=== PATIENT | male | born 1970 | race Caucasian/White ===

== ENCOUNTER 2019-02-13 08:28 | Outpatient (RCR) | payer MEDICARE, SELFPAY ==
[2019-02-13 09:12] LABS: INR 1.6; Prothrombin Time 16.5 Seconds (9.64-11.0)
== END 2019-05-14 23:59 | disposition home or self-care (01) ==
LOC: CHSLAB 08:28
PROVIDERS: PCP Family Medicine; Visit Provider Family Medicine
DX: I38 Endocarditis, valve unspecified (principal)
CPT/HCPCS: 36415; 85610

== ENCOUNTER 2019-06-17 10:17 | Outpatient (CLI) | payer BC, MEDICARE, SELFPAY ==
[2019-06-17 10:56] LABS: INR 3.9; Prothrombin Time 38.6 Seconds (9.64-11.0)
== END 2019-06-17 10:18 | disposition home or self-care (01) ==
LOC: CHSLAB 10:20
PROVIDERS: PCP Family Medicine
DX: Z79.01 Long term (current) use of anticoagulants (principal)
CPT/HCPCS: 36415; 85610

== ENCOUNTER 2019-08-31 08:52 | Outpatient (RCR) | payer BC, MEDICARE, SELFPAY ==
[2019-06-15 12:26] LABS: INR 3.7; Prothrombin Time 36.5 Seconds (9.64-11.0)
[2019-06-16 11:44] LABS: INR 4.6; Prothrombin Time 44.7 Seconds (9.64-11.0)
[2019-06-19 09:44] LABS: INR 1.9; Prothrombin Time 19.4 Seconds (9.64-11.0)
[2019-06-22 10:36] LABS: Prothrombin Time 39.1 Seconds (9.64-11.0)
[2019-06-23 08:38] LABS: INR 3.8; Prothrombin Time 37.7 Seconds (9.64-11.0)
[2019-07-03 08:23] LABS: Prothrombin Time 82.6 Seconds (9.64-11.0)
[2019-07-03 08:38] LABS: INR 8.6
[2019-07-05 09:57] LABS: INR 3.8; Prothrombin Time 37.1 Seconds (9.64-11.0)
[2019-07-06 09:02] LABS: INR 2.5; Prothrombin Time 24.9 Seconds (9.64-11.0)
[2019-07-13 09:43] LABS: INR 2.5; Prothrombin Time 24.7 Seconds (9.64-11.0)
[2019-07-20 09:21] LABS: INR 2.6; Prothrombin Time 25.7 Seconds (9.64-11.0)
[2019-07-27 10:50] LABS: INR 2.1; Prothrombin Time 21.5 Seconds (9.64-11.0)
[2019-08-17 16:31] LABS: INR 1.7; Prothrombin Time 17.5 Seconds (9.64-11.0)
[2019-08-24 09:40] LABS: INR 1.8; Prothrombin Time 18.3 Seconds (9.64-11.0)
[2019-08-31 09:10] LABS: Prothrombin Time 20.4 Seconds (9.64-11.0)
== END 2019-09-13 23:59 | disposition home or self-care (01) ==
LOC: CHSLAB 08:52
PROVIDERS: PCP Family Medicine
DX: Z79.01 Long term (current) use of anticoagulants (principal); I38 Endocarditis, valve unspecified
CPT/HCPCS: 36415; 85610

== ENCOUNTER 2019-12-04 08:48 | Outpatient (RCR) | payer BC, MEDICARE, SELFPAY ==
[2019-09-14 13:21] LABS: INR 2.5; Prothrombin Time 24.9 Seconds (9.64-11.0)
[2019-10-06 07:47] LABS: INR 3.7; Prothrombin Time 36.4 Seconds (9.64-11.0)
[2019-10-10 08:20] LABS: INR 3.3; Prothrombin Time 32.5 Seconds (9.64-11.0)
[2019-10-19 07:54] LABS: INR 3.1; Prothrombin Time 30.9 Seconds (9.64-11.0)
[2019-10-26 10:37] LABS: Prothrombin Time 30.1 Seconds (9.64-11.0)
[2019-11-09 08:18] LABS: INR 2.2; Prothrombin Time 22.6 Seconds (9.64-11.0)
[2019-11-13 08:23] LABS: INR 2.8; Prothrombin Time 27.7 Seconds (9.64-11.0)
[2019-11-27 08:20] LABS: INR 2.4; Prothrombin Time 24.2 Seconds (9.64-11.0)
[2019-12-04 09:22] LABS: INR 2.2; Prothrombin Time 21.8 Seconds (9.64-11.0)
== END 2019-12-13 23:59 | disposition home or self-care (01) ==
LOC: CHSLAB 08:48
PROVIDERS: PCP Family Medicine
DX: Z79.01 Long term (current) use of anticoagulants (principal); I38 Endocarditis, valve unspecified
CPT/HCPCS: 36415; 85610

== ENCOUNTER 2020-03-12 08:22 | Outpatient (RCR) | payer BC, MEDICARE, SELFPAY ==
[2019-12-19 08:03] LABS: INR 2.3; Prothrombin Time 23.1 Seconds (9.64-11.0)
[2019-12-26 08:11] LABS: INR 2.8; Prothrombin Time 28.3 Seconds (9.64-11.0)
[2020-01-09 08:01] LABS: INR 3.4; Prothrombin Time 33.5 Seconds (9.64-11.0)
[2020-02-05 10:29] LABS: INR 1.8; Prothrombin Time 18.3 Seconds (9.64-11.0)
[2020-02-12 11:31] LABS: INR 1.3; Prothrombin Time 13.2 Seconds (9.64-11.0)
[2020-02-19 11:10] LABS: INR 1.5; Prothrombin Time 15.6 Seconds (9.64-11.0)
[2020-02-26 13:41] LABS: INR 1.6; Prothrombin Time 16.3 Seconds (9.64-11.0)
[2020-03-12 08:47] LABS: Prothrombin Time 30.8 Seconds (9.50-12.10)
== END 2020-03-18 23:59 | disposition home or self-care (01) ==
LOC: CHSLAB 08:22
PROVIDERS: PCP Family Medicine; Visit Provider Family Medicine
DX: Z79.01 Long term (current) use of anticoagulants (principal)
CPT/HCPCS: 36415; 85610

== ENCOUNTER 2020-06-11 10:31 | Outpatient (RCR) | payer BC, MEDICARE, SELFPAY ==
[2020-03-25 09:25] LABS: INR 3.3; Prothrombin Time 34.5 Seconds (9.50-12.10)
[2020-04-09 11:54] LABS: INR 2.8; Prothrombin Time 28.8 Seconds (9.50-12.10)
[2020-05-06 10:01] LABS: INR 2.2
[2020-05-14 13:47] LABS: INR 2.5; Prothrombin Time 25.6 Seconds (9.50-12.10)
[2020-05-29 10:25] LABS: INR 2.4; Prothrombin Time 24.7 Seconds (9.50-12.10)
[2020-06-04 08:04] LABS: INR 2.4; Prothrombin Time 24.6 Seconds (9.50-12.10)
[2020-06-11 10:58] LABS: Prothrombin Time 30.6 Seconds (9.50-12.10)
== END 2020-06-23 23:59 | disposition home or self-care (01) ==
LOC: CHSLAB 10:31
PROVIDERS: PCP Family Medicine; Visit Provider Family Medicine
DX: Z79.01 Long term (current) use of anticoagulants (principal)
CPT/HCPCS: 36415; 85610

== ENCOUNTER 2020-10-01 15:45 | Outpatient (RCR) | payer BC, MEDICARE, SELFPAY ==
[2020-07-22 12:18] LABS: INR 2.7; Prothrombin Time 27.3 Seconds (9.50-12.10)
[2020-08-22 07:52] LABS: INR 2.6; Prothrombin Time 26.8 Seconds (9.50-12.10)
[2020-09-23 09:32] LABS: INR 3.6; Prothrombin Time 36.2 Seconds (9.50-12.10)
[2020-10-01 16:08] LABS: INR 2.6; Prothrombin Time 26.3 Seconds (9.50-12.10)
== END 2020-10-20 23:59 | disposition home or self-care (01) ==
LOC: CHSLAB 15:45
PROVIDERS: PCP Family Medicine; Visit Provider Family Medicine
DX: Z79.01 Long term (current) use of anticoagulants (principal); I38 Endocarditis, valve unspecified; Z95.2 Presence of prosthetic heart valve
CPT/HCPCS: 36415; 85610

== ENCOUNTER 2021-01-27 09:52 | Outpatient (RCR) | payer BC, OTHER, MEDICARE, SELFPAY ==
[2020-11-13 09:44] LABS: INR 2.7; Prothrombin Time 27.4 Seconds (9.50-12.10)
[2020-12-17 11:10] LABS: INR 4.1; Prothrombin Time 40.8 Seconds (9.50-12.10)
[2020-12-19 10:09] LABS: INR 1.8; Prothrombin Time 18.2 Seconds (9.50-12.10)
[2020-12-26 13:50] LABS: INR 3.9; Prothrombin Time 38.7 Seconds (9.50-12.10)
[2021-01-07 11:24] LABS: INR 3.8; Prothrombin Time 38.2 Seconds (9.50-12.10)
[2021-01-08 09:54] LABS: INR 2.9; Prothrombin Time 29.8 Seconds (9.50-12.10)
[2021-01-20 08:51] LABS: INR 2.3; Prothrombin Time 23.7 Seconds (9.50-12.10)
[2021-01-27 10:25] LABS: INR 2.9; Prothrombin Time 29.8 Seconds (9.50-12.10)
== END 2021-02-11 23:59 | disposition home or self-care (01) ==
LOC: CHSLAB 09:52
PROVIDERS: PCP Family Medicine; Visit Provider Family Medicine
DX: Z79.01 Long term (current) use of anticoagulants (principal); I38 Endocarditis, valve unspecified; Z95.2 Presence of prosthetic heart valve
CPT/HCPCS: 36415; 85610

== ENCOUNTER 2021-06-04 11:17 | Outpatient (RCR) | payer MEDICARE, SELFPAY ==
[2021-03-10 08:54] LABS: INR 2.5; Prothrombin Time 25.5 Seconds (9.50-12.10)
[2021-03-17 09:17] LABS: INR 3.5; Prothrombin Time 35.7 Seconds (9.50-12.10)
[2021-03-25 09:19] LABS: INR 3.2; Prothrombin Time 31.9 Seconds (9.50-12.10)
[2021-04-01 09:56] LABS: INR 3.3; Prothrombin Time 33.2 Seconds (9.50-12.10)
[2021-04-08 10:06] LABS: INR 3.4; Prothrombin Time 33.8 Seconds (9.50-12.10)
[2021-04-15 12:37] LABS: Prothrombin Time 40.1 Seconds (9.50-12.10)
[2021-04-16 12:36] LABS: INR 2.2; Prothrombin Time 23.1 Seconds (9.50-12.10)
[2021-04-29 10:59] LABS: INR 4.8; Prothrombin Time 47.8 Seconds (9.50-12.10)
[2021-04-30 13:40] LABS: INR 2.9; Prothrombin Time 29.8 Seconds (9.50-12.10)
[2021-05-13 09:47] LABS: INR 3.1; Prothrombin Time 31.3 Seconds (9.50-12.10)
[2021-05-27 09:50] LABS: INR 2.1; Prothrombin Time 21.5 Seconds (9.50-12.10)
[2021-06-04 11:55] LABS: INR 2.7; Prothrombin Time 27.1 Seconds (9.50-12.10)
== END 2021-06-08 23:59 | disposition home or self-care (01) ==
LOC: CHSLAB 11:17
PROVIDERS: PCP Family Medicine; Visit Provider Family Medicine
DX: Z79.01 Long term (current) use of anticoagulants (principal); I38 Endocarditis, valve unspecified; Z95.2 Presence of prosthetic heart valve
CPT/HCPCS: 36415; 85610

== ENCOUNTER 2021-09-22 11:23 | Outpatient (RCR) | payer MEDICARE, SELFPAY ==
[2021-07-02 09:27] LABS: INR 3.4; Prothrombin Time 34.2 Seconds (9.50-12.10)
[2021-07-15 10:11] LABS: INR 2.9; Prothrombin Time 29.8 Seconds (9.50-12.10)
[2021-08-12 10:52] LABS: INR 4.7; Prothrombin Time 46.9 Seconds (9.50-12.10)
[2021-08-13 10:00] LABS: INR 2.6; Prothrombin Time 26.9 Seconds (9.50-12.10)
[2021-08-21 11:46] LABS: INR 2.9; Prothrombin Time 29.4 Seconds (9.50-12.10)
[2021-09-22 11:47] LABS: INR 2.3; Prothrombin Time 23.3 Seconds (9.50-12.10)
== END 2021-09-30 23:59 | disposition home or self-care (01) ==
LOC: CHSLAB 11:23
PROVIDERS: PCP Family Medicine
DX: Z79.01 Long term (current) use of anticoagulants (principal); I38 Endocarditis, valve unspecified; Z95.2 Presence of prosthetic heart valve
CPT/HCPCS: 36415; 85610

== ENCOUNTER 2021-12-01 11:23 | Outpatient (RCR) | payer MEDICARE, SELFPAY ==
[2021-10-01 13:04] LABS: INR 2.5; Prothrombin Time 25.3 Seconds (9.50-12.10)
[2021-11-04 11:18] LABS: INR 1.9; Prothrombin Time 19.7 Seconds (9.50-12.10)
[2021-11-11 13:37] LABS: INR 2.7; Prothrombin Time 27.2 Seconds (9.50-12.10)
[2021-12-01 11:54] LABS: INR 3.2; Prothrombin Time 32.2 Seconds (9.50-12.10)
== END 2021-12-30 23:59 | disposition home or self-care (01) ==
LOC: CHSLAB 11:23
PROVIDERS: PCP Family Medicine
DX: Z79.01 Long term (current) use of anticoagulants (principal)
CPT/HCPCS: 36415; 85610

== ENCOUNTER 2022-03-25 13:21 | Outpatient (RCR) | payer MEDICARE, SELFPAY ==
[2022-01-06 09:55] LABS: INR 3.5; Prothrombin Time 34.5 Seconds (9.50-12.10)
[2022-03-16 10:22] LABS: INR 4.2; Prothrombin Time 41.4 Seconds (9.50-12.10)
[2022-03-17 10:54] LABS: INR 3.3; Prothrombin Time 32.5 Seconds (9.50-12.10)
[2022-03-25 13:48] LABS: INR 3.1; Prothrombin Time 31.4 Seconds (9.50-12.10)
== END 2022-04-06 23:59 | disposition home or self-care (01) ==
LOC: CHSLAB 13:21
PROVIDERS: PCP Family Medicine
DX: Z51.81 Encounter for therapeutic drug level monitoring (principal); Z95.2 Presence of prosthetic heart valve; Z79.01 Long term (current) use of anticoagulants
CPT/HCPCS: 36415; 85610

== ENCOUNTER 2022-04-29 11:34 | Outpatient (RCR) | payer MEDICARE, SELFPAY ==
[2022-04-13 09:15] LABS: INR 2.8; Prothrombin Time 28.7 Seconds (9.50-12.10)
[2022-04-29 12:13] LABS: INR 2.3; Prothrombin Time 23.1 Seconds (9.50-12.10)
== END 2022-07-12 23:59 | disposition home or self-care (01) ==
LOC: CHSLAB 11:34
PROVIDERS: PCP Family Medicine
DX: Z51.81 Encounter for therapeutic drug level monitoring (principal); Z95.2 Presence of prosthetic heart valve; Z79.01 Long term (current) use of anticoagulants
CPT/HCPCS: 36415; 85610

== ENCOUNTER 2022-10-02 12:40 | Outpatient (RCR) | payer MEDICARE, SELFPAY ==
[2022-07-13 09:20] LABS: INR 3.2; Prothrombin Time 31.8 Seconds (9.50-12.10)
[2022-08-27 08:38] LABS: INR 2.4; Prothrombin Time 24.9 Seconds (9.50-12.10)
[2022-09-30 15:37] LABS: Prothrombin Time 54.3 Seconds (9.50-12.10)
[2022-09-30 15:42] LABS: INR 5.6
[2022-10-02 13:04] LABS: Prothrombin Time 30.8 Seconds (9.50-12.10)
== END 2022-10-11 23:59 | disposition home or self-care (01) ==
LOC: CHSLAB 12:40
PROVIDERS: PCP Family Medicine; Visit Provider Family Medicine
DX: Z51.81 Encounter for therapeutic drug level monitoring (principal); Z95.2 Presence of prosthetic heart valve; Z79.01 Long term (current) use of anticoagulants
CPT/HCPCS: 36415; 85610

== ENCOUNTER 2023-01-18 10:39 | Outpatient (RCR) | payer MEDICARE, SELFPAY ==
[2022-10-27 14:45] LABS: INR 2.1; Prothrombin Time 21.5 Seconds (9.50-12.10)
[2022-11-03 15:18] LABS: INR 2.3; Prothrombin Time 23.6 Seconds (9.50-12.10)
[2022-11-30 08:57] LABS: INR 3.5; Prothrombin Time 35.5 Seconds (9.50-12.10)
[2022-12-15 12:51] LABS: INR 2.5; Prothrombin Time 25.6 Seconds (9.50-12.10)
[2023-01-18 11:00] LABS: INR 2.6; Prothrombin Time 26.6 Seconds (9.50-12.10)
== END 2023-01-25 23:59 | disposition home or self-care (01) ==
LOC: CHSLAB 10:39
PROVIDERS: PCP Family Medicine; Visit Provider Family Medicine
DX: Z51.81 Encounter for therapeutic drug level monitoring (principal); Z95.2 Presence of prosthetic heart valve; Z79.01 Long term (current) use of anticoagulants
CPT/HCPCS: 36415; 85610

== ENCOUNTER 2023-07-26 10:00 | Outpatient (RCR) | payer MEDICARE, SELFPAY ==
[2023-04-27 10:45] LABS: Prothrombin Time 21.3 Seconds (9.50-12.10)
[2023-05-06 13:48] LABS: INR 2.2; Prothrombin Time 22.9 Seconds (9.50-12.10)
[2023-05-13 11:02] LABS: Prothrombin Time 30.4 Seconds (9.50-12.10)
[2023-05-31 14:21] LABS: INR 2.7; Prothrombin Time 27.9 Seconds (9.50-12.10)
[2023-07-06 12:21] LABS: INR 3.9; Prothrombin Time 39.2 Seconds (9.50-12.1)
[2023-07-20 11:14] LABS: INR 1.5; Prothrombin Time 16.3 Seconds (9.50-12.1)
[2023-07-22 12:52] LABS: INR 2.4; Prothrombin Time 24.3 Seconds (9.50-12.1)
[2023-07-23 11:34] LABS: INR 3.1; Prothrombin Time 30.9 Seconds (9.50-12.1)
[2023-07-26 11:00] LABS: INR 2.3; Prothrombin Time 23.4 Seconds (9.50-12.1)
== END 2023-07-26 23:59 | disposition home or self-care (01) ==
LOC: CHSLAB 10:00
PROVIDERS: PCP Family Medicine; Visit Provider Family Medicine
DX: Z51.81 Encounter for therapeutic drug level monitoring (principal); Z95.2 Presence of prosthetic heart valve; Z79.01 Long term (current) use of anticoagulants
CPT/HCPCS: 36415; 85610

== ENCOUNTER 2023-08-03 09:29 | Outpatient (CLI) | payer MEDICARE, SELFPAY ==
[2023-08-03 10:20] LABS: INR 2.1; Prothrombin Time 21.7 Seconds (9.50-12.1)
[2023-08-03 10:27] LABS: Basophils Absolute Auto 0.05 K/mm3 (0.00-0.10); Basophils Percent Auto 0.8 % (0.0-1.0); Eosinophils Percent Auto 3.1 % (1.0-6.0); Hematocrit 32.1 % (40.0-54.0); Immature Granulocyte Absolute 0.03 K/mm3 (0.00-0.00); Immature Granulocyte Percent A 0.5 % (0.0-0.0); Immature Platelet Fraction Pct 2.3 % (1.0-7.0); Lymphocytes Absolute Auto 1.41 K/mm3 (1.10-4.50); Lymphocytes Percent Auto 21.8 % (18.0-42.0); Mean Corpuscular Hemoglobin 19.1 pg (27.0-31.0); Monocytes Absolute Auto 0.48 K/mm3 (0.10-0.90); Monocytes Percent Auto 7.4 % (2.0-11.0); Neutrophils Percent Auto 66.4 % (50.0-70.0); Platelet Count Result 332 K/mm3 (150-420); Red Blood Count 4.72 M/mm3 (4.70-6.10); Red Cell Distribution Width 30.1 % (11.6-14.4); White Blood Count 6.5 K/mm3 (4.8-10.8)
[2023-08-03 11:09] LABS: Iron 29 ug/dL (65-175)
[2023-08-03 11:50] LABS: Percent Iron Saturation 6 % (12-57)
== END 2023-08-03 09:30 | disposition home or self-care (01) ==
LOC: CHSLAB 09:31
PROVIDERS: PCP Family Medicine; Visit Provider Family Medicine
DX: Z79.01 Long term (current) use of anticoagulants (principal); Z95.2 Presence of prosthetic heart valve
CPT/HCPCS: 36415; 83540; 83550; 85025; 85055; 85610

== ENCOUNTER 2023-08-27 12:21 | Outpatient (CLI) | payer MEDICARE, SELFPAY ==
[2023-08-27 12:38] LABS: Basophils Absolute Auto 0.04 K/mm3 (0.00-0.10); Basophils Percent Auto 0.5 % (0.0-1.0); Eosinophils Absolute Auto 0.24 K/mm3 (0.02-0.50); Hematocrit 29.9 % (40.0-54.0); Hemoglobin 8.5 g/dL (14.0-18.0); Immature Granulocyte Absolute 0.04 K/mm3 (0.00-0.00); Immature Granulocyte Percent A 0.5 % (0.0-0.0); Immature Platelet Fraction Pct 3.9 % (1.0-7.0); Lymphocytes Absolute Auto 1.26 K/mm3 (1.10-4.50); Lymphocytes Percent Auto 15.9 % (18.0-42.0); Mean Corpuscular HGB Conc 28.4 g/dL (32-36); Mean Corpuscular Hemoglobin 18.4 pg (27.0-31.0); Mean Corpuscular Volume 64.9 fL (78.0-102.0); Monocytes Absolute Auto 0.65 K/mm3 (0.10-0.90); Monocytes Percent Auto 8.2 % (2.0-11.0); Neutrophils Absolute Auto 5.67 K/mm3 (1.70-7.20); Neutrophils Percent Auto 71.9 % (50.0-70.0); Nucleated Red Blood Cells Absolute Auto 0.04 K/mm3 (0.00-0.00); Nucleated Red Blood Cells Perc 0.5 % (0-0.0); Platelet Count Result 231 K/mm3 (150-420); Red Blood Count 4.61 M/mm3 (4.70-6.10); Red Cell Distribution Width 26.7 % (11.6-14.4); White Blood Count 7.9 K/mm3 (4.8-10.8)
[2023-08-27 12:49] LABS: INR 1.6; Prothrombin Time 17.2 Seconds (9.50-12.1)
[2023-08-27 13:03] LABS: Alanine Aminotransferase 118 U/L (16-63); Albumin Level 3.4 g/dL (3.4-5.0); Alkaline Phosphatase 121 U/L (46-116); Anion Gap 13 mmol/L (4-12); Aspartate Amino Transferase 73 U/L (15-37); Bilirubin,Total 1.3 mg/dL (0.00-1.00); Blood Urea Nitrogen 10 mg/dL (7-18); Carbon Dioxide 26 mmol/L (21-32); Chloride 100 mmol/L (98-108); Estimated Glomerular Filt Rate > 60; Glucose 169 mg/dL (70-99); Osmolality Calculated 291 mOsm/kg (285-295); Potassium 3.5 mmol/L (3.5-5.1); Sodium 139 mmol/L (136-145); Total Protein 6.6 g/dL (6.4-8.2)
[2023-08-27 13:46] LABS: Calcium 5.5 mg/dL (8.5-10.1)
== END 2023-08-27 12:22 | disposition home or self-care (01) ==
PROVIDERS: PCP Family Medicine; Visit Provider Family Medicine
DX: E83.51 Hypocalcemia (principal); E87.6 Hypokalemia; Z79.01 Long term (current) use of anticoagulants
CPT/HCPCS: 36415; 80053; 85025; 85055; 85610

== ENCOUNTER 2023-08-27 13:26 | Emergency (ER) | payer MEDICARE, SELFPAY ==
[2023-08-27] VITALS (41 sets, daily range): BP systolic 94–140; BP diastolic 61–106; PULSE 72–117; RESP 16–31; TEMP 35.9; O2SAT 97–100
--- NOTE | 2023-08-27 13:43 | ED.GENADULT ---
HPI - General Adult General Chief complaint: Recheck/Abnormal Lab/Rx Stated complaint: abnormal lab Time Seen by Provider: 08/27/23 13:42 Source: patient Mode of arrival: ambulatory Limitations: no limitations History of Present Illness HPI narrative: 53-year-old male, ex-smoker with a history of COPD, CAD status post CABG in 2019 hypertension, dyslipidemia, Atrial fibrillation on Coumadin, had cardiac catheterization last week. The patient did not have any stent placements. He developed -- numbness and tingling of his entire body which is worse in his toes and fingertips. The patient went to [facility] in [place] very was noted to have low calcium and potassium. He received IV calcium and potassium and was discharged home. The patient continued to have ongoing symptoms for which he had blood work done today. His primary care physician had blood work which revealed a low calcium of 5.97. Onset (ago): day(s) Related Data Home Medications Medication Instructions Recorded Confirmed atorvastatin 80 mg tablet 80 mg PO DAILY 08/27/23 08/27/23 ferrous sulfate 325 mg (65 mg 1 mg PO DAILY 08/27/23 08/27/23 iron) tablet furosemide 40 mg tablet 40 mg PO DAILY 08/27/23 08/27/23 metoprolol succinate 25 mg 25 mg PO DAILY 08/27/23 08/27/23 tablet,extended release 24 hr omeprazole 40 mg capsule,delayed 40 mg PO DAILY 08/27/23 08/27/23 release potassium chloride 20 mEq 20 meq PO DAILY 08/27/23 08/27/23 tablet,extended release(part/cryst) (Klor-Con M) spironolactone 25 mg tablet 12.5 mg PO DAILY 08/27/23 08/27/23 warfarin 5 mg tablet 5 mg PO DAILY 08/27/23 08/27/23 Allergies Allergy/AdvReac Type Severity Reaction Status Date / Time No Known Allergies Allergy Unverified 08/27/23 13:32 Review of Systems Review of Systems: All systems reviewed & are unremarkable except as noted in HPI and below Constitutional: Constitutional: Reports as per HPI and Reports no additional constitutional complaints Eyes: Eyes: Reports as per HPI and Reports no additional eye complaints ENT: Reports system reviewed and no additional complaints, except as documented and Reports as per HPI Cardiovascular: Cardiovascular: Reports as per HPI and Reports no additional cardiovascular complaints Respiratory: Respiratory: Reports as per HPI and Reports no additional respiratory complaints Gastrointestinal: Gastrointestinal: Reports as per HPI and Reports no additional gastrointestinal complaints Genitourinary: Genitourinary: Reports no additional male genitourinary complaints and Reports as per HPI Musculoskeletal: Musculoskeletal: Reports no additional musculoskeletal complaints and Reports as per HPI Integumentary/Breasts: Skin/Breast: Reports system reviewed and no additional complaints, except as docu and Reports as per HPI Neurologic: Reports system reviewed and no additional complaints, except as documented and Reports as per HPI Psychiatric: Psychiatric: Reports no additional psychiatric complaints and Reports as per HPI Endocrine: Endocrine: Reports no additional endocrine complaints and Reports as per HPI Hematologic/Lymphatic: Hematologic/Lymphatic: Reports no additional hematologic/lymphatic complaints and Reports as per HPI Allergic/Immunologic: Allergic/Immunologic: Reports no additional allergic/immunologic complaints and Reports as per HPI [facility] Past Medical History Medical History Atrial fibrillation Coronary artery disease Surgical History Surgical History Hx of CABG Family History Family History Mother Family history of liver disease Father Family history of Alzheimer's disease Other Diabetes mellitus Social History Social History Social History: ex-smoker Smok
[2023-08-27 14:36] LABS: Anion Gap 15 mmol/L (4-12); Blood Urea Nitrogen 12 mg/dL (7-18); Carbon Dioxide 23 mmol/L (21-32); Chloride 101 mmol/L (98-108); Estimated CRCL calculation 87 ml/min; Estimated Glomerular Filt Rate > 60; Glucose 191 mg/dL (70-99); Osmolality Calculated 292 mOsm/kg (285-295); Sodium 139 mmol/L (136-145)
--- NOTE | 2023-08-27 14:36 | PC.NURSE ---
Lab reports critical calcium of 5.7 and magnesium 0.4, erp notified.
[2023-08-27 14:37] LABS: Calcium 5.7 mg/dL (8.5-10.1)
[2023-08-27 14:38] LABS: Magnesium 0.4 mg/dL (1.8-2.4)
--- NOTE | 2023-08-27 14:45 | PC.NURSE ---
Per ERP, start Potassium infusion after Magnesium is finished.
[2023-08-27] MEDS: SPIRONOLACTONE 25 MG TABLET PO (14:52)
[2023-08-27] MEDS: MAGNESIUM SULF 4 GM/WATER100ML 4 GM/100 ML BAG IVPB ×2 (14:53→21:35)
[2023-08-27 15:01] LABS: Thyroid Stimulating Hormone Reflex 4.25 u/IU/mL (0.36-3.74)
[2023-08-27 15:02] LABS: Free T4 Free Thyroxine Reflex 1.02 ng/dL (0.76-1.46)
[2023-08-27] MEDS: POTASSIUM CHLORIDE 20 MEQ ER TABLET 40 MEQ PO (17:13)
--- NOTE | 2023-08-27 17:15 | PC.NURSE ---
Per ERP initiate 2nd IV site, and start IV potassium at this time.
[2023-08-27] MEDS: KCL 20 MEQ/SW 100 ML 100 ML 50 MEQ IVPB ×2 (17:16→22:41)
[2023-08-27] MEDS: SODIUM CHLORIDE 0.9% IV 500 ML 999 ML IV CONT ×2 (17:17→22:43)
[2023-08-27] MEDS: CALCIUM GLUC 2,000 MG/NS 100ML 2,000 MG/100 ML BAG 100 MG IVPB ×2 (19:08→21:38)
--- NOTE | 2023-08-27 19:15 | PC.NURSE ---
Report received, pt resting and has calcium running per order. Pt ate dinner. He reports having tingling and numbness again today and he called his Dr office to have labs done and his Ca levels were very critical low so he was sent back to ER today. He states he was just in [facility] 2 days ago for saame sxs and had low Ca levels. He also was given IV K and Ca when at [facility] and then sent home. He reports starting in w/ same sxs today.
[2023-08-27 21:02] LABS: Anion Gap 13 mmol/L (4-12); Blood Urea Nitrogen 11 mg/dL (7-18); Calcium 6.2 mg/dL (8.5-10.1); Carbon Dioxide 25 mmol/L (21-32); Chloride 101 mmol/L (98-108); Estimated CRCL calculation 89 ml/min; Estimated Glomerular Filt Rate > 60; Glucose 125 mg/dL (70-99); Magnesium 1.5 mg/dL (1.8-2.4); Osmolality Calculated 288 mOsm/kg (285-295); Potassium 3.5 mmol/L (3.5-5.1); Sodium 139 mmol/L (136-145)
--- NOTE | 2023-08-27 21:30 | PC.NURSE ---
Pt labs back and ERP in to discuss POC c pt and his . Explained in detail need to stay for correction of lab values. Pt resting, watching TV, up using urinal at bedside per self. VSS, continuing to monitor. POC to initiate more IV Calcium and Magnesium discussed. Pt aware of POC. No needs voiced at this time, call chong at side.
[2023-08-28] VITALS (8 sets, daily range): BP systolic 104–126; BP diastolic 63–76; PULSE 65–78; RESP 18–20; TEMP 36.6; O2SAT 97–98
--- NOTE | 2023-08-28 00:10 | PC.NURSE ---
Explained reason for wait times on labs due to chemistry machine down in lab. POC for redraw of labs p all IV meds completed. Pt resting c at bedside, continuing to monitor. VSS, monitor shows NSR. Pt aware of POC.
[2023-08-28] MEDS: CALCIUM GLUC 2,000 MG/NS 100ML 2,000 MG/100 ML BAG 100 MG IVPB (00:24)
--- NOTE | 2023-08-28 02:50 | PC.NURSE ---
Pt resting comfortably, voices no c/o. POC again discussed c pt to have labs redrawn at 0500 this morning and to await results. Will continue to monitor until labs redone this am. TV on, VSS. Call chong at pt side.
--- NOTE | 2023-08-28 03:53 | PC.NURSE ---
Pt sleeping, no distress noted, continuing to monitor.
--- NOTE | 2023-08-28 06:13 | PC.NURSE ---
Pt resting, awaiting lab test results. No c/o, call chong at pt side.
[2023-08-28 06:46] LABS: Anion Gap 7 mmol/L (4-12); Blood Urea Nitrogen 9 mg/dL (9-20); Calcium 6.8 mg/dL (8.4-10.2); Carbon Dioxide 20 mmol/L (22-30); Chloride 107 mmol/L (98-107); Estimated CRCL calculation 139 ml/min; Estimated Glomerular Filt Rate > 60; Glucose 141 mg/dL (65-110); Magnesium 2.2 mg/dL (1.6-2.3); Osmolality Calculated 278 mOsm/kg (285-295); Potassium 4.2 mmol/L (3.4-5.0); Sodium 134 mmol/L (137-145)
[2023-08-28] MEDS: calcitrioL 0.25 MCG CAPSULE PO (07:01)
[2023-08-28 16:38] LABS: Parathyroid Intact 26 pg/mL (16-77)
[2023-08-30 10:12] LABS: Ionized Calcium 3.2 mg/dL (4.7-5.5)
[2023-08-30 11:57] LABS: Vitamin D 25 Hydroxy 38 ng/mL (30-100)
== END 2023-08-28 07:19 | disposition home or self-care (01) ==
PROVIDERS: Emergency Provider Internal Medicine Critical Care Medicine; PCP Family Medicine
DX: D50.9 Iron deficiency anemia, unspecified (principal); E87.8 Other disorders of electrolyte and fluid balance, not elsewhere classified; R74.01 Elevation of levels of liver transaminase levels; E83.51 Hypocalcemia; E87.6 Hypokalemia; I25.10 Atherosclerotic heart disease of native coronary artery without angina pectoris; J44.9 Chronic obstructive pulmonary disease, unspecified; I10 Essential (primary) hypertension; E78.5 Hyperlipidemia, unspecified; I48.91 Unspecified atrial fibrillation; Z95.1 Presence of aortocoronary bypass graft; Z79.01 Long term (current) use of anticoagulants
CPT/HCPCS: 36415; 80048; 82306; 82330; 83735; 83970; 84439; 84443; 96365; 96366; 96367; 96368; 99284; A9270; J0613; J3475; J3480; J7040

== ENCOUNTER 2023-09-10 12:08 | Outpatient (CLI) | payer MEDICARE, SELFPAY ==
[2023-09-10 13:24] LABS: Alanine Aminotransferase 26 U/L (16-63); Alkaline Phosphatase 133 U/L (46-116); Anion Gap 9 mmol/L (4-12); Aspartate Amino Transferase 23 U/L (15-37); Bilirubin,Total 1.2 mg/dL (0.00-1.00); Blood Urea Nitrogen 14 mg/dL (7-18); Calcium 7.7 mg/dL (8.5-10.1); Carbon Dioxide 26 mmol/L (21-32); Chloride 99 mmol/L (98-108); Estimated Glomerular Filt Rate > 60; Glucose 108 mg/dL (70-99); Osmolality Calculated 279 mOsm/kg (285-295); Phosphorus 3.4 mg/dL (2.6-4.7); Sodium 134 mmol/L (136-145)
[2023-09-10 14:44] LABS: Magnesium 0.8 mg/dL (1.8-2.4)
== END 2023-09-10 12:09 | disposition home or self-care (01) ==
LOC: CHSLAB 12:10
PROVIDERS: PCP Family Medicine; Visit Provider Family Medicine
DX: E83.51 Hypocalcemia (principal)
CPT/HCPCS: 36415; 80053; 83735; 84100

== ENCOUNTER 2023-09-15 16:31 | Outpatient (CLI) | payer MEDICARE, SELFPAY ==
[2023-09-15 17:02] LABS: Alanine Aminotransferase 19 U/L (16-63); Albumin Level 3.8 g/dL (3.4-5.0); Alkaline Phosphatase 126 U/L (46-116); Anion Gap 13 mmol/L (4-12); Aspartate Amino Transferase 21 U/L (15-37); Bilirubin,Total 0.9 mg/dL (0.00-1.00); Blood Urea Nitrogen 17 mg/dL (7-18); Calcium 7.1 mg/dL (8.5-10.1); Carbon Dioxide 24 mmol/L (21-32); Chloride 101 mmol/L (98-108); Estimated Glomerular Filt Rate > 60; Glucose 174 mg/dL (70-99); Osmolality Calculated 291 mOsm/kg (285-295); Potassium 3.6 mmol/L (3.5-5.1); Sodium 138 mmol/L (136-145); Total Protein 7.1 g/dL (6.4-8.2)
[2023-09-15 17:03] LABS: INR 2.6; Prothrombin Time 26.8 Seconds (9.50-12.1)
[2023-09-15 17:04] LABS: Magnesium 0.8 mg/dL (1.8-2.4)
[2023-09-16 15:01] LABS: Phosphorus 2.6 mg/dL (2.6-4.7)
== END 2023-09-15 16:32 | disposition home or self-care (01) ==
LOC: CHSLAB 16:33
PROVIDERS: PCP Family Medicine; Visit Provider Family Medicine
DX: E83.51 Hypocalcemia (principal); E83.42 Hypomagnesemia; Z79.01 Long term (current) use of anticoagulants
CPT/HCPCS: 36415; 80053; 83735; 84100; 85610

== ENCOUNTER 2023-09-17 10:46 | Outpatient (CLI) | payer MEDICARE, SELFPAY ==
[2023-09-17 11:14] LABS: Magnesium 0.9 mg/dL (1.8-2.4)
== END 2023-09-17 10:47 | disposition home or self-care (01) ==
LOC: CHSLAB 10:48
PROVIDERS: PCP Family Medicine; Visit Provider Family Medicine
DX: E83.42 Hypomagnesemia (principal)
CPT/HCPCS: 36415; 83735

== ENCOUNTER 2023-09-20 13:36 | Outpatient (CLI) | payer MEDICARE, SELFPAY ==
[2023-09-20 14:17] LABS: Anion Gap 8 mmol/L (4-12); Blood Urea Nitrogen 20 mg/dL (7-18); Calcium 8.8 mg/dL (8.5-10.1); Carbon Dioxide 29 mmol/L (21-32); Chloride 100 mmol/L (98-108); Estimated Glomerular Filt Rate > 60; Glucose 98 mg/dL (70-99); Magnesium 1.5 mg/dL (1.8-2.4); Osmolality Calculated 286 mOsm/kg (285-295); Phosphorus 2.7 mg/dL (2.6-4.7); Potassium 4.7 mmol/L (3.5-5.1); Sodium 137 mmol/L (136-145)
== END 2023-09-20 13:37 | disposition home or self-care (01) ==
LOC: CHSLAB 13:39
PROVIDERS: PCP Family Medicine; Visit Provider Family Medicine
DX: E83.42 Hypomagnesemia (principal)
CPT/HCPCS: 36415; 80048; 80053; 83735; 84100

== ENCOUNTER 2023-09-27 12:04 | Outpatient (CLI) | payer MEDICARE, SELFPAY ==
[2023-09-27 12:34] LABS: INR 2.3; Prothrombin Time 23.5 Seconds (9.50-12.1)
[2023-09-27 12:57] LABS: Anion Gap 8 mmol/L (4-12); Blood Urea Nitrogen 18 mg/dL (7-18); Calcium 8.4 mg/dL (8.5-10.1); Carbon Dioxide 27 mmol/L (21-32); Chloride 100 mmol/L (98-108); Estimated Glomerular Filt Rate > 60; Glucose 249 mg/dL (70-99); Magnesium 1.4 mg/dL (1.8-2.4); Osmolality Calculated 289 mOsm/kg (285-295); Potassium 4.5 mmol/L (3.5-5.1); Sodium 135 mmol/L (136-145)
== END 2023-09-27 12:05 | disposition home or self-care (01) ==
PROVIDERS: PCP Family Medicine; Visit Provider Family Medicine
DX: Z79.01 Long term (current) use of anticoagulants (principal); E83.42 Hypomagnesemia
CPT/HCPCS: 36415; 80048; 83735; 85610

== ENCOUNTER 2023-10-04 08:32 | Outpatient (CLI) | payer MEDICARE, SELFPAY ==
[2023-10-04 09:04] LABS: Anion Gap 10 mmol/L (4-12); Blood Urea Nitrogen 18 mg/dL (7-18); Calcium 9.4 mg/dL (8.5-10.1); Carbon Dioxide 27 mmol/L (21-32); Chloride 98 mmol/L (98-108); Estimated Glomerular Filt Rate > 60; Glucose 161 mg/dL (70-99); Magnesium 1.8 mg/dL (1.8-2.4); Osmolality Calculated 284 mOsm/kg (285-295); Potassium 4.6 mmol/L (3.5-5.1); Sodium 135 mmol/L (136-145)
[2023-10-04 09:07] LABS: INR 2.3; Prothrombin Time 23.4 Seconds (9.50-12.1)
== END 2023-10-04 08:33 | disposition home or self-care (01) ==
LOC: CHSLAB 08:34
PROVIDERS: PCP Family Medicine; Visit Provider Family Medicine
DX: Z79.01 Long term (current) use of anticoagulants (principal); E83.42 Hypomagnesemia
CPT/HCPCS: 36415; 80048; 83735; 85610

== ENCOUNTER 2023-10-27 11:17 | Outpatient (RCR) | payer MEDICARE, SELFPAY ==
[2023-08-10 10:21] LABS: INR 2.3
[2023-08-16 15:11] LABS: INR 3.6
[2023-08-30 13:41] LABS: INR 2.1; Prothrombin Time 21.6 Seconds (9.50-12.1)
[2023-09-02 11:06] LABS: INR 2.9; Prothrombin Time 29.3 Seconds (9.50-12.1)
[2023-09-09 12:20] LABS: INR 2.4; Prothrombin Time 24.5 Seconds (9.50-12.1)
[2023-10-11 12:41] LABS: INR 2.8; Prothrombin Time 28.5 Seconds (9.50-12.1)
[2023-10-18 10:49] LABS: INR 2.8; Prothrombin Time 28.2 Seconds (9.50-12.1)
[2023-10-27 11:48] LABS: INR 3.4; Prothrombin Time 34.5 Seconds (9.50-12.1)
== END 2023-11-08 23:59 | disposition home or self-care (01) ==
LOC: CHSLAB 11:17
PROVIDERS: PCP Family Medicine; Visit Provider Family Medicine
DX: Z51.81 Encounter for therapeutic drug level monitoring (principal); Z95.2 Presence of prosthetic heart valve; Z79.01 Long term (current) use of anticoagulants
CPT/HCPCS: 36415; 85610

== ENCOUNTER 2023-11-22 11:41 | Outpatient (CLI) | payer MEDICARE, SELFPAY ==
[2023-11-22 12:24] LABS: INR 3.1; Prothrombin Time 31.4 Seconds (9.50-12.1)
[2023-11-22 12:49] LABS: Anion Gap 9 mmol/L (4-12); Blood Urea Nitrogen 19 mg/dL (7-18); Calcium 8.9 mg/dL (8.5-10.1); Carbon Dioxide 29 mmol/L (21-32); Chloride 98 mmol/L (98-108); Estimated Glomerular Filt Rate > 60; Glucose 201 mg/dL (70-99); Magnesium 1.6 mg/dL (1.8-2.4); Osmolality Calculated 290 mOsm/kg (285-295); Potassium 4.4 mmol/L (3.5-5.1); Sodium 136 mmol/L (136-145)
== END 2023-11-22 11:42 | disposition home or self-care (01) ==
LOC: CHSLAB 11:47
PROVIDERS: PCP Family Medicine; Visit Provider Family Medicine
DX: E83.42 Hypomagnesemia (principal); Z79.01 Long term (current) use of anticoagulants; E87.6 Hypokalemia
CPT/HCPCS: 36415; 80048; 83735; 85610

== ENCOUNTER 2023-12-14 12:35 | Outpatient (CLI) | payer MEDICARE, SELFPAY ==
[2023-12-14 13:04] LABS: INR 2.9; Prothrombin Time 29.8 Seconds (9.50-12.1)
[2023-12-14 13:20] LABS: Magnesium 1.8 mg/dL (1.8-2.4)
== END 2023-12-14 12:36 | disposition home or self-care (01) ==
PROVIDERS: PCP Family Medicine; Visit Provider Family Medicine
DX: E83.42 Hypomagnesemia (principal); Z79.01 Long term (current) use of anticoagulants
CPT/HCPCS: 36415; 83735; 85610

== ENCOUNTER 2024-01-24 09:03 | Outpatient (CLI) | payer MEDICARE, SELFPAY ==
[2024-01-24 09:48] LABS: INR 2.3; Prothrombin Time 23.7 Seconds (9.50-12.1)
[2024-01-24 10:04] LABS: Magnesium 2.2 mg/dL (1.8-2.4)
== END 2024-01-24 09:04 | disposition home or self-care (01) ==
LOC: CHSLAB 09:04
PROVIDERS: PCP Family Medicine; Visit Provider Family Medicine
DX: Z79.01 Long term (current) use of anticoagulants (principal); E83.42 Hypomagnesemia
CPT/HCPCS: 36415; 83735; 85610

== ENCOUNTER 2024-06-20 08:39 | Outpatient (CLI) | payer MEDICARE, SELFPAY ==
--- OUTSIDE RECORDS SUMMARY | 2024-06-20 09:02 | XMS_ITS | Encounter Summary ---
Author Organization [facility] Address [address] [place] [address] Care Team Providers Care High Pressure Firer Name Role Phone Randolph Moore MD Primary Care Provider [phone] Roberta Nicole MD Unavailable Encounter Details Date Type Department Care Team (Late st Contact Info) Description 08/24/2023 Prep for Procedure [facility] [address] [place] [address] José Antonio Hermosillo MD [address] [place] [id number] Social History Tobacco Use Types Packs/Day Years Used Date Smoking Tobacco: Former Cigarettes Q uit: 05/22/2006 Smokeless Tobacco: Never Alcohol Use Standard Drinks/Week Comments Not Currently 0 (1 standard drink = 0.6 oz pur e alcohol) [address] [facility] [employer] Answer Date Recorded In the past 12 months has [facility] [employer], gas, oil, or water [employer] threatened to shut off services in your home? No 07/17/2023 Humiliation, Afraid, Rape, and Kick questionnair e Answer Date Recorded Within the last year, have y ou been afraid of your partner or ex-partner? No 07/17/2023 Within the last year, have y ou been humiliated or emotionally abused in other ways by your partner or ex-partner? No Within the last year, have y ou been kicked, hit, slapped, or otherwise physically hurt by your partner or ex-partner? No 07/17/2023 Within the last year, have y ou been raped or forced to have any kind of sexual activity by your partner or ex-partner? No 07/17/2023 Overall Financial Resource Strain (CARDIA) Answe r Date Recorded How hard is it for you to pa y for the very basics like food, housing, medical care, and heating? Not very hard 07/17/2023 Hunger Vital Sign Answer Date Recorded Within the past 12 months, y ou worried that your food would run out before you got the money to buy more. Never true 07/17/19 24 Within the past 12 months, t he food you bought just didn't last and you didn't have money to get more. Never true 07/17/2023 PRAPARE - Transportation Answer Date Re corded In the past 12 months, has l ack of transportation kept you from medical appointments or from getting medications? No 09/2023 In the past 12 months, has l ack of transportation kept you from meetings, work, or from getting things needed for daily living? No 07/17/2023 Housing Stability Vital Sign Answer Max e Recorded In the last 12 months, was t here a time when you were not able to pay the mortgage or rent on time? No 07/17/2023 In the last 12 months, how many places have you lived? 1 07/17/2023 In the last 12 months, was t here a time when you did not have a steady place to sleep or slept in a alf (including now)? 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 Answer Date of Assessment Author Status No 07/17/2023 4:27 AM Milly Borjas RN Active * Do you have serious difficulty walking or climbing stairs? Answer Date of Assessment Author Status No 07/17/2023 4:27 AM CDT Milly Joy RN Active * Do you have difficulty dressing or bathing? Answer Date of Assessment Author Status No 07/17/2023 4:27 AM CDT Milly Joy RN Active * Because of a physical, mental, or emotional condition, do you have difficulty doing errands alone such as visiting a doctor's office or shopping? Answer Date of Assessment Author Status No 07/17/2023 4:27 AM SANDRAT Milly Joy RN Active documented as of this encounter Mental Status * Because of a physical, mental, or emotional condition, do you have serious difficulty concentrating, remembering, or making decisions? Answer Entry Date Author Status No 07/17/2023 4:27 AM Milly Borjas RN Active documented in this encounter Plan of Treatment Upcoming Encounters Date Type Department Care Team (Late st Contact Info) Description 09/01/2024 12:30 PM CDT Appointment [facility] [address] Roberta Nicole MD [address] [place] [phone] 09/22/2024 11:00 AM CDT Office Visit [facility] [place] [phone] Roberta Nicole MD [address] [place] [id number] 03/26/2025 1:30 PM WAREHOUSE STOCK [employer] [place] [place] [address] Roberta Nicole MD [address] [place] [phone] 04/02/2025 9:00 AM WAREHOUSE STOCK CLERK Office Visit [facility] [place] [phone] Roberta Nicole MD [address] [place] [phone] documented as of this encounter Visit Diagnoses Not on filedocumented in this encounter Care Teams High Pressure Firer Relationship Specialty Start Date End Date Randolph Moore MD [address] [facility] [place] [id number] PCP - General FAMILY PRACTICE 11/07/18 Roberta Nicole MD [address] [place] [address] Consulting Physician CARDIOVASCULAR DISEASE 07/15/23 documented as of this encounter
--- OUTSIDE RECORDS SUMMARY | 2024-06-20 09:02 | XMS_ITS | Referral Summary ---
Author Organization [facility] [place] [address] [facility] [address] Address [address] [place] [address] Care Team Providers Care Supervisor Denture Department Name Role Phone Randolph Moore MD Primary Care Provider [phone] Chris Akins MD PhD Unavailable [phone] Bandar Harkins MD, Barrett Moser Unavailable [phone] Allergies No known active allergies Medications tiotropium (SPIRIVA WITH HANDIHALER) 18 mcg per inhalation capsule inhale 1 capsule by inhalation route every day 0 0 05/24/19 16 Active omeprazole (PriLOSEC) 20 mg capsule take 1 capsule by oral route 2 times every day before a meal 0 0 05/24/19 16 Active albuterol HFA (PROVENTIL HFA,VENTOLIN HFA,PROAIR HFA) 90 mcg/actuation inhalerIndications: Chronic Obstructive Pulmonary Disease Inhale 2 puffs every 6 (six) hours as needed for wheezing 1 Inhaler 02/25/20 19 Active ferrous gluconate (ferrous gluconate) 324 mg (37.5 mg of elemental iron) tablet Active furosemide (LASIX) 40 mg tablet Take 1 tablet (40 mg total) by mouth daily for 7 days 7 tablet 06/13/19 20 Active atorvastatin (LIPITOR) 80 mg tablet Take 1 tablet (80 mg total) by mouth daily 30 tablet 06/14/19 20 Active warfarin (COUMADIN) 2 mg tabletIndications:M echanical Valve Thromboembolism Prophylaxis Take 3.5 tablets (7 mg total) by mouth daily And per Dr. Moore's instructions 105 tablet 06/13/19 20 Active acetaminophen 500 mg capsule Take 2 capsules (1,000 mg total) by mouth every 6 (six) hours as needed for pain 30 tablet 06/13/19 20 Active aspirin 81 mg chewable tablet Take 1 tablet (81 mg total) by mouth daily 30 tablet 06/14/19 20 Active linaGLIPtin (TRADJENTA) 5 mg tabletIndications:t ype 2 diabetes mellitus Take 1 tablet (5 mg total) by mouth daily 30 tablet 06/14/19 20 Active metoprolol XL (TOPROL-XL) 25 mg 24 hr tablet Take 0.5 tablets (12.5 mg total) by mouth daily with dinner Hold for HR < 60 15 tablet 06/13/19 20 Active polyethylene glycol (MIRALAX) 17 gram packetIndications:c onstipation Take 1 packet (17 g total) by mouth daily as needed for constipation 30 packet 06/13/19 20 Active spironolactone (ALDACTONE) 25 mg tablet Take 0.5 tablets (12.5 mg total) by mouth daily 15 tablet 06/14/19 20 Active insulin glargine (Lantus Solostar U-100 Insulin) 100 unit/mL (3 mL) insulin pen Inject 18 Units under the skin nightly 5 pen 06/13/19 Active pen needle, diabetic (Pen Needle) 32 gauge x /32 needle Use as directed once a day. 100 each 06/13/19 20 Active dextrose (dextrose) 1 gram tablet,chewable Take 1 tablet by mouth every 6 (six) hours as needed (glucose < 70) 30 tablet 06/13/19 20 Active Active Problems Problem Noted Date Diagnosed Date Hyponatremia 06/12/2019 Assessment & Plan (06/12/2019 1:10 PM PAINT SPRAYING MACHINE OPERATOR HELPER): Ongoing since 06/05 Daily Labs throughout- Last night = 131 (previously was = 130) Continues on free water fluid restriction. High risk medication use 06/08/2019 Assessment & Plan (06/12/2019 1:00 PM PAINT SPRAYING MACHINE OPERATOR HELPER): Ongoing coumadin with heparin drip for RENE mitral valve & a-fib Goal INR approx. 3 Last night= coumadin 8 mg Ongoing daily INRs, while inpatient Assessment & Plan (06/10/2019 2:09 PM PAINT SPRAYING MACHINE OPERATOR HELPER): Intense insulin regimen in the setting of variable oral intake, MARIA DEL ROSARIO and insulin naivete places patient at increased risk of hypoglycemia/hyperglycemia which may have serious metabolic, CV and neuro consequences. We will continue to intensely monitor blood glucose and titrate insulin as needed to optimize glycemic control to avoid hypoglycemic/hyperglycemic events. Assessment & Plan (06/08/2019 1:08 PM PAINT SPRAYING MACHINE OPERATOR HELPER): Intense insulin regimen in the setting of variable oral intake, MARIA DEL ROSARIO and insulin naivete places patient at increased risk of hypoglycemia/hyperglycemia which may have serious metabolic, CV and neuro consequences. We will continue to intensely monitor blood glucose and titrate insulin as needed to optimize glycemic control to avoid hypoglycemic/hyperglycemic events. H/O tricuspid valve repair 06/07/2019 Assessment & Plan (06/12/2019 1:01 PM PAINT SPRAYING MACHINE OPERATOR HELPER): Post-op from [place] MVR with tricuspid valve repair on 05/31/2019 See Mitral valve replacement problem, above Assessment & Plan (06/07/2019 10:01 AM PAINT SPRAYING MACHINE OPERATOR HELPER): Post-op from [place] [facility] with tricuspid valve repair on 05/31/2019 See Mitral valve replacement problem, above DM (diabetes mellitus), type 2 06/06/2019 Assessment & Plan (06/12/2019 12:56 PM PAINT SPRAYING MACHINE OPERATOR HELPER): Continue SSI, Lantus Endocrine consult with core maker & nursing educator following Blood sugars well controlled on current regimen (121-197 over past 24 hrs) A1c 9.6 on admission Will need to check blood sugars at least TID upon discharge Potential discharge on gliptins at discharge. . Assessment & Plan (06/13/2019 5:16 PM PAINT SPRAYING MACHINE OPERATOR HELPER): 49 y.o. male with type 2 diabetes mellitus (2-3 years), no insulin use (previously on Metformin monotherapy), poorly-controlled (Hgb A1c 9.6%), complicated by hypertension, hyperlipidemia, COPD, atrial fibrillation, mitral valve stenosis status-post valvuloplasty (2005), status-post mitral valve repair (2006, mechanical valve), and secondary mitral valve repair complicated by atrial fibrillation with RVR, cardiogenic shock, shock liver and MARIA DEL ROSARIO this admission. HgbA1C = 9.6% this admission. Over the previous 24 hours, blood glucose in good margin of safety with range of 103-177 mg/dl with 21 units TDD insulin coverage. Target inpatient blood glucose is 100-180 mg/dl. Fasting blood glucose this morning was 95 mg/dl. Pre-lunch blood glucose 120 mg/dl. Glycemia tightly controlled this morning; as linagliptin will be started today, we recommend decreasing the basal insulin dose and continuing the current correction scale insulin doses. We will continue to intensely monitor blood glucose and titrate insulin as needed to optimize glycemic control to avoid hypoglycemic/hyperglycemic events. Recommendations: 1) Decrease Lantus from 20 units to 18 units qHS + low-dose SSI while inpatient 2) QID fingersticks 3) Start linagliptin 5 mg PO every day Discharge Planning Anticipate discharge on basal Lantus 18 units qHS + linagliptin 5 mg PO every day, no mealtime or SSI Diabetes education (CDE) referral needed prior to discharge - completed 06/08/2019 Needs instruction for BG monitoring, basal insulin injections, diabetic diet Needs glucometer and testing supplies - QID finger sticks at home Patient will require outpatient Endocrinology follow-up upon discharge for further monitoring and management (he plans to follow up with PCP, Blue Moore MD in [place], [place]) Instructed Mr. Griffin to bring glucometer to follow up visit for PCP to review glycemia and adjust diabetes regimen as needed; verbalized understanding. Recommendations for diabetes management were discussed with the primary team. For questions regarding this patient today, please call Radha Jade NP at [phone]. If after hours, please contact the Diabetes Fellow at [phone]. Assessment & Plan (06/10/2019 2:09 PM PAINT SPRAYING MACHINE OPERATOR HELPER): Continue SSI, Lantus Endocrine consult with core maker & nursing educator Last 24 hrs glucose = 135-191 A1c 9.6 on admission Will need to check blood sugars at least TID upon disharge Acute pain 05/31/2019 Assessment & Plan (06/12/2019 12:58 PM PAINT SPRAYING MACHINE OPERATOR HELPER): PRN tylenol, at present Ongoing stool softeners for anesthesia side effects Increasing activity as tolerated. Assessment & Plan (06/07/2019 10:02 AM PAINT SPRAYING MACHINE OPERATOR HELPER): PRN tylenol, at present Ongoing stool softeners for anesthesia side effects Increasing activity, as tolerated. Assessment & Plan (06/05/2019 10:14 AM PAINT SPRAYING MACHINE OPERATOR HELPER): Denies pain at this time -PRN tylenol -avoiding narcotics with ileus Assessment & Plan (06/04/2019 5:41 PM PAINT SPRAYING MACHINE OPERATOR HELPER): Denies pain at this time -PRN tylenol -avoiding narcotics with constipation Assessment & Plan (06/03/2019 4:10 PM PAINT SPRAYING MACHINE OPERATOR HELPER): Denies pain at this time -PRN tylenol -consider low dose oxy if needed as delirium is improving Assessment & Plan (06/02/2019 1:05 PM PAINT SPRAYING MACHINE OPERATOR HELPER): 2/2 cardiac surgery via median sternotomy. - Limit narcotics with delirium - Scheduled APAP - PRN oxycodone for breakthrough pain Assessment & Plan (06/01/2019 12:44 PM PAINT SPRAYING MACHINE OPERATOR HELPER): 2/2 cardiac surgery via median sternotomy. Currently sedated w/ propofol. - Fentanyl IV PRN prior to extubation - Plan to start scheduled Tylenol and PRN Oxy/Dilaudid once extubated Assessment & Plan (05/31/2019 4:51 PM PAINT SPRAYING MACHINE OPERATOR HELPER): 2/2 cardiac surgery via median sternotomy. Currently sedated w/ - Fentanyl IV PRN prior to extubation - Plan to start scheduled Tylenol and PRN Oxy/Dilaudid once extubated - Ensure pain control is adequate to facilitate participation in care and deep breathing Acute blood loss anemia 05/31/2019 Assessment & Plan (06/12/2019 1:01 PM PAINT SPRAYING MACHINE OPERATOR HELPER): Expected postop due to ABLA Daily CBC, while inpatient Receiving MVI with iron Drifted slightly, from yesterday Assessment & Plan (06/07/2019 10:08 AM PAINT SPRAYING MACHINE OPERATOR HELPER): Expected postop due to ABLA Daily CBC, while inpatient Added MVI with iron Assessment & Plan (06/05/2019 10:18 AM PAINT SPRAYING MACHINE OPERATOR HELPER): Hgb stable at 8.0 (8.1). No active signs of bleeding. Hemodynamically stable off vasopressors and tolerating epi wean - No current indication for transfusion, consider if patient becomes hemodynamically unstable with increased pressor requirements or Hgb < 8 and symptomatic - CBC daily - continue heparin gtt - repeat cbc now and coags Assessment & Plan (06/02/2019 1:07 PM PAINT SPRAYING MACHINE OPERATOR HELPER): Expected following cardiac surgery. Hgb 8.8. Hemodynamically stable off vasopressors. - No current indication for transfusion, consider if patient becomes hemodynamically unstable with increased pressor requirements or Hgb < 8 and symptomatic - CBC daily Assessment & Plan (06/01/2019 12:44 PM PAINT SPRAYING MACHINE OPERATOR HELPER): Expected following cardiac surgery. Hgb stable. Hemodynamically stable off vasopressors. - No current indication for transfusion, consider if patient becomes hemodynamically unstable with increased pressor requirements or Hgb < 8 and symptomatic - CBC daily Assessment & Plan (05/31/2019 8:06 PM PAINT SPRAYING MACHINE OPERATOR HELPER): Baseline hemoglobin 11.1 upon admission. Intra-op course notable for coagulopathy. INR elevated pre-operatively d/t coumadin (last dose Wednesday) and liver dysfunction. Intra-op received 2 platelets, 3 PRBC, 8 FFP, 20 cryo, and 28 DDAVP. Chest tubes w/moderate sanguinous drainage upon arrival to [facility]. - CBC - No acute indication for transfusion - Notify CTS if chest tube output > 150 ml/hr x 2 hours and coagulopathies corrected Additional Care: Hemoglobin stable. Chest tubes w/minimal output. Weaning down on pressors. 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, mod to severe TR - Plan for MV replacement 05/[address] surgery Assessment & Plan (06/12/2019 12:52 PM PAINT SPRAYING MACHINE OPERATOR HELPER): Post-op from [place] [facility] with tricuspid valve repair on 05/31/2019 Continue post op care (telemetry, VS, I &O, medication & weights) Ongoing heparin drip until INR closer to 3 Continue Coumadin, INR 1.6 last night Plan to give Coumadin 8 mg tonight Receiving PT and aggressive pulmonary toilet New onset DM (see diabetes problem) PT/OT Discharge planning Assessment & Plan (06/08/2019 1:09 PM PAINT SPRAYING MACHINE OPERATOR HELPER): Good glycemic control required to promote healing Assessment & Plan (06/10/2019 2:11 PM PAINT SPRAYING MACHINE OPERATOR HELPER): Post-op from [place] [facility] with tricuspid valve repair on 05/31/2019 Continue post op care (telemetry, VS, I &O, medication & weights) Ongoing heparin drip until INR 2.5 Continue Coumadin, INR 1.4 Plan to give Coumadin 5mg tonight Receiving PT and aggressive pulmonary toilet New onset DM (see diabetes problem) PT/OT Discharge planning Assessment & Plan (06/05/2019 10:10 AM PAINT SPRAYING MACHINE OPERATOR HELPER): S/P Mechanical MVR. Post-op care to include: - Continue heparin infusion per nomogram for mechanical valve & fib -no couadin with EPW present - ASA daily - increase statin to 80mg daily - Colace, senna, miralax for bowel regimen, lactulose - PPI daily (home med) - SCD's for DVT ppx - PT/OT eval and treat Assessment & Plan (06/04/2019 5:33 PM PAINT SPRAYING MACHINE OPERATOR HELPER): S/P Mechanical MVR. Post-op care to include: - Continue heparin infusion per nomogram for mechanical valve -no couadin with EPW present - ASA daily - resume statin (shock liver improving) - Colace, senna, miralax for bowel regimen - PPI daily (home med) - SCD's for DVT ppx - PT/OT eval and treat Assessment & Plan (06/03/2019 4:36 PM PAINT SPRAYING MACHINE OPERATOR HELPER): S/P Mechanical MVR. Post-op care to include: - Continue heparin infusion per nomogram for mechanical valve -no couadin with EPW present - ASA daily - resume statin (shock liver improving) - Colace, senna, miralax for bowel regimen - PPI daily (home med) - SCD's for DVT ppx - PT/OT eval and treat Assessment & Plan (06/02/2019 1:08 PM PAINT SPRAYING MACHINE OPERATOR HELPER): S/P Mechanical MVR. Post-op care to include: - Continue heparin infusion per nomogram for mechanical valve - F/U with CTS re timing for starting coumadin - ASA daily - Holding statin with shock liver - Colace, senna, miralax for bowel regimen - PPI daily (home med) - SCD's for DVT ppx - PT/OT eval and treat Assessment & Plan (06/01/2019 12:54 PM PAINT SPRAYING MACHINE OPERATOR HELPER): S/P Mechanical MVR. Post-op care to include: - Start heparin infusion per nomogram for mechanical valve - ASA daily - Holding statin with shock liver - Colace, senna, miralax for bowel regimen - PPI daily (home med) - SCD's for DVT ppx - Periop Vanc and Ancef x 24 hours - PT/OT eval and treat Assessment & Plan (05/31/2019 5:34 PM PAINT SPRAYING MACHINE OPERATOR HELPER): Mitral Valve Stenosis s/p balloon valvuloplasty (Dr. Lawler) and Mechanical MVR (Dr. Portillo) in 2005. Presented w/MV thrombosis and severe MR. Now, s/p MVR and TV repair on 05/[address] Portillo via Redo-Sternotomy. Standards of care to include: - ASA daily (Holding ASA POD 0 d/t coagulopathy, per CTS Fellow) - Statin POD 1 - Colace, senna, miralax for bowel regimen - H2 ed while intubated - SCD's for DVT ppx; Plan to start SQH for additional ppx on POD 1 - Periop Vanc and Ancef x 24 hours - PT/OT eval and treat for rehabilitation MARIA DEL ROSARIO (acute kidney injury) 05/30/2019 Overview (05/31/2019): -b/l Cr 0.6 -on PO lasix 40mg at home -admission at OSH Cr 1.0 -> 2.0-->1.6 on arrival here Assessment & Plan (06/12/2019 1:00 PM PAINT SPRAYING MACHINE OPERATOR HELPER): Current creatinine = 1.22 Admission creatinine = 1.9 Daily BMPs with I &Os while inpatient Ongoing daily weights Almost 4.5 kg below pre-op (admission) weight Changed to daily lasix, 40 mg oral today Assessment & Plan (06/13/2019 5:13 PM PAINT SPRAYING MACHINE OPERATOR HELPER): CrCl: 89.5 ml/min, serum Cr 1.04 stable Chronic kidney disease (CKD) and acute kidney injury (MARIA DEL ROSARIO) are independent risk factors for hypoglycemia, and augments the risk of low blood glucose in patients with diabetes Assessment & Plan (06/10/2019 2:08 PM PAINT SPRAYING MACHINE OPERATOR HELPER): Current creatinine = 1.13 Admission creatinine = 1.9 Daily BMPs with I &Os while inpatient Ongoing daily weights Continue Lasix 40 mg IV BID and spironolactone 12.5mg daily Assessment & Plan (06/05/2019 10:12 AM PAINT SPRAYING MACHINE OPERATOR HELPER): Creat continues to down trending. - lasix 40mg PO BID with 20meq KCl -FBG negative 1L - restart home aldactone and 1/2 dose 12.5mg daily Assessment & Plan (06/04/2019 5:39 PM PAINT SPRAYING MACHINE OPERATOR HELPER): Creat down trending. -d/c sheridan -decrease lasix 40mg PO BID with 20meq KCl -FBG negative 1L Assessment & Plan (06/03/2019 4:32 PM PAINT SPRAYING MACHINE OPERATOR HELPER): Received an additional 80mg lasix overnight to promote diuresis. FB even. -lasix 80mg IV BID with 20meq KCl -FBG even to negative 500 -maintain sheridan to accurately monitor I&O Assessment & Plan (06/02/2019 1:04 PM PAINT SPRAYING MACHINE OPERATOR HELPER): Baseline Creatinine around 0.6. MARIA DEL ROSARIO upon admission likely 2/2 cardiogenic shock. Now down trending post-op. Responding to lasix. - Lasix 60 IV x2 - Metolazone 10 BID - FBG -1 to 2L - Renally dose medications as appropriate - Avoid nephrotoxins Assessment & Plan (06/02/2019 5:36 AM PAINT SPRAYING MACHINE OPERATOR HELPER): Baseline Creatinine around 0.6. MARIA DEL ROSARIO upon admission likely 2/2 cardiogenic shock. Now down trending post-op. Responding to lasix. - diuresis for FBG -1 to 2L - Renally dose medications as appropriate - Avoid nephrotoxins Assessment & Plan (06/01/2019 12:46 PM PAINT SPRAYING MACHINE OPERATOR HELPER): Baseline Creatinine around 0.6. MARIA DEL ROSARIO upon admission likely 2/2 cardiogenic shock. Current Cr 1.99. Good urine output, FB +1.2L over the last 24 hours. - Lasix 40 x1 - FBG -1 to 2L - BMP at 1400 - Renally dose all medications - Avoid nephrotoxins Assessment & Plan (06/01/2019 5:22 AM PAINT SPRAYING MACHINE OPERATOR HELPER): Baseline Creatinine around 0.6. MARIA DEL ROSARIO upon admission likely 2/2 cardiogenic shock. Current Cr 1.96. Will likely improve with time. Good urine output. - Renally dose all medications - avoid nephrotoxins - f/u am bmp Assessment & Plan (05/31/2019 8:09 PM PAINT SPRAYING MACHINE OPERATOR HELPER): Baseline Creatinine around 0.6. Mild MARIA DEL ROSARIO upon admission likely 2/2 cardiogenic shock and diuresis. - Strict I and O - Renally dose all medications - Maintain adequate renal perfusion pressure - f/u BMP in AM Hepatopathy 02/22/2019 Assessment & Plan (05/30/2019 2:40 AM PAINT SPRAYING MACHINE OPERATOR HELPER): -RUQ US 02/2019 showed coarse echotexture of the liver may be related to cirrhosis, fatty infiltration of the liver, or combination thereof; patient denied ETOH or drug abuse at this time -daily LFTs while diurising -likely needs repeat RUQ US or more advanced imaging if Cr allows -pt also with prior reported family hx of early onset COPD (in himself) and early onset liver and lung disease in Mom who was diagnosed with alpha-1 antitrypin; can consider checking levels Assessment & Plan (02/24/2019 3:24 PM PAINT SPRAYING MACHINE OPERATOR HELPER): -RUQ US to evaluate for cirrhosis showed Coarse echotexture of the liver may be related to cirrhosis, fatty infiltration of the liver, or combination thereof. Pt denies any history of ETOH use or abuse. He does have a history of early onset COPD and a family history of liver disease. - he does have evidence of severe TR on DESI which is likely contributing. - Pt refuses further eval at this time. - Starting Lasix. Will need close outpt follow up. Assessment & Plan (02/23/2019 4:55 PM PAINT SPRAYING MACHINE OPERATOR HELPER): Patient with newly diagnosed liver disease with ascites. Ultrasound with increased echotexture concerning for cirrhosis - unlikely to be congestive hepatopathy given no evidence of poor RV function - consider GI consult given possible need for surgery Assessment & Plan (02/23/2019 1:01 PM PAINT SPRAYING MACHINE OPERATOR HELPER): -RUQ US to evaluate for cirrhosis Assessment & Plan (02/22/2019 9:13 PM PAINT SPRAYING MACHINE OPERATOR HELPER): - Complicated by ascites, elevated LFTs and coagulopathy - S/p outpatient LVP x1 - Chest imaging with ascites, abdominal distention on exam - No concern for acute decompensation liver failure - Outpatient liver follow up A-fib 02/22/2019 Overview (06/03/2019): Afib on home dilt. Assessment & Plan (06/12/2019 1:00 PM PAINT SPRAYING MACHINE OPERATOR HELPER): Chronic afib, rate controlled Ongoing metoprolol & amiodarone Continue coumadin tonight. Heparin drip pending therapeutic INR Assessment & Plan (06/10/2019 2:07 PM PAINT SPRAYING MACHINE OPERATOR HELPER): Chronic afib, rate controlled Has had intermittent pause continue - telemetry review no alarms overnight Ongoing metoprolol & amiodarone continue coumadin tonight. Heparin drip pending therapeutic INR Assessment & Plan (06/05/2019 10:09 AM PAINT SPRAYING MACHINE OPERATOR HELPER): Aflutter rate controlled 70-90 on amiodarone PO TID. Epi and milrinone off this morning - if hemodynamically stable this evening, start metoprolol 6.25mg bid with hold parameters - ensure Mg > 2 and K > 4 - FBG negative 1L with lasix - heparin gtt for systemic anticoagulation - if unstable: DCCV -cap wires (no coumadin until EPW removed) Assessment & Plan (06/04/2019 6:54 PM PAINT SPRAYING MACHINE OPERATOR HELPER): Aflutter rate controlled 70-80 on amiodarone PO TID - ensure Mg > 2 and K > 4 - FBG negative 1L - heparin gtt for systemic anticoagulation - if unstable: DCCV -cap wires (no coumadin until EPW removed) Assessment & Plan (06/03/2019 4:21 PM PAINT SPRAYING MACHINE OPERATOR HELPER): Aflutter rate controlled on amio gtt at 0.5mg/min -transition amio to 400 TID PO -ensure Mg > 2 and K > 4 -FBG even to negative 500 with scheduled BID lasix -heparin gtt for systemic anticoagulation -if unstable: DCCV Assessment & Plan (06/02/2019 1:06 PM PAINT SPRAYING MACHINE OPERATOR HELPER): History of afib; on home dilt. Now in a flutter with rate in the 60s. - VVI b/u - Decrease amio infusion to 0.5mg/min - Continue heparin infusion Assessment & Plan (06/02/2019 6:37 AM PAINT SPRAYING MACHINE OPERATOR HELPER): History of afib; on home dilt. Afib with rates to 120's. Treated with amio bolus x 2 followed by gtt. Now rate controlled < 100. - continue amio gtt at 1 mg/min; if HR remains < 100, decrease to 0.5 - Anticoagulation with heparin infusion Assessment & Plan (06/01/2019 12:49 PM PAINT SPRAYING MACHINE OPERATOR HELPER): Intermittent A fib underlying pacer. - Amio bolus x1 now - Amio infusion @ 1mg/min - Anticoagulation with heparin infusion Assessment & Plan (05/31/2019 7:44 AM PAINT SPRAYING MACHINE OPERATOR HELPER): -hx of Afib, on Dilt CD 240mg at home -holding Dilt in the setting of potential CHF exacerbation -will bolus with Amiodarone as patient likely is not tolerating tachycardia i/s/o mitral stenosis, now on amio gtt -ct hep gtt -holding home warfarin Assessment & Plan (02/24/2019 3:25 PM PAINT SPRAYING MACHINE OPERATOR HELPER): -Patient reports history of occasionally irregular heart rhythm but never told he had atrial fibrillation -current rate control increased dose of diltiazem. Will change to long-acting diltiazem 240 mg daily -cont warfarin (goal INR 2.5-3.5 given mechanical mitral valve) Assessment & Plan (02/23/2019 4:59 PM PAINT SPRAYING MACHINE OPERATOR HELPER): Patient with a fib. Per patient on diltiazem at home for irregular heart rate but never been told he has afib. 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 HELPER): - History of palpitations but now found to be in AF with well controlled rate - Continue home diltiazem for rate control and warfarin for AC - Repeat TTE to assess LV function Syncope 02/22/2019 Assessment & Plan (02/24/2019 3:26 PM PAINT SPRAYING MACHINE OPERATOR HELPER): - In setting of coughing fit followed by feeling of warmth, lightheadedness and no post ictal state - Serum electrolytes wnl, CT PE protocol negative for PE - Findings consistent with vasovagal syncope but could also be related to afib with RVR and valvular issues Assessment & Plan (02/23/2019 5:02 PM PAINT SPRAYING MACHINE OPERATOR HELPER): Likely related to cough, kelly. Given COPD which increases risk of cough syncope. Less likely to be related to arrhythmia, but would recommend continuing telemetry monitoring Assessment & Plan (02/23/2019 12:56 PM PAINT SPRAYING MACHINE OPERATOR HELPER): - In setting of coughing fit followed by feeling of warmth, lightheadedness and no post ictal state - Serum electrolytes wnl, CT PE protocol negative for PE - Findings consistent with vasovagal syncope but could also be related to afib with RVR - Monitor on tele, repeat TTE Assessment & Plan (02/22/2019 9:21 PM PAINT SPRAYING MACHINE OPERATOR HELPER): - In setting of coughing fit followed by feeling of warmth, lightheadedness and no post ictal state - Serum electrolytes wnl, CT PE protocol negative for PE - Findings consistent with vasovagal syncope but cant rule out arrhythmia given AF or mechanical cardiac given history of mitral valve stenosis requiring repair - Monitor on tele, repeat TTE Transaminitis 02/22/2019 Assessment & Plan (02/22/2019 9:45 PM PAINT SPRAYING MACHINE OPERATOR HELPER): - AST 175. ALT 239, [id number] Tbili 3.3 and Dbili 1.3 - Secondary to BECK - Will continue to monitor Ascites 02/22/2019 Overview (02/22/2019): - Secondary BECK s/p LVP x1 - Chest imaging and physical exam with ascites - No abdominal pain or findings concerning for SBP - Outpatient LVP and hepatology follow up Assessment & Plan (02/24/2019 3:31 PM PAINT SPRAYING MACHINE OPERATOR HELPER): -Patient reports this is new since November of this year -likely both liver and cardiac issues contributing. Assessment & Plan (02/23/2019 12:59 PM PAINT SPRAYING MACHINE OPERATOR HELPER): -Patient reports this is new since November of this year -Unclear to what degree this is due to liver or heart -Carries diagnosis of BECK - RUQ US to evaluate for cirrhosis -Discuss with cardiology given concern for elevated mitral valve gradient on echo Ankle pain 05/24/2015 Overview (07/16/2016): Ankle pain Palpitations 08/25/2010 Overview (07/22/2017): Description: Palpitations Current smoker 07/17/2010 COPD (chronic obstructive pulmonary disease) Overview (07/22/2017): Description: Chronic Obstructive Pulmonary Disease Assessment & Plan (05/30/2019 2:41 AM PAINT SPRAYING MACHINE OPERATOR HELPER): -patient is on albuterol and Spiriva at home -albuterol PRN -pulmonary function tests which showed an FEV1 that was 49% of predicted on 04/18/2019 Assessment & Plan (02/23/2019 1:01 PM PAINT SPRAYING MACHINE OPERATOR HELPER): -cont home inhalers, prn albuterol Assessment & Plan (02/22/2019 9:06 PM PAINT SPRAYING MACHINE OPERATOR HELPER): - No concern for an acute exacerbation - On Breo Ellipta at Home, non formulary - Start Albuterol prn, spiriva and advair Resolved Problems Problem Noted Date Diagnosed Date Resolved Date Leukocytosis 06/08/2019 06/12/2019 Assessment & Plan (06/11/2019 1:22 PM PAINT SPRAYING MACHINE OPERATOR HELPER): Remains afebrile WBC trending down Will continue to monitor Assessment & Plan (06/10/2019 2:10 PM PAINT SPRAYING MACHINE OPERATOR HELPER): WBC 13 from 14.2 from 13.4 No fevers Incisions clean and dry CL out Encouraged to ambulate and perform IS No overt signs of infection UA 06/08 negative CXR 06/08 showed + atelectasis and small right pleural effusion Thrombocytopenia 06/05/2019 06/12/2019 Assessment & Plan (06/11/2019 1:22 PM PAINT SPRAYING MACHINE OPERATOR HELPER): Plt WNL Assessment & Plan (06/10/2019 2:11 PM PAINT SPRAYING MACHINE OPERATOR HELPER): Platelets 89 from 92K - stable Wires out 06/07 Remains on heparin gtt for mechanical valve prophylactis Continue Coumadin Assessment & Plan (06/05/2019 10:19 AM PAINT SPRAYING MACHINE OPERATOR HELPER): PLT down to 66 (90s) this morning, no active signs of bleeding. On 05/29 PLT 120s, so chronic thrombocytopenia at baseline. Patient tolerating heparin gtt without signs or symptoms of bleeding. Patient had been therapeutic on heparin infusion yesterday with PTT in the 40s this morning and Plt count down to 66 from 90s, concern for lab error - repeat cbc and coags now, if remains stable increase heparin gtt - continue heparin gtt - continue asa 81mg daily Ileus 06/03/2019 06/07/2019 Assessment & Plan (06/05/2019 10:17 AM PAINT SPRAYING MACHINE OPERATOR HELPER): Small bowel movement this morning. Abdomen distended, taught, BS hypoactive. Denies nausea at this time. Increased flatus this morning. Given cottonseed enema and started on lactulose yesterday. KUB showed: dilated colon with largest part measuring ~9.5cm. -suppository BID - mag citrate now - repeat KUB today, if large gastric bubble place NGT for decompression - repeat cotton seed enema today - lactulose Q6hr until stool - OOB/ambulate Assessment & Plan (06/04/2019 5:51 PM PAINT SPRAYING MACHINE OPERATOR HELPER): No BM X8d. Abdomen distended, taught, BS hypoactive. Denies nausea. KUB: dilated ascending and transverse colon measuring 9.5cm. PO bowel regimen increased yesterday and suppository with minimal response. -suppository BID -cotton seed enema -lactulose Q6hr until stool -OOB/ambulate Assessment & Plan (06/03/2019 4:34 PM PAINT SPRAYING MACHINE OPERATOR HELPER): No BM X7d. Abdomen distended, taught, BS hypoactive. Denies nausea. -increase docusate to 200 BID -increase miralax to BID -add suppository -consider lactulose if no BM by this evening -OOB/ambulate Delirium 06/02/2019 06/07/2019 Assessment & Plan (06/05/2019 10:15 AM PAINT SPRAYING MACHINE OPERATOR HELPER): Resolved. CAM negative. Received seroquel 25mg at bedtime last night. - discontinue seroquel -OOB to chair -ambulate -lights off 21:00-06:00 - prn ramelteon at bedtime for sleep Assessment & Plan (06/04/2019 5:45 PM PAINT SPRAYING MACHINE OPERATOR HELPER): CAM negative this AM. Slept with seroquel last night continue seroquel -OOB to chair -ambulate -lights off 21:00-06:00 Assessment & Plan (06/03/2019 4:24 PM PAINT SPRAYING MACHINE OPERATOR HELPER): CAM negative this AM. Did not sleep at all last night -25mg seroquel QHS to promote sleep -OOB to chair -ambulate -lights off 21:00-06:00 Assessment & Plan (06/02/2019 1:02 PM PAINT SPRAYING MACHINE OPERATOR HELPER): CAM positive after extubation last night. Sedated with precedex infusion overnight for sleep. This AM, more alert and appropriate. - DC precedex - Frequent reorientation - Lights on during the day - Encourage mobility- OOBTC - Sleep hygiene Assessment & Plan (06/02/2019 5:52 AM PAINT SPRAYING MACHINE OPERATOR HELPER): CAM positive after extubation. Unable to sleep tonight and very restless. -start low dose precedex -maintain mittens in place -delirium precautions: lights on during day, off at night, OOBTC during day, encourage family interaction during day -if does not improve will need SBFT placement Hyperglycemia 06/01/2019 06/06/2019 Assessment & Plan (06/05/2019 10:14 AM PAINT SPRAYING MACHINE OPERATOR HELPER): Well controlled on current NPH/SSI regimen. BGL ranging between 70-150 in the past 24 hours. HgA1C 9.6 on admission with no home antihyperglycemics. - carb controlled diet - NPH BID (09: 00 /17:00) for basal + HDSSI Assessment & Plan (06/04/2019 5:44 PM PAINT SPRAYING MACHINE OPERATOR HELPER): HgA1C 9.6 on admission with no home antihyperglycemics. Transitioned from insulin gtt to HDSSI yesterday and remains hyperglycemic. Contributing factors: epi gtt. Decreased appetite 2/2 constipation - carb controlled diet -add NPH BID (09: 00 /17:00) for basal + HDSSI Assessment & Plan (06/03/2019 4:26 PM PAINT SPRAYING MACHINE OPERATOR HELPER): HgA1C 9.6 on admission with no home antihyperglycemics. Currently on insulin gtt -ADAT to carb controlled diet -transition insulin gtt to HDSSI Assessment & Plan (06/02/2019 1:07 PM PAINT SPRAYING MACHINE OPERATOR HELPER): History of DM-II but no home meds. Likely related to stress response. Remains on insulin infusion. - Continue insulin gtt per icu protocol - ADAT Assessment & Plan (06/02/2019 5:34 AM PAINT SPRAYING MACHINE OPERATOR HELPER): History of DM-II but no home meds. Likely related to stress response. Remains on insulin infusion - Continue insulin gtt per icu protocol Assessment & Plan (06/01/2019 12:49 PM PAINT SPRAYING MACHINE OPERATOR HELPER): History of DM-II but no home meds. Likely related to stress response. Remains on insulin infusion - Continue insulin gtt per icu protocol Assessment & Plan (06/01/2019 5:31 AM PAINT SPRAYING MACHINE OPERATOR HELPER): History of DM-II but no home meds. Arrived on insulin gtt 6 units/hr. Likely related to stress response. -continue insulin gtt per icu protocol Shock liver 06/01/2019 06/07/2019 Assessment & Plan (06/04/2019 5:26 PM PAINT SPRAYING MACHINE OPERATOR HELPER): Continues to improve to near normal. Statin resumed yesterday - CMP/coags daily with AM labs for 1 more days Assessment & Plan (06/03/2019 10:34 AM PAINT SPRAYING MACHINE OPERATOR HELPER): Improving. -resume home statin today - CMP/coags daily with AM labs for 2 more days Assessment & Plan (06/02/2019 1:07 PM PAINT SPRAYING MACHINE OPERATOR HELPER): Improving. 2/2 severe RV dysfunction pre-op. Both T bili and AST/ALT down trending. - CMP/coags daily with AM labs - Avoid hepatotoxic agents Assessment & Plan (06/02/2019 5:34 AM PAINT SPRAYING MACHINE OPERATOR HELPER): 2/2 severe RV dysfunction pre-op. Both T bili and AST/ALT down trending. Will likely continue to improve with time - CMP/coags daily with AM labs - Avoid hepatotoxic agents Assessment & Plan (06/01/2019 12:50 PM PAINT SPRAYING MACHINE OPERATOR HELPER): 2/2 severe RV dysfunction pre-op. T bili rising, AST/ALT down trending. INR 1.8 without anticoagulation. - CMP/coags daily with AM labs - Avoid hepatotoxic agents Acute respiratory insufficiency 05/31/2019 06/07/2019 Assessment & Plan (06/06/2019 11:56 AM PAINT SPRAYING MACHINE OPERATOR HELPER): Diuresis as tolerated, aggressive pulmonary toilet Assessment & Plan (06/05/2019 10:13 AM PAINT SPRAYING MACHINE OPERATOR HELPER): COPD. Currently on NC for SpO2 > 92% suspect ileus and abdominal distention decreasing diaphragmatic movement -ellipta (home med equivalent) -wean SpO2 for SpO2 > 92% -OOB to chair/ambulate -FBG negative 1L with BID scheduled diuresis Assessment & Plan (06/04/2019 5:40 PM PAINT SPRAYING MACHINE OPERATOR HELPER): COPD. Currently on NC for SpO2 > 92% -ellipta (home med equivalent) -wean SpO2 for SpO2 > 92% -OOB to chair/ambulate -FBG negative 1L with BID scheduled diuresis Assessment & Plan (06/03/2019 4:23 PM PAINT SPRAYING MACHINE OPERATOR HELPER): COPD. CXR essentially clear. Currently on NC for SpO2 > 92% -ellipta (home med equivalent) -wean SpO2 for SpO2 > 92% -OOB to chair/ambulate -FBG even to negative 500 with BID scheduled diuresis Assessment & Plan (06/02/2019 1:06 PM PAINT SPRAYING MACHINE OPERATOR HELPER): Extubated to NC last night. Remains on 4L NC this AM. - Pulmonary hygiene with IS, acapella, and C&DB - PT/OOBTC/AMB - Wean supplemental O2 for SpO2 > 92% - FBG -1 to 2L with lasix and metolazone Assessment & Plan (06/01/2019 12:45 PM PAINT SPRAYING MACHINE OPERATOR HELPER): Post procedural short-term ventilator support with anticipated extubation. Currently sedated w/propofol on full mechanical ventilation. Velitri weaned off overnight. - Transition from propofol to precedex - PSV trial with goal extubation Assessment & Plan (06/01/2019 5:27 AM PAINT SPRAYING MACHINE OPERATOR HELPER): Post procedural short-term ventilator support with anticipated extubation. Currently sedated w/propofol on full mechanical ventilation. Inhaled Veletri at 4 ml/hr for severe pulmonary HTN. - veletri wean as described in CG shock - wean O2 to 40% and repeat abg - Plan to PSV tomorrow if able to wean veletri off 2200: ABG with mild alkalosis. Decrease RR from 24 to 18. 0130: Repeat ABG 7.46, 38, 152. Decrease RR to 14. 0530: Repeat ABG 7.44/42/128. Assessment & Plan (05/31/2019 5:37 PM PAINT SPRAYING MACHINE OPERATOR HELPER): Post procedural short-term ventilator support with anticipated extubation. Currently sedated w/propofol on full mechanical ventilation. Inhaled Veletri at 4 ml/hr for severe pulmonary HTN. - Keep iVeletri at 4 ml/hr overnight; likely wean early AM - ABG, CXR - Plan to PSV tomorrow after iVeletri weaned off Cardiogenic shock 05/30/2019 06/07/2019 Overview (06/03/2019): 05/31: severe MR and severe RV dysfunction. Post-CPB DESI (On Epi @ 0.1) w/normal LV function, and moderate to severely decreased RV dysfunction. Assessment & Plan (06/05/2019 10:11 AM PAINT SPRAYING MACHINE OPERATOR HELPER): Improving. FB negative -800mL with lasix yesterday. Rate controlled aflutter 70s. Epi off this morning at 0600 -keep milrinone 0.1mcg/kg/min - continue scheduled lasix 40mg BID with K supplementation - start aldactone 12.5mg daily (home medication) - discontinue milrinone - FBG -1L with lasix - start metop tonight if hemodynamically stable for rate control - treat Aflutter as outlined Assessment & Plan (06/04/2019 5:37 PM PAINT SPRAYING MACHINE OPERATOR HELPER): Improving. FB negative 1800 with 80 lasix BID. Rate controlled aflutter 70s -keep milrinone 0.1mcg/kg/min -increase epi wean by 0.01mcg/kg/min Q6hr for SBP > 100 -change lasix to 40mg PO BID with K supplementation -treat Aflutter as outlined Assessment & Plan (06/03/2019 4:14 PM PAINT SPRAYING MACHINE OPERATOR HELPER): No epi wean overnight 2/2 ScVO2 < 60. FB even with additional diuresis. Rate controlled aflutter 70s -keep milrinone 0.1mcg/kg/min -epi wean by 0.01mcg/kg/min Q8hr for ScVO2> 60 -lasix 80mg BID with 20meq KCl -treat Aflutter as outlined Assessment & Plan (06/02/2019 1:05 PM PAINT SPRAYING MACHINE OPERATOR HELPER): Cardiogenic shock 2/2 severe MR and severe RV dysfunction. Post-CPB DESI (On Epi @ 0.1) w/normal LV function, and moderate to severely decreased RV dysfunction. Remains on Epi 0.08 and Milrinone 0.1. Weaned off vasopressors overnight. - Continue milrinone 0.1 - Continue epi wean 0.01 @12h for ScVO2 >65 - DC swan/cordis - MAP >70 for RV - FBG -1 to 2L Assessment & Plan (06/02/2019 5:46 AM PAINT SPRAYING MACHINE OPERATOR HELPER): Cardiogenic shock 2/2 severe MR and severe RV dysfunction. Post-CPB DESI (On Epi @ 0.1) w/normal LV function, and moderate to severely decreased RV dysfunction, trace TR, no PVL, MV gradient 4 mm Hg. Arrived post-op on epi 0.1. Q12 wean initiated yesterday. Milrinone decreased from 0.2 to 0.1. - continue milrinone 0.1 - continue epi wean 0.01 @12h for CI >2.2 - MAP >70 for RV - Continue AAI pacing 84 (decreased from 100 today 2/2 hypertension) - FBG -1 to 2L with lasix 0230: FB -250 with down trending urine output. Additional 40 mg lasix ivp now. Assessment & Plan (06/01/2019 12:48 PM PAINT SPRAYING MACHINE OPERATOR HELPER): Cardiogenic shock 2/2 severe MR and severe RV dysfunction. Remains on Epi at 0.1. Post-CPB DESI (On Epi @ 0.1) w/normal LV function, and moderate to severely decreased RV dysfunction, trace TR, no PVL, MV gradient 4 mm Hg. PA pressures ~ 1/2 systemic off velitri, CI ~ 3. - Start milrinone 0.2 - Wean Epi 0.01 @12h for CI >2.2 - MAP >70 for RV - Continue AAI pacing @ 100 - FBG -1 to 2L with lasix Assessment & Plan (06/01/2019 5:45 AM PAINT SPRAYING MACHINE OPERATOR HELPER): Cardiogenic shock 2/2 Severe MR and severe RV dysfunction and now 2\2 Cardiac Surgery; s/p AVR and Redo MVR on CPB. Arrived to CTICU hemodynamically supported on Epi at 0.1, NE at 0.04, and Vaso at 0.04. Post-CPB DESI (On Epi @ 0.1) w/normal LV function, and moderate to severely decreased RV dysfunction, trace TR, no PVL, MV gradient 4 mm Hg. PA pressures ~ 1/2 systolic on veletri 4 ml/hr. Initial lactate elevated at 6. Excellent urine output. CI ~ 3. - repeat lactate - Keep Epi at 0.1 - Wean NE, then Vaso for MAP >70 (RV dysfunction). - Keep SBP < 140 mm Hg to reduce bleeding risk - decrease veletri to 2 ml/hr at 0400; if no hemodynamic changes, will d/c 2200: Lactate remains elevated at 6.2. Continues to have excellent urine output. Extremities warm and CI remains ~ 3. Will likely improve with time. Will add on LFT's. 0130: Repeat lactate now 3.5. Continues with good urine output. LFT's elevated but improving compared to prior. Likely shock liver related to RV dysfunction and will continue to improve with time. 0545: Tolerating veletri down to 2 ml/hr without hemodynamic changes. Will d/c veletri. Assessment & Plan (05/31/2019 5:43 PM PAINT SPRAYING MACHINE OPERATOR HELPER): Cardiogenic shock 2/2 Severe MR and severe RV dysfunction and now 2\2 Cardiac Surgery; s/p AVR and Redo MVR on CPB. Arrived to CTICU hemodynamically supported on Epi at 0.1, NE at 0.04, and Vaso at 0.04. PA pressures approximately 1/3 to 1/2 systemic. Post-CPB DESI (On Epi @ 0.1) w/normal LV function, and moderate to severely decreased RV dysfunction, trace TR, no PVL, MV gradient 4 mm Hg. - ABG, Sv02, lactate - Keep Epi at 0.1, no wean tonight - Wean NE and Vaso for MAP >70 (RV dysfunction). - Keep SBP < 140 mm Hg to reduce bleeding risk Mitral valve disorder 03/06/20192019 Nonrheumatic mitral valve stenosis 02/22/2019 06/07/2019 Assessment & Plan (02/24/2019 3:21 PM PAINT SPRAYING MACHINE OPERATOR HELPER): -s/p mechanical MVR in 2006 -echo yesterday showed elevated valve gradient although patient was in afib with tachycardia - Cardiology consulted, recommended DESI today to further evaluate. DESI showed severe perivalvular leak and they recommended CT surgery eval. Patient refusing to stay at this time. He understands the risks of leaving but says he would prefer to follow up as outpt with Dr. Portillo. - He will return if he develops more symptoms. - Discussed with cardiology Assessment & Plan (02/24/2019 3:08 PM PAINT SPRAYING MACHINE OPERATOR HELPER): Patient with mitral valve stenosis s/p surgical MVR with mechanical valve in 2006. He was doing well until after his cholecystectomy in November when he started noticing dry cough, fatigue, FUCHS, lower extremity edema and abdominal distention. He also reports being off anticoagulation for a time around his LVP - TTE showed increased MV gradient of 10 (in the setting of mild tachycardia) - DESI today showed severe perivalvular leak - Continue anticoagulation - Please obtain images from echo at [facility] in December - if clotted can consider lysis vs surgical - patient reports he would like to go home today after echo and return for any procedures, will discuss further - per discussion with patient, we highly recommend that patient stay for surgical valve replacement this admission, however, he prefers to go home and call his surgeon, Dr. Ma, for outpatient following. Discussed with patient that this is AGAINST our advice, he reports understanding Assessment & Plan (02/23/2019 12:57 PM PAINT SPRAYING MACHINE OPERATOR HELPER): -s/p mechanical MVR in 2006 -echo today shows elevated valve gradient although patient was in afib with tachycardia so unclear how accurate this is -will discuss with cardiology Assessment & Plan (02/22/2019 9:14 PM PAINT SPRAYING MACHINE OPERATOR HELPER): - S/p bioprosthetic mitral valve replacement - Repeat TTE given elevated proBNP Immunizations Immunization Administration Dates Next Due Influenza, Trivalent, Preser vative Free, Intramuscular 12/29/2010,01/14/2009,01/31/2008 Social History Tobacco Use Types Packs/Day Years Used Date Smoking Tobacco: Former Smokeless Tobacco: Never Alcohol Use Standard Drinks/Week Comments Not Currently 0 (1 standard drink = 0.6 oz pur e alcohol) Sex and Gender Information Value Date Recorded Sex Assigned at Not on file Legal Sex Male 5:34 AM PAINT SPRAYING MACHINE OPERATOR HELPER Gender Identity Not on file Sexual Orientation Not on file Last Filed Vital Signs Vital Sign Reading Time Taken Comments Blood Pressure 141/76 08/15/2019 10:48 AM CDT Pulse 69 08/15/2019 10:48 AM CDT Temperature 37 C (98.6 F) 08/15/2019 10:48 AM CDT Respiratory Rate 18 06/13/2019 8:34 AM PAINT SPRAYING MACHINE OPERATOR HELPER Oxygen Saturation 98% 08/15/2019 10:48 AM CDT Inhaled Oxygen Concentration - - Weight 90.7 kg (200 lb) 08/15/2019 10:48 AM CDT Height 180.3 cm (5' 11 ) 08/15/2019 10:48 AM CDT Body Mass Index 27.89 08/15/2019 10:48 AM CDT Plan of Treatment Not on file Medical Devices Implanted Type Area Firer Automatic Stoker Device Identifier Shelf Expiration Date Model / Serial / Lot [employer] [id number] [place] r[employer] Physio 28mm Tricuspid Ring Annuloplasty Heart - [id number] - [id number] Implanted:Qty: 1 on 05/31/2019 by Barrett Portillo Jr., MD at [facility] Other - see comments N/A: Heart [employer] [id number] 12/29/2020 [id number] / [id number] / Description:Tricuspid Annulo plasty Ring On-X Intrnl [facility]-25-33 25-33mm 17.4mm Mechanical Conform-X Sewing Ring Means Valve - [id number] - [id number] Implanted:Qty: 1 on 05/31/2019 by Barrett Portillo Jr., MD at [facility] Prosthetic Valve N/A: Heart On-X Intrnl [id number] 04/27/2025 [facility] -33 / [id number] / Insurance [employer] MEDICARE [facility] MEDICARE [facility] Advance Directives For more information, please contact: [phone] Documents on File Type Date Recorded 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 Use antibiotics, IV Fluids, and medical treatment unless specifically selected below: No intubation * Full Code Date Activated Date Inactivated Comments 05/30/2019 2:13 AM 05/30/2019 3:52 AM * Full Code Date Activated Date Inactivated Comments 02/22/2019 8:30 PM 02/24/2019 9:46 PM Care Teams Supervisor Denture Department Relationship Specialty Start Date End Date Randolph Moore MD [address] [place] [address] PCP - General 06/24/15 Chris Akins MD PhD [address] [place] [address] Referring Physician Cardiology 03/16/19 Barrett Portillo Jr., MD [address] [place] [address] Surgeon Cardiothoracic Surgery 06/13/19
--- OUTSIDE RECORDS SUMMARY | 2024-06-20 09:02 | XMS_ITS | Clinical Summary ---
Author Organization [facility] [place] [address] [facility] [address] Address [address] [place] [address] Care Team Providers Care Manager Printing Name Role Phone Randolph Moore MD Primary Care Provider [phone] Chris Akins MD PhD Unavailable [phone] Bandar Harikns MD, Barrett Moser Unavailable [phone] Allergies No known active allergies Medications tiotropium [...] 06/12/2019 Assessment & Plan (06/12/2019 1:10 PM LEATHER GOODS ASSEMBLER): Ongoing since 06/05 Daily Labs throughout- Last night = 131 (previously was = 130) Continues on free water fluid restriction. High risk medication use 06/08/2019 Assessment & Plan (06/12/2019 1:00 PM LE[employer]ER [employer] ASSEMBLER): Ongoing coumadin with heparin drip for RENE mitral valve & a-fib Goal INR approx. 3 Last night= coumadin 8 mg Ongoing daily INRs, while inpatient Assessment & Plan (06/10/2019 2:09 PM LEATHER [employer] ASSEMBLER): Intense insulin regimen in the setting of variable oral intake, MARIA DEL ROSARIO and insulin naivete places patient at increased risk of hypoglycemia/hyperglycemia which may have serious metabolic, CV and neuro consequences. We will continue to intensely monitor blood glucose and titrate insulin as needed to optimize glycemic control to avoid hypoglycemic/hyperglycemic events. Assessment & Plan (06/08/2019 1:08 PM LEATHER [employer] ASSEMBLER): Intense insulin regimen in the setting of [...] 06/07/2019 Assessment & Plan (06/12/2019 1:01 PM LE[employer]ER [employer] ASSEMBLER): Post-op from [facility] with tricuspid valve repair on 05/31/2019 See Mitral valve replacement problem, above Assessment & Plan (06/07/2019 10:01 AM [employer]ER [employer] ASSEMBLER): Post-op from [facility] with tricuspid valve repair on 05/31/2019 See Mitral valve replacement problem, above DM (diabetes mellitus), type 2 06/06/2019 Assessment & Plan (06/12/2019 12:56 PM LE[employer]ER [employer] ASSEMBLER): Continue SSI, Lantus Endocrine consult with folder machine adjuster & perinatal educator following Blood sugars well controlled on current regimen (121-197 over past 24 hrs) A1c 9.6 on admission Will need to check blood sugars at least TID upon discharge Potential discharge on gliptins at discharge. . Assessment & Plan (06/13/2019 5:16 PM LEATHER GOODS ASSEMBLER): 49 y.o. male with type 2 diabetes [...] up with PCP, Blue Moore MD in [place], [place]) Instructed Mr. Griffin to bring glucometer to follow up visit for PCP to review glycemia and adjust diabetes regimen as needed; verbalized understanding. Recommendations for diabetes management were discussed with the primary team. For questions regarding this patient today, please call Radha Jade NP at [phone]. If after hours, please contact the Diabetes Fellow at [phone]. Assessment & Plan (06/10/2019 2:09 PM LEATHER [employer] ASSEMBLER): Continue SSI, Lantus Endocrine consult with folder machine adjuster & perinatal educator Last 24 hrs glucose = 135-191 A1c 9.6 on admission Will need to check blood sugars at least TID upon disharge Acute pain 05/31/2019 Assessment & Plan (06/12/2019 12:58 PM LEATHER [employer] ASSEMBLER): PRN tylenol, at present Ongoing stool softeners for anesthesia side effects Increasing activity as tolerated. Assessment & Plan (06/07/2019 10:02 AM LEATHER [employer] ASSEMBLER): PRN tylenol, at present Ongoing stool softeners for anesthesia side effects Increasing activity, as tolerated. Assessment & Plan (06/05/2019 10:14 AM LEATHER GOODS ASSEMBLER): Denies pain at this time -PRN tylenol -avoiding narcotics with ileus Assessment & Plan (06/04/2019 5:41 PM LEATHER GOODS ASSEMBLER): Denies pain at this time -PRN tylenol -avoiding narcotics with constipation Assessment & Plan (06/03/2019 4:10 PM LEATHER [employer] ASSEMBLER): Denies pain at this time -PRN tylenol -consider low dose oxy if needed as delirium is improving Assessment & Plan (06/02/2019 1:05 PM LEATHER [employer] ASSEMBLER): 2/2 cardiac surgery via median sternotomy. - Limit narcotics with delirium - Scheduled APAP - PRN oxycodone for breakthrough pain Assessment & Plan (06/01/2019 12:44 PM LEATHER GOODS ASSEMBLER): 2/2 cardiac surgery via median sternotomy. Currently sedated w/ propofol. - Fentanyl IV PRN prior to extubation - Plan to start scheduled Tylenol and PRN Oxy/Dilaudid once extubated Assessment & Plan (05/31/2019 4:51 PM LEATHER [employer] ASSEMBLER): 2/2 cardiac surgery via median sternotomy. Currently sedated w/ - Fentanyl IV PRN prior to extubation - Plan to start scheduled Tylenol and PRN Oxy/Dilaudid once extubated - Ensure pain control is adequate to facilitate participation in care and deep breathing Acute blood loss anemia 05/31/2019 Assessment & Plan (06/12/2019 1:01 PM LE[employer]ER [employer] ASSEMBLER): Expected postop due to ABLA Daily CBC, while inpatient Receiving MVI with iron Drifted slightly, from yesterday Assessment & Plan (06/07/2019 10:08 AM LE[employer]ER [employer] ASSEMBLER): Expected postop due to ABLA Daily CBC, while inpatient Added MVI with iron Assessment & Plan (06/05/2019 10:18 AM LEATHER [employer] ASSEMBLER): Hgb stable at 8.0 (8.1). No active signs of bleeding. Hemodynamically stable off vasopressors and tolerating epi wean - No current indication for transfusion, consider if patient becomes hemodynamically unstable with increased pressor requirements or Hgb < 8 and symptomatic - CBC daily - continue heparin gtt - repeat cbc now and coags Assessment & Plan (06/02/2019 1:07 PM LEATHER [employer] ASSEMBLER): Expected following cardiac surgery. Hgb 8.8. Hemodynamically stable off vasopressors. - No current indication for transfusion, consider if patient becomes hemodynamically unstable with increased pressor requirements or Hgb < 8 and symptomatic - CBC daily Assessment & Plan (06/01/2019 12:44 PM LEATHER [employer] ASSEMBLER): Expected following cardiac surgery. Hgb stable. Hemodynamically stable off vasopressors. - No current indication for transfusion, consider if patient becomes hemodynamically unstable with increased pressor requirements or Hgb < 8 and symptomatic - CBC daily Assessment & Plan (05/31/2019 8:06 PM LEATHER [employer] ASSEMBLER): Baseline hemoglobin 11.1 upon admission. Intra-op course [...] surgery Assessment & Plan (06/12/2019 12:52 PM LEATHER [employer] ASSEMBLER): Post-op from [facility] with tricuspid valve repair on 05/31/2019 Continue post op care (telemetry, VS, I &O, medication & weights) Ongoing heparin drip until INR closer to 3 Continue Coumadin, INR 1.6 last night Plan to give Coumadin 8 mg tonight Receiving PT and aggressive pulmonary toilet New onset DM (see diabetes problem) PT/OT Discharge planning Assessment & Plan (06/08/2019 1:09 PM LEATHER [employer] ASSEMBLER): Good glycemic control required to promote healing Assessment & Plan (06/10/2019 2:11 PM LEATHER [employer] ASSEMBLER): Post-op from [facility] with tricuspid valve repair on 05/31/2019 Continue post op care (telemetry, VS, I &O, medication & weights) Ongoing heparin drip until INR 2.5 Continue Coumadin, INR 1.4 Plan to give Coumadin 5mg tonight Receiving PT and aggressive pulmonary toilet New onset DM (see diabetes problem) PT/OT Discharge planning Assessment & Plan (06/05/2019 10:10 AM LEATHER [employer] ASSEMBLER): S/P [facility] M[facility]. Post-op care to include: - Continue heparin infusion per nomogram for mechanical valve & fib -no couadin with EPW present - ASA daily - increase statin to 80mg daily - Colace, senna, miralax for bowel regimen, lactulose - PPI daily (home med) - SCD's for DVT ppx - PT/OT eval and treat Assessment & Plan (06/04/2019 5:33 PM LEATHER [employer] ASSEMBLER): S/P Mechanical MVR. Post-op care to include: - Continue heparin infusion per nomogram for mechanical valve -no couadin with EPW present - ASA daily - resume statin (shock liver improving) - Colace, senna, miralax for bowel regimen - PPI daily (home med) - SCD's for DVT ppx - PT/OT eval and treat Assessment & Plan (06/03/2019 4:36 PM LEATHER [employer] ASSEMBLER): S/P Mechanical MVR. Post-op care to include: - Continue heparin infusion per nomogram for mechanical valve -no couadin with EPW present - ASA daily - resume statin (shock liver improving) - Colace, senna, miralax for bowel regimen - PPI daily (home med) - SCD's for DVT ppx - PT/OT eval and treat Assessment & Plan (06/02/2019 1:08 PM LEATHER [employer] ASSEMBLER): S/P Mechanical [facility]. Post-op care to include: - Continue heparin infusion per nomogram for mechanical valve - F/U with CTS re timing for starting coumadin - ASA daily - Holding statin with shock liver - Colace, senna, miralax for bowel regimen - PPI daily (home med) - SCD's for DVT ppx - PT/OT eval and treat Assessment & Plan (06/01/2019 12:54 PM LEATHER [employer] ASSEMBLER): S/P Mechanical [facility]VR. Post-op care to include: - Start heparin infusion per nomogram for mechanical valve - ASA daily - Holding statin with shock liver - Colace, senna, miralax for bowel regimen - PPI daily (home med) - SCD's for DVT ppx - Periop Vanc and Ancef x 24 hours - PT/OT eval and treat Assessment & Plan (05/31/2019 5:34 PM LEATHER GOODS ASSEMBLER): Mitral Valve Stenosis s/p balloon valvuloplasty (Dr. [...] here Assessment & Plan (06/12/2019 1:00 PM LEATHER [employer] ASSEMBLER): Current creatinine = 1.22 Admission creatinine = 1.9 Daily BMPs with I &Os while inpatient Ongoing daily weights Almost 4.5 kg below pre-op (admission) weight Changed to daily lasix, 40 mg oral today Assessment & Plan (06/13/2019 5:13 PM LEATHER [employer] ASSEMBLER): CrCl: 89.5 ml/min, serum Cr 1.04 stable Chronic kidney disease (CKD) and acute kidney injury (MARIA DEL ROSARIO) are independent risk factors for hypoglycemia, and augments the risk of low blood glucose in patients with diabetes Assessment & Plan (06/10/2019 2:08 PM LEATHER [employer] ASSEMBLER): Current creatinine = 1.13 Admission creatinine = 1.9 Daily BMPs with I &Os while inpatient Ongoing daily weights Continue Lasix 40 mg IV BID and spironolactone 12.5mg daily Assessment & Plan (06/05/2019 10:12 AM LEATHER [employer] ASSEMBLER): Creat continues to down trending. - lasix 40mg PO BID with 20meq KCl -FBG negative 1L - restart home aldactone and 1/2 dose 12.5mg daily Assessment & Plan (06/04/2019 5:39 PM LEATHER GOODS ASSEMBLER): Creat down trending. -d/c sheridan -decrease lasix 40mg PO BID with 20meq KCl -FBG negative 1L Assessment & Plan (06/03/2019 4:32 PM LEATHER [employer] ASSEMBLER): Received an additional 80mg lasix overnight to promote diuresis. FB even. -lasix 80mg IV BID with 20meq KCl -FBG even to negative 500 -maintain sheridan to accurately monitor I&O Assessment & Plan (06/02/2019 1:04 PM LEATHER [employer] ASSEMBLER): Baseline Creatinine around 0.6. MARIA DEL ROSARIO upon admission likely 2/2 cardiogenic shock. Now down trending post-op. Responding to lasix. - Lasix 60 IV x2 - Metolazone 10 BID - FBG -1 to 2L - Renally dose medications as appropriate - Avoid nephrotoxins Assessment & Plan (06/02/2019 5:36 AM LEATHER [employer] ASSEMBLER): Baseline Creatinine around 0.6. MARIA DEL ROSARIO upon admission likely 2/2 cardiogenic shock. Now down trending post-op. Responding to lasix. - diuresis for FBG -1 to 2L - Renally dose medications as appropriate - Avoid nephrotoxins Assessment & Plan (06/01/2019 12:46 PM LEATHER GOODS ASSEMBLER): Baseline Creatinine around 0.6. MARIA DEL ROSARIO upon admission likely 2/2 cardiogenic shock. Current Cr 1.99. Good urine output, FB +1.2L over the last 24 hours. - Lasix 40 x1 - FBG -1 to 2L - BMP at 1400 - Renally dose all medications - Avoid nephrotoxins Assessment & Plan (06/01/2019 5:22 AM LEATHER GOODS ASSEMBLER): Baseline Creatinine around 0.6. MARIA DEL ROSARIO upon admission likely 2/2 cardiogenic shock. Current Cr 1.96. Will likely improve with time. Good urine output. - Renally dose all medications - avoid nephrotoxins - f/u am bmp Assessment & Plan (05/31/2019 8:09 PM LEATHER [employer] ASSEMBLER): Baseline Creatinine around 0.6. Mild MARIA DEL ROSARIO upon admission likely 2/2 cardiogenic shock and diuresis. - Strict I and O - Renally dose all medications - Maintain adequate renal perfusion pressure - f/u BMP in AM Hepatopathy 02/22/2019 Assessment & Plan (05/30/2019 2:40 AM LEATHER [employer] ASSEMBLER): -RUQ US 02/2019 showed coarse echotexture of [...] levels Assessment & Plan (02/24/2019 3:24 PM LEATHER [employer] ASSEMBLER): -RUQ US to evaluate for cirrhosis showed [...] up. Assessment & Plan (02/23/2019 4:55 PM LEATHER [employer] ASSEMBLER): Patient with newly diagnosed liver disease with ascites. Ultrasound with increased echotexture concerning for cirrhosis - unlikely to be congestive hepatopathy given no evidence of poor RV function - consider GI consult given possible need for surgery Assessment & Plan (02/23/2019 1:01 PM LE[employer]ER [employer] ASSEMBLER): -RUQ US to evaluate for cirrhosis Assessment & Plan (02/22/2019 9:13 PM LEATHER [employer] ASSEMBLER): - Complicated by ascites, elevated LFTs and coagulopathy - S/p outpatient LVP x1 - Chest imaging with ascites, abdominal distention on exam - No concern for acute decompensation liver failure - Outpatient liver follow up A-fib 02/22/2019 Overview (06/03/2019): Afib on home dilt. Assessment & Plan (06/12/2019 1:00 PM LE[employer]ER [employer] ASSEMBLER): Chronic afib, rate controlled Ongoing metoprolol & amiodarone Continue coumadin tonight. Heparin drip pending therapeutic INR Assessment & Plan (06/10/2019 2:07 PM LE[employer]ER [employer] ASSEMBLER): Chronic afib, rate controlled Has had intermittent pause continue - telemetry review no alarms overnight Ongoing metoprolol & amiodarone continue coumadin tonight. Heparin drip pending therapeutic INR Assessment & Plan (06/05/2019 10:09 AM LE[employer]ER [employer] ASSEMBLER): Aflutter rate controlled 70-90 on amiodarone PO [...] removed) Assessment & Plan (06/04/2019 6:54 PM LEATHER [employer] ASSEMBLER): Aflutter rate controlled 70-80 on amiodarone PO TID - ensure Mg > 2 and K > 4 - FBG negative 1L - heparin gtt for systemic anticoagulation - if unstable: DCCV -cap wires (no coumadin until EPW removed) Assessment & Plan (06/03/2019 4:21 PM LEATHER [employer] ASSEMBLER): Aflutter rate controlled on amio gtt at 0.5mg/min -transition amio to 400 TID PO -ensure Mg > 2 and K > 4 -FBG even to negative 500 with scheduled BID lasix -heparin gtt for systemic anticoagulation -if unstable: DCCV Assessment & Plan (06/02/2019 1:06 PM LEATHER [employer] ASSEMBLER): History of afib; on home dilt. Now in a flutter with rate in the 60s. - VVI b/u - Decrease amio infusion to 0.5mg/min - Continue heparin infusion Assessment & Plan (06/02/2019 6:37 AM LEATHER [employer] ASSEMBLER): History of afib; on home dilt. Afib with rates to 120's. Treated with amio bolus x 2 followed by gtt. Now rate controlled < 100. - continue amio gtt at 1 mg/min; if HR remains < 100, decrease to 0.5 - Anticoagulation with heparin infusion Assessment & Plan (06/01/2019 12:49 PM LEATHER GOODS ASSEMBLER): Intermittent A fib underlying pacer. - Amio bolus x1 now - Amio infusion @ 1mg/min - Anticoagulation with heparin infusion Assessment & Plan (05/31/2019 7:44 AM LEATHER [employer] ASSEMBLER): -hx of Afib, on Dilt CD 240mg at home -holding Dilt in the setting of potential CHF exacerbation -will bolus with Amiodarone as patient likely is not tolerating tachycardia i/s/o mitral stenosis, now on amio gtt -ct hep gtt -holding home warfarin Assessment & Plan (02/24/2019 3:25 PM LEATHER [employer] ASSEMBLER): -Patient reports history of occasionally irregular heart rhythm but never told he had atrial fibrillation -current rate control increased dose of diltiazem. Will change to long-acting diltiazem 240 mg daily -cont warfarin (goal INR 2.5-3.5 given mechanical mitral valve) Assessment & Plan (02/23/2019 4:59 PM LEATHER [employer] ASSEMBLER): Patient with a fib. Per patient on diltiazem at home for irregular heart rate but never been told he has afib. No afib seen in our system previously - will look for LA appendage clot on echo - continue AC and rate control for now Assessment & Plan (02/23/2019 1:00 PM LEATHER [employer] ASSEMBLER): -Patient reports history of occasionally irregular heart rhythm but never told he had atrial fibrillation -currently on his home dose of dilt, but intermittent RVR up to 140s -plan to titrate up dilt for improved rate control -cont warfarin (goal INR 2.5-3.5 given mechanical mitral valve) Assessment & Plan (02/22/2019 9:16 PM LEATHER [employer] ASSEMBLER): - History of palpitations but now found to be in AF with well controlled rate - Continue home diltiazem for rate control and warfarin for AC - Repeat TTE to assess LV function Syncope 02/22/2019 Assessment & Plan (02/24/2019 3:26 PM LEATHER [employer] ASSEMBLER): - In setting of coughing fit followed by feeling of warmth, lightheadedness and no post ictal state - Serum electrolytes wnl, CT PE protocol negative for PE - Findings consistent with vasovagal syncope but could also be related to afib with RVR and valvular issues Assessment & Plan (02/23/2019 5:02 PM LEATHER [employer] ASSEMBLER): Likely related to cough, kelly. Given COPD which increases risk of cough syncope. Less likely to be related to arrhythmia, but would recommend continuing telemetry monitoring Assessment & Plan (02/23/2019 12:56 PM LEATHER [employer] ASSEMBLER): - In setting of coughing fit followed by feeling of warmth, lightheadedness and no post ictal state - Serum electrolytes wnl, CT PE protocol negative for PE - Findings consistent with vasovagal syncope but could also be related to afib with RVR - Monitor on tele, repeat TTE Assessment & Plan (02/22/2019 9:21 PM LEATHER [employer] ASSEMBLER): - In setting of coughing fit followed [...] 02/22/2019 Assessment & Plan (02/22/2019 9:45 PM LEATHER [employer] ASSEMBLER): - AST 175. ALT 239, [id number] Tbili 3.3 and Dbili 1.3 - Secondary to BECK - Will continue to monitor Ascites 02/22/2019 Overview (02/22/2019): - Secondary BECK s/p LVP x1 - Chest imaging and physical exam with ascites - No abdominal pain or findings concerning for SBP - Outpatient LVP and hepatology follow up Assessment & Plan (02/24/2019 3:31 PM LEATHER [employer] ASSEMBLER): -Patient reports this is new since November of this year -likely both liver and cardiac issues contributing. Assessment & Plan (02/23/2019 12:59 PM LEATHER [employer] ASSEMBLER): -Patient reports this is new since November [...] Disease Assessment & Plan (05/30/2019 2:41 AM LEATHER [employer] ASSEMBLER): -patient is on albuterol and Spiriva at home -albuterol PRN -pulmonary function tests which showed an FEV1 that was 49% of predicted on 04/18/2019 Assessment & Plan (02/23/2019 1:01 PM LEATHER [employer] ASSEMBLER): -cont home inhalers, prn albuterol Assessment & Plan (02/22/2019 9:06 PM LEATHER [employer] ASSEMBLER): - No concern for an acute exacerbation - On Breo Ellipta at Home, non formulary - Start Albuterol prn, spiriva and advair Resolved Problems Problem Noted Date Diagnosed Date Resolved Date Leukocytosis 06/08/2019 06/12/2019 Assessment & Plan (06/11/2019 1:22 PM LEATHER [employer] ASSEMBLER): Remains afebrile WBC trending down Will continue to monitor Assessment & Plan (06/10/2019 2:10 PM LEATHER [employer] ASSEMBLER): WBC 13 from 14.2 from 13.4 No fevers Incisions clean and dry CL out Encouraged to ambulate and perform IS No overt signs of infection UA 06/08 negative CXR 06/08 showed + atelectasis and small right pleural effusion Thrombocytopenia 06/05/2019 06/12/2019 Assessment & Plan (06/11/2019 1:22 PM LEATHER [employer] ASSEMBLER): Plt WNL Assessment & Plan (06/10/2019 2:11 PM LEATHER [employer] ASSEMBLER): Platelets 89 from 92K - stable Wires out 06/07 Remains on heparin gtt for mechanical valve prophylactis Continue Coumadin Assessment & Plan (06/05/2019 10:19 AM LEATHER [employer] ASSEMBLER): PLT down to 66 (90s) this morning, [...] 06/07/2019 Assessment & Plan (06/05/2019 10:17 AM LEATHER [employer] ASSEMBLER): Small bowel movement this morning. Abdomen distended, [...] OOB/ambulate Assessment & Plan (06/04/2019 5:51 PM LEATHER [employer] ASSEMBLER): No BM X8d. Abdomen distended, taught, BS hypoactive. Denies nausea. KUB: dilated ascending and transverse colon measuring 9.5cm. PO bowel regimen increased yesterday and suppository with minimal response. -suppository BID -cotton seed enema -lactulose Q6hr until stool -OOB/ambulate Assessment & Plan (06/03/2019 4:34 PM LEATHER [employer] ASSEMBLER): No BM X7d. Abdomen distended, taught, BS hypoactive. Denies nausea. -increase docusate to 200 BID -increase miralax to BID -add suppository -consider lactulose if no BM by this evening -OOB/ambulate Delirium 06/02/2019 06/07/2019 Assessment & Plan (06/05/2019 10:15 AM LE[employer]ER [employer] ASSEMBLER): Resolved. CAM negative. Received seroquel 25mg at bedtime last night. - discontinue seroquel -OOB to chair -ambulate -lights off 21:00-06:00 - prn ramelteon at bedtime for sleep Assessment & Plan (06/04/2019 5:45 PM LE[employer]ER [employer] ASSEMBLER): CAM negative this AM. Slept with seroquel last night continue seroquel -OOB to chair -ambulate -lights off 21:00-06:00 Assessment & Plan (06/03/2019 4:24 PM LEATHER [employer] ASSEMBLER): CAM negative this AM. Did not sleep at all last night -25mg seroquel QHS to promote sleep -OOB to chair -ambulate -lights off 21:00-06:00 Assessment & Plan (06/02/2019 1:02 PM LEATHER [employer] ASSEMBLER): CAM positive after extubation last night. Sedated with precedex infusion overnight for sleep. This AM, more alert and appropriate. - DC precedex - Frequent reorientation - Lights on during the day - Encourage mobility- OOBTC - Sleep hygiene Assessment & Plan (06/02/2019 5:52 AM LEATHER [employer] ASSEMBLER): CAM positive after extubation. Unable to sleep tonight and very restless. -start low dose precedex -maintain mittens in place -delirium precautions: lights on during day, off at night, OOBTC during day, encourage family interaction during day -if does not improve will need SBFT placement Hyperglycemia 06/01/2019 06/06/2019 Assessment & Plan (06/05/2019 10:14 AM LE[employer]ER [employer] ASSEMBLER): Well controlled on current NPH/SSI regimen. BGL ranging between 70-150 in the past 24 hours. HgA1C 9.6 on admission with no home antihyperglycemics. - carb controlled diet - NPH BID (09: 00 /17:00) for basal + HDSSI Assessment & Plan (06/04/2019 5:44 PM LE[employer]ER [employer] ASSEMBLER): HgA1C 9.6 on admission with no home antihyperglycemics. Transitioned from insulin gtt to HDSSI yesterday and remains hyperglycemic. Contributing factors: epi gtt. Decreased appetite 2/2 constipation - carb controlled diet -add NPH BID (09: 00 /17:00) for basal + HDSSI Assessment & Plan (06/03/2019 4:26 PM LEATHER [employer] ASSEMBLER): HgA1C 9.6 on admission with no home antihyperglycemics. Currently on insulin gtt -ADAT to carb controlled diet -transition insulin gtt to HDSSI Assessment & Plan (06/02/2019 1:07 PM LE[employer]ER [employer] ASSEMBLER): History of DM-II but no home meds. Likely related to stress response. Remains on insulin infusion. - Continue insulin gtt per icu protocol - ADAT Assessment & Plan (06/02/2019 5:34 AM LE[employer]ER [employer] ASSEMBLER): History of DM-II but no home meds. Likely related to stress response. Remains on insulin infusion - Continue insulin gtt per icu protocol Assessment & Plan (06/01/2019 12:49 PM LE[employer]ER [employer] ASSEMBLER): History of DM-II but no home meds. Likely related to stress response. Remains on insulin infusion - Continue insulin gtt per icu protocol Assessment & Plan (06/01/2019 5:31 AM LE[employer]ER [employer] ASSEMBLER): History of DM-II but no home meds. Arrived on insulin gtt 6 units/hr. Likely related to stress response. -continue insulin gtt per icu protocol Shock liver 06/01/2019 06/07/2019 Assessment & Plan (06/04/2019 5:26 PM LE[employer]ER [employer] ASSEMBLER): Continues to improve to near normal. Statin resumed yesterday - CMP/coags daily with AM labs for 1 more days Assessment & Plan (06/03/2019 10:34 AM LE[employer]ER [employer] ASSEMBLER): Improving. -resume home statin today - CMP/coags daily with AM labs for 2 more days Assessment & Plan (06/02/2019 1:07 PM [employer]ER [employer] ASSEMBLER): Improving. 2/2 severe RV dysfunction pre-op. Both T bili and AST/ALT down trending. - CMP/coags daily with AM labs - Avoid hepatotoxic agents Assessment & Plan (06/02/2019 5:34 AM LE[employer]ER [employer] ASSEMBLER): 2/2 severe RV dysfunction pre-op. Both T bili and AST/ALT down trending. Will likely continue to improve with time - CMP/coags daily with AM labs - Avoid hepatotoxic agents Assessment & Plan (06/01/2019 12:50 PM LEATHER GOODS ASSEMBLER): 2/2 severe RV dysfunction pre-op. T bili rising, AST/ALT down trending. INR 1.8 without anticoagulation. - CMP/coags daily with AM labs - Avoid hepatotoxic agents Acute respiratory insufficiency 05/31/2019 06/07/2019 Assessment & Plan (06/06/2019 11:56 AM LEATHER GOODS ASSEMBLER): Diuresis as tolerated, aggressive pulmonary toilet Assessment & Plan (06/05/2019 10:13 AM LEATHER GOODS ASSEMBLER): COPD. Currently on NC for SpO2 > 92% suspect ileus and abdominal distention decreasing diaphragmatic movement -ellipta (home med equivalent) -wean SpO2 for SpO2 > 92% -OOB to chair/ambulate -FBG negative 1L with BID scheduled diuresis Assessment & Plan (06/04/2019 5:40 PM LEATHER GOODS ASSEMBLER): COPD. Currently on NC for SpO2 > 92% -ellipta (home med equivalent) -wean SpO2 for SpO2 > 92% -OOB to chair/ambulate -FBG negative 1L with BID scheduled diuresis Assessment & Plan (06/03/2019 4:23 PM LEATHER GOODS ASSEMBLER): COPD. CXR essentially clear. Currently on NC for SpO2 > 92% -ellipta (home med equivalent) -wean SpO2 for SpO2 > 92% -OOB to chair/ambulate -FBG even to negative 500 with BID scheduled diuresis Assessment & Plan (06/02/2019 1:06 PM LEATHER GOODS ASSEMBLER): Extubated to NC last night. Remains on 4L NC this AM. - Pulmonary hygiene with IS, acapella, and C&DB - PT/OOBTC/AMB - Wean supplemental O2 for SpO2 > 92% - FBG -1 to 2L with lasix and metolazone Assessment & Plan (06/01/2019 12:45 PM LEATHER GOODS ASSEMBLER): Post procedural short-term ventilator support with anticipated extubation. Currently sedated w/propofol on full mechanical ventilation. Velitri weaned off overnight. - Transition from propofol to precedex - PSV trial with goal extubation Assessment & Plan (06/01/2019 5:27 AM LEATHER GOODS ASSEMBLER): Post procedural short-term ventilator support with anticipated [...] 7.44/42/128. Assessment & Plan (05/31/2019 5:37 PM LEATHER GOODS ASSEMBLER): Post procedural short-term ventilator support with anticipated [...] dysfunction. Assessment & Plan (06/05/2019 10:11 AM LEATHER GOODS ASSEMBLER): Improving. FB negative -800mL with lasix yesterday. [...] outlined Assessment & Plan (06/04/2019 5:37 PM LEATHER GOODS ASSEMBLER): Improving. FB negative 1800 with 80 lasix BID. Rate controlled aflutter 70s -keep milrinone 0.1mcg/kg/min -increase epi wean by 0.01mcg/kg/min Q6hr for SBP > 100 -change lasix to 40mg PO BID with K supplementation -treat Aflutter as outlined Assessment & Plan (06/03/2019 4:14 PM LEATHER GOODS ASSEMBLER): No epi wean overnight 2/2 ScVO2 < 60. FB even with additional diuresis. Rate controlled aflutter 70s -keep milrinone 0.1mcg/kg/min -epi wean by 0.01mcg/kg/min Q8hr for ScVO2> 60 -lasix 80mg BID with 20meq KCl -treat Aflutter as outlined Assessment & Plan (06/02/2019 1:05 PM LEATHER GOODS ASSEMBLER): Cardiogenic shock 2/2 severe MR and severe [...] 2L Assessment & Plan (06/02/2019 5:46 AM LEATHER GOODS ASSEMBLER): Cardiogenic shock 2/2 severe MR and severe [...] now. Assessment & Plan (06/01/2019 12:48 PM LEATHER GOODS ASSEMBLER): Cardiogenic shock 2/2 severe MR and severe [...] lasix Assessment & Plan (06/01/2019 5:45 AM LEATHER GOODS ASSEMBLER): Cardiogenic shock 2/2 Severe MR and severe [...] veletri. Assessment & Plan (05/31/2019 5:43 PM LEATHER GOODS ASSEMBLER): Cardiogenic shock 2/2 Severe MR and severe [...] 06/07/2019 Assessment & Plan (02/24/2019 3:21 PM LEATHER GOODS ASSEMBLER): -s/p mechanical MVR in 2006 -echo yesterday [...] cardiology Assessment & Plan (02/24/2019 3:08 PM LEATHER GOODS ASSEMBLER): Patient with mitral valve stenosis s/p surgical [...] - Please obtain images from echo at [place] in December - if clotted can consider [...] understanding Assessment & Plan (02/23/2019 12:57 PM LEATHER GOODS ASSEMBLER): -s/p mechanical MVR in 2006 -echo today shows elevated valve gradient although patient was in afib with tachycardia so unclear how accurate this is -will discuss with cardiology Assessment & Plan (02/22/2019 9:14 PM LEATHER GOODS ASSEMBLER): - S/p bioprosthetic mitral valve replacement - Repeat TTE given elevated proBNP Immunizations Immunization Administration Dates Next Due Influenza, Trivalent, Preser vative Free, Intramuscular 12/29/2010,01/14/2009,01/31/2008 Surgical History Surgery Date Site/Laterality Comments MITRAL VALVE REPLACEMENT TOE SURGERY CHOLECYSTECTOMY VASECTOMY Medical History Medical History Date Comments Hx Other Medical Open heart surg flip 2006; Comments: JJC 05/27/2015 - Hx Other Medical Avulsion fx. ri ght medial malleolus/possible later; Comments: JJC 06/25/2015 - Diabetes mellitus (HCC) Hypertension Hyperlipidemia Cardiogenic shock (HCC) 05/30/201905/31: se rhys MR and severe RV dysfunction. Post-CPB DESI (On Epi @ 0.1) w/normal LV function, and moderate to severely decreased RV dysfunction. Acute respiratory insufficiency 05/31/2019 Mitral valve disorder 03/06/2019 Nonrheumatic mitral valve stenosis 02/22/2019 Shock liver 06/01/2019 Ileus (HCC) 06/03/2019 Thrombocytopenia 06/05/2019 Leukocytosis 06/08/2019 Family History Medical History Relation Name Comments Other Other Family history of hypertension.; Relation Name Status Comments Other Social History Tobacco Use Types Packs/Day Years Used Date Smoking Tobacco: Former Smokeless Tobacco: Never Alcohol Use Standard Drinks/Week Comments Not Currently 0 (1 standard drink = 0.6 oz pur e alcohol) Sex and Gender Information Value Date Recorded Sex Assigned at Not on file Legal Sex Male 5:34 AM LEATHER GOODS ASSEMBLER Gender Identity Not on file Sexual Orientation Not on file Obstetrics History Last Filed Vital Signs Vital Sign Reading Time Taken Comments Blood Pressure 141/76 08/15/2019 10:48 AM CDT Pulse 69 08/15/2019 10:48 AM CDT Temperature 37 C (98.6 F) 08/15/2019 10:48 AM CDT Respiratory Rate 18 06/13/2019 8:34 AM LEATHER GOODS ASSEMBLER Oxygen Saturation 98% 08/15/2019 10:48 AM CDT Inhaled Oxygen Concentration - - Weight 90.7 kg (200 lb) 08/15/2019 10:48 AM CDT Height 180.3 cm (5' 11 ) 08/15/2019 10:48 AM CDT Body Mass Index 27.89 08/15/2019 10:48 AM CDT Plan of Treatment Not on file Medical Devices Implanted Type Area Director Of Photography Device Identifier Shelf Expiration Date Model / Serial / Lot [employer] [id number] [place] [employer] Physio 28mm Tricuspid Ring Annuloplasty Heart - [id number] - [id number] Implanted:Qty: 1 on 05/31/2019 by Barrett Portillo Jr., MD at [facility] Other - see comments N/A: Heart [employer] [id number] 12/29/2020 [id number] / [id number] / Description:Tricuspid Annulo plasty Ring On-X [facility]-25-33 25-33mm 17.4mm Mechanical Conform-X Sewing Ring Maens Valve - [id number] - [id number] Implanted:Qty: 1 on 05/31/2019 by Barrett Portillo Jr., MD at [facility] Prosthetic Valve N/A: Heart On-X Intrnl [id number] 04/27/2025 [facility]-25 -33 / [id number] / Insurance AETNA MEDICARE [facility] CIG MEDICARE [facility] Address: [address] [address] [place] [address] [facility] ADVANTRA Advance Directives For more information, please contact: [phone] Documents on File Type Date Recorded Patient Associate Professor Of Violin Expl anation ADVANCE DIRECTIVE 05/30/2019 10:13 AM CODY R OF CONTRACT RECRUITER-MEDICAL * Full Code (Latest Code Status on [...] 8:30 PM 02/24/2019 9:46 PM Care Teams Manager Printing Relationship Specialty Start Date End Date Randolph Moore MD [address] [place] [address] PCP - General 06/24/15 Chris Akins MD PhD [address] [place] [address] Referring Physician Cardiology 03/16/19 Barrett Portillo Jr., MD [address] [place] [address] Surgeon Cardiothoracic Surgery 06/13/19
--- OUTSIDE RECORDS SUMMARY | 2024-06-20 09:02 | XMS_ITS | Encounter Summary ---
Author Organization [facility] Address [address] [place] [address] Care Team Providers Care Supervisor Livestock Yard Name Role Phone Randolph Moore MD Primary Care Provider [phone] Roberta Nicole MD Unavailable Encounter Details Date Type Department Care Team (Late st Contact Info) Description 07/19/2023 Hospital Follow-up Call [facility] [address] [place] [address] Dee Dee Shelton RN Social History Tobacco Use Types Packs/Day Years Used Date Smoking Tobacco: Former Cigarettes Q uit: 05/22/2006 Smokeless Tobacco: Never Alcohol Use Standard Drinks/Week Comments Not Currently 0 (1 standard drink = 0.6 oz pur e alcohol) 8 years since last drank [facility] [employer] Answer Date Recorded In the past 12 months has e electric, gas, oil, or water [employer] threatened to shut off services in your [...] place to sleep or slept in a skilled nursing (including now)? No 07/17/2023 Sex and Gender Information Value Date Recorded Sex Assigned at Male 05/27/2019 3:12 PM NEEDLE GRINDER Legal Sex Male 5:49 PM NEEDLE GRINDER Gender Identity Male 05/27/2019 3:12 PM NEEDLE GRINDER Sexual Orientation Straight 05/27/2019 3: 12 PM NEEDLE GRINDER documented as of this encounter Functional Status * Are you deaf or do you have serious difficulty hearing Answer Date of Assessment Author Status No 07/17/2023 4:27 AM CDMilly Cantu RN Active * Are you blind or do you have serious difficulty seeing, even when wearing glasses? Answer Date of Assessment Author Status No 07/17/2023 4:27 AM Milly Borjas RN Active * Do you have serious difficulty walking or climbing stairs? Answer Date of Assessment Author Status No 07/17/2023 4:27 AM Milly Borjas RN Active * Do you have difficulty [...] 4:27 AM CDT Milly Joy RN Active documented as of this encounter Mental Status * Because of a physical, mental, or emotional condition, do you have serious difficulty concentrating, remembering, or making decisions? Answer Entry Date Author Status No 07/17/2023 4:27 AM CDT Milly Joy RN Active documented in this encounter Plan of Treatment Upcoming Encounters Date Type Department Care Team (Late st Contact Info) Description 09/01/2024 12:[address] [facility] [place] [address] Roberta Nicole MD [address] [place] [address] 09/22/2024 11:00 AM CDT Office Visit [facility] [place] [address] Roberta Nicole MD [address] [place] [address] 03/26/2025 1:30 PM [address] [facility] [place] [place] [address] Roberta Nicole MD [address] [place] [address] 04/02/2025 9:00 AM NEEDLE GRINDER Office Visit [facility] [place] [address] Roberta Nicole MD [address] [place] [address] documented as of this encounter Visit Diagnoses Not on filedocumented in this encounter Care Teams Supervisor Livestock Yard Relationship Specialty Start Date End Date Randolph Moore MD [address] [facility] [place] [phone] PCP - General FAMILY PRACTICE 11/07/18 Roberta Nicole MD [address] [place] [address] Consulting Physician CARDIOVASCULAR DISEASE 07/15/23 documented as of this encounter
--- OUTSIDE RECORDS SUMMARY | 2024-06-20 09:02 | XMS_ITS | Clinical Summary ---
Author Organization [facility] Address [address] [place] [address] Care Team Providers Care Director College Name Role Phone Randolph Moore MD Primary Care Provider [phone] Roberta Nicole MD Unavailable Allergies No known active allergies Medications albuterol (2.5 MG/3ML) 0.083% nebulizer solution Take 3 mLs (2.5 mg total) by nebulization every 6 (six) hours as needed for Shortness of breath. 0 Active atorvastatin 80 MG tablet Take 1 tablet (80 mg total) by mouth daily. 0 Active omeprazole (PRILOSEC) 40 MG capsule Take 1 capsule (40 mg total) by mouth daily. 6 Active spironolactone (ALDACTONE) 25 MG tablet Take 0.5 tablets (12.5 mg total) by mouth daily. 0 Active warfarin (COUMADIN) 1 MG tablet Take 2 tablets (2 mg total) by mouth daily. TOTAL dose is 6.5 mg daily 6 Active acetaminophen 325 MG tablet Take 2 tablets (650 mg total) by mouth every 6 (six) hours as needed for Pain. Active warfarin (COUMADIN) 5 MG tablet Take 1 tablet (5 mg total) by mouth daily. TOTAL dose is 6.5 mg daily Active furosemide (LASIX) 40 MG tablet Take 1 tablet (40 mg total) by mouth daily. Active Umeclidinium Oliver (INCRUSE ELLIPTA) 62.5 MCG/ACT AEROSOL POWDER, BREATH ACTIVATED Inhale 1 puff into the lungs daily. Active aspirin EC (ECOTRIN) 81 MG tablet Take 1 tablet (81 mg total) by mouth daily. Active KLOR-CON M20 20 MEQ tablet Take 1 tablet (20 mEq total) by mouth daily. 4 Active enoxaparin (LOVENOX) 100 mg/mL syringe Inject 1 mL (100 mg total) into the skin every 12 (twelve) hours for 4 days. Stop using after 08/26 9 mL 4 Active metoprolol succinate ER (TOPROL-XL) 50 MG 24 hr tablet Take 1 tablet (50 mg total) by mouth daily. 90 tablet 3 4 Active losartan (COZAAR) 25 MG tablet Take 0.5 tablets (12.5 mg total) by mouth daily. 45 tablet 3 4 Active Active Problems Problem Noted Date Diagnosed Date Iron deficiency anemia 03/16/2024 Hypomagnesemia 09/17/2023 Severe anemia 07/17/2023 Systolic dysfunction with ac vitaliy on chronic heart failure ([facility]) 05/27/2019 Encounters Date Type Department Care Team Description 04/17/2024 10:19 AM SPA MANAGER/ESTHETICIAN - 04/17/2024 11:59 PM SPA MANAGER/ESTHETICIAN Hospital Encounter [facility] [place] [address] Randolph Moore MD Infusion Therapy Discharge Disposition: Home or Self Care (Routine Discharge) 04/17/2024 Travel 04/10/2024 7:47 AM SPA MANAGER/ESTHETICIAN - 04/10/2024 11:59 PM SPA MANAGER/ESTHETICIAN Hospital Encounter [facility] [place] [address] [place] [address] Randolph Moore MD Infusion Therapy Discharge Disposition: Home or Self Care (Routine Discharge) 04/10/2024 Travel 04/03/2024 7:43 AM SPA MANAGER/ESTHETICIAN - 04/03/2024 11:59 PM SPA MANAGER/ESTHETICIAN Hospital Encounter [facility] [place] [address] [place] [address] Randolph Moore MD Infusion Therapy Discharge Disposition: Home or Self Care (Routine Discharge) 04/03/2024 Travel 03/27/2024 8:21 AM SPA MANAGER/ESTHETICIAN - 03/27/2024 11:59 PM SPA MANAGER/ESTHETICIAN Hospital Encounter [facility] [place] [address] [address] Randolph Moore MD Infusion Therapy Discharge Disposition: Home or Self Care (Routine Discharge) 03/27/2024 Travel from Last 3 Months Immunizations Name Administration Dates Next Due Influenza (Generic) 03/13/2020,12/29/2010,2008,01/31/2008 Influenza Adult (Generic) 12/26/2018,01/26/2017 Family History Medical History Relation Comments Liver Disease Mother Relation Status Comments Father Maternal Grandfather Maternal Grandmother Mother Paternal Grandfather Paternal Grandmother Social History Tobacco Use Types Packs/Day Years Used Date Smoking Tobacco: Former Cigarettes Q uit: 05/22/2006 Smokeless Tobacco: Never Tobacco Cessation:Counseling Given: Not Answered Alcohol Use Standard Drinks/Week Comments Not Currently 0 (1 standard drink = 0.6 oz pur e alcohol) 8 years since last drank [facility] [employer] Answer Date Recorded In the past 12 months has [employer] [place], gas, oil, or water [employer] threatened to shut off services in your [...] place to sleep or slept in a fci (including now)? No 07/17/2023 Sex and Gender Information Value Date Recorded Sex Assigned at Male 05/27/2019 3:12 PM SPA MANAGER/ESTHETICIAN Legal Sex Male 5:49 PM SPA MANAGER/ESTHETICIAN Gender Identity Male 05/27/2019 3:12 PM SPA MANAGER/ESTHETICIAN Sexual Orientation Straight 05/27/2019 3: 12 PM SPA MANAGER/ESTHETICIAN Last Filed Vital Signs Vital Sign Reading Time Taken Comments Blood Pressure 141/69 04/17/2024 10:25 AM SPA MANAGER/ESTHETICIAN Pulse 81 04/17/2024 10:25 AM SPA MANAGER/ESTHETICIAN Temperature 36.4 C (97.6 F) 04/17/2024 10:25 AM SPA MANAGER/ESTHETICIAN Respiratory Rate 18 04/17/2024 10:25 AM SPA MANAGER/ESTHETICIAN Oxygen Saturation 99% 04/17/2024 10:25 AM SPA MANAGER/ESTHETICIAN Inhaled Oxygen Concentration - - Weight 98.1 kg (216 lb 3.2 oz) 04/17/2024 10:25 AM SPA MANAGER/ESTHETICIAN Height 177.8 cm (5' 10 ) 04/03/2024 8:03 AM SPA MANAGER/ESTHETICIAN Body Mass Index 31.02 04/03/2024 8:03 AM SPA MANAGER/ESTHETICIAN Plan of Treatment Upcoming Encounters Date Type Department Care Team (Late st Contact Info) Description 09/01/2024 12:[address] [facility] [address] [place] [address] Roberta Nicole MD [address] [place] [address] 09/22/2024 11:00 AM CDT Office Visit [facility] [address] [place] [address] Roberta Nicole MD [address] [place] [address] 03/26/2025 1:30 PM SPA MANAGER/ESTHETICIAN Appointment [address] [place] [address] Roberta Nicole MD [address] [place] [address] 04/02/2025 9:00 AM SPA MANAGER/ESTHETICIAN Office Visit [facility] [address] [place] [phone] Roberta Nicole MD [address] [place] [address] Health Maintenance Due Date Last Done Comments Kidney Health Evaluation 1968 Annual Physical 1971 Pneumococcal Vaccine: Pediatrics (0 to 5 Years) and At-Risk Patients (6 to 64 Years) (1 of 2 - PCV) 1974 Diabetes: Retinopathy Eye Exam 1986 Hepatitis C 1986 DTaP, Tdap and Td Vaccines (1 - Tdap) 1987 Hepatitis B Vaccines (1 of 3 - 19+ 3-dose series) 1987 Zoster Vaccines (1 of 2) 2018 COVID-19 Vaccine ( - season) 2023 Influenza Adult (#1) 2024 03/13/2020, 12/26/2018, 01/26/2017, Additional history exists Hemoglobin A1C 01/15/2024 07/16/2023, 06/10, 05/31/2019 Lipid Panel 08/22/2024 08/23/2023 Colorectal Cancer Screening FIT/FOBT (1 Year) 08/24/2024 08/25/2023 Meningococcal B Vaccine Aged Out No l onger eligible based on patient's age to complete this topic Meningococcal Vaccine Aged Out No katei yumiko eligible based on patient's age to complete this topic RSV Immunizations Under 20 Months Aged Out No longer eligible based on patient's age to complete this topic Procedures Procedure Name Priority Date/Time Associated Diagnosis Comments OCCULT BLOOD, FECES STAT 08/25/2023 3 :00 PM CDT LIPID PANEL Routine 08/23/2023 10:10 AM CDT Chest pain Shortness of breath Palpitations HEMOGLOBIN, GLYCOSYLATED Routine 07/16/2023 10:07 PM CDT from Last 3 Months or Most Recently Relevant to Health Maintenance Results * OCCULT BLOOD, FECES (08/25/2023 3:00 PM CDT) OCCULT BLOOD FECAL NEGATIVE NEGATIVE 08/25/2023 3:21 PM CDT [facility] STOOL SPECIMEN / Unknown 08/25/2023 3:00 PM CDT Cynthia Gusman MD BODY FLUIDS AND STOOLS ORDER LIANG Final Result [facility] [address] [place] [address], * (ABNORMAL) LIPID PANEL (08/23/2023 10:10 AM CDT) CHOLESTEROL 76 MG/DL 08/24/2023 12:09 PM CDT [facility] Comment:DESIRABLE: <200 TRIGLYCERIDES 106 MG/DL 08/24/2023 12:09 PM CDT [facility] Comment:<150 NORMAL HDL 23(L) >39 MG/DL 08/24/2023 12:09 PM CDT [facility] LDL-C 32 MG/DL 08/24/2023 12:09 PM CDT [facility] Comment:<100 OPTIMAL VLDL CALCULATION 21 MG/DL 08/24/19 12:09 PM CDT [facility] Comment:REFERENCE RANGE NOT ESTABLISHED CHOL/HDL RATIO 3.3 08/24/2023 12:09 PM CDT [facility] Comment:REFERENCE RANGE NOT ESTABLISHED LDL/HDL 1.4 08/24/2023 12:09 PM CDT [facility] Comment:REFERENCE RANGE NOT ESTABLISHED NON HDL CHOLESTEROL 53 MG/DL 08/24/2023 12:09 PM CDT [facility] Comment:REFERENCE RANGE NOT ESTABLISHED 08/23/2023 10:1 0 AM CDT José Antonio Hermosillo MD LABORATORY Final Result Performing Organization Address [facility] Co de Phone Number [facility] [address] [place] [address], [phone] * (ABNORMAL) HEMOGLOBIN, GLYCOSYLATED (07/16/2023 10:07 PM CDT) HGB A1C 7.9(H) <5.7 % 07/17/2023 7:07 AM CDT [facility] ESTIMATED AVG GLUCOSE 180(H) 74 - 114 MG/DL 07/17/2023 7:07 AM CDT [facility] 07/16/2023 10:0 7 PM CDT Mauro Allen MD LABORATORY Final Result Performing Organization Address [facility] de Phone Number [facility] [address] [place] [address], [place] [phone] from Last 3 Months or Most Recently Relevant to Health Maintenance Insurance AETNA AETNA Advance Directives Documents on File Type Date Recorded Patient Rn Surgery Expl anation Advance Directives and Living Will 06/02/2019 10:47 AM 05/29/19 POA FOR HEAL TH CARE * Full Code (Latest Code Status on File) Date Activated Date Inactivated Comments 07/17/2023 2:43 AM 07/18/2023 3:52 PM * Full Code Date Activated Date Inactivated Comments 05/27/2019 3:51 PM 05/30/2019 2:22 AM Care Teams Director College Relationship Specialty Start Date End Date Randolph Moore MD [address] [facility] [place] [phone] PCP - General FAMILY PRACTICE 11/07/18 Roberta Nicole MD [address] [place] [address] Consulting Physician CARDIOVASCULAR DISEASE 07/15/23
--- OUTSIDE RECORDS SUMMARY | 2024-06-20 09:02 | XMS_ITS | Encounter Summary ---
Author Organization [facility] Address [address] [place] [address] Care Team Providers Care Sales Merchandise Associate Name Role Phone Randolph Moore MD Primary Care Provider [phone] Roberta Nicole MD Unavailable Encounter Details Date Type Department Care Team (Late st Contact Info) Description 09/17/2018 Abstract [place] [address] , Generic Conversion, Social History Tobacco Use Types Packs/Day Years Used Date Smoking Tobacco: Never Assessed Sex and Gender Information Value Date Recorded Sex Assigned at Male 05/27/2019 3:12 PM TOOL OR DIE DRAWING CHECKER Legal Sex Male 5:49 PM TOOL OR DIE DRAWING CHECKER Gender Identity Male 05/27/2019 3:12 PM TOOL OR DIE DRAWING CHECKER Sexual Orientation Straight 05/27/2019 3: 12 PM TOOL OR DIE DRAWING CHECKER documented as of this encounter Plan of Treatment Upcoming Encounters Date Type Department Care Team (Late st Contact Info) Description 09/01/2024 12:[address] [facility] [place] [address] Roberta Nicole MD [address] [place] [address] 09/22/2024 11:00 AM CDT Office Visit [facility] [place] [phone] Roberta Nicole MD [address] [place] [address] 03/26/2025 1:30 PM TOOL OR DIE DRAWING CHECKER [place] [address] Roberta Nicole MD [address] [place], [place] [phone] 04/02/2025 9:00 AM TOOL OR DIE DRAWING CHECKER Office Visit [facility] [address] [place] [phone] Roberta Nicole MD [address] [place], [place] [phone] documented as of this encounter Visit Diagnoses Not on filedocumented in this encounter Care Teams Sales Merchandise Associate Relationship Specialty Start Date End Date Randolph Moore MD [address] [place] [phone] PCP - General FAMILY PRACTICE 11/07/18 Roberta Nicole MD [address] [place] [address] Consulting Physician CARDIOVASCULAR DISEASE 07/15/23 documented as of this encounter
--- OUTSIDE RECORDS SUMMARY | 2024-06-20 09:02 | XMS_ITS | Encounter Summary ---
Author Organization [facility] Address [address] [place] [address] Care Team Providers Care Car Cooper Name Role Phone Randolph Moore MD Primary Care Provider [phone] Roberta Nicole MD Unavailable Encounter Details Date Type Department Care Team (Late st Contact Info) Description 08/17/2023 Hospital Orders Only [facility] Pre[facility]Post [address] [place] [address] Roberta Nicole MD [address] [place] [address] Social History Tobacco Use Types Packs/Day Years Used Date Smoking Tobacco: Former Cigarettes Q uit: 05/22/2006 Smokeless Tobacco: Never Alcohol Use Standard Drinks/Week Comments Not Currently 0 (1 standard drink = 0.6 oz pur e alcohol) 8 years since last drank [facility] Utilities Answer Date Recorded In the past 12 months has [facility], gas, oil, or water [employer] threatened to shut off services in your [...] place to sleep or slept in a detention (including now)? No 07/17/2023 Sex and Gender Information Value Date Recorded Sex Assigned at Male 05/27/2019 3:12 PM RAIL DIRECTOR Legal Sex Male 5:49 PM RAIL DIRECTOR Gender Identity Male 05/27/2019 3:12 PM RAIL DIRECTOR Sexual Orientation Straight 05/27/2019 3: 12 PM RAIL DIRECTOR documented as of this encounter Functional Status [...] Info) Description 09/01/2024 12:30 PM CDT Appointment [facility] [place] [address] Roberta Nicole MD [address] [place] [id number] 09/22/2024 11:00 AM CDT Office Visit [facility] [place] [address] Roberta Nicole MD [address] [place] [address] 03/26/2025 1:30 PM RAIL DIRECTOR Appointment [facility] [place] [address] Roberta Nicole MD [address] [place] [id number] 04/02/2025 9:00 AM RAIL DIRECTOR Office Visit [facility] [place] [address] Roberta Nicole MD [address] [place] [address] documented as of this encounter Visit Diagnoses Not on filedocumented in this encounter Care Teams Car Cooper Relationship Specialty Start Date End Date Randolph Moore MD [address] [place] [id number] PCP - General FAMILY PRACTICE 11/07/18 Roberta Nicole MD [address] [place] [address] Consulting Physician CARDIOVASCULAR DISEASE 07/15/23 documented as of this encounter
[2024-06-20 09:24] LABS: Prothrombin Time 54.5 Seconds (9.50-12.1)
[2024-06-20 09:32] LABS: Anion Gap 10 mmol/L (4-12); Blood Urea Nitrogen 22 mg/dL (7-18); Calcium 8.9 mg/dL (8.5-10.1); Carbon Dioxide 27 mmol/L (21-32); Chloride 101 mmol/L (98-108); Estimated Glomerular Filt Rate > 60; Glucose 149 mg/dL (70-99); Osmolality Calculated 292 mOsm/kg (285-295); Potassium 4.8 mmol/L (3.5-5.1); Sodium 138 mmol/L (136-145)
[2024-06-20 09:45] LABS: INR 5.9
[2024-06-20 10:24] LABS: Hemoglobin A1C 8.1 % (<5.7)
== END 2024-06-20 08:40 | disposition home or self-care (01) ==
LOC: CHSLAB 08:41
PROVIDERS: PCP Family Medicine; Visit Provider Family Medicine
DX: Z79.01 Long term (current) use of anticoagulants (principal); E11.65 Type 2 diabetes mellitus with hyperglycemia
CPT/HCPCS: 36415; 80048; 83036; 85610

== ENCOUNTER 2024-07-04 13:48 | Emergency (ER) | payer MEDICARE, SELFPAY ==
[2024-07-04] VITALS (16 sets, daily range): BP systolic 116–146; BP diastolic 45–92; PULSE 82–102; RESP 18–26; TEMP 36.9; O2SAT 91–99
--- NOTE | ~2024-07-04 | XR_ITS ---
XR chest 1V portable Ordering provider: Rodolfo Meyer MD History: 54 years Male with . sob XTODAY . Comparison: December 25, 2018 FINDINGS: MEDIASTINUM: The cardiac silhouette is slightly enlarged. Congestive dylan. Postoperative changes in t he mediastinum. LUNGS: No effusions or pneumothorax. Interstitial thickening is seen bilaterally more prominent in th e left lung base. Pneumonitis versus edema is not excluded. Clinical correlation and Follow-up advise d.. OTHER: No free air under the diaphragm. IMPRESSION: Pneumonitis versus pulmonary edema. Clinical correlation and Follow-up advised. Reviewed, dictated and finalized at location A.
--- NOTE | 2024-07-04 14:04 | ED.SOB ---
HPI - SOB/Dyspnea General Chief Complaint: Shortness of Breath/Dyspnea Stated Complaint: SOB Time Seen by Provider: 07/04/24 14:03 Source: patient Mode of arrival: ambulatory Limitations: no limitations History of Present Illness HPI Narrative: patient is a 54-year-old male on Coumadin for AFib/valve replacement here for recurrent anemia getting worse in the past few days. He is feeling very weak and pale. He is short of breath. Progressively get worse short of breath. new dark stools today. his valve is metallic with known AFib and he uses INR 2 and half to 3 and half. patient has a gastrointestinal physician at [facility]. patient held his Coumadin for 1 day per elevated on the check a few days ago. MD elicited complaint: shortness of breath Pertinent past history: other ( Anemia, CHF?) Onset (ago): week(s) ( One) Context: other ( patient is a Coumadin use for AFib/valve replacement and having new dark stools today with anemia) Timing: constant Severity: moderate Exacerbating factors: nothing Relieving factors: nothing Known history of: congestive heart failure ( ?) Associated symptoms: denies other symptoms Treatment prior to arrival: none Related Data Home oxygen amount: none Home Medications ?Medication ?Instructions ?Recorded ?Confirmed ?Last Taken ?Type atorvastatin 80 mg tablet 80 mg PO DAILY 08/27/23 08/27/23 Unknown History ferrous sulfate 325 mg (65 mg 1 mg PO DAILY 08/27/23 08/27/23 Unknown History iron) tablet furosemide 40 mg tablet 40 mg PO DAILY 08/27/23 08/27/23 Unknown History metoprolol succinate 25 mg 25 mg PO DAILY 08/27/23 08/27/23 Unknown History tablet,extended release 24 hr omeprazole 40 mg capsule,delayed 40 mg PO DAILY 08/27/23 08/27/23 Unknown History release potassium chloride 20 mEq 20 meq PO DAILY 08/27/23 08/27/23 Unknown History tablet,extended release(part/cryst) (Klor-Con M) spironolactone 25 mg tablet 12.5 mg PO DAILY 08/27/23 08/27/23 Unknown History warfarin 5 mg tablet 5 mg PO DAILY 08/27/23 08/27/23 Unknown History Allergies Allergy/AdvReac Type Severity Reaction Status Date / Time No Known Allergies Allergy Unverified 07/04/24 13:56 Review of Systems Review of Systems: All systems reviewed & are unremarkable except as noted in HPI and below Constitutional: Constitutional: Reports no additional constitutional complaints Eyes: Eyes: Reports no additional eye complaints ENT: Reports system reviewed and no additional complaints, except as documented Cardiovascular: Cardiovascular: Reports no additional cardiovascular complaints Respiratory: Respiratory: Reports no additional respiratory complaints Gastrointestinal: Gastrointestinal: Reports no additional gastrointestinal complaints Genitourinary: Genitourinary: Reports no additional male genitourinary complaints Musculoskeletal: Musculoskeletal: Reports no additional musculoskeletal complaints Integumentary/Breasts: Skin/Breast: Reports system reviewed and no additional complaints, except as docu Neurologic: Reports system reviewed and no additional complaints, except as documented Psychiatric: Psychiatric: Reports no additional psychiatric complaints Endocrine: Endocrine: Reports no additional endocrine complaints Hematologic/Lymphatic: Hematologic/Lymphatic: Reports no additional hematologic/lymphatic complaints Allergic/Immunologic: Allergic/Immunologic: Reports no additional allergic/immunologic complaints PMFSH Past Medical History Medical History Atrial fibrillation Coronary artery disease Surgical History Surgical History Hx of CABG Family History Family History Mother Family history of liver disease Father Family history of Alzheimer's disease Other Diabetes mellitus Social History Social History Social History: ex-smoker Smoking status: Never smoker Alcohol intake: never Exam Const: General: ill appearing ( Pale) Nutritional Appearance: well nourished Orientation/consciousness: patient oriented x3 Limitations: no limitations HENMT: Head: normal to inspection Ears: external ears normal Face/Nose/Sinus: Normal external nose present Eyes: Conjunctivae: conjunctivae normal Pupils: Equal, round and reactive pupils present EOM: EOMs intact bilaterally Neck: Neck: normal visual inspection Chest: Chest palpation & inspection: normal inspection of the chest Resp: Effort & Inspection: normal respiratory effort and not labored Auscultation: clear to auscultation bilaterally and no crackles Cardio: Rate: regular rate Rhythm: regular rhythm Heart sounds: no murmurs GI: Inspection: non-distended GI Palp: Yes Soft to palpation and No Tenderness to palpation present (GI) Auscultation: normal bowel sounds Rectal Exam: normal sphincter tone and Abnormal stool present black stool (tarry) : General: Yes bladder normal to palpation Back/Spine/Pelvis: Back: no CVA tenderness Skin: General skin exam: No normal color, no jaundice and pallor Rashes: no rashes Wounds: no wounds Neuro: General: patient oriented x3 Cranial nerves: Yes Nystagmus not present Speech: normal speech Gait exam (Neuro): Normal gait present Extrem: General: normal to inspection Psych: Mental Status: mental status grossly normal Affect: normal affect Attitude: cooperative Course Vital Signs Vital signs: Vital Signs Temperature 36.9 C 07/04/24 13:48 Pulse Rate 83 07/04/24 13:48 Respiratory Rate 22 H 07/04/24 13:48 Blood Pressure 146/92 H 07/04/24 13:48 Pulse Oximetry 98 07/04/24 13:48 Oxygen Delivery Room Air 07/04/24 13:48 Temperature 36.9 C 07/04/24 13:48 Pulse Rate 83 07/04/24 13:48 Respiratory Rate 22 H 07/04/24 13:48 Blood Pressure 146/92 H 07/04/24 13:48 Pulse Oximetry 98 07/04/24 13:48 Oxygen Delivery Room Air 07/04/24 13:48 MDM - SOB/Dyspnea MDM Narrative Medical decision making narrative: patient is a 54-year-old male with shortness of breath and anemia. He is on Coumadin. We will do a workup at this time and probable transfer needed for higher level care. Lab Data Attestation: I reviewed the patient's lab results. 07/04/24 14:31 07/04/24 14:31 Labs: Lab Results 07/04/24 07/04/24 Range/Units 14:27 14:31 WBC 5.9 (4.8-10.8) K/mm3 RBC 3.51 L (4.70-6.10) M/mm3 Hgb 6.9 L* (14.0-18.0) g/dL Hct 23.8 L (40.0-54.0) % MCV 67.8 L (78.0-102.0) fL MCH 19.7 L (27.0-31.0) pg MCHC 29.0 L (32-36) g/dL RDW 24.9 H (11.6-14.4) % Plt Count 219 (150-420) K/mm3 MPV 8.5 L (8.7-11.0) fl Immature Gran % (Auto) 0.5 H (0.0-0.0) % Neut % (Auto) 76.3 H (50.0-70.0) % Lymph % (Auto) 13.7 L (18.0-42.0) % [place] % (Auto) 6.6 (2.0-11.0) % Eos % (Auto) 2.4 (1.0-6.0) % Baso % (Auto) 0.5 (0.0-1.0) % Lymph # (Auto) 0.81 L (1.10-4.50) K/mm3 [place] # (Auto) 0.39 (0.10-0.90) K/mm3 Eos # (Auto) 0.14 (0.02-0.50) K/mm3 Baso # (Auto) 0.03 (0.00-0.10) K/mm3 Abs Immat Gran (auto) 0.03 H (0.00-0.00) K/mm3 Absolute Neuts (auto) 4.52 (1.70-7.20) K/mm3 Absolute Nucleated RBC 0.02 H (0.00-0.00) K/mm3 Nucleated RBC % 0.3 H (0-0.0) % % Immature Plt Fraction 3.0 (1.0-7.0) % PT 27.7 H (9.50-12.1) Seconds INR 2.8 APTT 45.3 H (23.9-30.70) Sec Sodium 135 L (136-145) mmol/L Potassium 4.7 (3.5-5.1) mmol/L Chloride 100 (98-108) mmol/L Carbon Dioxide 24 (21-32) mmol/L Anion Gap 11 (4-12) mmol/L BUN 25 H (7-18) mg/dL Creatinine 1.15 (0.70-1.30) mg/dL Estim Creat Clear Calc 75 ml/min Estimated GFR > 60 (59 - ) Glucose 159 H (70-99) mg/dL Calculated Osmolality 287 (285-295) mOsm/kg Calcium 8.6 (8.5-10.1) mg/dL Total Bilirubin 0.5 (0.00-1.00) mg/dL AST 12 L (15-37) U/L ALT 17 (16-63) U/L Alkaline Phosphatase 130 H (46-116) U/L Troponin I 16.0 (0.00-60.4) ng/L NT-Pro-B Natriuret Pep 2425 H (0-125) pg/mL Total Protein 6.7 (6.4-8.2) g/dL Albumin 3.6 (3.4-5.0) g/dL Stool Occult Blood Positive A (Negative) Imaging Data Attestation: I personally reviewed and interpreted this imaging study as follows: Radiologist's impression: Chest x-ray shows IMPRESSION: Pneumonitis versus pulmonary edema. Clinical correlation and Follow-up advised. ECG Data EKG #1: Attestation: I personally reviewed and interpreted this ECG as follows: ECG completion date: 07/04/24 ECG completion time: 14:35 EKG Interpretation: normal rate, sinus rhythm, no ectopy, non-specific ST changes, normal QRS, normal QT and right axis Discharge Plan Discharge Clinical Impression: Acute GI bleeding, History of mitral valve replacement with metallic valve Anemia Qualifiers: Anemia type: other cause Other causes of anemia: other cause, not classified Qualified Code(s): D64.89 - Other specified anemias Atrial fibrillation Qualifiers: Atrial fibrillation type: unspecified Qualified Code(s): I48.91 - Unspecified atrial fibrillation Patient Disposition: Acute Care Hospital Condition: Stable Patient Language: Setswana Prescriptions: No Action furosemide 40 mg tablet 40 mg PO DAILY atorvastatin 80 mg tablet 80 mg PO DAILY omeprazole 40 mg capsule,delayed release(DR/EC) 40 mg PO DAILY spironolactone 25 mg tablet 12.5 mg PO DAILY potassium chloride [Klor-Con M20] 20 mEq tablet,ER particles/crystals 20 meq PO DAILY ferrous sulfate 325 mg (65 mg iron) tablet 1 mg PO DAILY warfarin 5 mg tablet 5 mg PO DAILY metoprolol succinate 25 mg tablet extended release 24 hr 25 mg PO DAILY calcitriol 0.25 mcg capsule 0.25 mcg PO 3XW Qty: 3 0RF Rx Instructions: administer after dialysis on dialysis days Follow-up/Referrals: Randolph Moore M.D. [Primary Care Provider] - Time of Disposition: 15:10
--- NOTE | 2024-07-04 14:20 | ECG_ITS ---
Test Date: 2024-07-04 14:33:44 Measurements Intervals [place] Rate: 83 P: 98 GA: 250 QRS: 92 QRSD: 106 T: 71 QT: 401 QTc: 473 Interpretive Statements SINUS RHYTHM WITH FIRST DEGREE AV BLOCK BORDERLINE RIGHT AXIS DEVIATION [QRS AXIS > 90] NONSPECIFIC ST AND T WAVE ABNORMALITY No previous ECG available for comparison Electronically Signed On 07-04-2024 15:19:23 CDT by Leola Wood M.D.
[2024-07-04 14:39] LABS: Basophils Absolute Auto 0.03 K/mm3 (0.00-0.10); Basophils Percent Auto 0.5 % (0.0-1.0); Eosinophils Absolute Auto 0.14 K/mm3 (0.02-0.50); Eosinophils Percent Auto 2.4 % (1.0-6.0); Hematocrit 23.8 % (40.0-54.0); Immature Granulocyte Absolute 0.03 K/mm3 (0.00-0.00); Immature Granulocyte Percent A 0.5 % (0.0-0.0); Lymphocytes Absolute Auto 0.81 K/mm3 (1.10-4.50); Lymphocytes Percent Auto 13.7 % (18.0-42.0); Mean Corpuscular Hemoglobin 19.7 pg (27.0-31.0); Mean Corpuscular Volume 67.8 fL (78.0-102.0); Mean Platelet Volume 8.5 fl (8.7-11.0); Monocytes Absolute Auto 0.39 K/mm3 (0.10-0.90); Monocytes Percent Auto 6.6 % (2.0-11.0); Neutrophils Absolute Auto 4.52 K/mm3 (1.70-7.20); Neutrophils Percent Auto 76.3 % (50.0-70.0); Nucleated Red Blood Cells Absolute Auto 0.02 K/mm3 (0.00-0.00); Nucleated Red Blood Cells Perc 0.3 % (0-0.0); Platelet Count Result 219 K/mm3 (150-420); Red Blood Count 3.51 M/mm3 (4.70-6.10); Red Cell Distribution Width 24.9 % (11.6-14.4); White Blood Count 5.9 K/mm3 (4.8-10.8)
[2024-07-04 14:41] LABS: Hemoglobin 6.9 g/dL (14.0-18.0)
[2024-07-04 14:53] LABS: INR 2.8; Partial Thromboplastin Time 45.3 Sec (23.9-30.70); Prothrombin Time 27.7 Seconds (9.50-12.1)
[2024-07-04 15:01] LABS: Alanine Aminotransferase 17 U/L (16-63); Albumin Level 3.6 g/dL (3.4-5.0); Alkaline Phosphatase 130 U/L (46-116); Anion Gap 11 mmol/L (4-12); Aspartate Amino Transferase 12 U/L (15-37); Bilirubin,Total 0.5 mg/dL (0.00-1.00); Blood Urea Nitrogen 25 mg/dL (7-18); Calcium 8.6 mg/dL (8.5-10.1); Carbon Dioxide 24 mmol/L (21-32); Chloride 100 mmol/L (98-108); Estimated CRCL calculation 75 ml/min; Estimated Glomerular Filt Rate > 60; Glucose 159 mg/dL (70-99); NT Pro B Type Natriuretic Pept 2425 pg/mL (0-125); Osmolality Calculated 287 mOsm/kg (285-295); Potassium 4.7 mmol/L (3.5-5.1); Sodium 135 mmol/L (136-145); Total Protein 6.7 g/dL (6.4-8.2)
[2024-07-04 15:02] LABS: Occult Blood Positive (Negative)
[2024-07-04] MEDS: PHYTONADIONE INJ 10 MG/ML AMP 5 MG SUB-Q (15:29)
--- NOTE | 2024-07-04 15:33 | PC.NURSE ---
PT HAS FAMILY AT BEDSIDE, AWARE OF PLAN OF CARE. PT IS AWAITING BLOOD FROM LAB AT THIS TIME. VSS. NAD NOTED. PT DENIES ANY NEEDS OR COMPLAINTS. WILL CONTINUE TO MONITOR.
--- NOTE | 2024-07-04 15:43 | PC.NURSE ---
LAB CALLED REPORTING PT HAS POSITIVE ANTIBODIES AND THIS WILL DELAY THE UNIT DELIVERY, LAB TO KEEP STATUS UPDATED. WILL CONTINUE TO MONITOR.
--- NOTE | 2024-07-04 16:01 | PC.NURSE ---
PT WAS FOUND TO BE USING HIS INHALER IN EXAM ROOM. ADVISED PT IF HE NEEDS ANY HELP TO NOTIFY STAFF AND NOT TO USE INHALER WITHOUT APPROVAL. HE VERBALIZED UNDERSTANDING. PT WAS PLACED ON O2 @2L FOR COMFORT AT THIS TIME. DAUGHTER REMAINS AT BEDSIDE. PT HAS BEEN UPDATED ON BLOOD STATUS. BLOOD CONSENT HAS BEEN OBTAINED. WILL CONTINUE TO MONITOR. HE REPORTS HIS LAST TRANSFUSION WAS APPROX 2 YEARS AGO AT [facility].
--- OUTSIDE RECORDS SUMMARY | 2024-07-04 16:02 | XMS_ITS | Data Portability ---
Author Organization [facility], [address] [facility] Neurology ([place]) Address [address] [place] [address] Care Team Providers Care Software Support Engineer Name Role Phone MARIBEL REDDY Primary Care Provider [phone] MARLEN MORA Transit Bus Driver [phone] MARIBEL REDDY Referring Provider [phone] Assessment Encounter Date Assessment Date Assessment LastModified by Organization Details LastModified Time 09/22/2023 09/22/2023 Tobi is a 53-ye ar-old male with an extensive past medical history including coronary disease, CABG, mitral valve replacement on Coumadin, poorly controlled diabetes, history of tobacco abuse complicated by COPD, and 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 ## BECK cirrhosis -- The patient will need exercise and weight loss to help with his blood glucose, coronary disease, and BECK cirrhosis. I understand this is challenging given his cardiopulmonary complications. The patient will be due for hepatoma screening and will need an ultrasound of his right upper quadrant at this time. ## Cirrhosis Care Health Maintenance Check List (Per AASLD guidelines, recommended care for cirrhotics includes): --MELD score calculation (CBC, INR, CMP) and consideration for referral for transplant evaluation if MELD 15 or greater and/or patient has had decompensating event (HCC, ascites, variceal bleeding, jaundice, encephalopathy) --HCC screening: RUQ ultrasound with AFP every 6 months for HCC surveillance --Variceal screening: initial EGD at time of diagnosis. If no varices and compensated cirrhosis, repeat in 3 years or with decompensation. Once decompensated, repeat yearly. --Vaccinations: unless otherwise contraindicated, we recommend seasonal flu vaccine, Pneumovax, hepatitis A and hepatitis B vaccination for all patients with cirrhosis. The patient does have significant cardiopulmonary complications and an EGD and colonoscopy may be challenging for him. In part, from his fluid shift but also because of sedation. He would hope to avoid sedation if at all possible and I explained to him that a Cologuard and video capsule endoscopy is not equivalent to an EGD and colonoscopy but may provide us some information and we will order a Cologuard and video capsule endoscopy at this time as a way to try to minimize sedation with the understanding that, once he is more stabilized from his cardiopulmonary perspective, he will need an EGD and colonoscopy. The indications, risks, possible complications and alternatives of the video capsule endoscopy (PillCam/VCE) were explained to the patient in non-technical medical terms. The risks include but are not limited to bleeding, retained capsule resulting in bowel obstruction requiring surgery, intestinal perforation, infection, allergic reaction, aspiration and remote risk of catastrophic events including cardiovascular or pulmonary collapse, stroke and . The patient indicates that they understand these risks and agrees to proceed with the procedure. The patient was given instructions on pre-procedure diet and bowel preparation instructions including: Starting the prescribed liquid diet after lunch and consuming 2 L of a 4 L GoLHipClubLY jug at 5 p.m. the day before the procedure. The patient also understands that they should not take any medication 2 hours before the procedure. After swallowing the PillCam/VCE, the patient may drink colorless liquid after 2 hours and then may have a light snack 6 hours after ingestion and eat a regular dinner that same evening. The patient was also informed that they will need to bring the capsule recorder back the following day. Lastly, the patient was made aware that they would be financially responsible for the cost of replacing the capsule recorder if it was damaged, lost in stool, and while under their possession. I personally spent a total of 39 minutes on the patient on this date of service including both kjyn-sm-chif and tlo-mxcj-au-face time excluding any separately reportable services. 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 ## BECK cirrhosis -- The patient will need exercise and weight loss to help with his blood glucose, coronary disease, and BECK cirrhosis. I understand this is challenging given his cardiopulmonary complications. The patient will be due for hepatoma screening and will need an ultrasound of his right upper quadrant at this time. ## Cirrhosis Care Health Maintenance Check List (Per AASLD guidelines, recommended care for cirrhotics includes): --MELD score calculation (CBC, INR, CMP) and consideration for referral for transplant evaluation if MELD 15 or greater and/or patient has had decompensating event (HCC, ascites, variceal bleeding, jaundice, encephalopathy) --HCC screening: RUQ ultrasound with AFP every 6 months for HCC surveillance --Variceal screening: initial EGD at time of diagnosis. If no varices and compensated cirrhosis, repeat in 3 years or with decompensation. Once decompensated, repeat yearly. --Vaccinations: unless otherwise contraindicated, we recommend seasonal flu vaccine, Pneumovax, hepatitis A and hepatitis B vaccination for all patients with cirrhosis. The patient does have significant cardiopulmonary complications including history of CABG. He had a normal video capsule endoscopy in October but he has never had an EGD for variceal screening. He appears better than he did back in September but I do not think he can tolerate a bowel prep or extensive sedation at this time. Perhaps in March, he can tolerate an EGD and we will offer that to the patient. We also recommend that he be seen at urgent care or in the emergency room to exclude pneumonia or PE given his dyspnea on exertion. The patient verbalized understanding. The indications, risks, possible complications and alternatives of esophagogastroduodenoscop y (EGD) with possible biopsies were explained to the patient in non-technical medical terms. The risks include but are not limited to bleeding (1-2%), intestinal perforation (1-2%), infection (1%) (including endoscope induced infection), drug reaction (<1%), phlebitis (1%), aspiration pneumonia (<1%), delayed post polypectomy or biopsy bleeding (1-10%), missed lesions and remote risk of catastrophic events, cardiovascular or pulmonary collapse, stroke and . Rarely, blood transfusions or surgery may be required to treat these conditions. All risks may be increased if patient uses steroids or has significant underlying diseases. The patient indicates that they understand these risks and agrees to proceed with the procedure. I personally spent a total of 29 minutes on the patient on this date of service including both jcno-tx-feyl and hnn-lwao-oc-face time excluding any separately reportable services. [email or web address] Not available 02/16/2024 11:36:26 Plan of Treatment Reminders Order Date Submit Date Provider Last Modified By Organization Details Last Modified Time Details Appointments None recorded. Lab CBC w/ auto diff 2023 [email or web address] [facility], [address] [place] [address], [id number], 13:44:43 PT/INR 2023 [email or web address] [facility], [address] [place] [address], [id number], 13:44:43 CMP, serum or plasma 2023 [email or web address] [facility], [address] [place] [address], [id number], 13:44:43 afp (alpha-feto protein) tumor marker, serum or plasma 2023 [email or web address] [facility], [address] [place] [address], [id number], 4 03:38:48 hemoglobin A1c + average glucose, QN, blood 2023 [email or web address] [facility], [address] [place] [address], [id number], 13:54:19 Referral surgery center referral 2023 [email or web address] Not available 10:30:26 Procedures None recorded. Surgeries None recorded. Imaging US, abdomen, limited 2023 [email or web address] [facility], [address] [place] [address], [id number], 14:00:51 Medication Orders None recorded. Patient TargetsNo targets recorded. Patient InstructionsNo instructions recorded. Reason for Referral Surgery Center Referral for Cirrhosis - non-alcoholic egd Referring Physician: Marlen Mora, Gastroenterology, Encounter Date: 02/16/2024 Results Created Date Observation Date Name Description Value Unit Range Abnormal Flag Note LastModifiedBy Organization Detail LastModifiedTime 08/26/19 24 08/26/2023 ldh, serum or plasm a LDH high Not Available [facility] [address] [place] [address], [id number], 08/26/2023 16:29:05 08/26/19 24 08/26/2023 ldh, serum or plasm a LDH 488 U/L 100-21 0 high Not Available [facility] [address] [place] [address], [id number], 08/26/2023 16:29:05 08/26/19 24 08/27/2023 hapto globi n, serum haptoglobin 104 mg/dL 29-370 Not Available [facility] [address] [place] [address], [id number], 08/27/2023 11:39:23 08/26/19 24 08/30/2023 LINDA (anti nucle ar antib odies ) scree n, serum LINDA screen NEGATI VE negati ve Perfo rmed by Bio-R ad enzym e immun oassa y Not Available [facility] [address] [place] [address], [id number], 08/30/2023 12:49:39 08/26/19 24 08/27/2023 mitoc hondr ia Ab, QN, serum mitochondria M2 IgG Ab <20.0 units 0.0-20 .0 Negat moniac 0.0 - 20.0 Equiv ocal 20.1 - 24.9 Posit monica >24.9 . Mitoc hondr ial (M2) Antib odies are found in 90-96 % of patie nts with prima ry bilia ry cirrh osis. Not Available [facility] [address] [place] [address], [id number], 08/27/2023 14:39:14 08/26/19 24 08/27/2023 actin benjamin h muscl e IgG Ab, quant , serum smooth muscle (actin) Ab 11 units 0-19 Negat monica 0 - 19 Weak posit monica 20 - 30 Moder ate to stron g posit monica >30 . Actin Antib odies are found in 52-85 % of patie nts with autoi mmune hepat itis or chron ic activ e hepat itis and in 22% of patie nts with prima ry bilia ry cirrh osis. Not Available [facility] [address] [place] [address], [id number], 08/27/2023 14:39:12 08/26/19 24 08/27/2023 hepat itis B surfa ce Ab, quant itati ve, serum hep bsab quant <3.1 mIU/m L low Statu s of Immun ity Anti- HBs Level ----- ----- ----- --- ----- ----- ---- Incon siste nt with Immun ity 0.0 - 9.9 Consi stent with Immun ity >9.9 Eff ectiv e October 11, 2023 the refer ence inter sotero will be chambers ing to: Immun ity >10 Not Available [facility] [address] [place] [address], [id number], 08/27/2023 10:38:54 08/26/1908/27/2023 hepat itis A virus Ab, quali tativ e, immun oassa y, serum hepatitis A Ab, total POSITI VE negati ve abnormal Comme nt: The HAV total antib [place] assay detec ts both IgG and IgM but does not diffe renti ate betwe en them. A negat monica resul t sugge sts susce ptibi lity to infec tion. A posit monica resul t could be due to vacci natio n, previ ously resol lara infec tion or activ e infec tion. Testi ng for HAV IgM shoul d be perfo rmed if activ e HAV infec tion is suspe cted. [facility] offer s profi les that will autom atica lly refle x posit monica HAV total antib [place] resul ts to IgM (e.g. , panel #[id number] HAV Antib [place] w/ Rfx). Not Available [facility] [address] [place] [address], [id number], 08/27/2023 10:38:52 08/26/19 24 08/26/2023 hepat itis panel (A+B+ C), acute , serum hepatitis acute panel Not Available [facility] [address] [place] [address], [id number], 08/26/2023 17:02:39 08/26/19 24 08/26/2023 hepat itis panel (A+B+ C), acute , serum hepatitis A IgM Ab Nonrea ctive nonrea ctive Not Available [facility] [address] [place] [address], [id number], 08/26/2023 17:02:39 08/26/19 24 08/26/2023 hepat itis panel (A+B+ C), acute , serum hepatitis B core IgM Nonrea ctive nonrea ctive Not Available [facility] [address] [place] [address], [id number], 08/26/2023 17:02:39 08/26/19 24 08/26/2023 hepat itis panel (A+B+ C), acute , serum hepatitis B surface Ag Nonrea ctive nonrea ctive Not Available [facility] [address] [place] [address], [id number], 08/26/2023 17:02:39 08/26/19 24 08/26/2023 hepat itis panel (A+B+ C), acute , serum hepatitis C Ab Nonrea ctive nonrea ctive Not Available [facility] [address] [place] [address], [id number], 08/26/2023 17:02:39 08/26/19 24 08/26/2023 iron panel , serum or plasm a iron panel Not Available [facility] [address] [place] [address], [id number], 08/26/2023 16:31:46 08/26/19 24 08/26/2023 iron panel , serum or plasm a iron 17 ug/dL 50-212 low Not Available [facility] [address] [place] [address], [id number], 08/26/2023 16:31:46 08/26/19 24 08/26/2023 iron panel , serum or plasm a % saturation 4 % 20-55 low Not Available [facility] [address] [place] [address], [id number], 08/26/2023 16:31:46 08/26/19 24 08/26/2023 iron panel , serum or plasm a ferritin 6 NG/mL 15-200 low Not Available [facility] [address] [place] [address], [id number], 08/26/2023 16:31:46 08/26/19 24 08/26/2023 iron panel , serum or plasm a TIBC. 409 ug/dL 205 - 512 Not Available [facility] [address] [place] [address], [id number], 08/26/2023 16:31:46 08/26/19 24 08/26/2023 hepat itis panel (A+B+ C), acute , serum hepatitis acute panel Not Available [facility] [address] [place] [address], [id number], 08/26/2023 16:42:49 08/26/19 24 08/26/2023 hepat itis panel (A+B+ C), acute , serum hepatitis A IgM Ab PENDIN G Not Available [facility] [address] [place] [address], [id number], 08/26/2023 16:42:49 08/26/19 24 08/26/2023 hepat itis panel (A+B+ C), acute , serum hepatitis B core IgM PENDIN G Not Available [facility] [address] [place] [address], [id number], 08/26/2023 16:42:49 08/26/19 24 08/26/2023 hepat itis panel (A+B+ C), acute , serum hepatitis B surface Ag Nonrea ctive nonrea ctive Not Available [facility] [address] [place] [address], [id number], 08/26/2023 16:42:49 08/26/19 24 08/26/2023 hepat itis panel (A+B+ C), acute , serum hepatitis C Ab PENDIN G Not Available [facility] [address] [place] [address], [id number], 08/26/2023 16:42:49 08/26/1908/26/2023 iron panel , serum or plasm a iron panel Not Available [facility] [address] [place] [address], [id number], 08/26/2023 16:29:07 08/26/19 24 08/26/2023 iron panel , serum or plasm a iron 17 ug/dL 50-212 low Not Available [facility] [address] [place] [address], [id number], 08/26/2023 16:29:07 08/26/19 24 08/26/2023 iron panel , serum or plasm a % saturation 4 % 20-55 low Not Available [facility] [address] [place] [address], [id number], 08/26/2023 16:29:07 08/26/19 24 08/26/2023 iron panel , serum or plasm a ferritin PENDIN G Not Available [facility] [address] [place] [address], [id number], 08/26/2023 16:29:07 08/26/19 24 08/26/2023 iron panel , serum or plasm a TIBC. 409 ug/dL 205 - 512 Not Available [facility] [address] [place] [address], [id number], 08/26/2023 16:29:07 02/16/20 24 02/16/2024 CMP, serum or plasm a comp. met. panel Not Available [facility] [address] [place] [address], [id number], 02/16/2024 12:53:43 02/16/20 24 02/16/2024 CMP, serum or plasm a sodium 134 mmol/ L 136-14 6 low Not Available [facility] [address] [place] [address], [id number], 02/16/2024 12:53:43 02/16/20 24 02/16/2024 CMP, serum or plasm a potassium 5.1 mmol/ L 3.5-5. 1 Not Available [facility] [address] [place] [address], [id number], 02/16/2024 12:53:43 02/16/20 24 02/16/2024 CMP, serum or plasm a chloride 104 mmol/ L 98-110 Not Available [facility] [address] [place] [address], [id number], 02/16/2024 12:53:43 02/16/20 24 02/16/2024 CMP, serum or plasm a CO2 22 mEq/L 20-32 Not Available [facility] [address] [place] [address], [id number], 02/16/2024 12:53:43 02/16/20 24 02/16/2024 CMP, serum or plasm a anion gap 13 mmol/ L 10-22 Not Available [facility] [address] [place] [address], [id number], 02/16/2024 12:53:43 02/16/2002/16/2024 CMP, serum or plasm a glucose 168 mg/dL 70-100 high Not Available [facility] [address] [place] [address], [id number], 02/16/2024 12:53:43 02/16/2002/16/2024 CMP, serum or plasm a calcium 9.6 mg/dL 8.4-10 .4 Not Available [facility] [address] [place] [address], [id number], 02/16/2024 12:53:43 02/16/2002/16/2024 CMP, serum or plasm a total protein 6.8 g/dL 6.4-8. 3 Not Available [facility] [address] [place] [address], [id number], 02/16/2024 12:53:43 02/16/2002/16/2024 CMP, serum or plasm a albumin 4.7 g/dL 3.5-5. 3 Not Available [facility] [address] [place] [address], [id number], 02/16/2024 12:53:43 02/16/2002/16/2024 CMP, serum or plasm a ALP 141 U/L 44 - 127 high Not Available [facility] [address] [place] [address], [id number], 02/16/2024 12:53:43 02/16/2002/16/2024 CMP, serum or plasm a AST (SGOT) 14 U/L 10-40 Not Available [facility] [address] [place] [address], [id number], 02/16/2024 12:53:43 02/16/20 24 02/16/2024 CMP, serum or plasm a total bilirubin 0.6 mg/dL 0.2-1. 0 Not Available [facility] [address] [place] [address], [id number], 02/16/2024 12:53:43 02/16/20 24 02/16/2024 CMP, serum or plasm a ALT (SGPT) 10 U/L 8-35 Not Available [facility] [address] [place] [address], [id number], 02/16/2024 12:53:43 02/16/20 24 02/16/2024 CMP, serum or plasm a BUN 25 mg/dL 7-21 high Not Available [facility] [address] [place] [address], [id number], 02/16/2024 12:53:43 02/16/20 24 02/16/2024 CMP, serum or plasm a creatinine 1.1 mg/dL 0.7-1. 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 ) Not Available [facility] [address] [place] [address], [id number], 02/16/2024 12:53:43 02/16/20 24 02/16/2024 CBC w/ auto diff CBC with differential Not Available [facility] [address] [place] [address], [id number], 02/16/2024 13:27:43 02/16/20 24 02/16/2024 CBC w/ auto diff WBC 6.0 K/uL 4.8- 10.8 Not Available [facility] [address] [place] [address], [id number], 02/16/2024 13:27:43 02/16/20 24 02/16/2024 CBC w/ auto diff RBC 4.83 M/uL 4.70-6 .10 Not Available [facility] [address] [place] [address], [id number], 02/16/2024 13:27:43 02/16/20 24 02/16/2024 CBC w/ auto diff HGB 7.7 g/dL 14.0-1 8.0 low Not Available [facility] [address] [place] [address], [id number], 02/16/2024 13:27:43 02/16/20 24 02/16/2024 CBC w/ auto diff HCT 27.9 % 42.0-5 2.0 low Not Available [facility] [address] [place] [address], [id number], 02/16/2024 13:27:43 02/16/20 24 02/16/2024 CBC w/ auto diff MCV 57.8 fL 80.0-9 4.0 low Not Available [facility] [address] [place] [address], [id number], 02/16/2024 13:27:43 02/16/20 24 02/16/2024 CBC w/ auto diff MCH 15.9 pg 27.0- 31.0 low Not Available [facility] [address] [place] [address], [id number], 02/16/2024 13:27:43 02/16/20 24 02/16/2024 CBC w/ auto diff MCHC 27.6 g/dL 32.0-3 6.0 low Not Available [facility] [address] [place] [address], 14544, 02/16/2024 13:27:43 02/16/20 24 02/16/2024 CBC w/ auto diff RDW-SD 42.3 fL 35.1 - 46.3 Not Available [facility] [address] [place] [address], [id number], 02/16/2024 13:27:43 02/16/20 24 02/16/2024 CBC w/ auto diff plt 401 K/uL 130-40 0 high Not Available [facility] [address] [place] [address], [id number], 02/16/2024 13:27:43 02/16/20 24 02/16/2024 CBC w/ auto diff MPV 9.2 fL 7.5- 11.8 Not Available [facility] [address] [place] [address], [id number], 02/16/2024 13:27:43 02/16/20 24 02/16/2024 CBC w/ auto diff paulino% 62.2 % not estab Not Available [facility] [address] [place] [address], [id number], 02/16/2024 13:27:43 02/16/20 24 02/16/2024 CBC w/ auto diff lym% 25.8 % not estab Not Available [facility] [address] [place] [address], [id number], 02/16/2024 13:27:43 02/16/20 24 02/16/2024 CBC w/ auto diff mono% 7.2 % not estab Not Available [facility] [address] [place] [address], [id number], 02/16/2024 13:27:43 02/16/20 24 02/16/2024 CBC w/ auto diff eos% 3.7 % not estab Not Available [facility] [address] [place] [address], [id number], 02/16/2024 13:27:43 02/16/20 24 02/16/2024 CBC w/ auto diff baso% 0.8 % not estab Not Available [facility] [address] [place] [address], [id number], 02/16/2024 13:27:43 02/16/20 24 02/16/2024 CBC w/ auto diff abs paulino 3.7 K/uL 1.5-7. 5 Not Available [facility] [address] [place] [address], [id number], 02/16/2024 13:27:43 02/16/20 24 02/16/2024 CBC w/ auto diff abs lym 1.5 K/uL 1.2-3. 4 Not Available [facility] [address] [place] [address], [id number], 02/16/2024 13:27:43 02/16/20 24 02/16/2024 CBC w/ auto diff abs mono 0.4 K/uL 0.1-1. 0 Not Available [facility] [address] [place] [address], [id number], 02/16/2024 13:27:43 02/16/20 24 02/16/2024 CBC w/ auto diff abs eos 0.2 K/uL 0.0-0. 7 Not Available [facility] [address] [place] [address], [id number], 02/16/2024 13:27:43 02/16/20 24 02/16/2024 CBC w/ auto diff abs baso 0.1 K/uL 0.0-0. 2 Not Available [facility] [address] [place] [address], [id number], 02/16/2024 13:27:43 02/16/20 24 02/16/2024 CBC w/ auto diff imm. gran % 0.3 % 0-5 Moder ate aniso cytos is Moder ate poiki locyt osis Moder ate carol cells Few acant hocyt es Few ellip tocyt es Few schis tocyt es Moder ate polyc hroma la Moder ate hypoc hroma la Moder ate micro cytos is Plate lets appea r incre ased Not Available [facility] [address] [place] [address], [id number], 02/16/2024 13:27:43 02/16/20 24 02/16/2024 CBC w/ auto diff NRBC % 1.2 % 0.0-0. 2 high Not Available [facility] [address] [place] [address], [id number], 02/16/2024 13:27:43 02/16/20 24 02/16/2024 PT/IN R protime panel 2 Not Available [facility] [address] [place] [address], [id number], 02/16/2024 13:34:36 02/16/20 24 02/16/2024 PT/IN R prothrombin 39.5 secon ds 9.7-12 .2 high Not Available [facility] [address] [place] [address], [id number], 02/16/2024 13:34:36 02/16/20 24 02/16/2024 PT/IN R INR 3.6 INR INTER PRETA TION 2.0-3 .0 FOR DEEP VEIN THROM BOSIS PULMO NARY EMBOL ISM ACUTE MYOCA RDIAL INFAR CTION ATRIA L FIBRI LLATI ON 3.0-4 .5 FOR MECHA NICAL HEART VALVE S Not Available [facility] [address] [place] [address], [id number], 02/16/2024 13:34:36 02/16/20 24 02/16/2024 hemog lobin A1c + avera ge gluco se, QN, blood hemoglobin A1C Not Available [facility] [address] [place] [address], [id number], 02/16/2024 13:54:19 02/16/20 24 02/16/2024 hemog lobin A1c + avera ge gluco se, QN, blood HGB A1C 9.3 %_A1C 4.3 - 5.6 high Not Available [facility] [address] [place] [address], [id number], 02/16/2024 13:54:19 02/16/20 24 02/16/2024 hemog lobin A1c + avera ge gluco se, QN, blood estimated average glucose 220 mg/dL Not Available [facility] [address] [place] [address], [address], 02/16/2024 13:54:19 02/16/20 24 02/17/2024 afp (alph a-fet oprot ein) tumor marke r, serum or plasm a AFP-tumor marker 2.5 NG/mL 0.0-8. 4 Buck Diagn ostic s Elect buck milum inesc ence Immun oassa y (ECLI A) . Value s obtai kendall with diffe rent assay metho ds or kits canno t be used inter chambers eably . Resul ts canno t be inter prete d as absol vitaliy evide nce of the prese nce or absen ce of andressa stewart se. . This test is not inter preta ble in pregn ant femal es. Not Available [facility] [address], [address], 02/17/2024 03:38:48 03/24/20 24 03/24/2024 SURGI DIOGENES PATHO LOGY spf Perfo rmed at: [facility] Order ing Provi erick: Shust er, Dmitr y Patie nt Name: TOBI GRIFFIN haley #: [id number] /A ge/Ge nder: 03/25 (Age: 54) / M Proce dure Date: 03/24 SP ECIME N(S) RECEI LARA * A:Eso phagu s, barre tt's 37-39 , biops ies FI NAL PATHO LOGIC DIAGN OSIS* A. Esoph belkis, barre tt's 37-39 , biops ies: - Gastr oesop hagea l junct ion mucos a with intes tinal metap lasia , consi stent with [place] tt's esoph belkis - No dyspl marleni or malig brian ident ified EL ECTRO NICAL LY VERIF IED BY WILLIAM LIM MD 03/28 16:33 CL INICA L HISTO RY Varic eal scree latonya, [place] tt GR OSS DESCR IPTIO N The speci men conta iner( s) and requi sitio n have the same patie nt name. Recei lara in forma wendi label ed [place] ett's biops ies are three granados soft tissu e fragm ents rangi ng from 0.1-0 .3 cm in great est dimen haley which are entir colt submi tted in casse tte A1. The tissu e is proce ssed as forma wendi-f ixed paraf fin-e mbedd ed secti ons. 2023 END OF REPOR T Not Available [facility] Only - [facility] [address] [place] [address] [place], [address], 03/28/2024 17:33:59 09/21/19 24 US, abdom en, limit ed No observ ation record ed. [email or web address] Not Available 03/12 09:52:34 02/23/20 24 02/23/2024 US, abdom en, limit ed [facility] [address] [place] [address] Teleph one Name: Tobi Griffin [id number] Exam Date: 2023 Age: 53 Physic donis: Hernesto abernathy MD, Marlen : 1969 Examin ation: US ABDOME N LIMITE D Examin ation: US ABDOME N LIMITE D Compar yunier: 024 Histor y: Cirrho sis follow -up, previo us cholec ystect murphy Techni que: Transa bdomin al graysc valeria and select ed color images of the liver were obtain ed. Findin gs: Liver is nodula r in surfac e contou r. Mildly hetero geneou s echote xture mild hepato megaly . No focal lesion . There is hepato pedal flow in the main portal vein. There is no intra or extrah epatic biliar y dilata tion. The gallbl adder has been remove d. The visual ized pancre as and right kidney are unrema rkable . IMPRES HALEY: Contin ued cirrho sis and hepato megaly . Cholec ystect murphy Electr onical ly signed in Romero cribe by: DAFNE He MD on: 4 9:22 AM cc: Page PAGE 1 of [facility] 1 SHAYY [facility] [address] [place] [address], [address], 02/23/2024 12:17:34 Result Notes None recorded. Problems Name Problem SNOMED Code Status Onset Date Resolution Date Notes Provider Name and Address Organization Details Recorded Time Chronic bronchitis 87280692 Active 2023 Mary Beth Phelps [facility] 4 09:18:29 Coronary arterioscler osis 45216257 Active 2023 Mary Beth Phelps [facility] 4 09:19:30 Willis's esophagus 059550336 Active 2023 Lawanda Alvarez [facility] 4 11:33:07 Cirrhosis - non-alcoholi c 670050182 Active 2023 Mary Beth Phelps [facility] 4 15:19:55 Multi vessel coronary artery disease 028141488 Active 2023 Mary Beth Phelps [facility] 4 15:21:01 Congestive heart failure 53151942 Active 2023 Mary Beth Phelps [facility] 4 15:21:13 Chronic obstructive pulmonary disease 44278648 [facility] 15:21:51 Iron deficiency anemia 23522744 Active 2023 [facility] 4 15:22:13 Severe chronic obstructive pulmonary disease 065551699 Active 2023 [facility] 4 21:26:43 Uncontrolled type 2 diabetes mellitus 947706312 Active 2023 [facility] 4 21:27:29 Problem Notes None recorded. Procedures Surgical History Date Name Laterality Status Provider Name and Address Organization Details Recorded Time 10/11/19 24 SC Pill Cam completed Yas Bah [facility] 10/11/2023 10:11:33 Removal of gallbladder completed Not Available Health Note 02/09/2024 10:30:46 Imaging Results Imaging Date Name Status LastModified by Organiz ation Details LastModified Time 02/23/2024 US, abdomen, limited completed SHAYY [facility] [address] [place] [address], [address], 02/23/2024 12:17:34 09/21/2023 US, abdomen, limited completed [email or web address] Information not available 03/29/2024 09:52:34 Procedure Notes None recorded. Medical Equipment None Reported. Allergies No known drug allergies Medications Name Sig Start Date Stop Date Status Note LastModified by Organization Details LastModified Time furosemide 40 mg tablet TAKE 1 TABLET BY MOUTH EVERY DAY active Not Available Not Available No t Available atorvastatin 80 mg tablet TAKE 1 TABLET BY MOUTH EVERY DAY active Not Available Not Available No t Available ipratropium 0.5 mg-albuterol 3 mg (2.5 mg base)/3 mL nebulization soln TAKE 4 TIMES A DAY NEEDED BY NEBULIZER TREATMENT FOR SHORTNESS OF BREATH/ WHEEZING. active Not Available Not Available No t Available azithromycin 250 mg tablet TAKE 2 TABLETS BY MOUTH TODAY, THEN TAKE 1 TABLET DAILY FOR 4 DAYS active Not Available Not Available No t Available metoprolol succinate ER 50 mg tablet,exten ded release 24 hr TAKE 1 TABLET BY MOUTH EVERY DAY active Not Available Not Available No t Available prednisone 20 mg tablet TAKE 2 TABS BY MOUTH DAILY FOR 5 DAYS active Not Available Not Available No t Available omeprazole 40 mg capsule,sterling yed release TAKE 1 CAPSULE BY MOUTH EVERY DAY active Not Available Not Available No t Available spironolacto ne 25 mg tablet TAKE 1/2 TABLET BY MOUTH DAILY active Not Available Not Available Not Available magnesium oxide 400 mg (241.3 mg magnesium) tablet TAKE 2 TABLETS BY MOUTH 2 TIMES PER DAY active Not Available Not Available No t Available ferrous sulfate 325 mg (65 mg iron) tablet TAKE 1 TABLET BY MOUTH DAILY active Not Available Not Available Not Available warfarin 5 mg tablet TAKE 1 TABLET BY MOUTH EVERY DAY active Not Available Not Available No t Available losartan 25 mg tablet TAKE 1/2 TABLET BY MOUTH EVERY DAY active Not Available Not Available No t Available mupirocin 2 % topical ointment APPLY TWICE DAILY UNTIL AFFECTED AREA ON BACK UNTIL HEALED. active Not Available Not Available No t Available metoprolol succinate ER 25 mg tablet,exten ded release 24 hr TAKE 1 TABLET BY MOUTH EVERY DAY active Not Available Not Available No t Available warfarin 1 mg tablet TAKE 2 (TWO) TABLETS DAILY DIRECTED active Not Available Not Available No t Available albuterol sulfate HFA 90 mcg/actuatio n aerosol inhaler INHALE 2 PUFFS BY MOUTH EVERY 4 HOURS NEEDED FOR SHORTNESS OF BREATH/ WHEEZING FOR 90 DAYS. active Not Available Not Available No t Available calcitriol 0.25 mcg capsule TAKE 1 TABLET ORALLY 3 TIMES A WEEK ADMINISTER AFTER DIALYSIS ON DIALYSIS DAYS active Not Available Not Available No t Available enoxaparin 100 mg/mL subcutaneous syringe INJECT 1ML SUBCUTANEOU SLY EVERY 12 HOURS active Not Available Not Available No t Available Klor-Con M20 mEq tablet,exten ded release TAKE 1 TABLET BY MOUTH EVERY DAY active Not Available Not Available No t Available GaviLyte-G 236 gram-22.74 gram-6.74 gram-5.86 gram oral solution TAKE HALF DIRECTED PRIOR TO PROCEDURE active Not Available Not Available No t Available Incruse Ellipta 62.5 mcg/actuatio n powder for inhalation INHALE ONE PUFF BY MOUTH DAILY active Not Available Not Available Not Available magnesium 400 mg (as magnesium oxide) tablet 2 TABS BY MOUTH 2 TIMES PER DAY active Not Available Not Available No t Available Vitals Date Recorded Body height Body mass index (BMI) Body weight Heart rate Oxygen saturation Oxygen saturation in Arterial blood by Pulse oximetry Systolic blood pressure Diastolic blood pressure Provider Name and Address Organization Details Last Updated DateTime 4 175.26 cm 31.5 kg/m2 57522.1 7 g 70 /min 97 % 97 % 128 mm[Hg] 72 mm[Hg] [facility] 4 11:22:30 Date Recorded Body height Body mass index (BMI) Body weight Heart rate Systolic blood pressure Diastolic blood pressure Provider Name and Address Organization Details Last Updated DateTime 4 175.26 cm 32.2 kg/m2 26687.1 4 g 121 /min 132 mm[Hg] 88 mm[Hg] [facility] 4 09:11:59 Social History Question Answer Notes LastModified by [facility] ion Details LastModified Time Tobacco Smoking Status Former Smoker Not Available Health Note 02/09/2024 10:30:46 Do You Have An Advance Directive? Yes [email or web address] Information not available 02/09/2024 What Is Your Level Of Alcohol Consumption? None [email or web address] Information not available 02/09/2024 What Is Your Level Of Caffeine Consumption? Heavy [email or web address] Information not available 02/09/2024 What Is Your Code Status? DNR [email or web address] Information not available 02/09/2024 Are You Currently Employed? No [email or web address] Information not available 02/09/2024 What Is Your Occupation? None [email or web address] Information not available 02/09/2024 How Many Times Per Week Do You Exercise? Less Than 1 Time Per Week [email or web address] Information not available 02/09/2024 When Did You Quit Smoking? [id number] [email or web address] Information not available 02/09/2024 What Was The Date Of Your Most Recent Tobacco Screening? 02/16/2024 [email or web address] Information not available 02/09/2024 What Is Your Relationship Status? [email or web address] Information not available 02/09/2024 Do You Use Any Illicit Or Recreational Drugs? No [email or web address] Information not available 02/09/2024 Sex: Unknown Functional Status Question Answer Note LastModified by [facility] ion Details LastModified Time What is your exercise level? Occasional [email or web address] Information not available 02/09/2024 Mental Status None recorded. Family History Relationship Description Onset Age of this Age Resolved Age Notes LastModified by Organization Details LastModified Time Unspecified Relation Family history unknown [email or web address] Not available 2023 10:30:45 Medical History Condition Response Diabetes N Anxiety Disorder N Bleeding Disorder N Attention-deficit Hyperactivity Disorder N High Blood Pressure Y Arthritis N Hyperlipidemia N Cancer N Stroke N Thyroid Problems N Asthma N Depression N COPD Y Anemia Y Seizures N Heart Disease Y Fibromyalgia N Osteoporosis N Kidney Disease N Immunizations Vaccine Type Date Status Note Provider Nam e and Address Organization Details Recorded Time Influenza, split virus, quadrivalent, preservative 7 completed Lawanda Henrikson [facility] 09/22/2023 11:22:49 Influenza, recombinant, quadrivalent, PF 0 completed Lawanda Henrikson [facility] 09/22/2023 11:22:49 Influenza, split virus, quadrivalent, PF 9 completed Lawanda Henrikson [facility] 09/22/2023 11:22:49 Past Encounters Encounter ID Performer Location Encounter Start Date Encounter Closed Date Diagnosis/Indication Diagnosis SNOMED-CT Code Diagnosis ICD10 Code Diagnosis Note [id number] Marlen Mora MD [address] Gastroent erology ([place]) [facility] [address] 09/22/2023 10:58:11 09/22/2023 13:24:40 Cirrhosis - non-alcoholic 344850297 K74.60 History of nicotine dependence 5599107748 86166653 Z87.891 Severe chr onic obstructive pulmonary disease 208845969 J44.9 Uncontroll ed type 2 diabetes mellitus 317452258 E11.65 [id number] Marlen Mora MD [address] [place] [phone] 10/11/2023 09:12:10 10/11/2023 10:12:25 Iron deficiency anemia 10360545 D50.9 [id number] Marlen Mora MD [address] Gastroent erology (ID) [address] [place] [phone] 02/16/2024 09:01:31 02/16/2024 10:18:59 Cirrhosis - non-alcoholic 107331972 K74.60 Chronic bronchitis 51934 004 J42 Coronary arteriosclerosis 60332934 I25.119 Multi vess el coronary artery disease 970561325 I25.10 Finding of tobacco use and exposure 483395120 Z87.891 Health Concerns Section Related Observation LastModified by Organization Detai ls LastModified Time None Recorded Concern Status LastModified by Organization Details LastModified Time None Recorded Advance Directives Directive Y: Payers Encounter Date Sequence Insurance Name Policy Number Policy Means Covered Member ID Means Member ID Guarantor Name 09/22/2023 1 [employer] (MEDICARE REPLACEMENT PPO) [id number] Tobi Garcia Griffin [id number] Tobi Garcia Griffin 10/11/2023 1 [employer] (MEDICARE REPLACEMENT PPO) [id number] Tobi C Griffin [id number] Tobi C Griffin 02/16/2024 1 [employer] (MEDICARE REPLACEMENT PPO) [id number] Tobi Garcia Griffin [id number] Tobi Garcia Griffin Notes Date Note Type Note Provider Name and Address Organization Details Recorded Time 09/22/2023 text/html patient here for follow up anemia and cirrhosis Tobi is a 53-year-old male with an extensive past medical history including coronary disease, CABG, mitral valve replacement on Coumadin, poorly controlled diabetes, history of tobacco abuse complicated by COPD, and 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 Tobi used to drink alcohol heavily and has a remote history of alcohol abuse, but that has not been an issue since at least 1999. He quit smoking in 2006. The patient has poorly controlled diabetes and understands that his metabolic disease likely contributed to his cardiac, pulmonary, and liver pathology. He is due for hepatoma screening with ultrasound at this time and also has a history of iron-deficiency anemia. Unfortunately, given his cardiopulmonary complications, sedating Tobi puts him at increased risk of complications and, as a result, we would like to minimize sedation if at all possible. The patient has never had a colonoscopy or colon cancer screening and he has never had any evaluation of his upper GI tract. At this time, we recommend that he undergo a video capsule endoscopy to exclude any obvious bleeding lesions with a Cologuard to see if he is at high risk for colon cancer. If any of these imaging modalities or stool tests are positive, the patient will need an EGD and colonoscopy at the hospital.dl Marlen Mora MD [facility] [place] [address], [phone], [facility] 09/23/2023 08:45:22 02/16/2024 text/html Tobi is a 53-year-old male with an extensive past medical history including coronary disease, exposure to second-hand smoke and previous history of tobacco abuse complicated by COPD, CABG, mitral valve replacement on Coumadin, poorly controlled diabetes, and 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 Overall, Tobi feels okay, although he states he has been short of breath for about a week. He denies a productive cough and he denies smoking, although he lives in a household and has extensive exposure to second-hand smoke every day. He is not on oxygen. We last saw him in September and recommended extensive evaluation and workup as well as conservative management including weight loss and exercise, which he has been unable to do. He appears somewhat better from that time in that he appears more euvolemic, but he is still quite sick and has shortness of breath. He denies fevers, chills, chest pain, or GI bleeding.dll 6month follow up cirrhosis Marlen Mora MD [address] [place] [address], [phone], [facility] 02/17/2024 15:59:11
--- OUTSIDE RECORDS SUMMARY | 2024-07-04 16:02 | XMS_ITS | Encounter Summary ---
Author Organization [facility] Address [address] [place] [address] Care Team Providers Care Pile Driving Superintendent Name Role Phone Randolph Moore MD Primary Care Provider [phone] Roberta Nicole MD Unavailable Encounter Details Date Type Department Care Team (Late st Contact Info) Description 07/03/2024 1:55 PM CDT Hospital Encounter [facility] [address] [place] [address] Cyndi Goldsmith PA [address] [place] [address] Arrived Social History Tobacco Use Types Packs/Day Years Used Date Smoking Tobacco: Former Cigarettes Q uit: 05/22/2006 Smokeless Tobacco: Never Alcohol Use Standard Drinks/Week Comments Not Currently 0 (1 standard drink = 0.6 oz pur e alcohol) 8 years since last drank [facility] Utilities Answer Date Recorded In the past 12 months has [facility] [employer], gas, oil, or water [employer] threatened to shut off services in your [...] place to sleep or slept in a fpc (including now)? No 07/17/2023 Sex and Gender Information Value Date Recorded Sex Assigned at Male 05/27/2019 3:12 PM RN HOME CARE Legal Sex Male 5:49 PM RN HOME CARE Gender Identity Male 05/27/2019 3:12 PM RN HOME CARE Sexual Orientation Straight 05/27/2019 3: 12 PM RN HOME CARE documented as of this encounter Functional Status [...] Info) Description 09/01/2024 12:30 PM CDT Appointment [facility] [place] [address] Roberta Nicole MD [address] [place] [phone] 09/22/2024 11:00 AM CDT Office Visit [facility] [place] [phone] Roberta Nicole MD [address] [place] [id number] 03/26/2025 1:30 PM RN HOME CARE [facility]ointment [facility] [place] [address] Roberta Nicole MD [address] [place] [phone] 04/02/2025 9:00 AM RN HOME CARE Office Visit [facility] [place] [place] [phone] Roberta Nicole MD [address] [place] [phone] documented as of this encounter Procedures Procedure Name Priority Date/Time Associated Diagnosis Comments PROTHROMBIN TIME, VENOUS STAT 07/03/2024 2:08 PM CDT Shortness of breath Anticoagulated on Coumadin BASIC METABOLIC PANEL STAT 07/03/2024 2:08 PM CDT Shortness of breath Anticoagulated on Coumadin CBC W/DIFF AUTOMATED STAT 07/03/2024 2:08 PM CDT Shortness of breath Anticoagulated on Coumadin documented in this encounter Results * (ABNORMAL) BASIC METABOLIC PANEL (07/03/2024 2:08 PM CDT) SODIUM S/P/B 137 136 - 145 MMOL/L 07/03/2024 2:22 PM CDT [facility] POTASSIUM S/P/B 4.2 3.5 - 5.1 MMOL/L 07/03/2024 2:22 PM CDT [facility] CHLORIDE S/P/B 102 98 - 107 MMOL/L 07/03/2024 2:22 PM CDT [facility] CO2 26.3 21.0 - 32.0 MMOL/L 07/03/2024 2:22 PM CDT [facility] GLUCOSE 153(H) 70 - 99 MG/DL 07/03/2024 2:22 PM CDT [facility] Comment: FASTING GLUCOSE 100 TO 125 MG/DL IS CONSISTENT WITH IMPAIRED FASTING GLUCOSE. FASTING GLUCOSE >125 MG/DL IS CONSISTENT WITH DIABETES. RANDOM GLUCOSE >200 MG/DL WITH HYPERGLYCEMIC SYMPTOMS IS CONSISTENT WITH DIABETES. PER ADA GUIDELINES BUN 33(H) 6 - 24 MG/DL 07/03/2024 2:22 PM CDT [facility] CREATININE S/P/B 1.15 0.70 - 1.30 MG/DL 07/03/2024 2:22 PM CDT [facility] CALCIUM S/P/B 8.2(L) 8.4 - 10.5 MG/DL 07/03/2024 2:22 PM CDT [facility] ANION GAP 8.7 5.0 - 15.0 MMOL/L 07/03/2024 2:22 PM CDT [facility] OSMOLALITY (CALC) 294 MOSM/KG 025 2:22 PM CDT [facility] Comment:REFERENCE RANGE NOT ESTABLISHED GFR ESTIMATE 75(L) >89 ML/MIN/1. 73 M2 07/03/2024 2:22 PM CDT [facility] GFR NOTES GFR REFERENCE S: 07/03/2024 2:22 PM CDT [facility] Comment: THE ESTIMATED GFR IS CALCULATED USING THE 2020 CKD-EPI EQUATION. THE FOLLOWING CATEGORIES FOR GRADING RENAL FUNCTION ARE RECOMMENDED BY THE INTERNATIONAL SOCIETY OF NEPHROLOGY (KDIGO 2012 CLINICAL PRACTICE GUIDELINE). G1,NORMAL OR HIGH: >89 ml/min/1.73 m2 G2,MILDLY DECREASED: 60-89 ml/min/1.73 m2 G3A,MILDLY TO MODERATELY DECREASED: 45-59 ml/min/1.73 m2 G3B,MODERATELY TO SEVERELY DECREASED: 30-44 ml/min/1.73 m2 G4,SEVERELY DECREASED: 15-29 ml/min/1.73 m2 G5,KIDNEY FAILURE: <15 ml/min/1.73 m2 07/03/2024 2:08 PM CDT [facility] Final Resu lt [facility] [address] [place] [address], * (ABNORMAL) CBC W/DIFF AUTOMATED (07/03/2024 2:08 PM CDT) WBC 6.37 4.00 - 10.80 x10'3/uL 07/03/2024 2:18 PM CDT [facility] RBC 4.08(L) 4.50 - 6.10 x10'6/uL 07/03/2024 2:18 PM CDT [facility] HGB 8.1(L) 13.0 - 18.0 G/DL 07/03/2024 2:18 PM CDT [facility] HCT 27.4(L) 37.0 - 52.0 % 07/03/2024 2:18 PM CDT [facility] MCV 67.2(L) 78.0 - 100.0 FL 07/03/2024 2:18 PM CDT [facility] MCH 19.9(L) 27.0 - 31.0 PG 07/03/2024 2:18 PM CDT [facility] MCHC 29.6(L) 33.0 - 36.0 G/DL 07/03/2024 2:18 PM CDT [facility] RDW 24.4(H) 11.5 - 14.5 % 07/03/2024 2:18 PM CDT [facility] PLT 250 150 - 350 x10'3/uL 07/03/2024 2:18 PM CDT [facility] MPV 8.9 7.4 - 10.4 FL 07/03/2024 2:18 PM CDT [facility] CBC COMMENT NORMAL REFERENCE RANGE NOT ESTABLISHED FOR THE PROPORTIONAL LEUKOCYTE DIFFERENTIAL. 07/03/2024 2:18 PM CDT [facility] NEUTROPHILS % 70.2 % 07/03/2024 2:18 PM CDT [facility] LYMPHOCYTES % 18.1 % 07/03/2024 2:18 PM CDT [facility] MONOCYTES % 8.6 % 07/03/2024 2:18 PM CDT [facility] EOSINOPHILS % 2.5 % 07/03/2024 2:18 PM CDT [facility] BASOPHILS % 0.3 % 07/03/2024 2:18 PM CDT [facility] IMMATURE GRANS % 0.3 % 07/04/19 2:18 PM CDT [facility] NRBC % 0.3 % 07/03/2024 2:18 PM CDT [facility] ABS. NEUTROPHILS 4.47 1.60 - 8.30 x10'3/uL 07/03/2024 2:18 PM CDT [facility] ABS. LYMPHOCYTES 1.15 0.80 - 4.70 x10'3/uL 07/03/2024 2:18 PM CDT [facility] ABS. MONOCYTES 0.55 0.00 - 1.50 x10'3/uL 07/03/2024 2:18 PM CDT [facility] ABS. EOSINOPHILS 0.16 0.00 - 0.40 x10'3/uL 07/03/2024 2:18 PM CDT [facility] ABS. BASOPHILS 0.02 0.00 - 0.20 x10'3/uL 07/03/2024 2:18 PM CDT [facility] ABS. IMMATURE GRANULOCYTES 0.02 0.00 - 0.03 x10'3/uL 07/03/2024 2:18 PM CDT [facility] ABS. NUCLEATED RBC'S 0.02(H) 0.00 - 0.01 x10'3/uL 07/03/2024 2:18 PM CDT [facility] 07/03/2024 2:08 PM CDT us [facility] Final Resu lt [address] [address], * (ABNORMAL) PROTIME/INR, VENOUS (07/03/2024 2:08 PM CDT) PROTIME 46.8(H) 9.4 - 12.5 SEC 07/03/2024 2:20 PM CDT [facility] INR 4.1(H) 0.8 - 1.0 07/03/2024 2:20 PM CDT [facility] 07/03/2024 2:08 PM CDT us [facility] Final Resu lt [place] [address] [place] [address], [place] [phone] documented in this encounter Visit Diagnoses Diagnosis Shortness of breath Anticoagulated on Coumadin Encounter for therapeutic drug monitoring documented in this encounter Care Teams Pile Driving Superintendent Relationship Specialty Start Date End Date Randolph Moore MD [address] [facility] [place] [phone] PCP - General FAMILY PRACTICE 11/07/18 Roberta Nicole MD [address] [place] [address] Consulting Physician CARDIOVASCULAR DISEASE 07/15/23 documented as of this encounter
--- OUTSIDE RECORDS SUMMARY | 2024-07-04 16:02 | XMS_ITS | Encounter Summary ---
Author Organization [facility] Address [address] [place] [address] Care Team Providers Care Night Clerk Name Role Phone Randolph Moore MD Primary Care Provider [phone] Roberta Nicole MD Unavailable Encounter Details Date Type Department Care Team (Latest Contact Info) Description 07/03/2024 Travel Social History Tobacco Use Types Packs/Day Years Used Date Smoking Tobacco: Former Cigarettes Q uit: 05/22/2006 Smokeless Tobacco: Never Alcohol Use Standard Drinks/Week Comments Not Currently 0 (1 standard drink = 0.6 oz pur e alcohol) 8 years since last drank [facility] [employer] Answer Date Recorded In the past 12 months has [employer] electric, gas, oil, or water company threatened to shut off services in your [...] place to sleep or slept in a jail (including now)? No 07/17/2023 Sex and Gender Information Value Date Recorded Sex Assigned at Male 05/27/2019 3:12 PM MANUFACTURER REPRESENTATIVE Legal Sex Male 5:49 PM MANUFACTURER REPRESENTATIVE Gender Identity Male 05/27/2019 3:12 PM MANUFACTURER REPRESENTATIVE Sexual Orientation Straight 05/27/2019 3: 12 PM MANUFACTURER REPRESENTATIVE documented as of this encounter Functional Status [...] 4:27 AM Milly Borjas RN Active * Because of a physical, [...] Info) Description 09/01/2024 12:30 PM CDT Appointment [facility] [address] [place] [address] Roberta Nicole MD [address] [place] [id number] 09/22/2024 11:00 AM CDT Office Visit [facility] [place] [id number] [place] [address] Roberta Nicole MD [address] [place] [id number] 03/26/2025 1:30 PM MANUFACTURER REPRESENTATIVE Appointment [facility] [address] [place] [address] Roberta Nicole MD [address] [place] [id number] 04/02/2025 9:00 AM MANUFACTURER REPRESENTATIVE Office Visit [facility] [address] [place] [address] Roberta Nicole MD [address] [place] [id number] documented as of this encounter Visit Diagnoses Not on filedocumented in this encounter Care Teams Night Clerk Relationship Specialty Start Date End Date Randolph Moore MD [address] [place] [id number] PCP - General FAMILY PRACTICE 11/07/18 Roberta Nicole MD [address] [place] [address] Consulting Physician CARDIOVASCULAR DISEASE 07/15/23 documented as of this encounter
--- OUTSIDE RECORDS SUMMARY | 2024-07-04 16:02 | XMS_ITS | Clinical Summary ---
Author Organization [facility] [place] [address] Address [address] [place] [address] Care Team Providers Care Kennel Manager Dog Track Name Role Phone Randolph Moore MD Primary Care Provider [phone] Chris Akins MD PhD Unavailable [phone] Bandar Harkins MD, Barrett Moser Unavailable [phone] Allergies No known active allergies Medications tiotropium [...] 06/12/2019 Assessment & Plan (06/12/2019 1:10 PM NURSING CONSULTANT): Ongoing since 06/05 Daily Labs throughout- Last night = 131 (previously was = 130) Continues on free water fluid restriction. High risk medication use 06/08/2019 Assessment & Plan (06/12/2019 1:00 PM NURSING CONSULTANT): Ongoing coumadin with heparin drip for RENE mitral valve & a-fib Goal INR approx. 3 Last night= coumadin 8 mg Ongoing daily INRs, while inpatient Assessment & Plan (06/10/2019 2:09 PM NURSING CONSULTANT): Intense insulin regimen in the setting of variable oral intake, MARIA DEL ROSARIO and insulin naivete places patient at increased risk of hypoglycemia/hyperglycemia which may have serious metabolic, CV and neuro consequences. We will continue to intensely monitor blood glucose and titrate insulin as needed to optimize glycemic control to avoid hypoglycemic/hyperglycemic events. Assessment & Plan (06/08/2019 1:08 PM NURSING CONSULTANT): Intense insulin regimen in the setting of [...] 06/07/2019 Assessment & Plan (06/12/2019 1:01 PM NURSING CONSULTANT): Post-op from [facility] with tricuspid valve repair on 05/31/2019 See Mitral valve replacement problem, above Assessment & Plan (06/07/2019 10:01 AM NURSING CONSULTANT): Post-op from [facility] with tricuspid valve repair on 05/31/2019 See Mitral valve replacement problem, above DM (diabetes mellitus), type 2 06/06/2019 Assessment & Plan (06/12/2019 12:56 PM NURSING CONSULTANT): Continue SSI, Lantus Endocrine consult with open hearth helper & band cutting machine operator following Blood sugars well controlled on current regimen (121-197 over past 24 hrs) A1c 9.6 on admission Will need to check blood sugars at least TID upon discharge Potential discharge on gliptins at discharge. . Assessment & Plan (06/13/2019 5:16 PM NURSING CONSULTANT): 49 y.o. male with type 2 diabetes [...] up with PCP, Blue Moore MD in [place], [place]) Instructed Mr. Griffin to bring glucometer to follow up visit for PCP to review glycemia and adjust diabetes regimen as needed; verbalized understanding. Recommendations for diabetes management were discussed with the primary team. For questions regarding this patient today, please call Radha Jade NP at [phone]. If after hours, please contact the Diabetes Fellow at [phone]. Assessment & Plan (06/10/2019 2:09 PM NURSING CONSULTANT): Continue SSI, Lantus Endocrine consult with open hearth helper & band cutting machine operator Last 24 hrs glucose = 135-191 A1c 9.6 on admission Will need to check blood sugars at least TID upon disharge Acute pain 05/31/2019 Assessment & Plan (06/12/2019 12:58 PM NURSING CONSULTANT): PRN tylenol, at present Ongoing stool softeners for anesthesia side effects Increasing activity as tolerated. Assessment & Plan (06/07/2019 10:02 AM NURSING CONSULTANT): PRN tylenol, at present Ongoing stool softeners for anesthesia side effects Increasing activity, as tolerated. Assessment & Plan (06/05/2019 10:14 AM NURSING CONSULTANT): Denies pain at this time -PRN tylenol -avoiding narcotics with ileus Assessment & Plan (06/04/2019 5:41 PM NURSING CONSULTANT): Denies pain at this time -PRN tylenol -avoiding narcotics with constipation Assessment & Plan (06/03/2019 4:10 PM NURSING CONSULTANT): Denies pain at this time -PRN tylenol -consider low dose oxy if needed as delirium is improving Assessment & Plan (06/02/2019 1:05 PM NURSING CONSULTANT): 2/2 cardiac surgery via median sternotomy. - Limit narcotics with delirium - Scheduled APAP - PRN oxycodone for breakthrough pain Assessment & Plan (06/01/2019 12:44 PM NURSING CONSULTANT): 2/2 cardiac surgery via median sternotomy. Currently sedated w/ propofol. - Fentanyl IV PRN prior to extubation - Plan to start scheduled Tylenol and PRN Oxy/Dilaudid once extubated Assessment & Plan (05/31/2019 4:51 PM NURSING CONSULTANT): 2/2 cardiac surgery via median sternotomy. Currently sedated w/ - Fentanyl IV PRN prior to extubation - Plan to start scheduled Tylenol and PRN Oxy/Dilaudid once extubated - Ensure pain control is adequate to facilitate participation in care and deep breathing Acute blood loss anemia 05/31/2019 Assessment & Plan (06/12/2019 1:01 PM NURSING CONSULTANT): Expected postop due to ABLA Daily CBC, while inpatient Receiving MVI with iron Drifted slightly, from yesterday Assessment & Plan (06/07/2019 10:08 AM NURSING CONSULTANT): Expected postop due to ABLA Daily CBC, while inpatient Added MVI with iron Assessment & Plan (06/05/2019 10:18 AM NURSING CONSULTANT): Hgb stable at 8.0 (8.1). No active signs of bleeding. Hemodynamically stable off vasopressors and tolerating epi wean - No current indication for transfusion, consider if patient becomes hemodynamically unstable with increased pressor requirements or Hgb < 8 and symptomatic - CBC daily - continue heparin gtt - repeat cbc now and coags Assessment & Plan (06/02/2019 1:07 PM NURSING CONSULTANT): Expected following cardiac surgery. Hgb 8.8. Hemodynamically stable off vasopressors. - No current indication for transfusion, consider if patient becomes hemodynamically unstable with increased pressor requirements or Hgb < 8 and symptomatic - CBC daily Assessment & Plan (06/01/2019 12:44 PM NURSING CONSULTANT): Expected following cardiac surgery. Hgb stable. Hemodynamically stable off vasopressors. - No current indication for transfusion, consider if patient becomes hemodynamically unstable with increased pressor requirements or Hgb < 8 and symptomatic - CBC daily Assessment & Plan (05/31/2019 8:06 PM NURSING CONSULTANT): Baseline hemoglobin 11.1 upon admission. Intra-op course [...] surgery Assessment & Plan (06/12/2019 12:52 PM NURSING CONSULTANT): Post-op from [facility] with tricuspid valve repair on 05/31/2019 Continue post op care (telemetry, VS, I &O, medication & weights) Ongoing heparin drip until INR closer to 3 Continue Coumadin, INR 1.6 last night Plan to give Coumadin 8 mg tonight Receiving PT and aggressive pulmonary toilet New onset DM (see diabetes problem) PT/OT Discharge planning Assessment & Plan (06/08/2019 1:09 PM NURSING CONSULTANT): Good glycemic control required to promote healing Assessment & Plan (06/10/2019 2:11 PM NURSING CONSULTANT): Post-op from [facility] with tricuspid valve repair on 05/31/2019 Continue post op care (telemetry, VS, I &O, medication & weights) Ongoing heparin drip until INR 2.5 Continue Coumadin, INR 1.4 Plan to give Coumadin 5mg tonight Receiving PT and aggressive pulmonary toilet New onset DM (see diabetes problem) PT/OT Discharge planning Assessment & Plan (06/05/2019 10:10 AM NURSING CONSULTANT): S/P [facility]. Post-op care to include: - Continue heparin infusion per nomogram for mechanical valve & fib -no couadin with EPW present - ASA daily - increase statin to 80mg daily - Colace, senna, miralax for bowel regimen, lactulose - PPI daily (home med) - SCD's for DVT ppx - PT/OT eval and treat Assessment & Plan (06/04/2019 5:33 PM NURSING CONSULTANT): S/P Mechanical [facility]. Post-op care to include: - Continue heparin infusion per nomogram for mechanical valve -no couadin with EPW present - ASA daily - resume statin (shock liver improving) - Colace, senna, miralax for bowel regimen - PPI daily (home med) - SCD's for DVT ppx - PT/OT eval and treat Assessment & Plan (06/03/2019 4:36 PM NURSING CONSULTANT): S/P Mechanical [facility]. Post-op care to include: - Continue heparin infusion per nomogram for mechanical valve -no couadin with EPW present - ASA daily - resume statin (shock liver improving) - Colace, senna, miralax for bowel regimen - PPI daily (home med) - SCD's for DVT ppx - PT/OT eval and treat Assessment & Plan (06/02/2019 1:08 PM NURSING CONSULTANT): S/P [facility]. Post-op care to include: - Continue heparin infusion per nomogram for mechanical valve - F/U with CTS re timing for starting coumadin - ASA daily - Holding statin with shock liver - Colace, senna, miralax for bowel regimen - PPI daily (home med) - SCD's for DVT ppx - PT/OT eval and treat Assessment & Plan (06/01/2019 12:54 PM NURSING CONSULTANT): S/P [facility]. Post-op care to include: - Start heparin infusion per nomogram for mechanical valve - ASA daily - Holding statin with shock liver - Colace, senna, miralax for bowel regimen - PPI daily (home med) - SCD's for DVT ppx - Periop Vanc and Ancef x 24 hours - PT/OT eval and treat Assessment & Plan (05/31/2019 5:34 PM NURSING CONSULTANT): Mitral Valve Stenosis s/p balloon valvuloplasty (Dr. [...] here Assessment & Plan (06/12/2019 1:00 PM NURSING CONSULTANT): Current creatinine = 1.22 Admission creatinine = 1.9 Daily BMPs with I &Os while inpatient Ongoing daily weights Almost 4.5 kg below pre-op (admission) weight Changed to daily lasix, 40 mg oral today Assessment & Plan (06/13/2019 5:13 PM NURSING CONSULTANT): CrCl: 89.5 ml/min, serum Cr 1.04 stable Chronic kidney disease (CKD) and acute kidney injury (MARIA DEL ROSARIO) are independent risk factors for hypoglycemia, and augments the risk of low blood glucose in patients with diabetes Assessment & Plan (06/10/2019 2:08 PM NURSING CONSULTANT): Current creatinine = 1.13 Admission creatinine = 1.9 Daily BMPs with I &Os while inpatient Ongoing daily weights Continue Lasix 40 mg IV BID and spironolactone 12.5mg daily Assessment & Plan (06/05/2019 10:12 AM NURSING CONSULTANT): Creat continues to down trending. - lasix 40mg PO BID with 20meq KCl -FBG negative 1L - restart home aldactone and 1/2 dose 12.5mg daily Assessment & Plan (06/04/2019 5:39 PM NURSING CONSULTANT): Creat down trending. -d/c sheridan -decrease lasix 40mg PO BID with 20meq KCl -FBG negative 1L Assessment & Plan (06/03/2019 4:32 PM NURSING CONSULTANT): Received an additional 80mg lasix overnight to promote diuresis. FB even. -lasix 80mg IV BID with 20meq KCl -FBG even to negative 500 -maintain sheridan to accurately monitor I&O Assessment & Plan (06/02/2019 1:04 PM NURSING CONSULTANT): Baseline Creatinine around 0.6. MARIA DEL ROSARIO upon admission likely 2/2 cardiogenic shock. Now down trending post-op. Responding to lasix. - Lasix 60 IV x2 - Metolazone 10 BID - FBG -1 to 2L - Renally dose medications as appropriate - Avoid nephrotoxins Assessment & Plan (06/02/2019 5:36 AM NURSING CONSULTANT): Baseline Creatinine around 0.6. MARIA DEL ROSARIO upon admission likely 2/2 cardiogenic shock. Now down trending post-op. Responding to lasix. - diuresis for FBG -1 to 2L - Renally dose medications as appropriate - Avoid nephrotoxins Assessment & Plan (06/01/2019 12:46 PM NURSING CONSULTANT): Baseline Creatinine around 0.6. MARIA DEL ROSARIO upon admission likely 2/2 cardiogenic shock. Current Cr 1.99. Good urine output, FB +1.2L over the last 24 hours. - Lasix 40 x1 - FBG -1 to 2L - BMP at 1400 - Renally dose all medications - Avoid nephrotoxins Assessment & Plan (06/01/2019 5:22 AM NURSING CONSULTANT): Baseline Creatinine around 0.6. MARIA DEL ROSARIO upon admission likely 2/2 cardiogenic shock. Current Cr 1.96. Will likely improve with time. Good urine output. - Renally dose all medications - avoid nephrotoxins - f/u am bmp Assessment & Plan (05/31/2019 8:09 PM NURSING CONSULTANT): Baseline Creatinine around 0.6. Mild MARIA DEL ROSARIO upon admission likely 2/2 cardiogenic shock and diuresis. - Strict I and O - Renally dose all medications - Maintain adequate renal perfusion pressure - f/u BMP in AM Hepatopathy 02/22/2019 Assessment & Plan (05/30/2019 2:40 AM NURSING CONSULTANT): -RUQ US 02/2019 showed coarse echotexture of [...] levels Assessment & Plan (02/24/2019 3:24 PM NURSING CONSULTANT): -RUQ US to evaluate for cirrhosis showed [...] up. Assessment & Plan (02/23/2019 4:55 PM NURSING CONSULTANT): Patient with newly diagnosed liver disease with ascites. Ultrasound with increased echotexture concerning for cirrhosis - unlikely to be congestive hepatopathy given no evidence of poor RV function - consider GI consult given possible need for surgery Assessment & Plan (02/23/2019 1:01 PM NURSING CONSULTANT): -RUQ US to evaluate for cirrhosis Assessment & Plan (02/22/2019 9:13 PM NURSING CONSULTANT): - Complicated by ascites, elevated LFTs and coagulopathy - S/p outpatient LVP x1 - Chest imaging with ascites, abdominal distention on exam - No concern for acute decompensation liver failure - Outpatient liver follow up A-fib 02/22/2019 Overview (06/03/2019): Afib on home dilt. Assessment & Plan (06/12/2019 1:00 PM NURSING CONSULTANT): Chronic afib, rate controlled Ongoing metoprolol & amiodarone Continue coumadin tonight. Heparin drip pending therapeutic INR Assessment & Plan (06/10/2019 2:07 PM NURSING CONSULTANT): Chronic afib, rate controlled Has had intermittent pause continue - telemetry review no alarms overnight Ongoing metoprolol & amiodarone continue coumadin tonight. Heparin drip pending therapeutic INR Assessment & Plan (06/05/2019 10:09 AM NURSING CONSULTANT): Aflutter rate controlled 70-90 on amiodarone PO [...] removed) Assessment & Plan (06/04/2019 6:54 PM NURSING CONSULTANT): Aflutter rate controlled 70-80 on amiodarone PO TID - ensure Mg > 2 and K > 4 - FBG negative 1L - heparin gtt for systemic anticoagulation - if unstable: DCCV -cap wires (no coumadin until EPW removed) Assessment & Plan (06/03/2019 4:21 PM NURSING CONSULTANT): Aflutter rate controlled on amio gtt at 0.5mg/min -transition amio to 400 TID PO -ensure Mg > 2 and K > 4 -FBG even to negative 500 with scheduled BID lasix -heparin gtt for systemic anticoagulation -if unstable: DCCV Assessment & Plan (06/02/2019 1:06 PM NURSING CONSULTANT): History of afib; on home dilt. Now in a flutter with rate in the 60s. - VVI b/u - Decrease amio infusion to 0.5mg/min - Continue heparin infusion Assessment & Plan (06/02/2019 6:37 AM NURSING CONSULTANT): History of afib; on home dilt. Afib with rates to 120's. Treated with amio bolus x 2 followed by gtt. Now rate controlled < 100. - continue amio gtt at 1 mg/min; if HR remains < 100, decrease to 0.5 - Anticoagulation with heparin infusion Assessment & Plan (06/01/2019 12:49 PM NURSING CONSULTANT): Intermittent A fib underlying pacer. - Amio bolus x1 now - Amio infusion @ 1mg/min - Anticoagulation with heparin infusion Assessment & Plan (05/31/2019 7:44 AM NURSING CONSULTANT): -hx of Afib, on Dilt CD 240mg at home -holding Dilt in the setting of potential CHF exacerbation -will bolus with Amiodarone as patient likely is not tolerating tachycardia i/s/o mitral stenosis, now on amio gtt -ct hep gtt -holding home warfarin Assessment & Plan (02/24/2019 3:25 PM NURSING CONSULTANT): -Patient reports history of occasionally irregular heart rhythm but never told he had atrial fibrillation -current rate control increased dose of diltiazem. Will change to long-acting diltiazem 240 mg daily -cont warfarin (goal INR 2.5-3.5 given mechanical mitral valve) Assessment & Plan (02/23/2019 4:59 PM NURSING CONSULTANT): Patient with a fib. Per patient on diltiazem at home for irregular heart rate but never been told he has afib. No afib seen in our system previously - will look for LA appendage clot on echo - continue AC and rate control for now Assessment & Plan (02/23/2019 1:00 PM NURSING CONSULTANT): -Patient reports history of occasionally irregular heart rhythm but never told he had atrial fibrillation -currently on his home dose of dilt, but intermittent RVR up to 140s -plan to titrate up dilt for improved rate control -cont warfarin (goal INR 2.5-3.5 given mechanical mitral valve) Assessment & Plan (02/22/2019 9:16 PM NURSING CONSULTANT): - History of palpitations but now found to be in AF with well controlled rate - Continue home diltiazem for rate control and warfarin for AC - Repeat TTE to assess LV function Syncope 02/22/2019 Assessment & Plan (02/24/2019 3:26 PM NURSING CONSULTANT): - In setting of coughing fit followed by feeling of warmth, lightheadedness and no post ictal state - Serum electrolytes wnl, CT PE protocol negative for PE - Findings consistent with vasovagal syncope but could also be related to afib with RVR and valvular issues Assessment & Plan (02/23/2019 5:02 PM NURSING CONSULTANT): Likely related to cough, kelly. Given COPD which increases risk of cough syncope. Less likely to be related to arrhythmia, but would recommend continuing telemetry monitoring Assessment & Plan (02/23/2019 12:56 PM NURSING CONSULTANT): - In setting of coughing fit followed by feeling of warmth, lightheadedness and no post ictal state - Serum electrolytes wnl, CT PE protocol negative for PE - Findings consistent with vasovagal syncope but could also be related to afib with RVR - Monitor on tele, repeat TTE Assessment & Plan (02/22/2019 9:21 PM NURSING CONSULTANT): - In setting of coughing fit followed [...] 02/22/2019 Assessment & Plan (02/22/2019 9:45 PM NURSING CONSULTANT): - AST 175. ALT 239, [id number] Tbili 3.3 and Dbili 1.3 - Secondary to BECK - Will continue to monitor Ascites 02/22/2019 Overview (02/22/2019): - Secondary BECK s/p LVP x1 - Chest imaging and physical exam with ascites - No abdominal pain or findings concerning for SBP - Outpatient LVP and hepatology follow up Assessment & Plan (02/24/2019 3:31 PM NURSING CONSULTANT): -Patient reports this is new since November of this year -likely both liver and cardiac issues contributing. Assessment & Plan (02/23/2019 12:59 PM NURSING CONSULTANT): -Patient reports this is new since November [...] Disease Assessment & Plan (05/30/2019 2:41 AM NURSING CONSULTANT): -patient is on albuterol and Spiriva at home -albuterol PRN -pulmonary function tests which showed an FEV1 that was 49% of predicted on 04/18/2019 Assessment & Plan (02/23/2019 1:01 PM NURSING CONSULTANT): -cont home inhalers, prn albuterol Assessment & Plan (02/22/2019 9:06 PM NURSING CONSULTANT): - No concern for an acute exacerbation - On Breo Ellipta at Home, non formulary - Start Albuterol prn, spiriva and advair Resolved Problems Problem Noted Date Diagnosed Date Resolved Date Leukocytosis 06/08/2019 06/12/2019 Assessment & Plan (06/11/2019 1:22 PM NURSING CONSULTANT): Remains afebrile WBC trending down Will continue to monitor Assessment & Plan (06/10/2019 2:10 PM NURSING CONSULTANT): WBC 13 from 14.2 from 13.4 No fevers Incisions clean and dry CL out Encouraged to ambulate and perform IS No overt signs of infection UA 06/08 negative CXR 06/08 showed + atelectasis and small right pleural effusion Thrombocytopenia 06/05/2019 06/12/2019 Assessment & Plan (06/11/2019 1:22 PM NURSING CONSULTANT): Plt WNL Assessment & Plan (06/10/2019 2:11 PM NURSING CONSULTANT): Platelets 89 from 92K - stable Wires out 06/07 Remains on heparin gtt for mechanical valve prophylactis Continue Coumadin Assessment & Plan (06/05/2019 10:19 AM NURSING CONSULTANT): PLT down to 66 (90s) this morning, [...] 06/07/2019 Assessment & Plan (06/05/2019 10:17 AM NURSING CONSULTANT): Small bowel movement this morning. Abdomen distended, [...] OOB/ambulate Assessment & Plan (06/04/2019 5:51 PM NURSING CONSULTANT): No BM X8d. Abdomen distended, taught, BS hypoactive. Denies nausea. KUB: dilated ascending and transverse colon measuring 9.5cm. PO bowel regimen increased yesterday and suppository with minimal response. -suppository BID -cotton seed enema -lactulose Q6hr until stool -OOB/ambulate Assessment & Plan (06/03/2019 4:34 PM NURSING CONSULTANT): No BM X7d. Abdomen distended, taught, BS hypoactive. Denies nausea. -increase docusate to 200 BID -increase miralax to BID -add suppository -consider lactulose if no BM by this evening -OOB/ambulate Delirium 06/02/2019 06/07/2019 Assessment & Plan (06/05/2019 10:15 AM NURSING CONSULTANT): Resolved. CAM negative. Received seroquel 25mg at bedtime last night. - discontinue seroquel -OOB to chair -ambulate -lights off 21:00-06:00 - prn ramelteon at bedtime for sleep Assessment & Plan (06/04/2019 5:45 PM NURSING CONSULTANT): CAM negative this AM. Slept with seroquel last night continue seroquel -OOB to chair -ambulate -lights off 21:00-06:00 Assessment & Plan (06/03/2019 4:24 PM NURSING CONSULTANT): CAM negative this AM. Did not sleep at all last night -25mg seroquel QHS to promote sleep -OOB to chair -ambulate -lights off 21:00-06:00 Assessment & Plan (06/02/2019 1:02 PM NURSING CONSULTANT): CAM positive after extubation last night. Sedated with precedex infusion overnight for sleep. This AM, more alert and appropriate. - DC precedex - Frequent reorientation - Lights on during the day - Encourage mobility- OOBTC - Sleep hygiene Assessment & Plan (06/02/2019 5:52 AM NURSING CONSULTANT): CAM positive after extubation. Unable to sleep tonight and very restless. -start low dose precedex -maintain mittens in place -delirium precautions: lights on during day, off at night, OOBTC during day, encourage family interaction during day -if does not improve will need SBFT placement Hyperglycemia 06/01/2019 06/06/2019 Assessment & Plan (06/05/2019 10:14 AM NURSING CONSULTANT): Well controlled on current NPH/SSI regimen. BGL ranging between 70-150 in the past 24 hours. HgA1C 9.6 on admission with no home antihyperglycemics. - carb controlled diet - NPH BID (09: 00 /17:00) for basal + HDSSI Assessment & Plan (06/04/2019 5:44 PM NURSING CONSULTANT): HgA1C 9.6 on admission with no home antihyperglycemics. Transitioned from insulin gtt to HDSSI yesterday and remains hyperglycemic. Contributing factors: epi gtt. Decreased appetite 2/2 constipation - carb controlled diet -add NPH BID (09: 00 /17:00) for basal + HDSSI Assessment & Plan (06/03/2019 4:26 PM NURSING CONSULTANT): HgA1C 9.6 on admission with no home antihyperglycemics. Currently on insulin gtt -ADAT to carb controlled diet -transition insulin gtt to HDSSI Assessment & Plan (06/02/2019 1:07 PM NURSING CONSULTANT): History of DM-II but no home meds. Likely related to stress response. Remains on insulin infusion. - Continue insulin gtt per icu protocol - ADAT Assessment & Plan (06/02/2019 5:34 AM NURSING CONSULTANT): History of DM-II but no home meds. Likely related to stress response. Remains on insulin infusion - Continue insulin gtt per icu protocol Assessment & Plan (06/01/2019 12:49 PM NURSING CONSULTANT): History of DM-II but no home meds. Likely related to stress response. Remains on insulin infusion - Continue insulin gtt per icu protocol Assessment & Plan (06/01/2019 5:31 AM NURSING CONSULTANT): History of DM-II but no home meds. Arrived on insulin gtt 6 units/hr. Likely related to stress response. -continue insulin gtt per icu protocol Shock liver 06/01/2019 06/07/2019 Assessment & Plan (06/04/2019 5:26 PM NURSING CONSULTANT): Continues to improve to near normal. Statin resumed yesterday - CMP/coags daily with AM labs for 1 more days Assessment & Plan (06/03/2019 10:34 AM NURSING CONSULTANT): Improving. -resume home statin today - CMP/coags daily with AM labs for 2 more days Assessment & Plan (06/02/2019 1:07 PM NURSING CONSULTANT): Improving. 2/2 severe RV dysfunction pre-op. Both T bili and AST/ALT down trending. - CMP/coags daily with AM labs - Avoid hepatotoxic agents Assessment & Plan (06/02/2019 5:34 AM NURSING CONSULTANT): 2/2 severe RV dysfunction pre-op. Both T bili and AST/ALT down trending. Will likely continue to improve with time - CMP/coags daily with AM labs - Avoid hepatotoxic agents Assessment & Plan (06/01/2019 12:50 PM NURSING CONSULTANT): 2/2 severe RV dysfunction pre-op. T bili rising, AST/ALT down trending. INR 1.8 without anticoagulation. - CMP/coags daily with AM labs - Avoid hepatotoxic agents Acute respiratory insufficiency 05/31/2019 06/07/2019 Assessment & Plan (06/06/2019 11:56 AM NURSING CONSULTANT): Diuresis as tolerated, aggressive pulmonary toilet Assessment & Plan (06/05/2019 10:13 AM NURSING CONSULTANT): COPD. Currently on NC for SpO2 > 92% suspect ileus and abdominal distention decreasing diaphragmatic movement -ellipta (home med equivalent) -wean SpO2 for SpO2 > 92% -OOB to chair/ambulate -FBG negative 1L with BID scheduled diuresis Assessment & Plan (06/04/2019 5:40 PM NURSING CONSULTANT): COPD. Currently on NC for SpO2 > 92% -ellipta (home med equivalent) -wean SpO2 for SpO2 > 92% -OOB to chair/ambulate -FBG negative 1L with BID scheduled diuresis Assessment & Plan (06/03/2019 4:23 PM NURSING CONSULTANT): COPD. CXR essentially clear. Currently on NC for SpO2 > 92% -ellipta (home med equivalent) -wean SpO2 for SpO2 > 92% -OOB to chair/ambulate -FBG even to negative 500 with BID scheduled diuresis Assessment & Plan (06/02/2019 1:06 PM NURSING CONSULTANT): Extubated to NC last night. Remains on 4L NC this AM. - Pulmonary hygiene with IS, acapella, and C&DB - PT/OOBTC/AMB - Wean supplemental O2 for SpO2 > 92% - FBG -1 to 2L with lasix and metolazone Assessment & Plan (06/01/2019 12:45 PM NURSING CONSULTANT): Post procedural short-term ventilator support with anticipated extubation. Currently sedated w/propofol on full mechanical ventilation. Velitri weaned off overnight. - Transition from propofol to precedex - PSV trial with goal extubation Assessment & Plan (06/01/2019 5:27 AM NURSING CONSULTANT): Post procedural short-term ventilator support with anticipated [...] 7.44/42/128. Assessment & Plan (05/31/2019 5:37 PM NURSING CONSULTANT): Post procedural short-term ventilator support with anticipated [...] dysfunction. Assessment & Plan (06/05/2019 10:11 AM NURSING CONSULTANT): Improving. FB negative -800mL with lasix yesterday. [...] outlined Assessment & Plan (06/04/2019 5:37 PM NURSING CONSULTANT): Improving. FB negative 1800 with 80 lasix BID. Rate controlled aflutter 70s -keep milrinone 0.1mcg/kg/min -increase epi wean by 0.01mcg/kg/min Q6hr for SBP > 100 -change lasix to 40mg PO BID with K supplementation -treat Aflutter as outlined Assessment & Plan (06/03/2019 4:14 PM NURSING CONSULTANT): No epi wean overnight 2/2 ScVO2 < 60. FB even with additional diuresis. Rate controlled aflutter 70s -keep milrinone 0.1mcg/kg/min -epi wean by 0.01mcg/kg/min Q8hr for ScVO2> 60 -lasix 80mg BID with 20meq KCl -treat Aflutter as outlined Assessment & Plan (06/02/2019 1:05 PM NURSING CONSULTANT): Cardiogenic shock 2/2 severe MR and severe [...] 2L Assessment & Plan (06/02/2019 5:46 AM NURSING CONSULTANT): Cardiogenic shock 2/2 severe MR and severe [...] now. Assessment & Plan (06/01/2019 12:48 PM NURSING CONSULTANT): Cardiogenic shock 2/2 severe MR and severe [...] lasix Assessment & Plan (06/01/2019 5:45 AM NURSING CONSULTANT): Cardiogenic shock 2/2 Severe MR and severe [...] veletri. Assessment & Plan (05/31/2019 5:43 PM NURSING CONSULTANT): Cardiogenic shock 2/2 Severe MR and severe [...] 06/07/2019 Assessment & Plan (02/24/2019 3:21 PM NURSING CONSULTANT): -s/p mechanical MVR in 2006 -echo yesterday [...] cardiology Assessment & Plan (02/24/2019 3:08 PM NURSING CONSULTANT): Patient with mitral valve stenosis s/p surgical [...] - Please obtain images from echo at [facility] in December - if clotted can consider [...] understanding Assessment & Plan (02/23/2019 12:57 PM NURSING CONSULTANT): -s/p mechanical MVR in 2006 -echo today shows elevated valve gradient although patient was in afib with tachycardia so unclear how accurate this is -will discuss with cardiology Assessment & Plan (02/22/2019 9:14 PM NURSING CONSULTANT): - S/p bioprosthetic mitral valve replacement - [...] on file Legal Sex Male 5:34 AM NURSING CONSULTANT Gender Identity Not on file Sexual Orientation Not on file Obstetrics History Last Filed Vital Signs Vital Sign Reading Time Taken Comments Blood Pressure 141/76 08/15/2019 10:48 AM CDT Pulse 69 08/15/2019 10:48 AM CDT Temperature 37 C (98.6 F) 08/15/2019 10:48 AM CDT Respiratory Rate 18 06/13/2019 8:34 AM NURSING CONSULTANT Oxygen Saturation 98% 08/15/2019 10:48 AM CDT Inhaled Oxygen Concentration - - Weight 90.7 kg (200 lb) 08/15/2019 10:48 AM CDT Height 180.3 cm (5' 11 ) 08/15/2019 10:48 AM CDT Body Mass Index 27.89 08/15/2019 10:48 AM CDT Plan of Treatment Not on file Medical Devices Implanted Type Area Supervisor Offset Plate Preparation Device Identifier Shelf Expiration Date Model / Serial / Lot [employer] [id number] [place] [employer] Physio 28mm Tricuspid Ring Annuloplasty Heart - [id number] - [id number] Implanted:Qty: 1 on 05/31/2019 by Barrett Portillo Jr., MD at [facility] Other - see comments N/A: Heart [employer] [id number] 12/29/2020 [id number] / [id number] / Description:Tricuspid Annulo plasty Ring On-X [facility]-33 25-33mm 17.4mm Mechanical Conform-X Sewing Ring Means Valve - [id number] - [id number] Implanted:Qty: 1 on 05/31/2019 by Barrett Portillo Jr., MD at [facility] Prosthetic Valve N/A: Heart On-X Intrnl [id number] 04/27/[address] [facility]-25 -33 / [id number] / Insurance AETNA MEDICARE [facility] CIG [facility]IC[facility] ADVANTRA Advance Directives For more information, please contact: [phone] Documents on File Type Date Recorded Patient Screen Printing Equipment Setter Expl anation ADVANCE DIRECTIVE 05/30/2019 10:13 AM CODY R OF EXECUTIVE CHEF-MEDICAL * Full Code (Latest Code Status on [...] 8:30 PM 02/24/2019 9:46 PM Care Teams Kennel Manager Dog Track Relationship Specialty Start Date End Date Randolph Moore MD [address] [place] [address] PCP - General 06/24/15 Chris Akins MD PhD [address] [place] [address] Referring Physician Cardiology 03/16/19 Barrett Portillo Jr., MD [address] [place] [address] Surgeon Cardiothoracic Surgery 06/13/19
--- OUTSIDE RECORDS SUMMARY | 2024-07-04 16:02 | XMS_ITS | Encounter Summary ---
Author Organization [facility] Address [address] [place] [address] Care Team Providers Care Local Intermodal Truck Driver Name Role Phone Randolph Moore MD Primary Care Provider +1 [phone] Roberta Nicole MD Unavailable Encounter Details Date Type Department Care Team (Late st Contact Info) Description 07/03/2024 1:56 PM CDT Hospital Encounter [facility] [address] [facility] [place] [address] Maria Antonia Goldsmith PA [address] [place] [address] Arrived Social History Tobacco Use Types Packs/Day Years Used Date Smoking Tobacco: Former Cigarettes Q uit: 05/22/2006 Smokeless Tobacco: Never Alcohol Use Standard Drinks/Week Comments Not Currently 0 (1 standard drink = 0.6 oz pur e alcohol) 8 years since last drank [facility] Utilities Answer Date Recorded In the past 12 months has [facility] [employer], gas, oil, or water [employer] threatened to shut off services in your [...] place to sleep or slept in a retirement (including now)? No 07/17/2023 Sex and Gender Information Value Date Recorded Sex Assigned at Male 05/27/2019 3:12 PM LATHE SPOTTER Legal Sex Male 5:49 PM LATHE SPOTTER Gender Identity Male 05/27/2019 3:12 PM LATHE SPOTTER Sexual Orientation Straight 05/27/2019 3: 12 PM LATHE SPOTTER documented as of this encounter Functional Status [...] Info) Description 09/01/2024 12:30 PM CDT Appointment [facility] [place] [address] Roberta Nicole MD [address] [place] [address] 09/22/2024 11:00 AM CDT Office Visit [place] [facility] [place] [address] Roberta Nicole MD [address] [place] [address] 03/26/2025 1:30 [address] [facility] [place] [address] Roberta Nicole MD [address] [place] [address] 04/02/2025 9:00 AM LATHE SPOTTER Office Visit [place] [facility] [place] [address] Roberta Nicole MD [address] [place] [address] documented as of this encounter Procedures Procedure Name Priority Date/Time Associated Diagnosis Comments XR CHEST PA+LAT STAT 07/03/2024 2:19 PM CDT SOB (shortness of breath) documented in this encounter Results * XR CHEST PA+LAT (07/03/2024 2:19 PM CDT) Anatomical Region Laterality Modality Chest Radiographic Amy ging 07/03/2024 2:25 PM CDT Impressions 07/03/2024 2:30 PM CDT IMPRESSION: No significant change. No acute disease. Ordered By: MARIA ANTONIA GOLDSMITH Interpreted By: Gaurav Hong MD, 07/03/2024 2:25 PM Narrative 07/03/2024 2:30 PM CDT [address] [place] [address] Examination: Two-view chest Exam time: 1357 hours. Clinical history: Cough. Dyspnea. Comparison: 08/25/2023, 07/16/2023 ([facility]). Technique: PA and lateral views Findings: The cardiomediastinal silhouette is stable. The heart remains within normal limits for size. Pulmonary vascularity is within normal limits. Changes from median sternotomy, mitral valve replacement and tricuspid annuloplasty again evident. The lungs and pleural spaces appear free of any active process. The bony thorax is stable. Procedure Note Gaurav Hong MD - 07/03/[address] [place] [address] Examination: Two-view chest Exam time: 1357 hours. Clinical history: Cough. Dyspnea. Comparison: 08/25/2023, 07/16/2023 ([facility]). Technique: PA and lateral views Findings: The cardiomediastinal silhouette is stable. The heart remainswithin normal limits for size. Pulmonary vascularity is within normallimits. Changes from median sternotomy, mitral valve replacement andtricuspid annuloplasty again evident. The lungs and pleural spaces appearfree of any active process. The bony thorax is stable. IMPRESSION: No significant change. No acute disease. Ordered By: MARIA ANTONIA GOLDSMITH Interpreted By: Gaurav Hong MD, 07/03/2024 2:25 PM us Maria Antonia Goldsmith [place] [facility] Final Resu lt documented in this encounter Visit Diagnoses Diagnosis SOB (shortness of breath) Shortness of breath documented in this encounter Care Teams Local Intermodal Truck Driver Relationship Specialty Start Date End Date Randolph Moore MD [address] [address] [place] [id number] PCP - General FAMILY PRACTICE 11/07/18 Roberta Nicole MD [address] [place] [address] Consulting Physician CARDIOVASCULAR DISEASE 07/15/23 documented as of this encounter
--- OUTSIDE RECORDS SUMMARY | 2024-07-04 16:02 | XMS_ITS | Encounter Summary ---
Author Organization [facility] Address [address] [place] [address] Care Team Providers Care Airset Caster Name Role Phone Randolph Moore MD Primary Care Provider [phone] [phone] Roberta Nicole MD Unavailable Encounter Details Date Type Department Care Team (Late st Contact Info) Description 07/03/2024 Orders Only [facility] [address] [place] [address] Cyndi Goldsmith, JERRY [address] [place] [address] Social History Tobacco Use Types Packs/Day Years Used Date Smoking Tobacco: Former Cigarettes Q uit: 05/22/2006 Smokeless Tobacco: Never Alcohol Use Standard Drinks/Week Comments Not Currently 0 (1 standard drink = 0.6 oz pur e alcohol) 8 years since last drank [facility] [employer] Answer Date Recorded In the past 12 months has [facility] [employer], gas, oil, or water [employer] threatened to shut off services in your [...] place to sleep or slept in a assisted (including now)? No 07/17/2023 Sex and Gender Information Value Date Recorded Sex Assigned at Male 05/27/2019 3:12 PM CASINO INVESTIGATOR Legal Sex Male 5:49 PM CASINO INVESTIGATOR Gender Identity Male 05/27/2019 3:12 PM CASINO INVESTIGATOR Sexual Orientation Straight 05/27/2019 3: 12 PM CASINO INVESTIGATOR documented as of this encounter Functional Status [...] Info) Description 09/01/2024 12:30 PM CDT Appointment [facility] [place] [address] Roberta Nicole MD [address] [place] [address] 09/22/2024 11:00 AM CDT Office Visit [place] [facility] [address] Roberta Nicole MD [address] [place] [address] 03/26/2025 1:30 PM CASINO INVESTIGATOR [facility]ointment [facility] [place] [address] Roberta Nicole MD [address] [place] [address] 04/02/2025 9:00 AM CASINO INVESTIGATOR Office Visit [facility] [place] [facility] [address] Roberta Nicole MD [address] [place] [address] documented as of this encounter Results * (ABNORMAL) BASIC METABOLIC PANEL (07/03/2024 2:08 PM CDT) SODIUM S/P/B 137 136 - 145 MMOL/L 07/03/2024 2:22 PM CDT [facility] POTASSIUM S/P/B 4.2 3.5 - 5.1 MMOL/L 07/03/2024 2:22 PM CDT [facility] CHLORIDE S/P/B 102 98 - 107 MMOL/L 07/03/2024 2:22 PM CDT [facility] CO2 26.3 21.0 - 32.0 MMOL/L 07/03/2024 2:22 PM CDT [facility] GLUCOSE 153(H) 70 - 99 MG/DL 07/03/2024 2:22 PM CDT [facility] Comment: FASTING GLUCOSE 100 TO 125 MG/DL IS CONSISTENT WITH IMPAIRED FASTING GLUCOSE. FASTING GLUCOSE >125 MG/DL IS CONSISTENT WITH DIABETES. RANDOM GLUCOSE >200 MG/DL WITH HYPERGLYCEMIC SYMPTOMS IS CONSISTENT WITH DIABETES. PER ADA GUIDELINES BUN 33(H) 6 - 24 MG/DL 07/03/2024 2:22 PM CDT [facility] CREATININE S/P/B 1.15 0.70 - 1.30 MG/DL 07/03/2024 2:22 PM CDT [facility] CALCIUM S/P/B 8.2(L) 8.4 - 10.5 MG/DL 07/03/2024 2:22 PM CDT [facility] ANION GAP 8.7 5.0 - 15.0 MMOL/L 07/03/2024 2:22 PM CDT [facility] OSMOLALITY (CALC) 294 MOSM/KG 025 2:22 PM T [facility] Comment:REFERENCE RANGE NOT ESTABLISHED GFR ESTIMATE 75(L) >89 ML/MIN/1. 73 M2 07/03/2024 2:22 PM CDT [facility] GFR NOTES GFR REFERENCE S: 07/03/2024 2:22 PM CDT [facility] Comment: THE ESTIMATED GFR IS [...] CDT [facility]di [facility] Final Resu lt [facility] [address] [place] [address], * (ABNORMAL) CBC W/DIFF AUTOMATED (07/03/2024 2:08 PM CDT) WBC 6.37 4.00 - 10.80 x10'3/uL 07/03/2024 2:18 PM CDT [facility] RBC 4.08(L) 4.50 - 6.10 x10'6/uL 07/03/2024 2:18 PM CDT [facility] HGB 8.1(L) 13.0 - 18.0 G/DL 07/03/2024 2:18 PM CDT [facility] HCT 27.4(L) 37.0 - 52.0 % 07/03/2024 2:18 PM CDT [facility] MCV 67.2(L) 78.0 - 100.0 FL 07/03/2024 2:18 PM CDT [facility] MCH 19.9(L) 27.0 - 31.0 PG 07/03/2024 2:18 PM CDT [facility] MCHC 29.6(L) 33.0 - 36.0 G/DL 07/03/2024 2:18 PM CDT [facility] RDW 24.4(H) 11.5 - 14.5 % 07/03/2024 2:18 PM CDT [facility] PLT 250 150 - 350 x10'3/uL 07/03/2024 2:18 PM CDT [facility] MPV 8.9 7.4 - 10.4 FL 07/03/2024 2:18 PM CDT [facility] CBC COMMENT NORMAL REFERENCE RANGE NOT ESTABLISHED FOR THE PROPORTIONAL LEUKOCYTE DIFFERENTIAL. 07/03/2024 2:18 PM CDT [facility] NEUTROPHILS % 70.2 % 07/03/2024 2:18 PM CDT [facility] LYMPHOCYTES % 18.1 % 07/03/2024 2:18 PM CDT [facility] MONOCYTES % 8.6 % 07/03/2024 2:18 PM CDT [facility] EOSINOPHILS % 2.5 % 07/03/2024 2:18 PM CDT [facility] BASOPHILS % 0.3 % 07/03/2024 2:18 PM CDT [facility] IMMATURE GRANS % 0.3 % 07/04/19 2:18 PM CDT [facility] NRBC % 0.3 % 07/03/2024 2:18 PM CDT [facility] ABS. NEUTROPHILS 4.47 1.60 - 8.30 x10'3/uL 07/03/2024 2:18 PM CDT [facility] ABS. LYMPHOCYTES 1.15 0.80 - 4.70 x10'3/uL 07/03/2024 2:18 PM CDT [facility] ABS. MONOCYTES 0.55 0.00 - 1.50 x10'3/uL 07/03/2024 2:18 PM CDT [facility] ABS. EOSINOPHILS 0.16 0.00 - 0.40 x10'3/uL 07/03/2024 2:18 PM CDT [facility] ABS. BASOPHILS 0.02 0.00 - 0.20 x10'3/uL 07/03/2024 2:18 PM CDT [facility] ABS. IMMATURE GRANULOCYTES 0.02 0.00 - 0.03 x10'3/uL 07/03/2024 2:18 PM CDT [facility] ABS. NUCLEATED RBC'S 0.02(H) 0.00 - 0.01 x10'3/uL 07/03/2024 2:18 PM CDT [facility] 07/03/2024 2:08 PM CDT Cyndi S Dehority PA LABORATORY Final Resu lt Performing Organization Address [facility]/ZIP Co de Phone Number [address] [address], * (ABNORMAL) PROTIME/INR, VENOUS (07/03/2024 2:08 PM CDT) PROTIME 46.8(H) 9.4 - 12.5 SEC 07/03/2024 2:20 PM CDT [facility] INR 4.1(H) 0.8 - 1.0 07/03/2024 2:20 PM CDT [facility] 07/03/2024 2:08 PM CDT Cyndi Johnson Deliegharity PA LABORATORY Final Resu lt Performing Organization Address City/[facility]/ZIP Co de Phone Number [address] [address], documented in this encounter Visit Diagnoses Diagnosis Shortness of breath- Primary Anticoagulated on Coumadin Encounter for therapeutic drug monitoring documented in this encounter Care Teams Airset Caster Relationship Specialty Start Date End Date Randolph Moore MD [facility] [facility] [address] [place] [address] PCP - General FAMILY PRACTICE 11/07/18 Roberta Nicole MD [address] [place] [address] Consulting Physician CARDIOVASCULAR DISEASE 07/15/23 documented as of this encounter
--- OUTSIDE RECORDS SUMMARY | 2024-07-04 16:03 | XMS_ITS | Encounter Summary ---
Author Organization [facility] Address [address] [place] [address] Care Team Providers Care Plain Goods Hemmer Name Role Phone Randolph Moore MD Primary Care Provider [phone] [phone] Roberta Nicole MD Unavailable Encounter Details Date Type Department Care Team (Late st Contact Info) Description 08/24/2023 Prep for Procedure [place]'s Investigator Cash Shortage Pre/Post [address] [place] [address] José Antonio Hermosillo MD [address] [place] [address] Social History Tobacco Use Types Packs/Day Years Used Date Smoking Tobacco: Former Cigarettes Q uit: 05/22/2006 Smokeless Tobacco: Never Alcohol Use Standard Drinks/Week Comments Not Currently 0 (1 standard drink = 0.6 oz pur e alcohol) 8 years since last drank [facility] [employer] Answer Date Recorded In the past 12 months has [facility] [employer], gas, oil, or water [employer] threatened to shut off services in your [...] place to sleep or slept in a intermediate (including now)? No 07/17/2023 Sex and Gender Information Value Date Recorded Sex Assigned at Male 05/27/2019 3:12 PM STOREROOM SUPERVISOR Legal Sex Male 5:49 PM STOREROOM SUPERVISOR Gender Identity Male 05/27/2019 3:12 PM STOREROOM SUPERVISOR Sexual Orientation Straight 05/27/2019 3: 12 PM STOREROOM SUPERVISOR documented as of this encounter Functional Status [...] Info) Description 09/01/2024 12:30 PM CDT Appointment [facility] [place] [address] Roberta Nicole MD [address] [place] [address] 09/22/2024 11:00 AM CDT Office Visit [facility] [place] [address] Roberta Nicole MD [address] [place] [address] 03/26/2025 1:30 PM STOREROOM SUPERVISOR [facility] [place] [address] Roberta Nicole MD [address] [place] [address] 04/02/2025 9:00 AM STOREROOM SUPERVISOR Office Visit [facility] [place] [address] Roberta Nicole MD [address] [place] [address] documented as of this encounter Visit Diagnoses Not on filedocumented in this encounter Care Teams Plain Goods Hemmer Relationship Specialty Start Date End Date Randolph Moore MD [address] [place] [phone] PCP - General FAMILY PRACTICE 11/07/18 Roberta Nicole MD [address] [place] [address] Consulting Physician CARDIOVASCULAR DISEASE 07/15/23 documented as of this encounter
--- OUTSIDE RECORDS SUMMARY | 2024-07-04 16:03 | XMS_ITS | Encounter Summary ---
Author Organization [facility] Address [address] [place] [address] Care Team Providers Care Manager Maintenance Name Role Phone Randolph Moore MD Primary Care Provider +1 [phone] Roberta Nicole MD Unavailable Encounter Details Date Type Department Care Team (Late st Contact Info) Description 08/17/2023 Hospital Orders Only [facility] Pre/Post [address] [place] [address] Roberta Nicole MD [address] [place] [address] Social History Tobacco Use Types Packs/Day Years Used Date Smoking Tobacco: Former Cigarettes Q uit: 05/22/2006 Smokeless Tobacco: Never Alcohol Use Standard Drinks/Week Comments Not Currently 0 (1 standard drink = 0.6 oz pur e alcohol) 8 years since last drank [facility] Utilities Answer Date Recorded In the past 12 months has [facility] [employer], gas, oil, or water [employer] threatened to shut off services in your [...] Sex Assigned at Male 05/27/2019 3:12 PM TOOTH CUTTER PINION Legal Sex Male 5:49 PM TOOTH CUTTER PINION Gender Identity Male 05/27/2019 3:12 PM TOOTH CUTTER PINION Sexual Orientation Straight 05/27/2019 3: 12 PM TOOTH CUTTER PINION documented as of this encounter Functional Status [...] Info) Description 09/01/2024 12:30 PM CDT Appointment [facility] [place] [address] Roberta Nicole MD [address] [place] [address] 09/22/2024 11:00 AM CDT Office Visit [facility] [place] [address] Roberta Nicole MD [address] [place] [address] 03/26/2025 1:30 PM TOOTH CUTTER PINION Appointment [facility] [place] [address] Roberta Nicole MD [address] [place] [address] 04/02/2025 9:00 AM TOOTH CUTTER PINION Office [facility] [address] Roberta Nicole MD [address] [place] [address] documented as of this encounter Visit Diagnoses Not on filedocumented in this encounter Care Teams Manager Maintenance Relationship Specialty Start Date End Date Randolph Moore MD [address] [facility] [address] [place] [phone] PCP - General FAMILY PRACTICE 11/07/18 Roberta Nicole MD [address] [place] [address] Consulting Physician CARDIOVASCULAR DISEASE 07/15/23 documented as of this encounter
--- OUTSIDE RECORDS SUMMARY | 2024-07-04 16:03 | XMS_ITS | Referral Summary ---
Author Organization [facility] [address] Address [address] [place] [address] Care Team Providers Care Electrical Cad Technician Name Role Phone Randolph Moore MD Primary Care Provider [phone] Chris Akins MD PhD Unavailable [phone] Bandar Harkins MD, Barrett Moser Unavailable [phone] Allergies No known active allergies Medications tiotropium [...] 06/12/2019 Assessment & Plan (06/12/2019 1:10 PM DINING CHAIR SEAT CUSHION TRIMMER): Ongoing since 06/05 Daily Labs throughout- Last night = 131 (previously was = 130) Continues on free water fluid restriction. High risk medication use 06/08/2019 Assessment & Plan (06/12/2019 1:00 PM DINING CHAIR SEAT CUSHION TRIMMER): Ongoing coumadin with heparin drip for RENE mitral valve & a-fib Goal INR approx. 3 Last night= coumadin 8 mg Ongoing daily INRs, while inpatient Assessment & Plan (06/10/2019 2:09 PM DINING CHAIR SEAT CUSHION TRIMMER): Intense insulin regimen in the setting of variable oral intake, MARIA DEL ROSARIO and insulin naivete places patient at increased risk of hypoglycemia/hyperglycemia which may have serious metabolic, CV and neuro consequences. We will continue to intensely monitor blood glucose and titrate insulin as needed to optimize glycemic control to avoid hypoglycemic/hyperglycemic events. Assessment & Plan (06/08/2019 1:08 PM DINING CHAIR SEAT CUSHION TRIMMER): Intense insulin regimen in the setting of [...] 06/07/2019 Assessment & Plan (06/12/2019 1:01 PM DINING CHAIR SEAT CUSHION TRIMMER): Post-op from [facility] with tricuspid valve repair on 05/31/2019 See Mitral valve replacement problem, above Assessment & Plan (06/07/2019 10:01 AM DINING CHAIR SEAT CUSHION TRIMMER): Post-op from [facility] with tricuspid valve repair on 05/31/2019 See Mitral valve replacement problem, above DM (diabetes mellitus), type 2 06/06/2019 Assessment & Plan (06/12/2019 12:56 PM DINING CHAIR SEAT CUSHION TRIMMER): Continue SSI, Lantus Endocrine consult with dielectric machine operator & community health educator following Blood sugars well controlled on current regimen (121-197 over past 24 hrs) A1c 9.6 on admission Will need to check blood sugars at least TID upon discharge Potential discharge on gliptins at discharge. . Assessment & Plan (06/13/2019 5:16 PM DINING CHAIR SEAT CUSHION TRIMMER): 49 y.o. male with type 2 diabetes [...] up with PCP, Blue Moore MD in [place], [place]) Instructed Mr. Griffin to bring glucometer to follow up visit for PCP to review glycemia and adjust diabetes regimen as needed; verbalized understanding. Recommendations for diabetes management were discussed with the primary team. For questions regarding this patient today, please call Radha Jade NP at [phone]. If after hours, please contact the Diabetes Fellow at [phone]. Assessment & Plan (06/10/2019 2:09 PM DINING CHAIR SEAT CUSHION TRIMMER): Continue SSI, Lantus Endocrine consult with dielectric machine operator & community health educator Last 24 hrs glucose = 135-191 A1c 9.6 on admission Will need to check blood sugars at least TID upon disharge Acute pain 05/31/2019 Assessment & Plan (06/12/2019 12:58 PM DINING CHAIR SEAT CUSHION TRIMMER): PRN tylenol, at present Ongoing stool softeners for anesthesia side effects Increasing activity as tolerated. Assessment & Plan (06/07/2019 10:02 AM DINING CHAIR SEAT CUSHION TRIMMER): PRN tylenol, at present Ongoing stool softeners for anesthesia side effects Increasing activity, as tolerated. Assessment & Plan (06/05/2019 10:14 AM DINING CHAIR SEAT CUSHION TRIMMER): Denies pain at this time -PRN tylenol -avoiding narcotics with ileus Assessment & Plan (06/04/2019 5:41 PM DINING CHAIR SEAT CUSHION TRIMMER): Denies pain at this time -PRN tylenol -avoiding narcotics with constipation Assessment & Plan (06/03/2019 4:10 PM DINING CHAIR SEAT CUSHION TRIMMER): Denies pain at this time -PRN tylenol -consider low dose oxy if needed as delirium is improving Assessment & Plan (06/02/2019 1:05 PM DINING CHAIR SEAT CUSHION TRIMMER): 2/2 cardiac surgery via median sternotomy. - Limit narcotics with delirium - Scheduled APAP - PRN oxycodone for breakthrough pain Assessment & Plan (06/01/2019 12:44 PM DINING CHAIR SEAT CUSHION TRIMMER): 2/2 cardiac surgery via median sternotomy. Currently sedated w/ propofol. - Fentanyl IV PRN prior to extubation - Plan to start scheduled Tylenol and PRN Oxy/Dilaudid once extubated Assessment & Plan (05/31/2019 4:51 PM DINING CHAIR SEAT CUSHION TRIMMER): 2/2 cardiac surgery via median sternotomy. Currently sedated w/ - Fentanyl IV PRN prior to extubation - Plan to start scheduled Tylenol and PRN Oxy/Dilaudid once extubated - Ensure pain control is adequate to facilitate participation in care and deep breathing Acute blood loss anemia 05/31/2019 Assessment & Plan (06/12/2019 1:01 PM DINING CHAIR SEAT CUSHION TRIMMER): Expected postop due to ABLA Daily CBC, while inpatient Receiving MVI with iron Drifted slightly, from yesterday Assessment & Plan (06/07/2019 10:08 AM DINING CHAIR SEAT CUSHION TRIMMER): Expected postop due to ABLA Daily CBC, while inpatient Added MVI with iron Assessment & Plan (06/05/2019 10:18 AM DINING CHAIR SEAT CUSHION TRIMMER): Hgb stable at 8.0 (8.1). No active signs of bleeding. Hemodynamically stable off vasopressors and tolerating epi wean - No current indication for transfusion, consider if patient becomes hemodynamically unstable with increased pressor requirements or Hgb < 8 and symptomatic - CBC daily - continue heparin gtt - repeat cbc now and coags Assessment & Plan (06/02/2019 1:07 PM DINING CHAIR SEAT CUSHION TRIMMER): Expected following cardiac surgery. Hgb 8.8. Hemodynamically stable off vasopressors. - No current indication for transfusion, consider if patient becomes hemodynamically unstable with increased pressor requirements or Hgb < 8 and symptomatic - CBC daily Assessment & Plan (06/01/2019 12:44 PM DINING CHAIR SEAT CUSHION TRIMMER): Expected following cardiac surgery. Hgb stable. Hemodynamically stable off vasopressors. - No current indication for transfusion, consider if patient becomes hemodynamically unstable with increased pressor requirements or Hgb < 8 and symptomatic - CBC daily Assessment & Plan (05/31/2019 8:06 PM DINING CHAIR SEAT CUSHION TRIMMER): Baseline hemoglobin 11.1 upon admission. Intra-op course [...] surgery Assessment & Plan (06/12/2019 12:52 PM DINING CHAIR SEAT CUSHION TRIMMER): Post-op from [facility] with tricuspid valve repair on 05/31/2019 Continue post op care (telemetry, VS, I &O, medication & weights) Ongoing heparin drip until INR closer to 3 Continue Coumadin, INR 1.6 last night Plan to give Coumadin 8 mg tonight Receiving PT and aggressive pulmonary toilet New onset DM (see diabetes problem) PT/OT Discharge planning Assessment & Plan (06/08/2019 1:09 PM DINING CHAIR SEAT CUSHION TRIMMER): Good glycemic control required to promote healing Assessment & Plan (06/10/2019 2:11 PM DINING CHAIR SEAT CUSHION TRIMMER): Post-op from [facility] with tricuspid valve repair on 05/31/2019 Continue post op care (telemetry, VS, I &O, medication & weights) Ongoing heparin drip until INR 2.5 Continue Coumadin, INR 1.4 Plan to give Coumadin 5mg tonight Receiving PT and aggressive pulmonary toilet New onset DM (see diabetes problem) PT/OT Discharge planning Assessment & Plan (06/05/2019 10:10 AM DINING CHAIR SEAT CUSHION TRIMMER): S/P [facility]. Post-op care to include: - Continue heparin infusion per nomogram for mechanical valve & fib -no couadin with EPW present - ASA daily - increase statin to 80mg daily - Colace, senna, miralax for bowel regimen, lactulose - PPI daily (home med) - SCD's for DVT ppx - PT/OT eval and treat Assessment & Plan (06/04/2019 5:33 PM DINING CHAIR SEAT CUSHION TRIMMER): S/P [facility]. Post-op care to include: - Continue heparin infusion per nomogram for mechanical valve -no couadin with EPW present - ASA daily - resume statin (shock liver improving) - Colace, senna, miralax for bowel regimen - PPI daily (home med) - SCD's for DVT ppx - PT/OT eval and treat Assessment & Plan (06/03/2019 4:36 PM DINING CHAIR SEAT CUSHION TRIMMER): S/P [facility]. Post-op care to include: - Continue heparin infusion per nomogram for mechanical valve -no couadin with EPW present - ASA daily - resume statin (shock liver improving) - Colace, senna, miralax for bowel regimen - PPI daily (home med) - SCD's for DVT ppx - PT/OT eval and treat Assessment & Plan (06/02/2019 1:08 PM DINING CHAIR SEAT CUSHION TRIMMER): S/P [facility]. Post-op care to include: - Continue heparin infusion per nomogram for mechanical valve - F/U with CTS re timing for starting coumadin - ASA daily - Holding statin with shock liver - Colace, senna, miralax for bowel regimen - PPI daily (home med) - SCD's for DVT ppx - PT/OT eval and treat Assessment & Plan (06/01/2019 12:54 PM DINING CHAIR SEAT CUSHION TRIMMER): S/P [facility]. Post-op care to include: - Start heparin infusion per nomogram for mechanical valve - ASA daily - Holding statin with shock liver - Colace, senna, miralax for bowel regimen - PPI daily (home med) - SCD's for DVT ppx - Periop Vanc and Ancef x 24 hours - PT/OT eval and treat Assessment & Plan (05/31/2019 5:34 PM DINING CHAIR SEAT CUSHION TRIMMER): Mitral Valve Stenosis s/p balloon valvuloplasty (Dr. [...] here Assessment & Plan (06/12/2019 1:00 PM DINING CHAIR SEAT CUSHION TRIMMER): Current creatinine = 1.22 Admission creatinine = 1.9 Daily BMPs with I &Os while inpatient Ongoing daily weights Almost 4.5 kg below pre-op (admission) weight Changed to daily lasix, 40 mg oral today Assessment & Plan (06/13/2019 5:13 PM DINING CHAIR SEAT CUSHION TRIMMER): CrCl: 89.5 ml/min, serum Cr 1.04 stable Chronic kidney disease (CKD) and acute kidney injury (MARIA DEL ROSARIO) are independent risk factors for hypoglycemia, and augments the risk of low blood glucose in patients with diabetes Assessment & Plan (06/10/2019 2:08 PM DINING CHAIR SEAT CUSHION TRIMMER): Current creatinine = 1.13 Admission creatinine = 1.9 Daily BMPs with I &Os while inpatient Ongoing daily weights Continue Lasix 40 mg IV BID and spironolactone 12.5mg daily Assessment & Plan (06/05/2019 10:12 AM DINING CHAIR SEAT CUSHION TRIMMER): Creat continues to down trending. - lasix 40mg PO BID with 20meq KCl -FBG negative 1L - restart home aldactone and 1/2 dose 12.5mg daily Assessment & Plan (06/04/2019 5:39 PM DINING CHAIR SEAT CUSHION TRIMMER): Creat down trending. -d/c sheridan -decrease lasix 40mg PO BID with 20meq KCl -FBG negative 1L Assessment & Plan (06/03/2019 4:32 PM DINING CHAIR SEAT CUSHION TRIMMER): Received an additional 80mg lasix overnight to promote diuresis. FB even. -lasix 80mg IV BID with 20meq KCl -FBG even to negative 500 -maintain sheridan to accurately monitor I&O Assessment & Plan (06/02/2019 1:04 PM DINING CHAIR SEAT CUSHION TRIMMER): Baseline Creatinine around 0.6. MARIA DEL ROSARIO upon admission likely 2/2 cardiogenic shock. Now down trending post-op. Responding to lasix. - Lasix 60 IV x2 - Metolazone 10 BID - FBG -1 to 2L - Renally dose medications as appropriate - Avoid nephrotoxins Assessment & Plan (06/02/2019 5:36 AM DINING CHAIR SEAT CUSHION TRIMMER): Baseline Creatinine around 0.6. MARIA DEL ROSARIO upon admission likely 2/2 cardiogenic shock. Now down trending post-op. Responding to lasix. - diuresis for FBG -1 to 2L - Renally dose medications as appropriate - Avoid nephrotoxins Assessment & Plan (06/01/2019 12:46 PM DINING CHAIR SEAT CUSHION TRIMMER): Baseline Creatinine around 0.6. MARIA DEL ROSARIO upon admission likely 2/2 cardiogenic shock. Current Cr 1.99. Good urine output, FB +1.2L over the last 24 hours. - Lasix 40 x1 - FBG -1 to 2L - BMP at 1400 - Renally dose all medications - Avoid nephrotoxins Assessment & Plan (06/01/2019 5:22 AM DINING CHAIR SEAT CUSHION TRIMMER): Baseline Creatinine around 0.6. MARIA DEL ROSARIO upon admission likely 2/2 cardiogenic shock. Current Cr 1.96. Will likely improve with time. Good urine output. - Renally dose all medications - avoid nephrotoxins - f/u am bmp Assessment & Plan (05/31/2019 8:09 PM DINING CHAIR SEAT CUSHION TRIMMER): Baseline Creatinine around 0.6. Mild MARIA DEL ROSARIO upon admission likely 2/2 cardiogenic shock and diuresis. - Strict I and O - Renally dose all medications - Maintain adequate renal perfusion pressure - f/u BMP in AM Hepatopathy 02/22/2019 Assessment & Plan (05/30/2019 2:40 AM DINING CHAIR SEAT CUSHION TRIMMER): -RUQ US 02/2019 showed coarse echotexture of [...] levels Assessment & Plan (02/24/2019 3:24 PM DINING CHAIR SEAT CUSHION TRIMMER): -RUQ US to evaluate for cirrhosis showed [...] up. Assessment & Plan (02/23/2019 4:55 PM DINING CHAIR SEAT CUSHION TRIMMER): Patient with newly diagnosed liver disease with ascites. Ultrasound with increased echotexture concerning for cirrhosis - unlikely to be congestive hepatopathy given no evidence of poor RV function - consider GI consult given possible need for surgery Assessment & Plan (02/23/2019 1:01 PM DINING CHAIR SEAT CUSHION TRIMMER): -RUQ US to evaluate for cirrhosis Assessment & Plan (02/22/2019 9:13 PM DINING CHAIR SEAT CUSHION TRIMMER): - Complicated by ascites, elevated LFTs and coagulopathy - S/p outpatient LVP x1 - Chest imaging with ascites, abdominal distention on exam - No concern for acute decompensation liver failure - Outpatient liver follow up A-fib 02/22/2019 Overview (06/03/2019): Afib on home dilt. Assessment & Plan (06/12/2019 1:00 PM DINING CHAIR SEAT CUSHION TRIMMER): Chronic afib, rate controlled Ongoing metoprolol & amiodarone Continue coumadin tonight. Heparin drip pending therapeutic INR Assessment & Plan (06/10/2019 2:07 PM DINING CHAIR SEAT CUSHION TRIMMER): Chronic afib, rate controlled Has had intermittent pause continue - telemetry review no alarms overnight Ongoing metoprolol & amiodarone continue coumadin tonight. Heparin drip pending therapeutic INR Assessment & Plan (06/05/2019 10:09 AM DINING CHAIR SEAT CUSHION TRIMMER): Aflutter rate controlled 70-90 on amiodarone PO [...] removed) Assessment & Plan (06/04/2019 6:54 PM DINING CHAIR SEAT CUSHION TRIMMER): Aflutter rate controlled 70-80 on amiodarone PO TID - ensure Mg > 2 and K > 4 - FBG negative 1L - heparin gtt for systemic anticoagulation - if unstable: DCCV -cap wires (no coumadin until EPW removed) Assessment & Plan (06/03/2019 4:21 PM DINING CHAIR SEAT CUSHION TRIMMER): Aflutter rate controlled on amio gtt at 0.5mg/min -transition amio to 400 TID PO -ensure Mg > 2 and K > 4 -FBG even to negative 500 with scheduled BID lasix -heparin gtt for systemic anticoagulation -if unstable: DCCV Assessment & Plan (06/02/2019 1:06 PM DINING CHAIR SEAT CUSHION TRIMMER): History of afib; on home dilt. Now in a flutter with rate in the 60s. - VVI b/u - Decrease amio infusion to 0.5mg/min - Continue heparin infusion Assessment & Plan (06/02/2019 6:37 AM DINING CHAIR SEAT CUSHION TRIMMER): History of afib; on home dilt. Afib with rates to 120's. Treated with amio bolus x 2 followed by gtt. Now rate controlled < 100. - continue amio gtt at 1 mg/min; if HR remains < 100, decrease to 0.5 - Anticoagulation with heparin infusion Assessment & Plan (06/01/2019 12:49 PM DINING CHAIR SEAT CUSHION TRIMMER): Intermittent A fib underlying pacer. - Amio bolus x1 now - Amio infusion @ 1mg/min - Anticoagulation with heparin infusion Assessment & Plan (05/31/2019 7:44 AM DINING CHAIR SEAT CUSHION TRIMMER): -hx of Afib, on Dilt CD 240mg at home -holding Dilt in the setting of potential CHF exacerbation -will bolus with Amiodarone as patient likely is not tolerating tachycardia i/s/o mitral stenosis, now on amio gtt -ct hep gtt -holding home warfarin Assessment & Plan (02/24/2019 3:25 PM DINING CHAIR SEAT CUSHION TRIMMER): -Patient reports history of occasionally irregular heart rhythm but never told he had atrial fibrillation -current rate control increased dose of diltiazem. Will change to long-acting diltiazem 240 mg daily -cont warfarin (goal INR 2.5-3.5 given mechanical mitral valve) Assessment & Plan (02/23/2019 4:59 PM DINING CHAIR SEAT CUSHION TRIMMER): Patient with a fib. Per patient on diltiazem at home for irregular heart rate but never been told he has afib. No afib seen in our system previously - will look for LA appendage clot on echo - continue AC and rate control for now Assessment & Plan (02/23/2019 1:00 PM DINING CHAIR SEAT CUSHION TRIMMER): -Patient reports history of occasionally irregular heart rhythm but never told he had atrial fibrillation -currently on his home dose of dilt, but intermittent RVR up to 140s -plan to titrate up dilt for improved rate control -cont warfarin (goal INR 2.5-3.5 given mechanical mitral valve) Assessment & Plan (02/22/2019 9:16 PM DINING CHAIR SEAT CUSHION TRIMMER): - History of palpitations but now found to be in AF with well controlled rate - Continue home diltiazem for rate control and warfarin for AC - Repeat TTE to assess LV function Syncope 02/22/2019 Assessment & Plan (02/24/2019 3:26 PM DINING CHAIR SEAT CUSHION TRIMMER): - In setting of coughing fit followed by feeling of warmth, lightheadedness and no post ictal state - Serum electrolytes wnl, CT PE protocol negative for PE - Findings consistent with vasovagal syncope but could also be related to afib with RVR and valvular issues Assessment & Plan (02/23/2019 5:02 PM DINING CHAIR SEAT CUSHION TRIMMER): Likely related to cough, kelly. Given COPD which increases risk of cough syncope. Less likely to be related to arrhythmia, but would recommend continuing telemetry monitoring Assessment & Plan (02/23/2019 12:56 PM DINING CHAIR SEAT CUSHION TRIMMER): - In setting of coughing fit followed by feeling of warmth, lightheadedness and no post ictal state - Serum electrolytes wnl, CT PE protocol negative for PE - Findings consistent with vasovagal syncope but could also be related to afib with RVR - Monitor on tele, repeat TTE Assessment & Plan (02/22/2019 9:21 PM DINING CHAIR SEAT CUSHION TRIMMER): - In setting of coughing fit followed [...] 02/22/2019 Assessment & Plan (02/22/2019 9:45 PM DINING CHAIR SEAT CUSHION TRIMMER): - AST 175. ALT 239, [id number] Tbili 3.3 and Dbili 1.3 - Secondary to BECK - Will continue to monitor Ascites 02/22/2019 Overview (02/22/2019): - Secondary BECK s/p LVP x1 - Chest imaging and physical exam with ascites - No abdominal pain or findings concerning for SBP - Outpatient LVP and hepatology follow up Assessment & Plan (02/24/2019 3:31 PM DINING CHAIR SEAT CUSHION TRIMMER): -Patient reports this is new since November of this year -likely both liver and cardiac issues contributing. Assessment & Plan (02/23/2019 12:59 PM DINING CHAIR SEAT CUSHION TRIMMER): -Patient reports this is new since November [...] Disease Assessment & Plan (05/30/2019 2:41 AM DINING CHAIR SEAT CUSHION TRIMMER): -patient is on albuterol and Spiriva at home -albuterol PRN -pulmonary function tests which showed an FEV1 that was 49% of predicted on 04/18/2019 Assessment & Plan (02/23/2019 1:01 PM DINING CHAIR SEAT CUSHION TRIMMER): -cont home inhalers, prn albuterol Assessment & Plan (02/22/2019 9:06 PM DINING CHAIR SEAT CUSHION TRIMMER): - No concern for an acute exacerbation - On Breo Ellipta at Home, non formulary - Start Albuterol prn, spiriva and advair Resolved Problems Problem Noted Date Diagnosed Date Resolved Date Leukocytosis 06/08/2019 06/12/2019 Assessment & Plan (06/11/2019 1:22 PM DINING CHAIR SEAT CUSHION TRIMMER): Remains afebrile WBC trending down Will continue to monitor Assessment & Plan (06/10/2019 2:10 PM DINING CHAIR SEAT CUSHION TRIMMER): WBC 13 from 14.2 from 13.4 No fevers Incisions clean and dry CL out Encouraged to ambulate and perform IS No overt signs of infection UA 06/08 negative CXR 06/08 showed + atelectasis and small right pleural effusion Thrombocytopenia 06/05/2019 06/12/2019 Assessment & Plan (06/11/2019 1:22 PM DINING CHAIR SEAT CUSHION TRIMMER): Plt WNL Assessment & Plan (06/10/2019 2:11 PM DINING CHAIR SEAT CUSHION TRIMMER): Platelets 89 from 92K - stable Wires out 06/07 Remains on heparin gtt for mechanical valve prophylactis Continue Coumadin Assessment & Plan (06/05/2019 10:19 AM DINING CHAIR SEAT CUSHION TRIMMER): PLT down to 66 (90s) this morning, [...] 06/07/2019 Assessment & Plan (06/05/2019 10:17 AM DINING CHAIR SEAT CUSHION TRIMMER): Small bowel movement this morning. Abdomen distended, [...] OOB/ambulate Assessment & Plan (06/04/2019 5:51 PM DINING CHAIR SEAT CUSHION TRIMMER): No BM X8d. Abdomen distended, taught, BS hypoactive. Denies nausea. KUB: dilated ascending and transverse colon measuring 9.5cm. PO bowel regimen increased yesterday and suppository with minimal response. -suppository BID -cotton seed enema -lactulose Q6hr until stool -OOB/ambulate Assessment & Plan (06/03/2019 4:34 PM DINING CHAIR SEAT CUSHION TRIMMER): No BM X7d. Abdomen distended, taught, BS hypoactive. Denies nausea. -increase docusate to 200 BID -increase miralax to BID -add suppository -consider lactulose if no BM by this evening -OOB/ambulate Delirium 06/02/2019 06/07/2019 Assessment & Plan (06/05/2019 10:15 AM DINING CHAIR SEAT CUSHION TRIMMER): Resolved. CAM negative. Received seroquel 25mg at bedtime last night. - discontinue seroquel -OOB to chair -ambulate -lights off 21:00-06:00 - prn ramelteon at bedtime for sleep Assessment & Plan (06/04/2019 5:45 PM DINING CHAIR SEAT CUSHION TRIMMER): CAM negative this AM. Slept with seroquel last night continue seroquel -OOB to chair -ambulate -lights off 21:00-06:00 Assessment & Plan (06/03/2019 4:24 PM DINING CHAIR SEAT CUSHION TRIMMER): CAM negative this AM. Did not sleep at all last night -25mg seroquel QHS to promote sleep -OOB to chair -ambulate -lights off 21:00-06:00 Assessment & Plan (06/02/2019 1:02 PM DINING CHAIR SEAT CUSHION TRIMMER): CAM positive after extubation last night. Sedated with precedex infusion overnight for sleep. This AM, more alert and appropriate. - DC precedex - Frequent reorientation - Lights on during the day - Encourage mobility- OOBTC - Sleep hygiene Assessment & Plan (06/02/2019 5:52 AM DINING CHAIR SEAT CUSHION TRIMMER): CAM positive after extubation. Unable to sleep tonight and very restless. -start low dose precedex -maintain mittens in place -delirium precautions: lights on during day, off at night, OOBTC during day, encourage family interaction during day -if does not improve will need SBFT placement Hyperglycemia 06/01/2019 06/06/2019 Assessment & Plan (06/05/2019 10:14 AM DINING CHAIR SEAT CUSHION TRIMMER): Well controlled on current NPH/SSI regimen. BGL ranging between 70-150 in the past 24 hours. HgA1C 9.6 on admission with no home antihyperglycemics. - carb controlled diet - NPH BID (09: 00 /17:00) for basal + HDSSI Assessment & Plan (06/04/2019 5:44 PM DINING CHAIR SEAT CUSHION TRIMMER): HgA1C 9.6 on admission with no home antihyperglycemics. Transitioned from insulin gtt to HDSSI yesterday and remains hyperglycemic. Contributing factors: epi gtt. Decreased appetite 2/2 constipation - carb controlled diet -add NPH BID (09: 00 /17:00) for basal + HDSSI Assessment & Plan (06/03/2019 4:26 PM DINING CHAIR SEAT CUSHION TRIMMER): HgA1C 9.6 on admission with no home antihyperglycemics. Currently on insulin gtt -ADAT to carb controlled diet -transition insulin gtt to HDSSI Assessment & Plan (06/02/2019 1:07 PM DINING CHAIR SEAT CUSHION TRIMMER): History of DM-II but no home meds. Likely related to stress response. Remains on insulin infusion. - Continue insulin gtt per icu protocol - ADAT Assessment & Plan (06/02/2019 5:34 AM DINING CHAIR SEAT CUSHION TRIMMER): History of DM-II but no home meds. Likely related to stress response. Remains on insulin infusion - Continue insulin gtt per icu protocol Assessment & Plan (06/01/2019 12:49 PM DINING CHAIR SEAT CUSHION TRIMMER): History of DM-II but no home meds. Likely related to stress response. Remains on insulin infusion - Continue insulin gtt per icu protocol Assessment & Plan (06/01/2019 5:31 AM DINING CHAIR SEAT CUSHION TRIMMER): History of DM-II but no home meds. Arrived on insulin gtt 6 units/hr. Likely related to stress response. -continue insulin gtt per icu protocol Shock liver 06/01/2019 06/07/2019 Assessment & Plan (06/04/2019 5:26 PM DINING CHAIR SEAT CUSHION TRIMMER): Continues to improve to near normal. Statin resumed yesterday - CMP/coags daily with AM labs for 1 more days Assessment & Plan (06/03/2019 10:34 AM DINING CHAIR SEAT CUSHION TRIMMER): Improving. -resume home statin today - CMP/coags daily with AM labs for 2 more days Assessment & Plan (06/02/2019 1:07 PM DINING CHAIR SEAT CUSHION TRIMMER): Improving. 2/2 severe RV dysfunction pre-op. Both T bili and AST/ALT down trending. - CMP/coags daily with AM labs - Avoid hepatotoxic agents Assessment & Plan (06/02/2019 5:34 AM DINING CHAIR SEAT CUSHION TRIMMER): 2/2 severe RV dysfunction pre-op. Both T bili and AST/ALT down trending. Will likely continue to improve with time - CMP/coags daily with AM labs - Avoid hepatotoxic agents Assessment & Plan (06/01/2019 12:50 PM DINING CHAIR SEAT CUSHION TRIMMER): 2/2 severe RV dysfunction pre-op. T bili rising, AST/ALT down trending. INR 1.8 without anticoagulation. - CMP/coags daily with AM labs - Avoid hepatotoxic agents Acute respiratory insufficiency 05/31/2019 06/07/2019 Assessment & Plan (06/06/2019 11:56 AM DINING CHAIR SEAT CUSHION TRIMMER): Diuresis as tolerated, aggressive pulmonary toilet Assessment & Plan (06/05/2019 10:13 AM DINING CHAIR SEAT CUSHION TRIMMER): COPD. Currently on NC for SpO2 > 92% suspect ileus and abdominal distention decreasing diaphragmatic movement -ellipta (home med equivalent) -wean SpO2 for SpO2 > 92% -OOB to chair/ambulate -FBG negative 1L with BID scheduled diuresis Assessment & Plan (06/04/2019 5:40 PM DINING CHAIR SEAT CUSHION TRIMMER): COPD. Currently on NC for SpO2 > 92% -ellipta (home med equivalent) -wean SpO2 for SpO2 > 92% -OOB to chair/ambulate -FBG negative 1L with BID scheduled diuresis Assessment & Plan (06/03/2019 4:23 PM DINING CHAIR SEAT CUSHION TRIMMER): COPD. CXR essentially clear. Currently on NC for SpO2 > 92% -ellipta (home med equivalent) -wean SpO2 for SpO2 > 92% -OOB to chair/ambulate -FBG even to negative 500 with BID scheduled diuresis Assessment & Plan (06/02/2019 1:06 PM DINING CHAIR SEAT CUSHION TRIMMER): Extubated to NC last night. Remains on 4L NC this AM. - Pulmonary hygiene with IS, acapella, and C&DB - PT/OOBTC/AMB - Wean supplemental O2 for SpO2 > 92% - FBG -1 to 2L with lasix and metolazone Assessment & Plan (06/01/2019 12:45 PM DINING CHAIR SEAT CUSHION TRIMMER): Post procedural short-term ventilator support with anticipated extubation. Currently sedated w/propofol on full mechanical ventilation. Velitri weaned off overnight. - Transition from propofol to precedex - PSV trial with goal extubation Assessment & Plan (06/01/2019 5:27 AM DINING CHAIR SEAT CUSHION TRIMMER): Post procedural short-term ventilator support with anticipated [...] 7.44/42/128. Assessment & Plan (05/31/2019 5:37 PM DINING CHAIR SEAT CUSHION TRIMMER): Post procedural short-term ventilator support with anticipated [...] dysfunction. Assessment & Plan (06/05/2019 10:11 AM DINING CHAIR SEAT CUSHION TRIMMER): Improving. FB negative -800mL with lasix yesterday. [...] outlined Assessment & Plan (06/04/2019 5:37 PM DINING CHAIR SEAT CUSHION TRIMMER): Improving. FB negative 1800 with 80 lasix BID. Rate controlled aflutter 70s -keep milrinone 0.1mcg/kg/min -increase epi wean by 0.01mcg/kg/min Q6hr for SBP > 100 -change lasix to 40mg PO BID with K supplementation -treat Aflutter as outlined Assessment & Plan (06/03/2019 4:14 PM DINING CHAIR SEAT CUSHION TRIMMER): No epi wean overnight 2/2 ScVO2 < 60. FB even with additional diuresis. Rate controlled aflutter 70s -keep milrinone 0.1mcg/kg/min -epi wean by 0.01mcg/kg/min Q8hr for ScVO2> 60 -lasix 80mg BID with 20meq KCl -treat Aflutter as outlined Assessment & Plan (06/02/2019 1:05 PM DINING CHAIR SEAT CUSHION TRIMMER): Cardiogenic shock 2/2 severe MR and severe [...] 2L Assessment & Plan (06/02/2019 5:46 AM DINING CHAIR SEAT CUSHION TRIMMER): Cardiogenic shock 2/2 severe MR and severe [...] now. Assessment & Plan (06/01/2019 12:48 PM DINING CHAIR SEAT CUSHION TRIMMER): Cardiogenic shock 2/2 severe MR and severe [...] lasix Assessment & Plan (06/01/2019 5:45 AM DINING CHAIR SEAT CUSHION TRIMMER): Cardiogenic shock 2/2 Severe MR and severe [...] veletri. Assessment & Plan (05/31/2019 5:43 PM DINING CHAIR SEAT CUSHION TRIMMER): Cardiogenic shock 2/2 Severe MR and severe [...] 06/07/2019 Assessment & Plan (02/24/2019 3:21 PM DINING CHAIR SEAT CUSHION TRIMMER): -s/p mechanical MVR in 2006 -echo yesterday [...] cardiology Assessment & Plan (02/24/2019 3:08 PM DINING CHAIR SEAT CUSHION TRIMMER): Patient with mitral valve stenosis s/p surgical [...] - Please obtain images from echo at [place] in December - if clotted can consider [...] understanding Assessment & Plan (02/23/2019 12:57 PM DINING CHAIR SEAT CUSHION TRIMMER): -s/p mechanical MVR in 2006 -echo today shows elevated valve gradient although patient was in afib with tachycardia so unclear how accurate this is -will discuss with cardiology Assessment & Plan (02/22/2019 9:14 PM DINING CHAIR SEAT CUSHION TRIMMER): - S/p bioprosthetic mitral valve replacement - [...] on file Legal Sex Male 5:34 AM DINING CHAIR SEAT CUSHION TRIMMER Gender Identity Not on file Sexual Orientation Not on file Last Filed Vital Signs Vital Sign Reading Time Taken Comments Blood Pressure 141/76 08/15/2019 10:48 AM CDT Pulse 69 08/15/2019 10:48 AM CDT Temperature 37 C (98.6 F) 08/15/2019 10:48 AM CDT Respiratory Rate 18 06/13/2019 8:34 AM DINING CHAIR SEAT CUSHION TRIMMER Oxygen Saturation 98% 08/15/2019 10:48 AM CDT Inhaled Oxygen Concentration - - Weight 90.7 kg (200 lb) 08/15/2019 10:48 AM CDT Height 180.3 cm (5' 11 ) 08/15/2019 10:48 AM CDT Body Mass Index 27.89 08/15/2019 10:48 AM CDT Plan of Treatment Not on file Medical Devices Implanted Type Area Senior Restaurant Manager Device Identifier Shelf Expiration Date Model / Serial / Lot [employer] [id number] [place] rds Physio 28mm Tricuspid Ring Annuloplasty Heart - [id number] - [id number] Implanted:Qty: 1 on 05/31/2019 by Barrett Portillo Jr., MD at [facility] Other - see comments N/A: Heart [employer] [id number] 12/29/2020 [id number] / [id number] / Description:Tricuspid Annulo plasty Ring On-X Intrnl [facility]-25-33 25-33mm 17.4mm Mechanical Conform-X Sewing Ring Means Valve - [id number] - [id number] Implanted:Qty: 1 on 05/31/2019 by Barrett Portillo Jr., MD at [facility] Prosthetic Valve N/A: Heart On-X Intrnl [id number] 04/27/2025 [facility] -33 / [id number] / Insurance AETNA MEDICARE [facility] MEDICARE [facility] Advance Directives For more information, please contact: [phone] Documents on File Type Date Recorded Patient Oral And Maxillofacial Surgery Resident Expl anation ADVANCE DIRECTIVE 05/30/2019 10:13 AM [facility] * Full Code (Latest Code Status on [...] 8:30 PM 02/24/2019 9:46 PM Care Teams Electrical Cad Technician Relationship Specialty Start Date End Date Randolph Moore MD [address] [place] [address] PCP - General 06/24/15 Chris Akins MD PhD [address] [place] [address] Referring Physician Cardiology 03/16/19 Barrett Portillo Jr., MD [address] [place] [address] Surgeon Cardiothoracic Surgery 06/13/19
--- OUTSIDE RECORDS SUMMARY | 2024-07-04 16:03 | XMS_ITS | Encounter Summary ---
Author Organization [facility] Address [address] [place] [address] Care Team Providers Care Mushroom Grower Name Role Phone Randolph Moore MD Primary Care Provider [phone] Roberta Nicole MD Unavailable Encounter Details Date Type Department Care Team (Late st Contact Info) Description 09/17/2018 Abstract [place] [address] , Generic Conversion, Social History Tobacco Use Types Packs/Day Years Used Date Smoking Tobacco: Never Assessed Sex and Gender Information Value Date Recorded Sex Assigned at Male 05/27/2019 3:12 PM RESEARCH INVESTIGATOR Legal Sex Male 5:49 PM RESEARCH INVESTIGATOR Gender Identity Male 05/27/2019 3:12 PM RESEARCH INVESTIGATOR Sexual Orientation Straight 05/27/2019 3: 12 PM RESEARCH INVESTIGATOR documented as of this encounter Plan of Treatment Upcoming Encounters Date Type Department Care Team (Late st Contact Info) Description 09/01/2024 12:[address] [address] Roberta Nicole MD [address] [place] [address] 09/22/2024 11:00 AM CDT Office Visit [facility] [phone] Roberta Nicole MD [address] [place] [address] 03/26/2025 1:30 PM RESEARCH INVESTIGATOR [place] [address] Roberta Nicole MD [address] [place], [place] [phone] 04/02/2025 9:00 AM RESEARCH INVESTIGATOR Office Visit [facility] [address] [place] [phone] Roberta Nicole MD [address] [place], [place] [phone] documented as of this encounter Visit Diagnoses Not on filedocumented in this encounter Care Teams Mushroom Grower Relationship Specialty Start Date End Date Randolph Moore MD [address] [place] [phone] PCP - General FAMILY PRACTICE 11/07/18 Roberta Nicole MD [address] [place] [address] Consulting Physician CARDIOVASCULAR DISEASE 07/15/23 documented as of this encounter
--- OUTSIDE RECORDS SUMMARY | 2024-07-04 16:03 | XMS_ITS | Clinical Summary ---
Author Organization [facility] Address [address] [place] [address] Care Team Providers Care Rice Drier Operator Name Role Phone Randolph Moore MD Primary Care Provider [phone] Roberta Nicole MD Unavailable Allergies No known [...] mg total) by mouth daily. Active Umeclidinium [place] (INCRUSE ELLIPTA) 62.5 MCG/ACT AEROSOL POWDER, BREATH [...] with ac vitaliy on chronic heart failure ([facility]) 05/27/2019 Encounters Date Type Department Care Team Description 07/03/2024 1:56 PM T Hospital Encounter [facility] [address] [address] Maria Antonia Goldsmith PA Arrived 07/03/2024 1:55 PM T Hospital Encounter [facility] [place] [address] [address] Maria Antonia Goldsmith PA Arrived 07/03/2024 Orders Only [facility] [place] [address] [address] Maria Antonia Goldsmith PA 07/03/2024 Travel 04/17/2024 10:19 AM NEUROSURGERY PHYSICIAN - 04/17/2024 11:59 PM [facility] Hospital Encounter [facility] [place] [address] [address] Randolph Moore MD Infusion Therapy Discharge Disposition: Home or Self Care (Routine Discharge) 04/17/2024 Travel 04/10/2024 7:47 AM NEUROSURGERY PHYSICIAN - 04/10/2024 11:59 PM [facility] Hospital Encounter [facility] [place] [address] [address] Randolph Moore MD Infusion Therapy Discharge Disposition: Home or Self Care (Routine Discharge) 04/10/2024 Travel from Last 3 Months Immunizations Name [...] alcohol) 8 years since last drank [facility] [email or web address] Answer Date Recorded In the past 12 months has e [employer], gas, oil, or water [employer] threatened to shut off services in your [...] Sex Assigned at Male 05/27/2019 3:12 PM NEUROSURGERY PHYSICIAN Legal Sex Male 5:49 PM NEUROSURGERY PHYSICIAN Gender Identity Male 05/27/2019 3:12 PM NEUROSURGERY PHYSICIAN Sexual Orientation Straight 05/27/2019 3: 12 PM NEUROSURGERY PHYSICIAN Last Filed Vital Signs Vital Sign Reading Time Taken Comments Blood Pressure 141/69 04/17/2024 10:25 AM NEUROSURGERY PHYSICIAN Pulse 81 04/17/2024 10:25 AM NEUROSURGERY PHYSICIAN Temperature 36.4 C (97.6 F) 04/17/2024 10:25 AM NEUROSURGERY PHYSICIAN Respiratory Rate 18 04/17/2024 10:25 AM NEUROSURGERY PHYSICIAN Oxygen Saturation 99% 04/17/2024 10:25 AM NEUROSURGERY PHYSICIAN Inhaled Oxygen Concentration - - Weight 98.1 kg (216 lb 3.2 oz) 04/17/2024 10:25 AM NEUROSURGERY PHYSICIAN Height 177.8 cm (5' 10 ) 04/03/2024 8:03 AM NEUROSURGERY PHYSICIAN Body Mass Index 31.02 04/03/2024 8:03 AM NEUROSURGERY PHYSICIAN Plan of Treatment Upcoming Encounters Date Type Department Care Team (Late st Contact Info) Description 09/01/2024 12:[address] [facility] [place] [address] Roberta Nicole MD [address] [place], [place] [phone] 09/22/2024 11:00 AM CDT Office Visit [facility] [address] Roberta Nicole MD [address] [place] [address] 03/26/2025 1:30 PM NEUROSURGERY PHYSICIAN Appointment [facility] [address] [place] [address] Roberta Nicole MD [address] [place], [place] [phone] 04/02/2025 9:00 AM NEUROSURGERY PHYSICIAN Office Visit [facility] [address] [place] [phone] Roberta Nicole MD [address] [place], [place] [phone] Health Maintenance Due Date Last Done Comments [...] 1987 Zoster Vaccines (1 of 2) 2018 Hemoglobin A1C 10/15/2023 07/16/2023, 0308/2023, 05/31/2019 COVID-19 Vaccine ( season) 2023 Influenza Adult (#1) 2024 03/13/2020, 12/26/2018, 01/26/2017, Additional history exists Lipid Panel 08/22/2024 08/23/2023 Colorectal Cancer Screening FIT/FOBT (1 Year) 08/24/2024 08/25/2023 Meningococcal B Vaccine Aged Out No l onger eligible based on patient's age to complete this topic Meningococcal Vaccine Aged Out No katie yumiko eligible based on patient's age to complete this topic RSV Immunizations Under 20 Months Aged Out No longer eligible based on patient's age to complete this topic Procedures Procedure Name Priority Date/Time Associated Diagnosis Comments XR CHEST PA+LAT STAT 07/03/2024 2:19 PM CDT SOB (shortness of breath) BASIC METABOLIC PANEL STAT 07/03/2024 2:08 PM CDT Shortness of breath Anticoagulated on Coumadin CBC W/DIFF AUTOMATED STAT 07/03/2024 2:08 PM CDT Shortness of breath Anticoagulated on Coumadin PROTHROMBIN TIME, VENOUS STAT 07/03/2024 2:08 PM CDT Shortness of breath Anticoagulated on Coumadin OCCULT BLOOD, FECES STAT 08/25/2023 3 :00 PM CDT LIPID PANEL Routine 08/23/2023 10:10 AM CDT Chest pain Shortness of breath Palpitations HEMOGLOBIN, GLYCOSYLATED Routine 07/16/2023 10:07 PM CDT from Last 3 Months or Most Recently Relevant to Health Maintenance Results * XR CHEST PA+LAT (07/03/2024 2:19 PM CDT) Anatomical Region Laterality Modality Chest Radiographic Amy ging 07/03/2024 2:25 PM CDT Impressions 07/03/2024 2:30 PM CDT IMPRESSION: No significant change. No acute disease. Ordered By: MARIA ANTONIA GOLDSMITH Interpreted By: Gaurav Hong MD, 07/03/2024 2:25 PM Narrative 07/03/2024 2:30 PM CDT [address] [place] [address] Examination: Two-view chest Exam time: 1357 hours. Clinical history: Cough. Dyspnea. Comparison: 08/25/2023, 07/16/2023 ([facility]). Technique: PA and lateral views Findings: The cardiomediastinal silhouette is stable. The heart remains within normal limits for size. Pulmonary vascularity is within normal limits. Changes from median sternotomy, mitral valve replacement and tricuspid annuloplasty again evident. The lungs and pleural spaces appear free of any active process. The bony thorax is stable. Procedure Note Gaurav Hong MD - 07/03/[address] [place] [address] Examination: Two-view chest Exam time: 1357 hours. Clinical history: Cough. Dyspnea. Comparison: 08/25/2023, 07/16/2023 ([facility]). Technique: PA and lateral views [...] By: Gaurav Hong MD, 07/03/2024 2:25 PM [facility] Final Resu lt * (ABNORMAL) PROTIME/INR, VENOUS (07/03/2024 2:08 PM CDT) PROTIME 46.8(H) 9.4 - 12.5 SEC 07/03/2024 2:[address] [facility] INR 4.1(H) 0.8 - 1.0 07/03/2024 2:[address] [facility] 07/03/2024 2:08 PM CDT [facility] Final Resu lt [facility] [address] [place] [address], * (ABNORMAL) BASIC METABOLIC PANEL (07/03/2024 2:08 PM CDT) [facility] SODIUM S/P/B 137 136 - 145 MMOL/L 07/03/2024 2:[address] [facility] POTASSIUM S/P/B 4.2 3.5 - 5.1 MMOL/L 07/03/2024 2:[address] [facility] CHLORIDE S/P/B 102 98 - 107 MMOL/L 07/03/2024 2:[address] [facility] CO2 26.3 21.0 - 32.0 MMOL/L 07/03/2024 2:[address] [facility] GLUCOSE 153(H) 70 - 99 MG/DL 07/03/2024 2:[address] [facility] Comment: FASTING GLUCOSE 100 TO 125 MG/DL IS CONSISTENT WITH IMPAIRED FASTING GLUCOSE. FASTING GLUCOSE >125 MG/DL IS CONSISTENT WITH DIABETES. RANDOM GLUCOSE >200 MG/DL WITH HYPERGLYCEMIC SYMPTOMS IS CONSISTENT WITH DIABETES. PER ADA GUIDELINES BUN 33(H) 6 - 24 MG/DL 07/03/2024 2:[address] [facility] CREATININE S/P/B 1.15 0.70 - 1.30 MG/DL 07/03/2024 2:[address] [facility] CALCIUM S/P/B 8.2(L) 8.4 - 10.5 MG/DL 07/03/2024 2:[address] [facility] ANION GAP 8.7 5.0 - 15.0 MMOL/L 07/03/2024 2:[address] [facility] OSMOLALITY (CALC) 294 MOSM/KG 025 2:[address] [facility] Comment:REFERENCE RANGE NOT ESTABLISHED GFR ESTIMATE 75(L) >89 ML/MIN/1. 73 M2 07/03/2024 2:[address] [facility] GFR NOTES GFR REFERENCE S: 07/03/2024 2:[address] [facility] Comment: THE ESTIMATED GFR IS [...] <15 ml/min/1.73 m2 07/03/2024 2:08 PM CDT Maria Antonia [facility] Final Resu lt [facility] [address] [place] [address], * (ABNORMAL) CBC W/DIFF AUTOMATED (07/03/2024 2:08 PM CDT) WBC 6.37 4.00 - 10.80 x10'3/uL 07/03/2024 2:[address] [facility] RBC 4.08(L) 4.50 - 6.10 x10'6/uL 07/03/2024 2:[address] [facility] HGB 8.1(L) 13.0 - 18.0 G/DL 07/03/2024 2:[address] [facility] HCT 27.4(L) 37.0 - 52.0 % 07/03/2024 2:[address] [facility] MCV 67.2(L) 78.0 - 100.0 FL 07/03/2024 2:[address] [facility] MCH 19.9(L) 27.0 - 31.0 PG 07/03/2024 2:[address] [facility] MCHC 29.6(L) 33.0 - 36.0 G/DL 07/03/2024 2:[address] [facility] RDW 24.4(H) 11.5 - 14.5 % 07/03/2024 2:[address] [facility] PLT 250 150 - 350 x10'3/uL 07/03/2024 2:[address] [facility] MPV 8.9 7.4 - 10.4 FL 07/03/2024 2:[address] [facility] CBC COMMENT NORMAL REFERENCE RANGE NOT ESTABLISHED FOR THE PROPORTIONAL LEUKOCYTE DIFFERENTIAL. 07/03/2024 2:[address] [facility] NEUTROPHILS % 70.2 % 07/03/2024 2:[address] [facility] LYMPHOCYTES % 18.1 % 07/03/2024 2:[address] [facility] MONOCYTES % 8.6 % 07/03/2024 2:[address] [facility] EOSINOPHILS % 2.5 % 07/03/2024 2:[address] [facility] BASOPHILS % 0.3 % 07/03/2024 2:[address] [facility] IMMATURE GRANS % 0.3 % 07/04/19 2:[address] [facility] NRBC % 0.3 % 07/03/2024 2:[address] [facility] ABS. NEUTROPHILS 4.47 1.60 - 8.30 x10'3/uL 07/03/2024 2:[address] [facility] ABS. LYMPHOCYTES 1.15 0.80 - 4.70 x10'3/uL 07/03/2024 2:[address] [facility] ABS. MONOCYTES 0.55 0.00 - 1.50 x10'3/uL 07/03/2024 2:[address] [facility] ABS. EOSINOPHILS 0.16 0.00 - 0.40 x10'3/uL 07/03/2024 2:[address] [facility] ABS. BASOPHILS 0.02 0.00 - 0.20 x10'3/uL 07/03/2024 2:[address] [facility] ABS. IMMATURE GRANULOCYTES 0.02 0.00 - 0.03 x10'3/uL 07/03/2024 2:[address] [facility] ABS. NUCLEATED RBC'S 0.02(H) 0.00 - 0.01 x10'3/uL 07/03/2024 2:[address] [facility] 07/03/2024 2:08 PM CDT Maria Antonia Goldsmith PA LABORATORY Final Resu lt [facility] [address] [place] [address], * OCCULT BLOOD, FECES (08/25/2023 3:00 PM CDT) OCCULT BLOOD FECAL NEGATIVE NEGATIVE 08/25/2023 3:[address] [facility] STOOL SPECIMEN / Unknown 08/25/2023 3:00 PM CDT Cynthia Gusman MD BODY FLUIDS AND STOOLS ORDER LIANG Final Result [facility] [address] [place] [address], * (ABNORMAL) LIPID PANEL (08/23/2023 10:10 AM CDT) CHOLESTEROL 76 MG/DL 08/24/2023 12:09 PM CDT [facility] Comment:DESIRABLE: <200 TRIGLYCERIDES 106 MG/DL 08/24/2023 12:09 PM CDT [facility] Comment:<150 NORMAL HDL 23(L) >39 MG/DL 08/24/2023 12:09 PM CDT [facility] LDL-C 32 MG/DL 08/24/2023 12:09 PM CDT [facility] Comment:<100 OPTIMAL VLDL CALCULATION 21 MG/DL 08/24/19 24 12:09 PM CDT [facility] Comment:REFERENCE RANGE NOT ESTABLISHED CHOL/HDL RATIO 3.3 08/24/2023 12:09 PM CDT [facility] Comment:REFERENCE RANGE NOT ESTABLISHED LDL/HDL 1.4 08/24/2023 12:09 PM CDT [facility] Comment:REFERENCE RANGE NOT ESTABLISHED NON HDL CHOLESTEROL 53 MG/DL 08/24/2023 12:09 PM CDT [facility] Comment:REFERENCE RANGE NOT ESTABLISHED 08/23/2023 10:1 0 AM CDT José Antonio Hermosillo MD LABORATORY Final Result Performing Organization Address [facility] Co de Phone Number [facility] [address] [place] [address], [phone] * (ABNORMAL) HEMOGLOBIN, GLYCOSYLATED (07/16/2023 10:07 PM CDT) HGB A1C 7.9(H) <5.7 % 07/17/2023 7:07 AM CDT [facility] ESTIMATED AVG GLUCOSE 180(H) 74 - 114 MG/DL 07/17/2023 7:07 AM CDT [facility] 07/16/2023 10:0 7 PM CDT Mauro Allen MD LABORATORY Final Result Performing Organization Address [facility] de Phone Number [facility] [address] [place] [address], [phone] from Last 3 Months or Most Recently Relevant to Health Maintenance Insurance AETNA AETNA Advance Directives Documents on File Type Date Recorded Patient Entertainment Production Professional Expl anation Advance Directives and Living Will 06/02/2019 10:47 AM 05/29/19 POA FOR HEAL TH CARE * Full Code (Latest Code Status on File) Date Activated Date Inactivated Comments 07/17/2023 2:43 AM 07/18/2023 3:52 PM * Full Code Date Activated Date Inactivated Comments 05/27/2019 3:51 PM 05/30/2019 2:22 AM Care Teams Rice Drier Operator Relationship Specialty Start Date End Date Randolph Moore MD [address] [place] [phone] PCP - General FAMILY PRACTICE 11/07/18 Roberta Nicole MD [address] [place] [address] Consulting Physician CARDIOVASCULAR DISEASE 07/15/23
--- OUTSIDE RECORDS SUMMARY | 2024-07-04 16:03 | XMS_ITS | Encounter Summary ---
Author Organization [facility] Address [address] [place] [address] Care Team Providers Care Line Therapist Name Role Phone Randolph Moore MD Primary Care Provider [phone] Roberta Nicole MD Unavailable Encounter Details Date Type Department Care Team (Late st Contact Info) Description 07/19/2023 Hospital Follow-up Call [facility] Cardi[facility] Care Unit [address] [place] [address] Dee Dee Shelton RN Social History Tobacco Use Types Packs/Day Years Used Date Smoking Tobacco: Former Cigarettes Q uit: 05/22/2006 Smokeless Tobacco: Never Alcohol Use Standard Drinks/Week Comments Not Currently 0 (1 standard drink = 0.6 oz pur e alcohol) 8 years since last drank [facility] [employer]og[employer] Answer Date Recorded In the past 12 months has e electric, gas, oil, or water [employer] threatened to shut off services in your [...] place to sleep or slept in a group home (including now)? No 07/17/2023 Sex and Gender Information Value Date Recorded Sex Assigned at Male 05/27/2019 3:12 PM HEALTHCARE OR MEDICAL Legal Sex Male 5:49 PM HEALTHCARE OR MEDICAL Gender Identity Male 05/27/2019 3:12 PM HEALTHCARE OR MEDICAL Sexual Orientation Straight 05/27/2019 3: 12 PM HEALTHCARE OR MEDICAL documented as of this encounter Functional Status [...] PM CDT [facility]oint[facility] [place] [address] Roberta Nicole MD [address] [place] [address] 09/22/2024 11:00 AM CDT Office Visit [facility] [place] [address] Roberta Nicole MD [address] [place] [address] 03/26/2025 1:30 PM HEALTHCARE OR MEDICAL [facility]ointment [facility] [place] [place] [address] Roberta Nicole MD [address] [place] [address] 04/02/2025 9:00 AM HEALTHCARE OR MEDICAL Office Visit [facility] [place] [address] Roberta Nicole MD [address] [place] [address] documented as of this encounter Visit Diagnoses Not on filedocumented in this encounter Care Teams Line Therapist Relationship Specialty Start Date End Date Randolph Moore MD [address] [place] [phone] PCP - General FAMILY PRACTICE 11/07/18 Roberta Nicole MD [address] [place] [address] Consulting Physician CARDIOVASCULAR DISEASE 07/15/23 documented as of this encounter
--- NOTE | 2024-07-04 17:07 | PC.NURSE ---
1630- LAB CALLS REPORTING BLOOD HAS STILL NOT BEEN SENT TO [facility] FOR TESTING, STATES IT WILL BE SEVERAL HOURS, IF PT IS TO BE ADMITTED THEY WILL SEND IT OUT IN THE MORNING. ERP IS NOTIFIED, OTHER FACILITIES ARE CONTACTED FOR POSSIBLE TRANSFER AT THIS TIME, WE WERE DELAYING THIS TO BE ABLE TO INITIATE BLOOD TRANSFUSION HERE. 1700- PT HAS BEEN ACCEPTED TO [facility] [address] IN [place] TO ROOM [address] [place]SON, ATTEMPTED TO CALL REPORT TO BARB PRADO AT THIS TIME, SHE IS TO RETURN CALL TO OBTAIN REPORT. PT AND DAUGHTER HAVE BEEN UPDATED ON STATUS AT THIS TIME. WILL CONTINUE TO MONITOR.
--- OUTSIDE RECORDS SUMMARY | 2024-07-04 17:07 | XMS_ITS | Encounter Summary ---
Author Organization [facility] Address [address] [place] [address] Care Team Providers Care Automotive Heavy Mechanic Name Role Phone Randolph Moore MD Primary Care Provider [phone] Roberta Nicole MD Unavailable Encounter Details Date Type Department Care Team (Latest Contact Info) Description 07/03/2024 Travel Social History Tobacco Use Types Packs/Day Years Used Date Smoking Tobacco: Former Cigarettes Q uit: 05/22/2006 Smokeless Tobacco: Never Alcohol Use Standard Drinks/Week Comments Not Currently 0 (1 standard drink = 0.6 oz pur e alcohol) [address] [facility] theScoreities Answer Date Recorded In the past 12 months has [employer] electric, gas, oil, or water company threatened [...] Sex Assigned at Male 05/27/2019 3:12 PM BOOTH USHER Legal Sex Male 5:49 PM BOOTH USHER Gender Identity Male 05/27/2019 3:12 PM BOOTH USHER Sexual Orientation Straight 05/27/2019 3: 12 PM BOOTH USHER documented as of this encounter Functional Status [...] Info) Description 09/01/2024 12:30 PM CDT Appointment [facility] [address] [place] [address] Roberta Nicole MD [address] [place] [address] 09/22/2024 11:00 AM CDT Office Visit [facility] [place] [id number] [place] [address] Roberta Nicole MD [address] [place] [address] 03/26/2025 1:30 PM BOOTH USHER Appointment [facility] [address] [place] [address] Roberta Nicole MD [address] [place] [address] 04/02/2025 9:00 AM BOOTH USHER Office Visit [facility] [address] [place] [address] Roberta Nicole MD [address] [place] [address] documented as of this encounter Visit Diagnoses Not on filedocumented in this encounter Care Teams Automotive Heavy Mechanic Relationship Specialty Start Date End Date Randolph Moore MD [address] [place] [phone] PCP - General FAMILY PRACTICE 11/07/18 Roberta Nicole MD [address] [place] [address] Consulting Physician CARDIOVASCULAR DISEASE 07/15/23 documented as of this encounter
--- OUTSIDE RECORDS SUMMARY | 2024-07-04 17:07 | XMS_ITS | Encounter Summary ---
Author Organization [facility] Address [address] [place] [address] Care Team Providers Care Package Liner Name Role Phone Randolph Moore MD Primary Care Provider [phone] Roberta Nicole MD Unavailable Encounter Details Date Type Department Care Team (Late st Contact Info) Description 08/24/2023 Prep for Procedure [employer] Janitorial Assistant Pre/Post [address] [place] [address] José Antonio Hermosillo MD [address] [place] [id number] Social History Tobacco Use Types Packs/Day Years Used Date Smoking Tobacco: Former Cigarettes Q uit: 05/22/2006 Smokeless Tobacco: Never Alcohol Use Standard Drinks/Week Comments Not Currently 0 (1 standard drink = 0.6 oz pur e alcohol) 8 years since last drank [facility] [employer] Answer Date Recorded In the past 12 months has [facility] [employer], gas, oil, or water [employer] threatened to shut off services in your [...] place to sleep or slept in a mcc (including now)? No 07/17/2023 Sex and Gender Information Value Date Recorded Sex Assigned at Male 05/27/2019 3:12 PM CURRENCY EXAMINER Legal Sex Male 5:49 PM CURRENCY EXAMINER Gender Identity Male 05/27/2019 3:12 PM CURRENCY EXAMINER Sexual Orientation Straight 05/27/2019 3: 12 PM CURRENCY EXAMINER documented as of this encounter Functional Status [...] Info) Description 09/01/2024 12:30 PM CDT Appointment [facility] [place] [address] Roberta Nicole MD [address] [place] [address] 09/22/2024 11:00 AM CDT Office Visit [facility] [place] [phone] Roberta Nicole MD [address] [place] [address] 03/26/2025 1:30 PM CURRENCY EXAMINER [facility]ointment [place] [address] Roberta Nicole MD [address] [place] [address] 04/02/2025 9:00 AM CURRENCY EXAMINER Office Visit [facility] [place] [address] Roberta Nicole MD [address] [place] [address] documented as of this encounter Visit Diagnoses Not on filedocumented in this encounter Care Teams Package Liner Relationship Specialty Start Date End Date Randolph Moore MD [address] [place] [phone] PCP - General FAMILY PRACTICE 11/07/18 Roberta Nicole MD [address] [place] [address] Consulting Physician CARDIOVASCULAR DISEASE 07/15/23 documented as of this encounter
--- OUTSIDE RECORDS SUMMARY | 2024-07-04 17:07 | XMS_ITS | Clinical Summary ---
Author Organization [facility] Address [address] [place] [address] Care Team Providers Care Laundry Washer Name Role Phone Randolph Moore MD Primary Care Provider [phone] Roberta Nicole MD Unavailable Allergies No known [...] mg total) by mouth daily. Active Umeclidinium [place] (INCRUSE ELLIPTA) 62.5 MCG/ACT AEROSOL POWDER, BREATH [...] with ac vitaliy on chronic heart failure ([facility]) 05/27/2019 Encounters Date Type Department Care Team Description 07/03/2024 1:56 PM T Hospital Encounter [facility] [address] [address] Maria Antonia Goldsmith PA Arrived 07/03/2024 1:55 PM T Hospital Encounter [facility] [place] [address] [place] [address] Maria Antonia Goldsmith PA Arrived 07/03/2024 Orders Only [facility] [address] [place] [address] Maria Antonia Goldsmith PA 07/03/2024 Travel 04/17/2024 10:19 AM DIFFUSER OPERATOR - 04/17/2024 11:59 PM [facility] Hospital Encounter [facility] [place] [address] [place] [address] Randolph Moore MD Infusion Therapy Discharge Disposition: Home or Self Care (Routine Discharge) 04/17/2024 Travel 04/10/2024 7:47 AM DIFFUSER OPERATOR - 04/10/2024 11:59 PM [facility] Hospital Encounter [facility] [place] [address] [address] Randolph Moore MD Infusion Therapy Discharge Disposition: [...] e alcohol) 8 years since last drank [facility] [employer] Answer Date Recorded In the past 12 months has e [employer], gas, oil, or water [employer] threatened to shut off services in your [...] place to sleep or slept in a penitentiary (including now)? No 07/17/2023 Sex and Gender Information Value Date Recorded Sex Assigned at Male 05/27/2019 3:12 PM DIFFUSER OPERATOR Legal Sex Male 5:49 PM DIFFUSER OPERATOR Gender Identity Male 05/27/2019 3:12 PM DIFFUSER OPERATOR Sexual Orientation Straight 05/27/2019 3: 12 PM DIFFUSER OPERATOR Last Filed Vital Signs Vital Sign Reading Time Taken Comments Blood Pressure 141/69 04/17/2024 10:25 AM DIFFUSER OPERATOR Pulse 81 04/17/2024 10:25 AM DIFFUSER OPERATOR Temperature 36.4 C (97.6 F) 04/17/2024 10:25 AM DIFFUSER OPERATOR Respiratory Rate 18 04/17/2024 10:25 AM DIFFUSER OPERATOR Oxygen Saturation 99% 04/17/2024 10:25 AM DIFFUSER OPERATOR Inhaled Oxygen Concentration - - Weight 98.1 kg (216 lb 3.2 oz) 04/17/2024 10:25 AM DIFFUSER OPERATOR Height 177.8 cm (5' 10 ) 04/03/2024 8:03 AM DIFFUSER OPERATOR Body Mass Index 31.02 04/03/2024 8:03 AM DIFFUSER OPERATOR Plan of Treatment Upcoming Encounters Date Type Department Care Team (Late st Contact Info) Description 09/01/2024 12:[address] [facility] [place] [address] Roberta Nicole MD [address] [place], [place] [phone] 09/22/2024 11:00 AM CDT Office Visit [facility] [place] [address] Roberta Nicole MD [address] [place] [address] 03/26/2025 1:30 PM DIFFUSER OPERATOR Appointment [facility] [address] [place] [address] Roberta Nicole MD [address] [place], [place] [phone] 04/02/2025 9:00 AM DIFFUSER OPERATOR Office Visit [facility] [address] [place] [phone] Roberta Nicole MD [address] [place], [place] [phone] Health Maintenance Due Date Last Done Comments [...] 2:25 PM Narrative 07/03/2024 2:30 PM CDT [address] [place] [address] Examination: Two-view chest Exam time: 1357 hours. Clinical history: Cough. Dyspnea. Comparison: 08/25/2023, 07/16/2023 ([facility]). Technique: PA and lateral views Findings: The cardiomediastinal silhouette is stable. The heart remains within normal limits for size. Pulmonary vascularity is within normal limits. Changes from median sternotomy, mitral valve replacement and tricuspid annuloplasty again evident. The lungs and pleural spaces appear free of any active process. The bony thorax is stable. Procedure Note Gaurav Hong MD - 07/03/[address] [place] [address] Examination: Two-view chest Exam time: 1357 hours. Clinical history: Cough. Dyspnea. Comparison: 08/25/2023, 07/16/2023 ([facility]). Technique: PA and lateral views Findings: The [...] - 12.5 SEC 07/03/2024 2:20 PM CDT [facility] INR 4.1(H) 0.8 - 1.0 07/03/2024 2:20 PM CDT [facility] 07/03/2024 2:08 PM CDT Maria Antonia [facility] Final Resu lt [facility] [address] [place] [address], * (ABNORMAL) BASIC METABOLIC PANEL (07/03/2024 2:08 PM CDT) [facility] SODIUM S/P/B 137 136 - 145 MMOL/L 07/03/2024 2:22 PM CDT [facility] POTASSIUM S/P/B 4.2 3.5 - 5.1 MMOL/L 07/03/2024 2:22 PM CDT [facility] CHLORIDE S/P/B 102 98 - 107 MMOL/L 07/03/2024 2:22 PM CDT [facility] CO2 26.3 21.0 - 32.0 MMOL/L 07/03/2024 2:22 PM CDT [facility] GLUCOSE 153(H) 70 - 99 MG/DL 07/03/2024 2:22 PM CDT [facility] Comment: FASTING GLUCOSE 100 TO 125 MG/DL IS CONSISTENT WITH IMPAIRED FASTING GLUCOSE. FASTING GLUCOSE >125 MG/DL IS CONSISTENT WITH DIABETES. RANDOM GLUCOSE >200 MG/DL WITH HYPERGLYCEMIC SYMPTOMS IS CONSISTENT WITH DIABETES. PER ADA GUIDELINES BUN 33(H) 6 - 24 MG/DL 07/03/2024 2:22 PM CDT [facility] CREATININE S/P/B 1.15 0.70 - 1.30 MG/DL 07/03/2024 2:22 PM CDT [facility] CALCIUM S/P/B 8.2(L) 8.4 - 10.5 MG/DL 07/03/2024 2:22 PM CDT [facility] ANION GAP 8.7 5.0 - 15.0 MMOL/L 07/03/2024 2:22 PM CDT [facility] OSMOLALITY (CALC) 294 MOSM/KG 025 2:22 PM CDT [facility] Comment:REFERENCE RANGE NOT ESTABLISHED GFR ESTIMATE 75(L) >89 ML/MIN/1. 73 M2 07/03/2024 2:22 PM CDT [facility] GFR NOTES GFR REFERENCE S: 07/03/2024 2:22 PM CDT [facility] Comment: THE ESTIMATED GFR IS CALCULATED [...] Maria Antonia [facility] Final Resu lt [facility] [address] [place] [address], * (ABNORMAL) CBC W/DIFF AUTOMATED (07/03/2024 2:08 PM CDT) WBC 6.37 4.00 - 10.80 x10'3/uL 07/03/2024 2:18 PM CDT [facility] RBC 4.08(L) 4.50 - 6.10 x10'6/uL 07/03/2024 2:18 PM CDT [facility] HGB 8.1(L) 13.0 - 18.0 G/DL 07/03/2024 2:18 PM CDT [facility] HCT 27.4(L) 37.0 - 52.0 % 07/03/2024 2:18 PM CDT [facility] MCV 67.2(L) 78.0 - 100.0 FL 07/03/2024 2:18 PM CDT [facility] MCH 19.9(L) 27.0 - 31.0 PG 07/03/2024 2:18 PM CDT [facility] MCHC 29.6(L) 33.0 - 36.0 G/DL 07/03/2024 2:18 PM CDT [facility] RDW 24.4(H) 11.5 - 14.5 % 07/03/2024 2:18 PM CDT [facility] PLT 250 150 - 350 x10'3/uL 07/03/2024 2:18 PM CDT [facility] MPV 8.9 7.4 - 10.4 FL 07/03/2024 2:18 PM CDT [facility] CBC COMMENT NORMAL REFERENCE RANGE NOT ESTABLISHED FOR THE PROPORTIONAL LEUKOCYTE DIFFERENTIAL. 07/03/2024 2:18 PM CDT [facility] NEUTROPHILS % 70.2 % 07/03/2024 2:18 PM CDT [facility] LYMPHOCYTES % 18.1 % 07/03/2024 2:18 PM CDT [facility] MONOCYTES % 8.6 % 07/03/2024 2:18 PM CDT [facility] EOSINOPHILS % 2.5 % 07/03/2024 2:18 PM CDT [facility] BASOPHILS % 0.3 % 07/03/2024 2:18 PM CDT [facility] IMMATURE GRANS % 0.3 % 07/04/19 2:18 PM CDT [facility] NRBC % 0.3 % 07/03/2024 2:18 PM CDT [facility] ABS. NEUTROPHILS 4.47 1.60 - 8.30 x10'3/uL 07/03/2024 2:18 PM CDT [facility] ABS. LYMPHOCYTES 1.15 0.80 - 4.70 x10'3/uL 07/03/2024 2:18 PM CDT [facility] ABS. MONOCYTES 0.55 0.00 - 1.50 x10'3/uL 07/03/2024 2:18 PM CDT [facility] ABS. EOSINOPHILS 0.16 0.00 - 0.40 x10'3/uL 07/03/2024 2:18 PM CDT [facility] ABS. BASOPHILS 0.02 0.00 - 0.20 x10'3/uL 07/03/2024 2:18 PM CDT [facility] ABS. IMMATURE GRANULOCYTES 0.02 0.00 - 0.03 x10'3/uL 07/03/2024 2:18 PM CDT [facility] ABS. NUCLEATED RBC'S 0.02(H) 0.00 - 0.01 x10'3/uL 07/03/2024 2:18 PM CDT [facility] 07/03/2024 2:08 PM CDT Maria Antonia Goldsmith PA LABORATORY Final Resu lt [facility] [address] [place] [address], * OCCULT BLOOD, FECES (08/25/2023 3:00 PM CDT) OCCULT BLOOD FECAL NEGATIVE NEGATIVE 08/25/2023 3:21 PM CDT [facility] STOOL SPECIMEN / Unknown 08/25/2023 3:00 PM CDT Cynthia Gusman MD BODY FLUIDS AND STOOLS ORDER LIANG Final Result [facility] [address] [place] [address], * (ABNORMAL) LIPID PANEL (08/23/2023 10:10 AM CDT) CHOLESTEROL 76 MG/DL 08/24/2023 12:09 PM CDT [facility] Comment:DESIRABLE: <200 TRIGLYCERIDES 106 MG/DL 08/24/2023 12:09 PM CDT [facility] Comment:<150 NORMAL HDL 23(L) >39 MG/DL 08/24/2023 12:09 PM CDT [facility] LDL-C 32 MG/DL 08/24/2023 12:09 PM CDT [facility] Comment:<100 OPTIMAL VLDL CALCULATION 21 MG/DL 08/24/19 24 12:09 PM CDT [facility] Comment:REFERENCE RANGE NOT ESTABLISHED CHOL/HDL RATIO 3.3 08/24/2023 12:09 PM CDT [facility] Comment:REFERENCE RANGE NOT ESTABLISHED LDL/HDL 1.4 08/24/2023 12:09 PM CDT [facility] Comment:REFERENCE RANGE NOT ESTABLISHED NON HDL CHOLESTEROL 53 MG/DL 08/24/2023 12:09 PM CDT [facility] Comment:REFERENCE RANGE NOT ESTABLISHED 08/23/2023 10:1 0 AM CDT José Antonio Hermosillo MD LABORATORY Final Result Performing Organization Address [facility] Co de Phone Number [facility] [address] [place] [address], [phone] * (ABNORMAL) HEMOGLOBIN, GLYCOSYLATED (07/16/2023 10:07 PM CDT) HGB A1C 7.9(H) <5.7 % 07/17/2023 7:07 AM CDT [facility] ESTIMATED AVG GLUCOSE 180(H) 74 - 114 MG/DL 07/17/2023 7:07 AM CDT [facility] 07/16/2023 10:0 7 PM CDT Mauro Allen MD LABORATORY Final Result Performing Organization Address [facility] de Phone Number [facility] [address] [place] [address], [phone] from Last 3 Months or Most Recently Relevant to Health Maintenance Insurance [employer] Advance Directives Documents on File Type Date Recorded Patient Tester Operator Expl anation Advance Directives and Living Will 06/02/2019 10:47 AM 05/29/19 POA FOR HEAL TH CARE * Full Code (Latest Code Status on File) Date Activated Date Inactivated Comments 07/17/2023 2:43 AM 07/18/2023 3:52 PM * Full Code Date Activated Date Inactivated Comments 05/27/2019 3:51 PM 05/30/2019 2:22 AM Care Teams Laundry Washer Relationship Specialty Start Date End Date Randolph Moore MD [address] [place] [phone] PCP - General FAMILY PRACTICE 11/07/18 Roberta Nicole MD [address] [place] [address] Consulting Physician CARDIOVASCULAR DISEASE 07/15/23
--- OUTSIDE RECORDS SUMMARY | 2024-07-04 17:07 | XMS_ITS | Encounter Summary ---
Author Organization [facility] Address [address] [place] [address] Care Team Providers Care Poolroom/Poolhall Manager Name Role Phone Randolph Moore MD Primary Care Provider [phone] Roberta Nicole MD Unavailable Encounter Details Date Type Department Care Team (Late st Contact Info) Description 07/03/2024 Orders Only [facility] [address] [place] [address] Cyndi Goldsmith, JERRY [address] [place] [address] Social History Tobacco Use Types Packs/Day Years Used Date Smoking Tobacco: Former Cigarettes Q uit: 05/22/2006 Smokeless Tobacco: Never Alcohol Use Standard Drinks/Week Comments Not Currently 0 (1 standard drink = 0.6 oz pur e alcohol) 8 years since last drank [facility] Answer Date Recorded In the past 12 months has [facility] [employer], gas, oil, or water [employer] threatened to shut off services in your [...] place to sleep or slept in a half-way (including now)? No 07/17/2023 Sex and Gender Information Value Date Recorded Sex Assigned at Male 05/27/2019 3:12 PM [employer] Legal Sex Male 5:49 PM [employer] Gender Identity Male 05/27/2019 3:12 PM [employer] Sexual Orientation Straight 05/27/2019 3: 12 PM [employer] documented as of this encounter Functional Status [...] Author Status No 07/17/2023 4:27 AM CDT Milyl Joy RN Active documented in this encounter Plan of Treatment Upcoming Encounters Date Type Department Care Team (Late st Contact Info) Description 09/01/2024 12:30 PM CDT Appointment [facility] [place] [address] Roberta Nicole MD [address] [place] [phone] 09/22/2024 11:00 AM CDT Office Visit [facility] [place] [address] Roberta Nicole MD [address] [place] [phone] 03/26/2025 1:30 PM [employer] [facility] [place] [address] Roberta Nicole MD [address] [place] [phone] 04/02/2025 9:00 AM [employer] Office Visit [facility] [place] [address] Roberta Nicole MD [address] [place] [phone] documented as of this encounter Results * (ABNORMAL) BASIC METABOLIC PANEL (07/03/2024 2:08 PM CDT) SODIUM S/P/B 137 136 - 145 MMOL/L 07/03/2024 2:22 PM CDT [facility] POTASSIUM S/P/B 4.2 3.5 - 5.1 MMOL/L 07/03/2024 2:22 PM CDT [facility] CHLORIDE S/P/B 102 98 - 107 MMOL/L 07/03/2024 2:22 PM CDT [facility] CO2 26.3 21.0 - 32.0 MMOL/L 07/03/2024 2:22 PM CDT [facility] GLUCOSE 153(H) 70 - 99 MG/DL 07/03/2024 2:22 PM CDT [facility] Comment: FASTING GLUCOSE 100 TO 125 MG/DL IS CONSISTENT WITH IMPAIRED FASTING GLUCOSE. FASTING GLUCOSE >125 MG/DL IS CONSISTENT WITH DIABETES. RANDOM GLUCOSE >200 MG/DL WITH HYPERGLYCEMIC SYMPTOMS IS CONSISTENT WITH DIABETES. PER ADA GUIDELINES BUN 33(H) 6 - 24 MG/DL 07/03/2024 2:22 PM CDT [facility] CREATININE S/P/B 1.15 0.70 - 1.30 MG/DL 07/03/2024 2:22 PM CDT [facility] CALCIUM S/P/B 8.2(L) 8.4 - 10.5 MG/DL 07/03/2024 2:22 PM CDT [facility] ANION GAP 8.7 5.0 - 15.0 MMOL/L 07/03/2024 2:22 PM CDT [facility] OSMOLALITY (CALC) 294 MOSM/KG 025 2:22 PM T [facility] Comment:REFERENCE RANGE NOT ESTABLISHED GFR ESTIMATE 75(L) >89 ML/MIN/1. 73 M2 07/03/2024 2:22 PM CDT [facility] GFR NOTES GFR REFERENCE S: 07/03/2024 2:22 PM CDT [facility] Comment: THE ESTIMATED GFR IS [...] CDT [facility] Final Resu lt [facility] [address] [place] [address], * (ABNORMAL) CBC W/DIFF AUTOMATED (07/03/2024 2:08 PM CDT) WBC 6.37 4.00 - 10.80 x10'3/uL 07/03/2024 2:18 PM CDT [facility] RBC 4.08(L) 4.50 - 6.10 x10'6/uL 07/03/2024 2:18 PM CDT [facility] HGB 8.1(L) 13.0 - 18.0 G/DL 07/03/2024 2:18 PM CDT [facility] HCT 27.4(L) 37.0 - 52.0 % 07/03/2024 2:18 PM CDT [facility] MCV 67.2(L) 78.0 - 100.0 FL 07/03/2024 2:18 PM CDT [facility] MCH 19.9(L) 27.0 - 31.0 PG 07/03/2024 2:18 PM CDT [facility] MCHC 29.6(L) 33.0 - 36.0 G/DL 07/03/2024 2:18 PM CDT [facility] RDW 24.4(H) 11.5 - 14.5 % 07/03/2024 2:18 PM CDT [facility] PLT 250 150 - 350 x10'3/uL 07/03/2024 2:18 PM CDT [facility] MPV 8.9 7.4 - 10.4 FL 07/03/2024 2:18 PM CDT [facility] CBC COMMENT NORMAL REFERENCE RANGE NOT ESTABLISHED FOR THE PROPORTIONAL LEUKOCYTE DIFFERENTIAL. 07/03/2024 2:18 PM CDT [facility] NEUTROPHILS % 70.2 % 07/03/2024 2:18 PM CDT [facility] LYMPHOCYTES % 18.1 % 07/03/2024 2:18 PM CDT [facility] MONOCYTES % 8.6 % 07/03/2024 2:18 PM CDT [facility] EOSINOPHILS % 2.5 % 07/03/2024 2:18 PM CDT [facility] BASOPHILS % 0.3 % 07/03/2024 2:18 PM CDT [facility] IMMATURE GRANS % 0.3 % 07/04/19 2:18 PM CDT [facility] NRBC % 0.3 % 07/03/2024 2:18 PM CDT [facility] ABS. NEUTROPHILS 4.47 1.60 - 8.30 x10'3/uL 07/03/2024 2:18 PM CDT [facility] ABS. LYMPHOCYTES 1.15 0.80 - 4.70 x10'3/uL 07/03/2024 2:18 PM CDT [facility] ABS. MONOCYTES 0.55 0.00 - 1.50 x10'3/uL 07/03/2024 2:18 PM CDT [facility] ABS. EOSINOPHILS 0.16 0.00 - 0.40 x10'3/uL 07/03/2024 2:18 PM CDT [facility] ABS. BASOPHILS 0.02 0.00 - 0.20 x10'3/uL 07/03/2024 2:18 PM CDT [facility] ABS. IMMATURE GRANULOCYTES 0.02 0.00 - 0.03 x10'3/uL 07/03/2024 2:18 PM CDT [facility] ABS. NUCLEATED RBC'S 0.02(H) 0.00 - 0.01 x10'3/uL 07/03/2024 2:18 PM CDT [facility] 07/03/2024 2:08 PM CDT Cyndi S Dehority PA LABORATORY Final Resu lt Performing Organization Address [facility]/ZIP Co de Phone Number [address] [address], * (ABNORMAL) PROTIME/INR, VENOUS (07/03/2024 2:08 PM CDT) PROTIME 46.8(H) 9.4 - 12.5 SEC 07/03/2024 2:20 PM CDT [facility] INR 4.1(H) 0.8 - 1.0 07/03/2024 2:20 PM CDT [facility] 07/03/2024 2:08 PM CDT Cyndi Johnson Deleigharity PA LABORAT[facility] Final Resu lt Performing Organization Address City/[facility]/ZIP Co de Phone Number [address] [address], documented in this encounter Visit Diagnoses Diagnosis Shortness of breath- Primary Anticoagulated on Coumadin Encounter for therapeutic drug monitoring documented in this encounter Care Teams Poolroom/Poolhall Manager Relationship Specialty Start Date End Date Randolph Moore MD [id number] [address] [place] [address] PCP - General FAMILY PRACTICE 11/07/18 Roberta Nicole MD [address] [place] [address] Consulting Physician CARDIOVASCULAR DISEASE 07/15/23 documented as of this encounter
--- OUTSIDE RECORDS SUMMARY | 2024-07-04 17:07 | XMS_ITS | Referral Summary ---
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 High risk medication use 06/08/2019 Assessment & Plan (06/12/2019 1:00 PM SOCIAL SECURITY BENEFITS INTERVIEWER): Ongoing coumadin with heparin drip for RENE mitral valve & a-fib Goal INR approx. 3 Last night= coumadin 8 mg Ongoing daily INRs, while inpatient Assessment & Plan (06/10/2019 2:09 PM SOCIAL SECURITY BENEFITS INTERVIEWER): Intense insulin regimen in the setting of variable oral intake, MARIA DEL ROSARIO and insulin naivete places patient at increased risk of hypoglycemia/hyperglycemia which may have serious metabolic, CV and neuro consequences. We will continue to intensely monitor blood glucose and titrate insulin as needed to optimize glycemic control to avoid hypoglycemic/hyperglycemic events. Assessment & Plan (06/08/2019 1:08 PM SOCIAL SECURITY BENEFITS INTERVIEWER): Intense insulin regimen in the setting of [...] 06/07/2019 Assessment & Plan (06/12/2019 1:01 PM SOCIAL SECURITY BENEFITS INTERVIEWER): Post-op from [facility] with tricuspid valve repair on 05/31/2019 See Mitral valve replacement problem, above Assessment & Plan (06/07/2019 10:01 AM SOCIAL SECURITY BENEFITS INTERVIEWER): Post-op from [facility] with tricuspid valve repair on 05/31/2019 See Mitral valve replacement problem, above DM (diabetes mellitus), type 2 06/06/2019 Assessment & Plan (06/12/2019 12:56 PM SOCIAL SECURITY BENEFITS INTERVIEWER): Continue SSI, Lantus Endocrine consult with sewing department supervisor & extension educator following Blood sugars well controlled on current regimen (121-197 over past 24 hrs) A1c 9.6 on admission Will need to check blood sugars at least TID upon discharge Potential discharge on gliptins at discharge. . Assessment & Plan (06/13/2019 5:16 PM SOCIAL SECURITY BENEFITS INTERVIEWER): 49 y.o. male with type 2 diabetes [...] up with PCP, Blue Moore MD in [place], [place]) Instructed Mr. Griffin to bring glucometer to follow up visit for PCP to review glycemia and adjust diabetes regimen as needed; verbalized understanding. Recommendations for diabetes management were discussed with the primary team. For questions regarding this patient today, please call Radha Jade NP at [phone]. If after hours, please contact the Diabetes Fellow at [phone]. Assessment & Plan (06/10/2019 2:09 PM SOCIAL SECURITY BENEFITS INTERVIEWER): Continue SSI, Lantus Endocrine consult with sewing department supervisor & extension educator Last 24 hrs glucose = 135-191 A1c 9.6 on admission Will need to check blood sugars at least TID upon disharge Acute pain 05/31/2019 Assessment & Plan (06/12/2019 12:58 PM SOCIAL SECURITY BENEFITS INTERVIEWER): PRN tylenol, at present Ongoing stool softeners for anesthesia side effects Increasing activity as tolerated. Assessment & Plan (06/07/2019 10:02 AM SOCIAL SECURITY BENEFITS INTERVIEWER): PRN tylenol, at present Ongoing stool softeners for anesthesia side effects Increasing activity, as tolerated. Assessment & Plan (06/05/2019 10:14 AM SOCIAL SECURITY BENEFITS INTERVIEWER): Denies pain at this time -PRN tylenol -avoiding narcotics with ileus Assessment & Plan (06/04/2019 5:41 PM SOCIAL SECURITY BENEFITS INTERVIEWER): Denies pain at this time -PRN tylenol -avoiding narcotics with constipation Assessment & Plan (06/03/2019 4:10 PM SOCIAL SECURITY BENEFITS INTERVIEWER): Denies pain at this time -PRN tylenol -consider low dose oxy if needed as delirium is improving Assessment & Plan (06/02/2019 1:05 PM SOCIAL SECURITY BENEFITS INTERVIEWER): 2/2 cardiac surgery via median sternotomy. - Limit narcotics with delirium - Scheduled APAP - PRN oxycodone for breakthrough pain Assessment & Plan (06/01/2019 12:44 PM SOCIAL SECURITY BENEFITS INTERVIEWER): 2/2 cardiac surgery via median sternotomy. Currently sedated w/ propofol. - Fentanyl IV PRN prior to extubation - Plan to start scheduled Tylenol and PRN Oxy/Dilaudid once extubated Assessment & Plan (05/31/2019 4:51 PM SOCIAL SECURITY BENEFITS INTERVIEWER): 2/2 cardiac surgery via median sternotomy. Currently sedated w/ - Fentanyl IV PRN prior to extubation - Plan to start scheduled Tylenol and PRN Oxy/Dilaudid once extubated - Ensure pain control is adequate to facilitate participation in care and deep breathing Acute blood loss anemia 05/31/2019 Assessment & Plan (06/12/2019 1:01 PM SOCIAL SECURITY BENEFITS INTERVIEWER): Expected postop due to ABLA Daily CBC, while inpatient Receiving MVI with iron Drifted slightly, from yesterday Assessment & Plan (06/07/2019 10:08 AM SOCIAL SECURITY BENEFITS INTERVIEWER): Expected postop due to ABLA Daily CBC, while inpatient Added MVI with iron Assessment & Plan (06/05/2019 10:18 AM SOCIAL SECURITY BENEFITS INTERVIEWER): Hgb stable at 8.0 (8.1). No active signs of bleeding. Hemodynamically stable off vasopressors and tolerating epi wean - No current indication for transfusion, consider if patient becomes hemodynamically unstable with increased pressor requirements or Hgb < 8 and symptomatic - CBC daily - continue heparin gtt - repeat cbc now and coags Assessment & Plan (06/02/2019 1:07 PM SOCIAL SECURITY BENEFITS INTERVIEWER): Expected following cardiac surgery. Hgb 8.8. Hemodynamically stable off vasopressors. - No current indication for transfusion, consider if patient becomes hemodynamically unstable with increased pressor requirements or Hgb < 8 and symptomatic - CBC daily Assessment & Plan (06/01/2019 12:44 PM SOCIAL SECURITY BENEFITS INTERVIEWER): Expected following cardiac surgery. Hgb stable. Hemodynamically stable off vasopressors. - No current indication for transfusion, consider if patient becomes hemodynamically unstable with increased pressor requirements or Hgb < 8 and symptomatic - CBC daily Assessment & Plan (05/31/2019 8:06 PM SOCIAL SECURITY BENEFITS INTERVIEWER): Baseline hemoglobin 11.1 upon admission. Intra-op course [...] surgery Assessment & Plan (06/12/2019 12:52 PM SOCIAL SECURITY BENEFITS INTERVIEWER): Post-op from [facility] with tricuspid valve repair on 05/31/2019 Continue post op care (telemetry, VS, I &O, medication & weights) Ongoing heparin drip until INR closer to 3 Continue Coumadin, INR 1.6 last night Plan to give Coumadin 8 mg tonight Receiving PT and aggressive pulmonary toilet New onset DM (see diabetes problem) PT/OT Discharge planning Assessment & Plan (06/08/2019 1:09 PM SOCIAL SECURITY BENEFITS INTERVIEWER): Good glycemic control required to promote healing Assessment & Plan (06/10/2019 2:11 PM SOCIAL SECURITY BENEFITS INTERVIEWER): Post-op from [facility] with tricuspid valve repair on 05/31/2019 Continue post op care (telemetry, VS, I &O, medication & weights) Ongoing heparin drip until INR 2.5 Continue Coumadin, INR 1.4 Plan to give Coumadin 5mg tonight Receiving PT and aggressive pulmonary toilet New onset DM (see diabetes problem) PT/OT Discharge planning Assessment & Plan (06/05/2019 10:10 AM SOCIAL SECURITY BENEFITS INTERVIEWER): S/P [facility]. Post-op care to include: - Continue heparin infusion per nomogram for mechanical valve & fib -no couadin with EPW present - ASA daily - increase statin to 80mg daily - Colace, senna, miralax for bowel regimen, lactulose - PPI daily (home med) - SCD's for DVT ppx - PT/OT eval and treat Assessment & Plan (06/04/2019 5:33 PM SOCIAL SECURITY BENEFITS INTERVIEWER): S/P Mechanical MVR. Post-op care to include: - Continue heparin infusion per nomogram for mechanical valve -no couadin with EPW present - ASA daily - resume statin (shock liver improving) - Colace, senna, miralax for bowel regimen - PPI daily (home med) - SCD's for DVT ppx - PT/OT eval and treat Assessment & Plan (06/03/2019 4:36 PM SOCIAL SECURITY BENEFITS INTERVIEWER): S/P Mechanical MVR. Post-op care to include: - Continue heparin infusion per nomogram for mechanical valve -no couadin with EPW present - ASA daily - resume statin (shock liver improving) - Colace, senna, miralax for bowel regimen - PPI daily (home med) - SCD's for DVT ppx - PT/OT eval and treat Assessment & Plan (06/02/2019 1:08 PM SOCIAL SECURITY BENEFITS INTERVIEWER): S/P [facility]. Post-op care to include: - Continue heparin infusion per nomogram for mechanical valve - F/U with CTS re timing for starting coumadin - ASA daily - Holding statin with shock liver - Colace, senna, miralax for bowel regimen - PPI daily (home med) - SCD's for DVT ppx - PT/OT eval and treat Assessment & Plan (06/01/2019 12:54 PM SOCIAL SECURITY BENEFITS INTERVIEWER): S/P Mechanical MVR. Post-op care to include: - Start heparin infusion per nomogram for mechanical valve - ASA daily - Holding statin with shock liver - Colace, senna, miralax for bowel regimen - PPI daily (home med) - SCD's for DVT ppx - Periop Vanc and Ancef x 24 hours - PT/OT eval and treat Assessment & Plan (05/31/2019 5:34 PM SOCIAL SECURITY BENEFITS INTERVIEWER): Mitral Valve Stenosis s/p balloon valvuloplasty (Dr. [...] here Assessment & Plan (06/12/2019 1:00 PM SOCIAL SECURITY BENEFITS INTERVIEWER): Current creatinine = 1.22 Admission creatinine = 1.9 Daily BMPs with I &Os while inpatient Ongoing daily weights Almost 4.5 kg below pre-op (admission) weight Changed to daily lasix, 40 mg oral today Assessment & Plan (06/13/2019 5:13 PM SOCIAL SECURITY BENEFITS INTERVIEWER): CrCl: 89.5 ml/min, serum Cr 1.04 stable Chronic kidney disease (CKD) and acute kidney injury (MARIA DEL ROSARIO) are independent risk factors for hypoglycemia, and augments the risk of low blood glucose in patients with diabetes Assessment & Plan (06/10/2019 2:08 PM SOCIAL SECURITY BENEFITS INTERVIEWER): Current creatinine = 1.13 Admission creatinine = 1.9 Daily BMPs with I &Os while inpatient Ongoing daily weights Continue Lasix 40 mg IV BID and spironolactone 12.5mg daily Assessment & Plan (06/05/2019 10:12 AM SOCIAL SECURITY BENEFITS INTERVIEWER): Creat continues to down trending. - lasix 40mg PO BID with 20meq KCl -FBG negative 1L - restart home aldactone and 1/2 dose 12.5mg daily Assessment & Plan (06/04/2019 5:39 PM SOCIAL SECURITY BENEFITS INTERVIEWER): Creat down trending. -d/c sheridan -decrease lasix 40mg PO BID with 20meq KCl -FBG negative 1L Assessment & Plan (06/03/2019 4:32 PM SOCIAL SECURITY BENEFITS INTERVIEWER): Received an additional 80mg lasix overnight to promote diuresis. FB even. -lasix 80mg IV BID with 20meq KCl -FBG even to negative 500 -maintain sheridan to accurately monitor I&O Assessment & Plan (06/02/2019 1:04 PM SOCIAL SECURITY BENEFITS INTERVIEWER): Baseline Creatinine around 0.6. MARIA DEL ROSARIO upon admission likely 2/2 cardiogenic shock. Now down trending post-op. Responding to lasix. - Lasix 60 IV x2 - Metolazone 10 BID - FBG -1 to 2L - Renally dose medications as appropriate - Avoid nephrotoxins Assessment & Plan (06/02/2019 5:36 AM SOCIAL SECURITY BENEFITS INTERVIEWER): Baseline Creatinine around 0.6. MARIA DEL ROSARIO upon admission likely 2/2 cardiogenic shock. Now down trending post-op. Responding to lasix. - diuresis for FBG -1 to 2L - Renally dose medications as appropriate - Avoid nephrotoxins Assessment & Plan (06/01/2019 12:46 PM SOCIAL SECURITY BENEFITS INTERVIEWER): Baseline Creatinine around 0.6. MARIA DEL ROSARIO upon admission likely 2/2 cardiogenic shock. Current Cr 1.99. Good urine output, FB +1.2L over the last 24 hours. - Lasix 40 x1 - FBG -1 to 2L - BMP at 1400 - Renally dose all medications - Avoid nephrotoxins Assessment & Plan (06/01/2019 5:22 AM SOCIAL SECURITY BENEFITS INTERVIEWER): Baseline Creatinine around 0.6. MARIA DEL ROSARIO upon admission likely 2/2 cardiogenic shock. Current Cr 1.96. Will likely improve with time. Good urine output. - Renally dose all medications - avoid nephrotoxins - f/u am bmp Assessment & Plan (05/31/2019 8:09 PM SOCIAL SECURITY BENEFITS INTERVIEWER): Baseline Creatinine around 0.6. Mild MARIA DEL ROSARIO upon admission likely 2/2 cardiogenic shock and diuresis. - Strict I and O - Renally dose all medications - Maintain adequate renal perfusion pressure - f/u BMP in AM Hepatopathy 02/22/2019 Assessment & Plan (05/30/2019 2:40 AM SOCIAL SECURITY BENEFITS INTERVIEWER): -RUQ US 02/2019 showed coarse echotexture of [...] levels Assessment & Plan (02/24/2019 3:24 PM SOCIAL SECURITY BENEFITS INTERVIEWER): -RUQ US to evaluate for cirrhosis showed [...] up. Assessment & Plan (02/23/2019 4:55 PM SOCIAL SECURITY BENEFITS INTERVIEWER): Patient with newly diagnosed liver disease with ascites. Ultrasound with increased echotexture concerning for cirrhosis - unlikely to be congestive hepatopathy given no evidence of poor RV function - consider GI consult given possible need for surgery Assessment & Plan (02/23/2019 1:01 PM SOCIAL SECURITY BENEFITS INTERVIEWER): -RUQ US to evaluate for cirrhosis Assessment & Plan (02/22/2019 9:13 PM SOCIAL SECURITY BENEFITS INTERVIEWER): - Complicated by ascites, elevated LFTs and coagulopathy - S/p outpatient LVP x1 - Chest imaging with ascites, abdominal distention on exam - No concern for acute decompensation liver failure - Outpatient liver follow up A-fib 02/22/2019 Overview (06/03/2019): Afib on home dilt. Assessment & Plan (06/12/2019 1:00 PM SOCIAL SECURITY BENEFITS INTERVIEWER): Chronic afib, rate controlled Ongoing metoprolol & amiodarone Continue coumadin tonight. Heparin drip pending therapeutic INR Assessment & Plan (06/10/2019 2:07 PM SOCIAL SECURITY BENEFITS INTERVIEWER): Chronic afib, rate controlled Has had intermittent pause continue - telemetry review no alarms overnight Ongoing metoprolol & amiodarone continue coumadin tonight. Heparin drip pending therapeutic INR Assessment & Plan (06/05/2019 10:09 AM SOCIAL SECURITY BENEFITS INTERVIEWER): Aflutter rate controlled 70-90 on amiodarone PO [...] removed) Assessment & Plan (06/04/2019 6:54 PM SOCIAL SECURITY BENEFITS INTERVIEWER): Aflutter rate controlled 70-80 on amiodarone PO TID - ensure Mg > 2 and K > 4 - FBG negative 1L - heparin gtt for systemic anticoagulation - if unstable: DCCV -cap wires (no coumadin until EPW removed) Assessment & Plan (06/03/2019 4:21 PM SOCIAL SECURITY BENEFITS INTERVIEWER): Aflutter rate controlled on amio gtt at 0.5mg/min -transition amio to 400 TID PO -ensure Mg > 2 and K > 4 -FBG even to negative 500 with scheduled BID lasix -heparin gtt for systemic anticoagulation -if unstable: DCCV Assessment & Plan (06/02/2019 1:06 PM SOCIAL SECURITY BENEFITS INTERVIEWER): History of afib; on home dilt. Now in a flutter with rate in the 60s. - VVI b/u - Decrease amio infusion to 0.5mg/min - Continue heparin infusion Assessment & Plan (06/02/2019 6:37 AM SOCIAL SECURITY BENEFITS INTERVIEWER): History of afib; on home dilt. Afib with rates to 120's. Treated with amio bolus x 2 followed by gtt. Now rate controlled < 100. - continue amio gtt at 1 mg/min; if HR remains < 100, decrease to 0.5 - Anticoagulation with heparin infusion Assessment & Plan (06/01/2019 12:49 PM SOCIAL SECURITY BENEFITS INTERVIEWER): Intermittent A fib underlying pacer. - Amio bolus x1 now - Amio infusion @ 1mg/min - Anticoagulation with heparin infusion Assessment & Plan (05/31/2019 7:44 AM SOCIAL SECURITY BENEFITS INTERVIEWER): -hx of Afib, on Dilt CD 240mg at home -holding Dilt in the setting of potential CHF exacerbation -will bolus with Amiodarone as patient likely is not tolerating tachycardia i/s/o mitral stenosis, now on amio gtt -ct hep gtt -holding home warfarin Assessment & Plan (02/24/2019 3:25 PM SOCIAL SECURITY BENEFITS INTERVIEWER): -Patient reports history of occasionally irregular heart rhythm but never told he had atrial fibrillation -current rate control increased dose of diltiazem. Will change to long-acting diltiazem 240 mg daily -cont warfarin (goal INR 2.5-3.5 given mechanical mitral valve) Assessment & Plan (02/23/2019 4:59 PM SOCIAL SECURITY BENEFITS INTERVIEWER): Patient with a fib. Per patient on diltiazem at home for irregular heart rate but never been told he has afib. No afib seen in our system previously - will look for LA appendage clot on echo - continue AC and rate control for now Assessment & Plan (02/23/2019 1:00 PM SOCIAL SECURITY BENEFITS INTERVIEWER): -Patient reports history of occasionally irregular heart rhythm but never told he had atrial fibrillation -currently on his home dose of dilt, but intermittent RVR up to 140s -plan to titrate up dilt for improved rate control -cont warfarin (goal INR 2.5-3.5 given mechanical mitral valve) Assessment & Plan (02/22/2019 9:16 PM SOCIAL SECURITY BENEFITS INTERVIEWER): - History of palpitations but now found to be in AF with well controlled rate - Continue home diltiazem for rate control and warfarin for AC - Repeat TTE to assess LV function Syncope 02/22/2019 Assessment & Plan (02/24/2019 3:26 PM SOCIAL SECURITY BENEFITS INTERVIEWER): - In setting of coughing fit followed by feeling of warmth, lightheadedness and no post ictal state - Serum electrolytes wnl, CT PE protocol negative for PE - Findings consistent with vasovagal syncope but could also be related to afib with RVR and valvular issues Assessment & Plan (02/23/2019 5:02 PM SOCIAL SECURITY BENEFITS INTERVIEWER): Likely related to cough, kelly. Given COPD which increases risk of cough syncope. Less likely to be related to arrhythmia, but would recommend continuing telemetry monitoring Assessment & Plan (02/23/2019 12:56 PM SOCIAL SECURITY BENEFITS INTERVIEWER): - In setting of coughing fit followed by feeling of warmth, lightheadedness and no post ictal state - Serum electrolytes wnl, CT PE protocol negative for PE - Findings consistent with vasovagal syncope but could also be related to afib with RVR - Monitor on tele, repeat TTE Assessment & Plan (02/22/2019 9:21 PM SOCIAL SECURITY BENEFITS INTERVIEWER): - In setting of coughing fit followed [...] 02/22/2019 Assessment & Plan (02/22/2019 9:45 PM SOCIAL SECURITY BENEFITS INTERVIEWER): - AST 175. ALT 239, [id number] Tbili 3.3 and Dbili 1.3 - Secondary to BECK - Will continue to monitor Ascites 02/22/2019 Overview (02/22/2019): - Secondary BECK s/p LVP x1 - Chest imaging and physical exam with ascites - No abdominal pain or findings concerning for SBP - Outpatient LVP and hepatology follow up Assessment & Plan (02/24/2019 3:31 PM SOCIAL SECURITY BENEFITS INTERVIEWER): -Patient reports this is new since November of this year -likely both liver and cardiac issues contributing. Assessment & Plan (02/23/2019 12:59 PM SOCIAL SECURITY BENEFITS INTERVIEWER): -Patient reports this is new since November [...] Disease Assessment & Plan (05/30/2019 2:41 AM SOCIAL SECURITY BENEFITS INTERVIEWER): -patient is on albuterol and Spiriva at home -albuterol PRN -pulmonary function tests which showed an FEV1 that was 49% of predicted on 04/18/2019 Assessment & Plan (02/23/2019 1:01 PM SOCIAL SECURITY BENEFITS INTERVIEWER): -cont home inhalers, prn albuterol Assessment & Plan (02/22/2019 9:06 PM SOCIAL SECURITY BENEFITS INTERVIEWER): - No concern for an acute exacerbation - On Breo Ellipta at Home, non formulary - Start Albuterol prn, spiriva and advair Resolved Problems Problem Noted Date Diagnosed Date Resolved Date Leukocytosis 06/08/2019 06/12/2019 Assessment & Plan (06/11/2019 1:22 PM SOCIAL SECURITY BENEFITS INTERVIEWER): Remains afebrile WBC trending down Will continue to monitor Assessment & Plan (06/10/2019 2:10 PM SOCIAL SECURITY BENEFITS INTERVIEWER): WBC 13 from 14.2 from 13.4 No fevers Incisions clean and dry CL out Encouraged to ambulate and perform IS No overt signs of infection UA 06/08 negative CXR 06/08 showed + atelectasis and small right pleural effusion Thrombocytopenia 06/05/2019 06/12/2019 Assessment & Plan (06/11/2019 1:22 PM SOCIAL SECURITY BENEFITS INTERVIEWER): Plt WNL Assessment & Plan (06/10/2019 2:11 PM SOCIAL SECURITY BENEFITS INTERVIEWER): Platelets 89 from 92K - stable Wires out 06/07 Remains on heparin gtt for mechanical valve prophylactis Continue Coumadin Assessment & Plan (06/05/2019 10:19 AM SOCIAL SECURITY BENEFITS INTERVIEWER): PLT down to 66 (90s) this morning, [...] 06/07/2019 Assessment & Plan (06/05/2019 10:17 AM SOCIAL SECURITY BENEFITS INTERVIEWER): Small bowel movement this morning. Abdomen distended, [...] OOB/ambulate Assessment & Plan (06/04/2019 5:51 PM SOCIAL SECURITY BENEFITS INTERVIEWER): No BM X8d. Abdomen distended, taught, BS hypoactive. Denies nausea. KUB: dilated ascending and transverse colon measuring 9.5cm. PO bowel regimen increased yesterday and suppository with minimal response. -suppository BID -cotton seed enema -lactulose Q6hr until stool -OOB/ambulate Assessment & Plan (06/03/2019 4:34 PM SOCIAL SECURITY BENEFITS INTERVIEWER): No BM X7d. Abdomen distended, taught, BS hypoactive. Denies nausea. -increase docusate to 200 BID -increase miralax to BID -add suppository -consider lactulose if no BM by this evening -OOB/ambulate Delirium 06/02/2019 06/07/2019 Assessment & Plan (06/05/2019 10:15 AM SOCIAL SECURITY BENEFITS INTERVIEWER): Resolved. CAM negative. Received seroquel 25mg at bedtime last night. - discontinue seroquel -OOB to chair -ambulate -lights off 21:00-06:00 - prn ramelteon at bedtime for sleep Assessment & Plan (06/04/2019 5:45 PM SOCIAL SECURITY BENEFITS INTERVIEWER): CAM negative this AM. Slept with seroquel last night continue seroquel -OOB to chair -ambulate -lights off 21:00-06:00 Assessment & Plan (06/03/2019 4:24 PM SOCIAL SECURITY BENEFITS INTERVIEWER): CAM negative this AM. Did not sleep at all last night -25mg seroquel QHS to promote sleep -OOB to chair -ambulate -lights off 21:00-06:00 Assessment & Plan (06/02/2019 1:02 PM SOCIAL SECURITY BENEFITS INTERVIEWER): CAM positive after extubation last night. Sedated with precedex infusion overnight for sleep. This AM, more alert and appropriate. - DC precedex - Frequent reorientation - Lights on during the day - Encourage mobility- OOBTC - Sleep hygiene Assessment & Plan (06/02/2019 5:52 AM SOCIAL SECURITY BENEFITS INTERVIEWER): CAM positive after extubation. Unable to sleep tonight and very restless. -start low dose precedex -maintain mittens in place -delirium precautions: lights on during day, off at night, OOBTC during day, encourage family interaction during day -if does not improve will need SBFT placement Hyperglycemia 06/01/2019 06/06/2019 Assessment & Plan (06/05/2019 10:14 AM SOCIAL SECURITY BENEFITS INTERVIEWER): Well controlled on current NPH/SSI regimen. BGL ranging between 70-150 in the past 24 hours. HgA1C 9.6 on admission with no home antihyperglycemics. - carb controlled diet - NPH BID (09: 00 /17:00) for basal + HDSSI Assessment & Plan (06/04/2019 5:44 PM SOCIAL SECURITY BENEFITS INTERVIEWER): HgA1C 9.6 on admission with no home antihyperglycemics. Transitioned from insulin gtt to HDSSI yesterday and remains hyperglycemic. Contributing factors: epi gtt. Decreased appetite 2/2 constipation - carb controlled diet -add NPH BID (09: 00 /17:00) for basal + HDSSI Assessment & Plan (06/03/2019 4:26 PM SOCIAL SECURITY BENEFITS INTERVIEWER): HgA1C 9.6 on admission with no home antihyperglycemics. Currently on insulin gtt -ADAT to carb controlled diet -transition insulin gtt to HDSSI Assessment & Plan (06/02/2019 1:07 PM SOCIAL SECURITY BENEFITS INTERVIEWER): History of DM-II but no home meds. Likely related to stress response. Remains on insulin infusion. - Continue insulin gtt per icu protocol - ADAT Assessment & Plan (06/02/2019 5:34 AM SOCIAL SECURITY BENEFITS INTERVIEWER): History of DM-II but no home meds. Likely related to stress response. Remains on insulin infusion - Continue insulin gtt per icu protocol Assessment & Plan (06/01/2019 12:49 PM SOCIAL SECURITY BENEFITS INTERVIEWER): History of DM-II but no home meds. Likely related to stress response. Remains on insulin infusion - Continue insulin gtt per icu protocol Assessment & Plan (06/01/2019 5:31 AM SOCIAL SECURITY BENEFITS INTERVIEWER): History of DM-II but no home meds. Arrived on insulin gtt 6 units/hr. Likely related to stress response. -continue insulin gtt per icu protocol Shock liver 06/01/2019 06/07/2019 Assessment & Plan (06/04/2019 5:26 PM SOCIAL SECURITY BENEFITS INTERVIEWER): Continues to improve to near normal. Statin resumed yesterday - CMP/coags daily with AM labs for 1 more days Assessment & Plan (06/03/2019 10:34 AM SOCIAL SECURITY BENEFITS INTERVIEWER): Improving. -resume home statin today - CMP/coags daily with AM labs for 2 more days Assessment & Plan (06/02/2019 1:07 PM SOCIAL SECURITY BENEFITS INTERVIEWER): Improving. 2/2 severe RV dysfunction pre-op. Both T bili and AST/ALT down trending. - CMP/coags daily with AM labs - Avoid hepatotoxic agents Assessment & Plan (06/02/2019 5:34 AM SOCIAL SECURITY BENEFITS INTERVIEWER): 2/2 severe RV dysfunction pre-op. Both T bili and AST/ALT down trending. Will likely continue to improve with time - CMP/coags daily with AM labs - Avoid hepatotoxic agents Assessment & Plan (06/01/2019 12:50 PM SOCIAL SECURITY BENEFITS INTERVIEWER): 2/2 severe RV dysfunction pre-op. T bili rising, AST/ALT down trending. INR 1.8 without anticoagulation. - CMP/coags daily with AM labs - Avoid hepatotoxic agents Acute respiratory insufficiency 05/31/2019 06/07/2019 Assessment & Plan (06/06/2019 11:56 AM SOCIAL SECURITY BENEFITS INTERVIEWER): Diuresis as tolerated, aggressive pulmonary toilet Assessment & Plan (06/05/2019 10:13 AM SOCIAL SECURITY BENEFITS INTERVIEWER): COPD. Currently on NC for SpO2 > 92% suspect ileus and abdominal distention decreasing diaphragmatic movement -ellipta (home med equivalent) -wean SpO2 for SpO2 > 92% -OOB to chair/ambulate -FBG negative 1L with BID scheduled diuresis Assessment & Plan (06/04/2019 5:40 PM SOCIAL SECURITY BENEFITS INTERVIEWER): COPD. Currently on NC for SpO2 > 92% -ellipta (home med equivalent) -wean SpO2 for SpO2 > 92% -OOB to chair/ambulate -FBG negative 1L with BID scheduled diuresis Assessment & Plan (06/03/2019 4:23 PM SOCIAL SECURITY BENEFITS INTERVIEWER): COPD. CXR essentially clear. Currently on NC for SpO2 > 92% -ellipta (home med equivalent) -wean SpO2 for SpO2 > 92% -OOB to chair/ambulate -FBG even to negative 500 with BID scheduled diuresis Assessment & Plan (06/02/2019 1:06 PM SOCIAL SECURITY BENEFITS INTERVIEWER): Extubated to NC last night. Remains on 4L NC this AM. - Pulmonary hygiene with IS, acapella, and C&DB - PT/OOBTC/AMB - Wean supplemental O2 for SpO2 > 92% - FBG -1 to 2L with lasix and metolazone Assessment & Plan (06/01/2019 12:45 PM SOCIAL SECURITY BENEFITS INTERVIEWER): Post procedural short-term ventilator support with anticipated extubation. Currently sedated w/propofol on full mechanical ventilation. Velitri weaned off overnight. - Transition from propofol to precedex - PSV trial with goal extubation Assessment & Plan (06/01/2019 5:27 AM SOCIAL SECURITY BENEFITS INTERVIEWER): Post procedural short-term ventilator support with anticipated [...] 7.44/42/128. Assessment & Plan (05/31/2019 5:37 PM SOCIAL SECURITY BENEFITS INTERVIEWER): Post procedural short-term ventilator support with anticipated [...] dysfunction. Assessment & Plan (06/05/2019 10:11 AM SOCIAL SECURITY BENEFITS INTERVIEWER): Improving. FB negative -800mL with lasix yesterday. [...] outlined Assessment & Plan (06/04/2019 5:37 PM SOCIAL SECURITY BENEFITS INTERVIEWER): Improving. FB negative 1800 with 80 lasix BID. Rate controlled aflutter 70s -keep milrinone 0.1mcg/kg/min -increase epi wean by 0.01mcg/kg/min Q6hr for SBP > 100 -change lasix to 40mg PO BID with K supplementation -treat Aflutter as outlined Assessment & Plan (06/03/2019 4:14 PM SOCIAL SECURITY BENEFITS INTERVIEWER): No epi wean overnight 2/2 ScVO2 < 60. FB even with additional diuresis. Rate controlled aflutter 70s -keep milrinone 0.1mcg/kg/min -epi wean by 0.01mcg/kg/min Q8hr for ScVO2> 60 -lasix 80mg BID with 20meq KCl -treat Aflutter as outlined Assessment & Plan (06/02/2019 1:05 PM SOCIAL SECURITY BENEFITS INTERVIEWER): Cardiogenic shock 2/2 severe MR and severe [...] 2L Assessment & Plan (06/02/2019 5:46 AM SOCIAL SECURITY BENEFITS INTERVIEWER): Cardiogenic shock 2/2 severe MR and severe [...] now. Assessment & Plan (06/01/2019 12:48 PM SOCIAL SECURITY BENEFITS INTERVIEWER): Cardiogenic shock 2/2 severe MR and severe [...] lasix Assessment & Plan (06/01/2019 5:45 AM SOCIAL SECURITY BENEFITS INTERVIEWER): Cardiogenic shock 2/2 Severe MR and severe [...] veletri. Assessment & Plan (05/31/2019 5:43 PM SOCIAL SECURITY BENEFITS INTERVIEWER): Cardiogenic shock 2/2 Severe MR and severe [...] 06/07/2019 Assessment & Plan (02/24/2019 3:21 PM SOCIAL SECURITY BENEFITS INTERVIEWER): -s/p mechanical MVR in 2006 -echo yesterday [...] cardiology Assessment & Plan (02/24/2019 3:08 PM SOCIAL SECURITY BENEFITS INTERVIEWER): Patient with mitral valve stenosis s/p surgical [...] - Please obtain images from echo at [place] in December - if clotted can consider [...] understanding Assessment & Plan (02/23/2019 12:57 PM SOCIAL SECURITY BENEFITS INTERVIEWER): -s/p mechanical MVR in 2006 -echo today shows elevated valve gradient although patient was in afib with tachycardia so unclear how accurate this is -will discuss with cardiology Assessment & Plan (02/22/2019 9:14 PM SOCIAL SECURITY BENEFITS INTERVIEWER): - S/p bioprosthetic mitral valve replacement - [...] on file Legal Sex Male 5:34 AM SOCIAL SECURITY BENEFITS INTERVIEWER Gender Identity Not on file Sexual Orientation Not on file Last Filed Vital Signs Vital Sign Reading Time Taken Comments Blood Pressure 141/76 08/15/2019 10:48 AM CDT Pulse 69 08/15/2019 10:48 AM CDT Temperature 37 C (98.6 F) 08/15/2019 10:48 AM CDT Respiratory Rate 18 06/13/2019 8:34 AM SOCIAL SECURITY BENEFITS INTERVIEWER Oxygen Saturation 98% 08/15/2019 10:48 AM CDT Inhaled Oxygen Concentration - - Weight 90.7 kg (200 lb) 08/15/2019 10:48 AM CDT Height 180.3 cm (5' 11 ) 08/15/2019 10:48 AM CDT Body Mass Index 27.89 08/15/2019 10:48 AM CDT Plan of Treatment Not on file Medical Devices Implanted Type Area Urology Nurse Device Identifier Shelf Expiration Date Model / Serial / Lot [employer] [id number] [place] rds Physio 28mm Tricuspid Ring Annuloplasty Heart - [id number] - [id number] Implanted:Qty: 1 on 05/31/2019 by Barrett Portillo Jr., MD at [facility] Other - see comments N/A: Heart [employer] [id number] 12/29/2020 [id number] / [id number] / Description:Tricuspid Annulo plasty Ring On-X Intrnl [facility]-25-33 25-33mm 17.4mm Mechanical Conform-X Sewing Ring Means Valve - [id number] - [id number] Implanted:Qty: 1 on 05/31/2019 by Barrett Portillo Jr., MD at 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
--- OUTSIDE RECORDS SUMMARY | 2024-07-04 17:07 | XMS_ITS | Clinical Summary ---
Author Organization [facility] [address] [facility] [address] Address [address] [place] [address] Care Team Providers Care Joint Cutter Machine Name Role Phone Randolph Moore MD Primary Care Provider [phone] Chris Akins MD PhD Unavailable [phone] Bandar Harkins MD, Barrett Moser Unavailable [phone] Allergies No known active allergies Medications tiotropium [...] 06/12/2019 Assessment & Plan (06/12/2019 1:10 PM MOLD SPRAYER): Ongoing since 06/05 Daily Labs throughout- Last night = 131 (previously was = 130) Continues on free water fluid restriction. High risk medication use 06/08/2019 Assessment & Plan (06/12/2019 1:00 PM MOLD SPRAYER): Ongoing coumadin with heparin drip for RENE mitral valve & a-fib Goal INR approx. 3 Last night= coumadin 8 mg Ongoing daily INRs, while inpatient Assessment & Plan (06/10/2019 2:09 PM MOLD SPRAYER): Intense insulin regimen in the setting of variable oral intake, MARIA DEL ROSARIO and insulin naivete places patient at increased risk of hypoglycemia/hyperglycemia which may have serious metabolic, CV and neuro consequences. We will continue to intensely monitor blood glucose and titrate insulin as needed to optimize glycemic control to avoid hypoglycemic/hyperglycemic events. Assessment & Plan (06/08/2019 1:08 PM MOLD SPRAYER): Intense insulin regimen in the setting of [...] 06/07/2019 Assessment & Plan (06/12/2019 1:01 PM MOLD SPRAYER): Post-op from [facility] with tricuspid valve repair on 05/31/2019 See Mitral valve replacement problem, above Assessment & Plan (06/07/2019 10:01 AM MOLD SPRAYER): Post-op from [facility] with tricuspid valve repair on 05/31/2019 See Mitral valve replacement problem, above DM (diabetes mellitus), type 2 06/06/2019 Assessment & Plan (06/12/2019 12:56 PM MOLD SPRAYER): Continue SSI, Lantus Endocrine consult with tractor operator battery & healthcare educator following Blood sugars well controlled on current regimen (121-197 over past 24 hrs) A1c 9.6 on admission Will need to check blood sugars at least TID upon discharge Potential discharge on gliptins at discharge. . Assessment & Plan (06/13/2019 5:16 PM MOLD SPRAYER): 49 y.o. male with type 2 diabetes [...] up with PCP, Blue Moore MD in [place], [place]) Instructed Mr. Griffin to bring glucometer to follow up visit for PCP to review glycemia and adjust diabetes regimen as needed; verbalized understanding. Recommendations for diabetes management were discussed with the primary team. For questions regarding this patient today, please call Radah Jade NP at [phone]. If after hours, please contact the Diabetes Fellow at [phone]. Assessment & Plan (06/10/2019 2:09 PM MOLD SPRAYER): Continue SSI, Lantus Endocrine consult with tractor operator battery & healthcare educator Last 24 hrs glucose = 135-191 A1c 9.6 on admission Will need to check blood sugars at least TID upon disharge Acute pain 05/31/2019 Assessment & Plan (06/12/2019 12:58 PM MOLD SPRAYER): PRN tylenol, at present Ongoing stool softeners for anesthesia side effects Increasing activity as tolerated. Assessment & Plan (06/07/2019 10:02 AM MOLD SPRAYER): PRN tylenol, at present Ongoing stool softeners for anesthesia side effects Increasing activity, as tolerated. Assessment & Plan (06/05/2019 10:14 AM MOLD SPRAYER): Denies pain at this time -PRN tylenol -avoiding narcotics with ileus Assessment & Plan (06/04/2019 5:41 PM MOLD SPRAYER): Denies pain at this time -PRN tylenol -avoiding narcotics with constipation Assessment & Plan (06/03/2019 4:10 PM MOLD SPRAYER): Denies pain at this time -PRN tylenol -consider low dose oxy if needed as delirium is improving Assessment & Plan (06/02/2019 1:05 PM MOLD SPRAYER): 2/2 cardiac surgery via median sternotomy. - Limit narcotics with delirium - Scheduled APAP - PRN oxycodone for breakthrough pain Assessment & Plan (06/01/2019 12:44 PM MOLD SPRAYER): 2/2 cardiac surgery via median sternotomy. Currently sedated w/ propofol. - Fentanyl IV PRN prior to extubation - Plan to start scheduled Tylenol and PRN Oxy/Dilaudid once extubated Assessment & Plan (05/31/2019 4:51 PM MOLD SPRAYER): 2/2 cardiac surgery via median sternotomy. Currently sedated w/ - Fentanyl IV PRN prior to extubation - Plan to start scheduled Tylenol and PRN Oxy/Dilaudid once extubated - Ensure pain control is adequate to facilitate participation in care and deep breathing Acute blood loss anemia 05/31/2019 Assessment & Plan (06/12/2019 1:01 PM MOLD SPRAYER): Expected postop due to ABLA Daily CBC, while inpatient Receiving MVI with iron Drifted slightly, from yesterday Assessment & Plan (06/07/2019 10:08 AM MOLD SPRAYER): Expected postop due to ABLA Daily CBC, while inpatient Added MVI with iron Assessment & Plan (06/05/2019 10:18 AM MOLD SPRAYER): Hgb stable at 8.0 (8.1). No active signs of bleeding. Hemodynamically stable off vasopressors and tolerating epi wean - No current indication for transfusion, consider if patient becomes hemodynamically unstable with increased pressor requirements or Hgb < 8 and symptomatic - CBC daily - continue heparin gtt - repeat cbc now and coags Assessment & Plan (06/02/2019 1:07 PM MOLD SPRAYER): Expected following cardiac surgery. Hgb 8.8. Hemodynamically stable off vasopressors. - No current indication for transfusion, consider if patient becomes hemodynamically unstable with increased pressor requirements or Hgb < 8 and symptomatic - CBC daily Assessment & Plan (06/01/2019 12:44 PM MOLD SPRAYER): Expected following cardiac surgery. Hgb stable. Hemodynamically stable off vasopressors. - No current indication for transfusion, consider if patient becomes hemodynamically unstable with increased pressor requirements or Hgb < 8 and symptomatic - CBC daily Assessment & Plan (05/31/2019 8:06 PM MOLD SPRAYER): Baseline hemoglobin 11.1 upon admission. Intra-op course [...] surgery Assessment & Plan (06/12/2019 12:52 PM MOLD SPRAYER): Post-op from [facility] with tricuspid valve repair on 05/31/2019 Continue post op care (telemetry, VS, I &O, medication & weights) Ongoing heparin drip until INR closer to 3 Continue Coumadin, INR 1.6 last night Plan to give Coumadin 8 mg tonight Receiving PT and aggressive pulmonary toilet New onset DM (see diabetes problem) PT/OT Discharge planning Assessment & Plan (06/08/2019 1:09 PM MOLD SPRAYER): Good glycemic control required to promote healing Assessment & Plan (06/10/2019 2:11 PM MOLD SPRAYER): Post-op from [facility] with tricuspid valve repair on 05/31/2019 Continue post op care (telemetry, VS, I &O, medication & weights) Ongoing heparin drip until INR 2.5 Continue Coumadin, INR 1.4 Plan to give Coumadin 5mg tonight Receiving PT and aggressive pulmonary toilet New onset DM (see diabetes problem) PT/OT Discharge planning Assessment & Plan (06/05/2019 10:10 AM MOLD SPRAYER): S/P [facility]. Post-op care to include: - Continue heparin infusion per nomogram for mechanical valve & fib -no couadin with EPW present - ASA daily - increase statin to 80mg daily - Colace, senna, miralax for bowel regimen, lactulose - PPI daily (home med) - SCD's for DVT ppx - PT/OT eval and treat Assessment & Plan (06/04/2019 5:33 PM MOLD SPRAYER): S/P Mechanical MVR. Post-op care to include: - Continue heparin infusion per nomogram for mechanical valve -no couadin with EPW present - ASA daily - resume statin (shock liver improving) - Colace, senna, miralax for bowel regimen - PPI daily (home med) - SCD's for DVT ppx - PT/OT eval and treat Assessment & Plan (06/03/2019 4:36 PM MOLD SPRAYER): S/P Mechanical MVR. Post-op care to include: - Continue heparin infusion per nomogram for mechanical valve -no couadin with EPW present - ASA daily - resume statin (shock liver improving) - Colace, senna, miralax for bowel regimen - PPI daily (home med) - SCD's for DVT ppx - PT/OT eval and treat Assessment & Plan (06/02/2019 1:08 PM MOLD SPRAYER): S/P [facility]. Post-op care to include: - Continue heparin infusion per nomogram for mechanical valve - F/U with CTS re timing for starting coumadin - ASA daily - Holding statin with shock liver - Colace, senna, miralax for bowel regimen - PPI daily (home med) - SCD's for DVT ppx - PT/OT eval and treat Assessment & Plan (06/01/2019 12:54 PM MOLD SPRAYER): S/P [facility]. Post-op care to include: - Start heparin infusion per nomogram for mechanical valve - ASA daily - Holding statin with shock liver - Colace, senna, miralax for bowel regimen - PPI daily (home med) - SCD's for DVT ppx - Periop Vanc and Ancef x 24 hours - PT/OT eval and treat Assessment & Plan (05/31/2019 5:34 PM MOLD SPRAYER): Mitral Valve Stenosis s/p balloon valvuloplasty (Dr. [...] here Assessment & Plan (06/12/2019 1:00 PM MOLD SPRAYER): Current creatinine = 1.22 Admission creatinine = 1.9 Daily BMPs with I &Os while inpatient Ongoing daily weights Almost 4.5 kg below pre-op (admission) weight Changed to daily lasix, 40 mg oral today Assessment & Plan (06/13/2019 5:13 PM MOLD SPRAYER): CrCl: 89.5 ml/min, serum Cr 1.04 stable Chronic kidney disease (CKD) and acute kidney injury (MARIA DEL ROSARIO) are independent risk factors for hypoglycemia, and augments the risk of low blood glucose in patients with diabetes Assessment & Plan (06/10/2019 2:08 PM MOLD SPRAYER): Current creatinine = 1.13 Admission creatinine = 1.9 Daily BMPs with I &Os while inpatient Ongoing daily weights Continue Lasix 40 mg IV BID and spironolactone 12.5mg daily Assessment & Plan (06/05/2019 10:12 AM MOLD SPRAYER): Creat continues to down trending. - lasix 40mg PO BID with 20meq KCl -FBG negative 1L - restart home aldactone and 1/2 dose 12.5mg daily Assessment & Plan (06/04/2019 5:39 PM MOLD SPRAYER): Creat down trending. -d/c sheridan -decrease lasix 40mg PO BID with 20meq KCl -FBG negative 1L Assessment & Plan (06/03/2019 4:32 PM MOLD SPRAYER): Received an additional 80mg lasix overnight to promote diuresis. FB even. -lasix 80mg IV BID with 20meq KCl -FBG even to negative 500 -maintain sheridan to accurately monitor I&O Assessment & Plan (06/02/2019 1:04 PM MOLD SPRAYER): Baseline Creatinine around 0.6. MARIA DEL ROSARIO upon admission likely 2/2 cardiogenic shock. Now down trending post-op. Responding to lasix. - Lasix 60 IV x2 - Metolazone 10 BID - FBG -1 to 2L - Renally dose medications as appropriate - Avoid nephrotoxins Assessment & Plan (06/02/2019 5:36 AM MOLD SPRAYER): Baseline Creatinine around 0.6. MARIA DEL ROSARIO upon admission likely 2/2 cardiogenic shock. Now down trending post-op. Responding to lasix. - diuresis for FBG -1 to 2L - Renally dose medications as appropriate - Avoid nephrotoxins Assessment & Plan (06/01/2019 12:46 PM MOLD SPRAYER): Baseline Creatinine around 0.6. MARIA DEL ROSARIO upon admission likely 2/2 cardiogenic shock. Current Cr 1.99. Good urine output, FB +1.2L over the last 24 hours. - Lasix 40 x1 - FBG -1 to 2L - BMP at 1400 - Renally dose all medications - Avoid nephrotoxins Assessment & Plan (06/01/2019 5:22 AM MOLD SPRAYER): Baseline Creatinine around 0.6. MARIA DEL ROSARIO upon admission likely 2/2 cardiogenic shock. Current Cr 1.96. Will likely improve with time. Good urine output. - Renally dose all medications - avoid nephrotoxins - f/u am bmp Assessment & Plan (05/31/2019 8:09 PM MOLD SPRAYER): Baseline Creatinine around 0.6. Mild MARIA DEL ROSARIO upon admission likely 2/2 cardiogenic shock and diuresis. - Strict I and O - Renally dose all medications - Maintain adequate renal perfusion pressure - f/u BMP in AM Hepatopathy 02/22/2019 Assessment & Plan (05/30/2019 2:40 AM MOLD SPRAYER): -RUQ US 02/2019 showed coarse echotexture of [...] levels Assessment & Plan (02/24/2019 3:24 PM MOLD SPRAYER): -RUQ US to evaluate for cirrhosis showed [...] up. Assessment & Plan (02/23/2019 4:55 PM MOLD SPRAYER): Patient with newly diagnosed liver disease with ascites. Ultrasound with increased echotexture concerning for cirrhosis - unlikely to be congestive hepatopathy given no evidence of poor RV function - consider GI consult given possible need for surgery Assessment & Plan (02/23/2019 1:01 PM MOLD SPRAYER): -RUQ US to evaluate for cirrhosis Assessment & Plan (02/22/2019 9:13 PM MOLD SPRAYER): - Complicated by ascites, elevated LFTs and coagulopathy - S/p outpatient LVP x1 - Chest imaging with ascites, abdominal distention on exam - No concern for acute decompensation liver failure - Outpatient liver follow up A-fib 02/22/2019 Overview (06/03/2019): Afib on home dilt. Assessment & Plan (06/12/2019 1:00 PM MOLD SPRAYER): Chronic afib, rate controlled Ongoing metoprolol & amiodarone Continue coumadin tonight. Heparin drip pending therapeutic INR Assessment & Plan (06/10/2019 2:07 PM MOLD SPRAYER): Chronic afib, rate controlled Has had intermittent pause continue - telemetry review no alarms overnight Ongoing metoprolol & amiodarone continue coumadin tonight. Heparin drip pending therapeutic INR Assessment & Plan (06/05/2019 10:09 AM MOLD SPRAYER): Aflutter rate controlled 70-90 on amiodarone PO [...] removed) Assessment & Plan (06/04/2019 6:54 PM MOLD SPRAYER): Aflutter rate controlled 70-80 on amiodarone PO TID - ensure Mg > 2 and K > 4 - FBG negative 1L - heparin gtt for systemic anticoagulation - if unstable: DCCV -cap wires (no coumadin until EPW removed) Assessment & Plan (06/03/2019 4:21 PM MOLD SPRAYER): Aflutter rate controlled on amio gtt at 0.5mg/min -transition amio to 400 TID PO -ensure Mg > 2 and K > 4 -FBG even to negative 500 with scheduled BID lasix -heparin gtt for systemic anticoagulation -if unstable: DCCV Assessment & Plan (06/02/2019 1:06 PM MOLD SPRAYER): History of afib; on home dilt. Now in a flutter with rate in the 60s. - VVI b/u - Decrease amio infusion to 0.5mg/min - Continue heparin infusion Assessment & Plan (06/02/2019 6:37 AM MOLD SPRAYER): History of afib; on home dilt. Afib with rates to 120's. Treated with amio bolus x 2 followed by gtt. Now rate controlled < 100. - continue amio gtt at 1 mg/min; if HR remains < 100, decrease to 0.5 - Anticoagulation with heparin infusion Assessment & Plan (06/01/2019 12:49 PM MOLD SPRAYER): Intermittent A fib underlying pacer. - Amio bolus x1 now - Amio infusion @ 1mg/min - Anticoagulation with heparin infusion Assessment & Plan (05/31/2019 7:44 AM MOLD SPRAYER): -hx of Afib, on Dilt CD 240mg at home -holding Dilt in the setting of potential CHF exacerbation -will bolus with Amiodarone as patient likely is not tolerating tachycardia i/s/o mitral stenosis, now on amio gtt -ct hep gtt -holding home warfarin Assessment & Plan (02/24/2019 3:25 PM MOLD SPRAYER): -Patient reports history of occasionally irregular heart rhythm but never told he had atrial fibrillation -current rate control increased dose of diltiazem. Will change to long-acting diltiazem 240 mg daily -cont warfarin (goal INR 2.5-3.5 given mechanical mitral valve) Assessment & Plan (02/23/2019 4:59 PM MOLD SPRAYER): Patient with a fib. Per patient on diltiazem at home for irregular heart rate but never been told he has afib. No afib seen in our system previously - will look for LA appendage clot on echo - continue AC and rate control for now Assessment & Plan (02/23/2019 1:00 PM MOLD SPRAYER): -Patient reports history of occasionally irregular heart rhythm but never told he had atrial fibrillation -currently on his home dose of dilt, but intermittent RVR up to 140s -plan to titrate up dilt for improved rate control -cont warfarin (goal INR 2.5-3.5 given mechanical mitral valve) Assessment & Plan (02/22/2019 9:16 PM MOLD SPRAYER): - History of palpitations but now found to be in AF with well controlled rate - Continue home diltiazem for rate control and warfarin for AC - Repeat TTE to assess LV function Syncope 02/22/2019 Assessment & Plan (02/24/2019 3:26 PM MOLD SPRAYER): - In setting of coughing fit followed by feeling of warmth, lightheadedness and no post ictal state - Serum electrolytes wnl, CT PE protocol negative for PE - Findings consistent with vasovagal syncope but could also be related to afib with RVR and valvular issues Assessment & Plan (02/23/2019 5:02 PM MOLD SPRAYER): Likely related to cough, kelly. Given COPD which increases risk of cough syncope. Less likely to be related to arrhythmia, but would recommend continuing telemetry monitoring Assessment & Plan (02/23/2019 12:56 PM MOLD SPRAYER): - In setting of coughing fit followed by feeling of warmth, lightheadedness and no post ictal state - Serum electrolytes wnl, CT PE protocol negative for PE - Findings consistent with vasovagal syncope but could also be related to afib with RVR - Monitor on tele, repeat TTE Assessment & Plan (02/22/2019 9:21 PM MOLD SPRAYER): - In setting of coughing fit followed [...] 02/22/2019 Assessment & Plan (02/22/2019 9:45 PM MOLD SPRAYER): - AST 175. ALT 239, [id number] Tbili 3.3 and Dbili 1.3 - Secondary to BECK - Will continue to monitor Ascites 02/22/2019 Overview (02/22/2019): - Secondary BECK s/p LVP x1 - Chest imaging and physical exam with ascites - No abdominal pain or findings concerning for SBP - Outpatient LVP and hepatology follow up Assessment & Plan (02/24/2019 3:31 PM MOLD SPRAYER): -Patient reports this is new since November of this year -likely both liver and cardiac issues contributing. Assessment & Plan (02/23/2019 12:59 PM MOLD SPRAYER): -Patient reports this is new since November [...] Disease Assessment & Plan (05/30/2019 2:41 AM MOLD SPRAYER): -patient is on albuterol and Spiriva at home -albuterol PRN -pulmonary function tests which showed an FEV1 that was 49% of predicted on 04/18/2019 Assessment & Plan (02/23/2019 1:01 PM MOLD SPRAYER): -cont home inhalers, prn albuterol Assessment & Plan (02/22/2019 9:06 PM MOLD SPRAYER): - No concern for an acute exacerbation - On Breo Ellipta at Home, non formulary - Start Albuterol prn, spiriva and advair Resolved Problems Problem Noted Date Diagnosed Date Resolved Date Leukocytosis 06/08/2019 06/12/2019 Assessment & Plan (06/11/2019 1:22 PM MOLD SPRAYER): Remains afebrile WBC trending down Will continue to monitor Assessment & Plan (06/10/2019 2:10 PM MOLD SPRAYER): WBC 13 from 14.2 from 13.4 No fevers Incisions clean and dry CL out Encouraged to ambulate and perform IS No overt signs of infection UA 06/08 negative CXR 06/08 showed + atelectasis and small right pleural effusion Thrombocytopenia 06/05/2019 06/12/2019 Assessment & Plan (06/11/2019 1:22 PM MOLD SPRAYER): Plt WNL Assessment & Plan (06/10/2019 2:11 PM MOLD SPRAYER): Platelets 89 from 92K - stable Wires out 06/07 Remains on heparin gtt for mechanical valve prophylactis Continue Coumadin Assessment & Plan (06/05/2019 10:19 AM MOLD SPRAYER): PLT down to 66 (90s) this morning, [...] 06/07/2019 Assessment & Plan (06/05/2019 10:17 AM MOLD SPRAYER): Small bowel movement this morning. Abdomen distended, [...] OOB/ambulate Assessment & Plan (06/04/2019 5:51 PM MOLD SPRAYER): No BM X8d. Abdomen distended, taught, BS hypoactive. Denies nausea. KUB: dilated ascending and transverse colon measuring 9.5cm. PO bowel regimen increased yesterday and suppository with minimal response. -suppository BID -cotton seed enema -lactulose Q6hr until stool -OOB/ambulate Assessment & Plan (06/03/2019 4:34 PM MOLD SPRAYER): No BM X7d. Abdomen distended, taught, BS hypoactive. Denies nausea. -increase docusate to 200 BID -increase miralax to BID -add suppository -consider lactulose if no BM by this evening -OOB/ambulate Delirium 06/02/2019 06/07/2019 Assessment & Plan (06/05/2019 10:15 AM MOLD SPRAYER): Resolved. CAM negative. Received seroquel 25mg at bedtime last night. - discontinue seroquel -OOB to chair -ambulate -lights off 21:00-06:00 - prn ramelteon at bedtime for sleep Assessment & Plan (06/04/2019 5:45 PM MOLD SPRAYER): CAM negative this AM. Slept with seroquel last night continue seroquel -OOB to chair -ambulate -lights off 21:00-06:00 Assessment & Plan (06/03/2019 4:24 PM MOLD SPRAYER): CAM negative this AM. Did not sleep at all last night -25mg seroquel QHS to promote sleep -OOB to chair -ambulate -lights off 21:00-06:00 Assessment & Plan (06/02/2019 1:02 PM MOLD SPRAYER): CAM positive after extubation last night. Sedated with precedex infusion overnight for sleep. This AM, more alert and appropriate. - DC precedex - Frequent reorientation - Lights on during the day - Encourage mobility- OOBTC - Sleep hygiene Assessment & Plan (06/02/2019 5:52 AM MOLD SPRAYER): CAM positive after extubation. Unable to sleep tonight and very restless. -start low dose precedex -maintain mittens in place -delirium precautions: lights on during day, off at night, OOBTC during day, encourage family interaction during day -if does not improve will need SBFT placement Hyperglycemia 06/01/2019 06/06/2019 Assessment & Plan (06/05/2019 10:14 AM MOLD SPRAYER): Well controlled on current NPH/SSI regimen. BGL ranging between 70-150 in the past 24 hours. HgA1C 9.6 on admission with no home antihyperglycemics. - carb controlled diet - NPH BID (09: 00 /17:00) for basal + HDSSI Assessment & Plan (06/04/2019 5:44 PM MOLD SPRAYER): HgA1C 9.6 on admission with no home antihyperglycemics. Transitioned from insulin gtt to HDSSI yesterday and remains hyperglycemic. Contributing factors: epi gtt. Decreased appetite 2/2 constipation - carb controlled diet -add NPH BID (09: 00 /17:00) for basal + HDSSI Assessment & Plan (06/03/2019 4:26 PM MOLD SPRAYER): HgA1C 9.6 on admission with no home antihyperglycemics. Currently on insulin gtt -ADAT to carb controlled diet -transition insulin gtt to HDSSI Assessment & Plan (06/02/2019 1:07 PM MOLD SPRAYER): History of DM-II but no home meds. Likely related to stress response. Remains on insulin infusion. - Continue insulin gtt per icu protocol - ADAT Assessment & Plan (06/02/2019 5:34 AM MOLD SPRAYER): History of DM-II but no home meds. Likely related to stress response. Remains on insulin infusion - Continue insulin gtt per icu protocol Assessment & Plan (06/01/2019 12:49 PM MOLD SPRAYER): History of DM-II but no home meds. Likely related to stress response. Remains on insulin infusion - Continue insulin gtt per icu protocol Assessment & Plan (06/01/2019 5:31 AM MOLD SPRAYER): History of DM-II but no home meds. Arrived on insulin gtt 6 units/hr. Likely related to stress response. -continue insulin gtt per icu protocol Shock liver 06/01/2019 06/07/2019 Assessment & Plan (06/04/2019 5:26 PM MOLD SPRAYER): Continues to improve to near normal. Statin resumed yesterday - CMP/coags daily with AM labs for 1 more days Assessment & Plan (06/03/2019 10:34 AM MOLD SPRAYER): Improving. -resume home statin today - CMP/coags daily with AM labs for 2 more days Assessment & Plan (06/02/2019 1:07 PM MOLD SPRAYER): Improving. 2/2 severe RV dysfunction pre-op. Both T bili and AST/ALT down trending. - CMP/coags daily with AM labs - Avoid hepatotoxic agents Assessment & Plan (06/02/2019 5:34 AM MOLD SPRAYER): 2/2 severe RV dysfunction pre-op. Both T bili and AST/ALT down trending. Will likely continue to improve with time - CMP/coags daily with AM labs - Avoid hepatotoxic agents Assessment & Plan (06/01/2019 12:50 PM MOLD SPRAYER): 2/2 severe RV dysfunction pre-op. T bili rising, AST/ALT down trending. INR 1.8 without anticoagulation. - CMP/coags daily with AM labs - Avoid hepatotoxic agents Acute respiratory insufficiency 05/31/2019 06/07/2019 Assessment & Plan (06/06/2019 11:56 AM MOLD SPRAYER): Diuresis as tolerated, aggressive pulmonary toilet Assessment & Plan (06/05/2019 10:13 AM MOLD SPRAYER): COPD. Currently on NC for SpO2 > 92% suspect ileus and abdominal distention decreasing diaphragmatic movement -ellipta (home med equivalent) -wean SpO2 for SpO2 > 92% -OOB to chair/ambulate -FBG negative 1L with BID scheduled diuresis Assessment & Plan (06/04/2019 5:40 PM MOLD SPRAYER): COPD. Currently on NC for SpO2 > 92% -ellipta (home med equivalent) -wean SpO2 for SpO2 > 92% -OOB to chair/ambulate -FBG negative 1L with BID scheduled diuresis Assessment & Plan (06/03/2019 4:23 PM MOLD SPRAYER): COPD. CXR essentially clear. Currently on NC for SpO2 > 92% -ellipta (home med equivalent) -wean SpO2 for SpO2 > 92% -OOB to chair/ambulate -FBG even to negative 500 with BID scheduled diuresis Assessment & Plan (06/02/2019 1:06 PM MOLD SPRAYER): Extubated to NC last night. Remains on 4L NC this AM. - Pulmonary hygiene with IS, acapella, and C&DB - PT/OOBTC/AMB - Wean supplemental O2 for SpO2 > 92% - FBG -1 to 2L with lasix and metolazone Assessment & Plan (06/01/2019 12:45 PM MOLD SPRAYER): Post procedural short-term ventilator support with anticipated extubation. Currently sedated w/propofol on full mechanical ventilation. Velitri weaned off overnight. - Transition from propofol to precedex - PSV trial with goal extubation Assessment & Plan (06/01/2019 5:27 AM MOLD SPRAYER): Post procedural short-term ventilator support with anticipated [...] 7.44/42/128. Assessment & Plan (05/31/2019 5:37 PM MOLD SPRAYER): Post procedural short-term ventilator support with anticipated [...] dysfunction. Assessment & Plan (06/05/2019 10:11 AM MOLD SPRAYER): Improving. FB negative -800mL with lasix yesterday. [...] outlined Assessment & Plan (06/04/2019 5:37 PM MOLD SPRAYER): Improving. FB negative 1800 with 80 lasix BID. Rate controlled aflutter 70s -keep milrinone 0.1mcg/kg/min -increase epi wean by 0.01mcg/kg/min Q6hr for SBP > 100 -change lasix to 40mg PO BID with K supplementation -treat Aflutter as outlined Assessment & Plan (06/03/2019 4:14 PM MOLD SPRAYER): No epi wean overnight 2/2 ScVO2 < 60. FB even with additional diuresis. Rate controlled aflutter 70s -keep milrinone 0.1mcg/kg/min -epi wean by 0.01mcg/kg/min Q8hr for ScVO2> 60 -lasix 80mg BID with 20meq KCl -treat Aflutter as outlined Assessment & Plan (06/02/2019 1:05 PM MOLD SPRAYER): Cardiogenic shock 2/2 severe MR and severe [...] 2L Assessment & Plan (06/02/2019 5:46 AM MOLD SPRAYER): Cardiogenic shock 2/2 severe MR and severe [...] now. Assessment & Plan (06/01/2019 12:48 PM MOLD SPRAYER): Cardiogenic shock 2/2 severe MR and severe [...] lasix Assessment & Plan (06/01/2019 5:45 AM MOLD SPRAYER): Cardiogenic shock 2/2 Severe MR and severe [...] veletri. Assessment & Plan (05/31/2019 5:43 PM MOLD SPRAYER): Cardiogenic shock 2/2 Severe MR and severe [...] 06/07/2019 Assessment & Plan (02/24/2019 3:21 PM MOLD SPRAYER): -s/p mechanical MVR in 2006 -echo yesterday [...] cardiology Assessment & Plan (02/24/2019 3:08 PM MOLD SPRAYER): Patient with mitral valve stenosis s/p surgical [...] - Please obtain images from echo at [facility] in December - if clotted can consider [...] understanding Assessment & Plan (02/23/2019 12:57 PM MOLD SPRAYER): -s/p mechanical MVR in 2006 -echo today shows elevated valve gradient although patient was in afib with tachycardia so unclear how accurate this is -will discuss with cardiology Assessment & Plan (02/22/2019 9:14 PM MOLD SPRAYER): - S/p bioprosthetic mitral valve replacement - [...] on file Legal Sex Male 5:34 AM MOLD SPRAYER Gender Identity Not on file Sexual Orientation Not on file Obstetrics History Last Filed Vital Signs Vital Sign Reading Time Taken Comments Blood Pressure 141/76 08/15/2019 10:48 AM CDT Pulse 69 08/15/2019 10:48 AM CDT Temperature 37 C (98.6 F) 08/15/2019 10:48 AM CDT Respiratory Rate 18 06/13/2019 8:34 AM MOLD SPRAYER Oxygen Saturation 98% 08/15/2019 10:48 AM CDT Inhaled Oxygen Concentration - - Weight 90.7 kg (200 lb) 08/15/2019 10:48 AM CDT Height 180.3 cm (5' 11 ) 08/15/2019 10:48 AM CDT Body Mass Index 27.89 08/15/2019 10:48 AM CDT Plan of Treatment Not on file Medical Devices Implanted Type Area Gaming Associate Device Identifier Shelf Expiration Date Model / Serial / Lot [employer] [id number] [place] rds Physio 28mm Tricuspid Ring Annuloplasty Heart - [id number] - [id number] Implanted:Qty: 1 on 05/31/2019 by Barrett Portillo Jr., MD at [facility] Other - see comments N/A: Heart [employer] [id number] 12/29/2020 [id number] / [id number] / Description:Tricuspid Annulo plasty Ring On-X [facility]-25-33 25-33mm 17.4mm Mechanical Conform-X Sewing Ring Means Valve - [id number] - [id number] Implanted:Qty: 1 on 05/31/2019 by Barrett Portillo Jr., MD at [facility] Prosthetic Valve N/A: Heart On-X Intrnl [id number] 04/27/2025 [facility]-25 -33 / [id number] / Insurance AETNA MEDICARE [facility] CIG MEDICARE [facility] Address: [address] [address] [place] [address] [facility] ADVANTRA Advance Directives For more information, please contact: [phone] Documents on File Type Date Recorded Patient Tube Fitter Expl anation ADVANCE DIRECTIVE 05/30/2019 10:13 AM CODY R OF CHIEF NURSE ANESTHETIST-MEDICAL * Full Code (Latest Code Status on [...] 8:30 PM 02/24/2019 9:46 PM Care Teams Joint Cutter Machine Relationship Specialty Start Date End Date Randolph Moore MD [address] [place] [address] PCP - General 06/24/15 Chris Akins MD PhD [address] [place] [address] Referring Physician Cardiology 03/16/19 Barrett Portillo Jr., MD [address] [place] [address] Surgeon Cardiothoracic Surgery 06/13/19
--- OUTSIDE RECORDS SUMMARY | 2024-07-04 17:07 | XMS_ITS | Encounter Summary ---
Author Organization [facility] Address [address] [place] [address] Care Team Providers Care Shafting Worker Name Role Phone Randolph Moore MD Primary Care Provider [phone] Roberta Nicole MD Unavailable Encounter Details Date Type Department Care Team (Late st Contact Info) Description 07/03/2024 1:56 PM CDT Hospital Encounter [facility] [address] [facility] [place] [address] Maria Antonia Goldsmith PA [address] [place] [address] Arrived Social History Tobacco Use Types Packs/Day Years Used Date Smoking Tobacco: Former Cigarettes Q uit: 05/22/2006 Smokeless Tobacco: Never Alcohol Use Standard Drinks/Week Comments Not Currently 0 (1 standard drink = 0.6 oz pur e alcohol) 8 years since last drank [facility] Utilities Answer Date Recorded In the past 12 months has [facility] [employer], gas, oil, or water [employer] threatened to shut off services in your [...] place to sleep or slept in a senior care (including now)? No 07/17/2023 Sex and Gender Information Value Date Recorded Sex Assigned at Male 05/27/2019 3:12 PM STRIKER OUT Legal Sex Male 5:49 PM STRIKER OUT Gender Identity Male 05/27/2019 3:12 PM STRIKER OUT Sexual Orientation Straight 05/27/2019 3: 12 PM STRIKER OUT documented as of this encounter Functional Status [...] Info) Description 09/01/2024 12:30 PM CDT Appointment [facility] [place] [address] Roberta Nicole MD [address] [place] [address] 09/22/2024 11:00 AM CDT Office Visit [facility] [place] [address] Roberta Nicole MD [address] [place] [address] 03/26/2025 1:[address] [facility] [place] [address] Roberta Nicole MD [address] [place] [address] 04/02/2025 9:00 AM STRIKER OUT Office Visit [facility] [place] [address] Roberta Nicole MD [address] [place] [address] documented as of this encounter Procedures Procedure [...] 2:25 PM Narrative 07/03/2024 2:30 PM CDT [address] [place] [address] Examination: Two-view chest Exam time: 1357 hours. Clinical history: Cough. Dyspnea. Comparison: 08/25/2023, 07/16/2023 ([facility]). Technique: PA and lateral views Findings: The cardiomediastinal silhouette is stable. The heart remains within normal limits for size. Pulmonary vascularity is within normal limits. Changes from median sternotomy, mitral valve replacement and tricuspid annuloplasty again evident. The lungs and pleural spaces appear free of any active process. The bony thorax is stable. Procedure Note Gaurav Hong MD - 07/03/[address] [place] [address] Examination: Two-view chest Exam time: 1357 hours. Clinical history: Cough. Dyspnea. Comparison: 08/25/2023, 07/16/2023 ([facility]). Technique: PA and lateral views Findings: The [...] 07/03/2024 2:25 PM us Maria Antonia Goldsmith [facility] Final Resu lt documented in this encounter Visit Diagnoses Diagnosis SOB (shortness of breath) Shortness of breath documented in this encounter Care Teams Shafting Worker Relationship Specialty Start Date End Date Randolph Moore MD [address] [facility] [address] [place] [phone] PCP - General FAMILY PRACTICE 11/07/18 Roberta Nicole MD [address] [place] [address] Consulting Physician CARDIOVASCULAR DISEASE 07/15/23 documented as of this encounter
--- OUTSIDE RECORDS SUMMARY | 2024-07-04 17:07 | XMS_ITS | Encounter Summary ---
Author Organization [facility] Address [address] [place] [address] Care Team Providers Care Director Sales Support Name Role Phone Randolph Moore MD Primary Care Provider [phone] Roberta Nicole MD Unavailable Encounter Details Date Type Department Care Team (Late st Contact Info) Description 08/17/2023 Hospital Orders Only [place] [employer] Operator Pre/Post [address] [place] [address] Roberta Nicole MD [address] [place] [address] Social History Tobacco Use Types Packs/Day Years Used Date Smoking Tobacco: Former Cigarettes Q uit: 05/22/2006 Smokeless Tobacco: Never Alcohol Use Standard Drinks/Week Comments Not Currently 0 (1 standard drink = 0.6 oz pur e alcohol) 8 years since last drank [facility] Utilities Answer Date Recorded In the past 12 months has [facility] [employer], gas, oil, or water [facility] threatened to shut off services in your [...] place to sleep or slept in a usp (including now)? No 07/17/2023 Sex and Gender Information Value Date Recorded Sex Assigned at Male 05/27/2019 3:12 PM CONTAINERS SALES REPRESENTATIVE Legal Sex Male 5:49 PM CONTAINERS SALES REPRESENTATIVE Gender Identity Male 05/27/2019 3:12 PM CONTAINERS SALES REPRESENTATIVE Sexual Orientation Straight 05/27/2019 3: 12 PM CONTAINERS SALES REPRESENTATIVE documented as of this encounter Functional [...] Info) Description 09/01/2024 12:30 PM CDT Appointment [facility] [place] [address] Roberta Nicole MD [address] [place] [address] 09/22/2024 11:00 AM CDT Office Visit [facility] [place] [address] Roberta Nicole MD [address] [place] [address] 03/26/2025 1:30 PM CONTAINERS SALES REPRESENTATIVE Appointment [facility] [place] [address] Roberta Nicole MD [address] [place] [address] 04/02/2025 9:00 AM CONTAINERS SALES REPRESENTATIVE Office Visit [facility] [place] [address] Roberta Nicole MD [address] [place] [address] documented as of this encounter Visit Diagnoses Not on filedocumented in this encounter Care Teams Director Sales Support Relationship Specialty Start Date End Date Randolph Moore MD [address] [facility] [place] [phone] PCP - General FAMILY PRACTICE 11/07/18 Roberta Nicole MD [address] [place] [address] Consulting Physician CARDIOVASCULAR DISEASE 07/15/23 documented as of this encounter
--- OUTSIDE RECORDS SUMMARY | 2024-07-04 17:07 | XMS_ITS | Encounter Summary ---
Author Organization [facility] Address [address] [place] [address] Care Team Providers Care Cultural Anthropology Professor Name Role Phone Randolph Moore MD Primary Care Provider [phone] Roberta Nicole MD Unavailable Encounter Details Date Type Department Care Team (Late st Contact Info) Description 09/17/2018 Abstract [facility] [place] [address] , Generic Conversion, Social History Tobacco Use Types Packs/Day Years Used Date Smoking Tobacco: Never Assessed Sex and Gender Information Value Date Recorded Sex Assigned at Male 05/27/2019 3:12 PM HYDROPULPER Legal Sex Male 5:49 PM HYDROPULPER Gender Identity Male 05/27/2019 3:12 PM HYDROPULPER Sexual Orientation Straight 05/27/2019 3: 12 PM HYDROPULPER documented as of this encounter Plan of Treatment Upcoming Encounters Date Type Department Care Team (Late st Contact Info) Description 09/01/2024 12:[address] [facility] [place] [address] Roberta Nicole MD [address] [place] [address] 09/22/2024 11:00 AM CDT Office Visit [facility] [place] [phone] Roberta Nicole MD [address] [place] [address] 03/26/2025 1:[address] [place] [place] [address] Roberta Nicole MD [address] [place], [place] [phone] 04/02/2025 9:00 AM HYDROPULPER Office Visit [facility] [address] [place] [phone] Roberta Nicole MD [address] [place], [place] [phone] documented as of this encounter Visit Diagnoses Not on filedocumented in this encounter Care Teams Cultural Anthropology Professor Relationship Specialty Start Date End Date Randolph Moore MD [address] [place] [phone] PCP - General FAMILY PRACTICE 11/07/18 Roberta Nicole MD [address] [place] [address] Consulting Physician CARDIOVASCULAR DISEASE 07/15/23 documented as of this encounter
--- OUTSIDE RECORDS SUMMARY | 2024-07-04 17:07 | XMS_ITS | Encounter Summary ---
Author Organization [facility] Address [address] [place] [address] Care Team Providers Care Machine Sander Name Role Phone Randolph Moore MD Primary Care Provider [phone] Roberta Nicole MD Unavailable Encounter Details Date Type Department Care Team (Late st Contact Info) Description 07/03/2024 1:55 PM CDT Hospital Encounter [facility] [address] [place] [address] Cyndi Goldsmith PA [address] [place] [address] Arrived Social History Tobacco Use Types Packs/Day Years Used Date Smoking Tobacco: Former Cigarettes Q uit: 05/22/2006 Smokeless Tobacco: Never Alcohol Use Standard Drinks/Week Comments Not Currently 0 (1 standard drink = 0.6 oz pur e alcohol) 8 years since last drank [facility] Utilities Answer Date Recorded In the past 12 months has [facility] [employer], gas, oil, or water [employer] threatened to shut off services in your [...] place to sleep or slept in a residential (including now)? No 07/17/2023 Sex and Gender Information Value Date Recorded Sex Assigned at Male 05/27/2019 3:12 PM CHIEF SCIENTIFIC OFFICER Legal Sex Male 5:49 PM CHIEF SCIENTIFIC OFFICER Gender Identity Male 05/27/2019 3:12 PM CHIEF SCIENTIFIC OFFICER Sexual Orientation Straight 05/27/2019 3: 12 PM CHIEF SCIENTIFIC OFFICER documented as of this encounter Functional Status [...] Info) Description 09/01/2024 12:30 PM CDT Appointment [facility] [address] Roberta Nicole MD [address] [place] [address] 09/22/2024 11:00 AM CDT Office Visit [facility] [place] [address] Roberta Nicole MD [address] [place] [address] 03/26/2025 1:30 PM CHIEF SCIENTIFIC OFFICER [facility]ointment [facility] [place] [address] Roberta Nicole MD [address] [place] [address] 04/02/2025 9:00 AM CHIEF SCIENTIFIC OFFICER Office Visit [facility] [place] [address] Roberta Nicole MD [address] [place] [address] documented as of this encounter Procedures Procedure [...] - 145 MMOL/L 07/03/2024 2:22 PM CDT [facility] POTASSIUM S/P/B 4.2 3.5 - 5.1 MMOL/L 07/03/2024 2:22 PM CDT [facility] CHLORIDE S/P/B 102 98 - 107 MMOL/L 07/03/2024 2:22 PM CDT [facility] CO2 26.3 21.0 - 32.0 MMOL/L 07/03/2024 2:22 PM CDT [facility] GLUCOSE 153(H) 70 - 99 MG/DL 07/03/2024 2:22 PM CDT [facility] Comment: FASTING GLUCOSE 100 TO 125 MG/DL IS CONSISTENT WITH IMPAIRED FASTING GLUCOSE. FASTING GLUCOSE >125 MG/DL IS CONSISTENT WITH DIABETES. RANDOM GLUCOSE >200 MG/DL WITH HYPERGLYCEMIC SYMPTOMS IS CONSISTENT WITH DIABETES. PER ADA GUIDELINES BUN 33(H) 6 - 24 MG/DL 07/03/2024 2:22 PM CDT [facility] CREATININE S/P/B 1.15 0.70 - 1.30 MG/DL 07/03/2024 2:22 PM CDT [facility] CALCIUM S/P/B 8.2(L) 8.4 - 10.5 MG/DL 07/03/2024 2:22 PM CDT [facility] ANION GAP 8.7 5.0 - 15.0 MMOL/L 07/03/2024 2:22 PM CDT [facility] OSMOLALITY (CALC) 294 MOSM/KG 025 2:22 PM CDT [facility] Comment:REFERENCE RANGE NOT ESTABLISHED GFR ESTIMATE 75(L) >89 ML/MIN/1. 73 M2 07/03/2024 2:22 PM CDT [facility] GFR NOTES GFR REFERENCE S: 07/03/2024 2:22 PM CDT [facility] Comment: THE ESTIMATED GFR IS [...] CDT [facility] Final Resu lt [facility] [address] [place] [address], * (ABNORMAL) CBC W/DIFF AUTOMATED (07/03/2024 2:08 PM CDT) WBC 6.37 4.00 - 10.80 x10'3/uL 07/03/2024 2:18 PM CDT [facility] RBC 4.08(L) 4.50 - 6.10 x10'6/uL 07/03/2024 2:18 PM CDT [facility] HGB 8.1(L) 13.0 - 18.0 G/DL 07/03/2024 2:18 PM CDT [facility] HCT 27.4(L) 37.0 - 52.0 % 07/03/2024 2:18 PM CDT [facility] MCV 67.2(L) 78.0 - 100.0 FL 07/03/2024 2:18 PM CDT [facility] MCH 19.9(L) 27.0 - 31.0 PG 07/03/2024 2:18 PM CDT [facility] MCHC 29.6(L) 33.0 - 36.0 G/DL 07/03/2024 2:18 PM CDT [facility] RDW 24.4(H) 11.5 - 14.5 % 07/03/2024 2:18 PM CDT [facility] PLT 250 150 - 350 x10'3/uL 07/03/2024 2:18 PM CDT [facility] MPV 8.9 7.4 - 10.4 FL 07/03/2024 2:18 PM CDT [facility] CBC COMMENT NORMAL REFERENCE RANGE NOT ESTABLISHED FOR THE PROPORTIONAL LEUKOCYTE DIFFERENTIAL. 07/03/2024 2:18 PM CDT [facility] NEUTROPHILS % 70.2 % 07/03/2024 2:18 PM CDT [facility] LYMPHOCYTES % 18.1 % 07/03/2024 2:18 PM CDT [facility] MONOCYTES % 8.6 % 07/03/2024 2:18 PM CDT [facility] EOSINOPHILS % 2.5 % 07/03/2024 2:18 PM CDT [facility] BASOPHILS % 0.3 % 07/03/2024 2:18 PM CDT [facility] IMMATURE GRANS % 0.3 % 07/04/19 2:18 PM CDT [facility] NRBC % 0.3 % 07/03/2024 2:18 PM CDT [facility] ABS. NEUTROPHILS 4.47 1.60 - 8.30 x10'3/uL 07/03/2024 2:18 PM CDT [facility] ABS. LYMPHOCYTES 1.15 0.80 - 4.70 x10'3/uL 07/03/2024 2:18 PM CDT [facility] ABS. MONOCYTES 0.55 0.00 - 1.50 x10'3/uL 07/03/2024 2:18 PM CDT [facility] ABS. EOSINOPHILS 0.16 0.00 - 0.40 x10'3/uL 07/03/2024 2:18 PM CDT [facility] ABS. BASOPHILS 0.02 0.00 - 0.20 x10'3/uL 07/03/2024 2:18 PM CDT [facility] ABS. IMMATURE GRANULOCYTES 0.02 0.00 - 0.03 x10'3/uL 07/03/2024 2:18 PM CDT [facility] ABS. NUCLEATED RBC'S 0.02(H) 0.00 - 0.01 x10'3/uL 07/03/2024 2:18 PM CDT [facility] 07/03/2024 2:08 PM CDT us [facility] Final Resu lt [address] [address], * (ABNORMAL) PROTIME/INR, VENOUS (07/03/2024 2:08 PM CDT) PROTIME 46.8(H) 9.4 - 12.5 SEC 07/03/2024 2:20 PM CDT [facility] INR 4.1(H) 0.8 - 1.0 07/03/2024 2:20 PM CDT [facility] 07/03/2024 2:08 PM CDT us [facility] Final Resu lt [address] [place] [address], [place] [phone] documented in this encounter Visit Diagnoses Diagnosis Shortness of breath Anticoagulated on Coumadin Encounter for therapeutic drug monitoring documented in this encounter Care Teams Machine Sander Relationship Specialty Start Date End Date Randolph Moore MD [address] [facility] [place] [phone] PCP - General FAMILY PRACTICE 11/07/18 Roberta Nicole MD [address] [place] [address] Consulting Physician CARDIOVASCULAR DISEASE 07/15/23 documented as of this encounter
--- OUTSIDE RECORDS SUMMARY | 2024-07-04 17:07 | XMS_ITS | Encounter Summary ---
Author Organization [facility] Address [address] [place] [address] Care Team Providers Care Deicer Inspector Pneumatic Name Role Phone Randolph Moore MD Primary Care Provider [phone] Roberta Nicole MD Unavailable Encounter Details Date Type Department Care Team (Late st Contact Info) Description 07/19/2023 Hospital Follow-up Call [facility] [address] [place] [address] Dee Dee Shelton RN Social History Tobacco Use Types Packs/Day Years Used Date Smoking Tobacco: Former Cigarettes Q uit: 05/22/2006 Smokeless Tobacco: Never Alcohol Use Standard Drinks/Week Comments Not Currently 0 (1 standard drink = 0.6 oz pur e alcohol) 8 years since last drank [facility] [employer] Answer Date Recorded In the past 12 months has e electric, gas, oil, or water [employer] threatened to shut off services in your [...] place to sleep or slept in a correction (including now)? No 07/17/2023 Sex and Gender Information Value Date Recorded Sex Assigned at Male 05/27/2019 3:12 PM MINUTE CLERK FOR BASIC TRAFFIC Legal Sex Male 5:49 PM MINUTE CLERK FOR BASIC TRAFFIC Gender Identity Male 05/27/2019 3:12 PM MINUTE CLERK FOR BASIC TRAFFIC Sexual Orientation Straight 05/27/2019 3: 12 PM MINUTE CLERK FOR BASIC TRAFFIC documented as of this encounter Functional Status * Are you deaf or do you have serious difficulty hearing Answer Date of Assessment Author Status No 07/17/2023 4:27 AM CDMilly Cantu RN Active * Are you blind or do you have serious difficulty seeing, even when wearing glasses? Answer Date of Assessment Author Status No 07/17/2023 4:27 AM Mlily Borjas RN Active * Do you have [...] PM CDT Appointment [facility] [place] [address] Roberta Nicole MD [address] [place] [address] 09/22/2024 11:00 AM CDT Office Visit [facility] [place] [address] Roberta Nicole MD [address] [place] [address] 03/26/2025 1:30 PM MINUTE CLERK FOR BASIC TRAFFIC [facility]ment [facility] [place] [address] Roberta Nicole MD [address] [place] [address] 04/02/2025 9:00 AM MINUTE CLERK FOR BASIC TRAFFIC Office Visit [facility] [place] [address] Roberta Nicole MD [address] [place] [address] documented as of this encounter Visit Diagnoses Not on filedocumented in this encounter Care Teams Deicer Inspector Pneumatic Relationship Specialty Start Date End Date Randolph Moore MD [address] [place] [phone] PCP - General FAMILY PRACTICE 11/07/18 Roberta Nicole MD [address] [place] [address] Consulting Physician CARDIOVASCULAR DISEASE 07/15/23 documented as of this encounter
--- NOTE | 2024-07-04 17:23 | PC.NURSE ---
RAD DISC SENT WITH PT
--- NOTE | 2024-07-04 17:46 | PC.NURSE ---
CALLED TO CHECK STATUS ON EMS TRANSFER, GIOVANNI REPORTS THE TRUCK IS ON THE WAY.
== END 2024-07-04 18:06 | disposition short-term general hospital (02) ==
PROVIDERS: Emergency Provider Emergency Medicine; PCP Family Medicine
DX: K92.2 Gastrointestinal hemorrhage, unspecified (principal); D64.89 Other specified anemias; I48.91 Unspecified atrial fibrillation; Z79.01 Long term (current) use of anticoagulants; I25.10 Atherosclerotic heart disease of native coronary artery without angina pectoris; Z95.2 Presence of prosthetic heart valve
CPT/HCPCS: 36415; 71045; 80053; 82272; 83880; 84484; 85025; 85055; 85610; 85730; 86850; 86870; 86880; 86900; 86901; 86902; 86905; 86906; 86970; 86978; 93005; 96360; 96361; 96372; 99285; J3430

== ENCOUNTER 2024-07-17 08:13 | Outpatient (CLI) | payer MEDICARE, SELFPAY ==
--- OUTSIDE RECORDS SUMMARY | 2024-07-17 08:28 | XMS_ITS | Data Portability ---
Author Organization [facility], [address] [facility] [place] ([place]) Address [address] [place] [address] Care Team Providers Care Mortgage Collector Name Role Phone MARIBEL REDDY Primary Care Provider [phone] MARLEN MORA Crop Specialist MARIBEL REDDY Referring Provider Assessment Encounter Date Assessment Date Assessment LastModified [...] consuming 2 L of a 4 L [employer] jug at 5 p.m. the day before [...] on this date of service including both fojw-bn-sgwn and ujr-jvkl-cf-face time excluding any separately reportable services. dl [...] on this date of service including both cqgn-gc-dbkh and fbg-ehor-cj-face time excluding any separately reportable services. dll [email or web address] Not available 02/16/2024 11:36:26 Plan of Treatment Reminders Order Date Submit Date Provider Last Modified By Organization Details Last Modified Time Details Appointments None recorded. Lab CBC w/ auto diff 2023 [email or web address] [facility], [address] [place] [address], 70438, 13:44:43 PT/INR 2023 [email or web address] [facility], [address] [place] [address], [id number], 13:44:43 CMP, serum or plasma 2023 [email or web address] [facility], [address] [place] [address], [id number], 13:44:43 afp (alpha-feto protein) tumor marker, serum or plasma 2023 SHAYY [facility], [address] [place] [address], 77215, 4 03:38:48 hemoglobin A1c + average glucose, QN, blood 2023 SHAYY [facility], [address] [place] [address], [id number], 13:54:19 Referral surgery center referral 2023 [email or web address] Not available 10:30:26 Procedures None recorded. Surgeries None recorded. Imaging US, abdomen, limited 2023 [email or web address] [facility], [address] [place] [address], 31665, 14:00:51 Medication Orders None recorded. Patient TargetsNo targets recorded. Patient InstructionsNo instructions recorded. Reason for Referral Surgery Center Referral for Cirrhosis - non-alcoholic egd Referring Physician: Marlen Mora, Gastroenterology, Encounter Date: 02/16/2024 Results Created Date Observation Date Name Description Value Unit Range Abnormal Flag Note LastModifiedBy Organization Detail LastModifiedTime 08/26/19 24 08/26/2023 ldh, serum or plasm a LDH high Not Available [facility] [address] [place] [address], [id number], 08/26/2023 16:29:05 08/26/19 24 08/26/2023 ldh, serum or plasm a LDH 488 U/L 100-21 0 high Not Available [facility] [address] [place] [address], 52628, 08/26/2023 16:29:05 08/26/19 24 08/27/2023 hapto globi n, serum haptoglobin 104 mg/dL 29-370 Not Available [facility] [address] [place] [address], [id number], 08/27/2023 11:39:23 08/26/19 24 08/30/2023 LINDA (anti nucle ar antib odies ) scree n, serum LINDA screen NEGATI VE negati ve Perfo rmed by Bio-R ad enzym e immun oassa y Not Available [facility] [address] [place] [address], [id number], 08/30/2023 12:49:39 08/26/19 24 08/27/2023 mitoc hondr ia Ab, QN, serum mitochondria M2 IgG Ab <20.0 units 0.0-20 .0 Negat monica 0.0 - 20.0 Equiv ocal 20.1 - 24.9 Posit monica >24.9 . Mitoc hondr ial (M2) Antib odies are found in 90-96 % of patie nts with prima ry bilia ry cirrh osis. Not Available [facility] [address] [place] [address], [id number], 08/27/2023 14:39:14 08/26/19 24 08/27/2023 actin benjamin [...] ry bilia ry cirrh osis. Not Available [facility] [address] [place] [address], [id number], 08/27/2023 14:39:12 08/26/19 24 08/27/2023 hepat itis [...] ing to: Immun ity >10 Not Available [facility] [address] [place] [address], 27494, 08/27/2023 10:38:54 08/26/1908/27/2023 hepat itis A virus [...] HAV Antib alexandria w/ Rfx). Not Available [facility] [address] [place] [address], [id number], 08/27/2023 10:38:52 08/26/19 24 08/26/2023 hepat itis panel (A+B+ C), acute , serum hepatitis acute panel Not Available [facility] [address] [place] [address], 12162, 08/26/2023 17:02:39 08/26/19 24 08/26/2023 hepat itis panel (A+B+ C), acute , serum hepatitis A IgM Ab Nonrea ctive nonrea ctive Not Available [facility] [address] [place] [address], [id number], 08/26/2023 17:02:39 08/26/19 24 08/26/2023 hepat itis panel (A+B+ C), acute , serum hepatitis B core IgM Nonrea ctive nonrea ctive Not Available [facility] [address] [place] [address], [id number], 08/26/2023 17:02:39 08/26/19 24 08/26/2023 hepat itis panel (A+B+ C), acute , serum hepatitis B surface Ag Nonrea ctive nonrea ctive Not Available [facility] [address] [place] [address], [id number], 08/26/2023 17:02:39 08/26/19 24 08/26/2023 hepat itis panel (A+B+ C), acute , serum hepatitis C Ab Nonrea ctive nonrea ctive Not Available [facility] [address] [place] [address], 96042, 08/26/2023 17:02:39 08/26/19 24 08/26/2023 iron panel , serum or plasm a iron panel Not Available [facility] [address] [place] [address], 24493, 08/26/2023 16:31:46 08/26/19 24 08/26/2023 iron panel , serum or plasm a iron 17 ug/dL 50-212 low Not Available [facility] [address] [place] [address], 17632, 08/26/2023 16:31:46 08/26/19 24 08/26/2023 iron panel , serum or plasm a % saturation 4 % 20-55 low Not Available [facility] [address] [place] [address], 31425, 08/26/2023 16:31:46 08/26/19 24 08/26/2023 iron panel , serum or plasm a ferritin 6 NG/mL 15-200 low Not Available [facility] [address] [place] [address], 42594, 08/26/2023 16:31:46 08/26/19 24 08/26/2023 iron panel , serum or plasm a TIBC. 409 ug/dL 205 - 512 Not Available [facility] [address] [place] [address], 19194, 08/26/2023 16:31:46 08/26/19 24 08/26/2023 hepat itis panel (A+B+ C), acute , serum hepatitis acute panel Not Available [facility] [address] [place] [address], 06479, 08/26/2023 16:42:49 08/26/19 24 08/26/2023 hepat itis panel (A+B+ C), acute , serum hepatitis A IgM Ab PENDIN G Not Available [facility] [address] [place] [address], 48503, 08/26/2023 16:42:49 08/26/19 24 08/26/2023 hepat itis panel (A+B+ C), acute , serum hepatitis B core IgM PENDIN G Not Available [facility] [address] [place] [address], 90964, 08/26/2023 16:42:49 08/26/19 24 08/26/2023 hepat itis panel (A+B+ C), acute , serum hepatitis B surface Ag Nonrea ctive nonrea ctive Not Available [facility] [address] [place] [address], 85319, 08/26/2023 16:42:49 08/26/19 24 08/26/2023 hepat itis panel (A+B+ C), acute , serum hepatitis C Ab PENDIN G Not Available [facility] [address] [place] [address], 14604, 08/26/2023 16:42:49 08/26/1908/26/2023 iron panel , serum or plasm a iron panel Not Available [facility] [address] [place] [address], 30795, 08/26/2023 16:29:07 08/26/19 24 08/26/2023 iron panel , serum or plasm a iron 17 ug/dL 50-212 low Not Available [facility] [address] [place] [address], 83472, 08/26/2023 16:29:07 08/26/19 24 08/26/2023 iron panel , serum or plasm a % saturation 4 % 20-55 low Not Available [facility] [address] [place] [address], 22271, 08/26/2023 16:29:07 08/26/19 24 08/26/2023 iron panel , serum or plasm a ferritin PENDIN G Not Available [facility] [address] [place] [address], 49619, 08/26/2023 16:29:07 08/26/19 24 08/26/2023 iron panel , serum or plasm a TIBC. 409 ug/dL 205 - 512 Not Available [facility] [address] [place] [address], 27631, 08/26/2023 16:29:07 02/16/20 24 02/16/2024 CMP, serum or plasm a comp. met. panel Not Available [facility] [address] [place] [address], 78782, 02/16/2024 12:53:43 02/16/20 24 02/16/2024 CMP, serum or plasm a sodium 134 mmol/ L 136-14 6 low Not Available [facility] [address] [place] [address], 67475, 02/16/2024 12:53:43 02/16/20 24 02/16/2024 CMP, serum or plasm a potassium 5.1 mmol/ L 3.5-5. 1 Not Available [facility] [address] [place] [address], 41366, 02/16/2024 12:53:43 02/16/20 24 02/16/2024 CMP, serum or plasm a chloride 104 mmol/ L 98-110 Not Available [facility] [address] [place] [address], 58592, 02/16/2024 12:53:43 02/16/20 24 02/16/2024 CMP, serum or plasm a CO2 22 mEq/L 20-32 Not Available [facility] [address] [place] [address], 23034, 02/16/2024 12:53:43 02/16/20 24 02/16/2024 CMP, serum or plasm a anion gap 13 mmol/ L 10-22 Not Available [facility] [address] [place] [address], 65047, 02/16/2024 12:53:43 02/16/2002/16/2024 CMP, serum or plasm a glucose 168 mg/dL 70-100 high Not Available [facility] [address] [place] [address], 32071, 02/16/2024 12:53:43 02/16/2002/16/2024 CMP, serum or plasm a calcium 9.6 mg/dL 8.4-10 .4 Not Available [facility] [address] [place] [address], 67380, 02/16/2024 12:53:43 02/16/2002/16/2024 CMP, serum or plasm a total protein 6.8 g/dL 6.4-8. 3 Not Available [facility] [address] [place] [address], 91206, 02/16/2024 12:53:43 02/16/2002/16/2024 CMP, serum or plasm a albumin 4.7 g/dL 3.5-5. 3 Not Available [facility] [address] [place] [address], 64616, 02/16/2024 12:53:43 02/16/2002/16/2024 CMP, serum or plasm a ALP 141 U/L 44 - 127 high Not Available [facility] [address] [place] [address], 62411, 02/16/2024 12:53:43 02/16/2002/16/2024 CMP, serum or plasm a AST (SGOT) 14 U/L 10-40 Not Available [facility] [address] [place] [address], 40910, 02/16/2024 12:53:43 02/16/20 24 02/16/2024 CMP, serum or plasm a total bilirubin 0.6 mg/dL 0.2-1. 0 Not Available [facility] [address] [place] [address], 39982, 02/16/2024 12:53:43 02/16/20 24 02/16/2024 CMP, serum or plasm a ALT (SGPT) 10 U/L 8-35 Not Available [facility] [address] [place] [address], 34241, 02/16/2024 12:53:43 02/16/20 24 02/16/2024 CMP, serum or plasm a BUN 25 mg/dL 7-21 high Not Available [facility] [address] [place] [address], 91076, 02/16/2024 12:53:43 02/16/20 24 02/16/2024 CMP, serum or plasm a creatinine 1.1 mg/dL 0.7-1. 3 Not Available [facility] [address] [place] [address], 18583, 02/16/2024 12:53:43 02/16/20 24 02/16/2024 CMP, serum or plasm a GFR(non-afri can brazilian) 74 Not Available [facility] [address] [place] [address], 20393, 02/16/2024 12:53:43 02/16/20 24 02/16/2024 CMP, serum or plasm a GFR() 89 (GRAPHIC SPECIALIST MÓNICA KIDNE Y DISEA SE HAS A GFR LESS THAN 60 ML/MD N/1.7 3 MM FOR A PERIO D OF THREE MONTH S OR MORE. ) Not Available [facility] [address] [place] [address], 18667, 02/16/2024 12:53:43 02/16/20 24 02/16/2024 CBC w/ auto diff CBC with differential Not Available [facility] [address] [place] [address], 51947, 02/16/2024 13:27:43 02/16/20 24 02/16/2024 CBC w/ auto diff WBC 6.0 K/uL 4.8- 10.8 Not Available [facility] [address] [place] [address], 62467, 02/16/2024 13:27:43 02/16/20 24 02/16/2024 CBC w/ auto diff RBC 4.83 M/uL 4.70-6 .10 Not Available [facility] [address] [place] [address], 70997, 02/16/2024 13:27:43 02/16/20 24 02/16/2024 CBC w/ auto diff HGB 7.7 g/dL 14.0-1 8.0 low Not Available [facility] [address] [place] [address], 56732, 02/16/2024 13:27:43 02/16/20 24 02/16/2024 CBC w/ auto diff HCT 27.9 % 42.0-5 2.0 low Not Available [facility] [address] [place] [address], 49966, 02/16/2024 13:27:43 02/16/20 24 02/16/2024 CBC w/ auto diff MCV 57.8 fL 80.0-9 4.0 low Not Available [facility] [address] [place] [address], 18420, 02/16/2024 13:27:43 02/16/20 24 02/16/2024 CBC w/ auto diff MCH 15.9 pg 27.0- 31.0 low Not Available [facility] [address] [place] [address], 76346, 02/16/2024 13:27:43 02/16/20 24 02/16/2024 CBC w/ auto diff MCHC 27.6 g/dL 32.0-3 6.0 low Not Available [facility] [address] [place] [address], 26596, 02/16/2024 13:27:43 02/16/20 24 02/16/2024 CBC w/ auto diff RDW-SD 42.3 fL 35.1 - 46.3 Not Available [facility] [address] [place] [address], 30767, 02/16/2024 13:27:43 02/16/20 24 02/16/2024 CBC w/ auto diff plt 401 K/uL 130-40 0 high Not Available [facility] [address] [place] [address], 41086, 02/16/2024 13:27:43 02/16/20 24 02/16/2024 CBC w/ auto diff MPV 9.2 fL 7.5- 11.8 Not Available [facility] [address] [place] [address], 24687, 02/16/2024 13:27:43 02/16/20 24 02/16/2024 CBC w/ auto diff paulino% 62.2 % not estab Not Available [facility] [address] [place] [address], 05087, 02/16/2024 13:27:43 02/16/20 24 02/16/2024 CBC w/ auto diff lym% 25.8 % not estab Not Available [facility] [address] [place] [address], 12803, 02/16/2024 13:27:43 02/16/20 24 02/16/2024 CBC w/ auto diff mono% 7.2 % not estab Not Available [facility] [address] [place] [address], 36878, 02/16/2024 13:27:43 02/16/20 24 02/16/2024 CBC w/ auto diff eos% 3.7 % not estab Not Available [facility] [address] [place] [address], 33206, 02/16/2024 13:27:43 02/16/20 24 02/16/2024 CBC w/ auto diff baso% 0.8 % not estab Not Available [facility] [address] [place] [address], 40451, 02/16/2024 13:27:43 02/16/20 24 02/16/2024 CBC w/ auto diff abs paulino 3.7 K/uL 1.5-7. 5 Not Available [facility] [address] [place] [address], 63150, 02/16/2024 13:27:43 02/16/20 24 02/16/2024 CBC w/ auto diff abs lym 1.5 K/uL 1.2-3. 4 Not Available [facility] [address] [place] [address], 41212, 02/16/2024 13:27:43 02/16/20 24 02/16/2024 CBC w/ auto diff abs mono 0.4 K/uL 0.1-1. 0 Not Available [facility] [address] [place] [address], 99540, 02/16/2024 13:27:43 02/16/20 24 02/16/2024 CBC w/ auto diff abs eos 0.2 K/uL 0.0-0. 7 Not Available [facility] [address] [place] [address], 07232, 02/16/2024 13:27:43 02/16/20 24 02/16/2024 CBC w/ auto diff abs baso 0.1 K/uL 0.0-0. 2 Not Available [facility] [address] [place] [address], 13391, 02/16/2024 13:27:43 02/16/20 24 02/16/2024 CBC w/ [...] lets appea r incre ased Not Available [facility] [address] [place] [address], 35705, 02/16/2024 13:27:43 02/16/20 24 02/16/2024 CBC w/ auto diff NRBC % 1.2 % 0.0-0. 2 high Not Available [facility] [address] [place] [address], 05815, 02/16/2024 13:27:43 02/16/20 24 02/16/2024 PT/IN R protime panel 2 Not Available [facility] [address] [place] [address], 03734, 02/16/2024 13:34:36 02/16/20 24 02/16/2024 PT/IN R prothrombin 39.5 secon ds 9.7-12 .2 high Not Available [facility] [address] [place] [address], 31522, 02/16/2024 13:34:36 02/16/20 24 02/16/2024 PT/IN R INR 3.6 INR INTER PRETA TION 2.0-3 .0 FOR DEEP VEIN THROM BOSIS PULMO NARY EMBOL ISM ACUTE MYOCA RDIAL INFAR CTION ATRIA L FIBRI LLATI ON 3.0-4 .5 FOR MECHA NICAL HEART VALVE S Not Available [facility] [address] [place] [address], 73906, 02/16/2024 13:34:36 02/16/20 24 02/16/2024 hemog lobin A1c + avera ge gluco se, QN, blood hemoglobin A1C Not Available [facility] [address] [place] [address], 69982, 02/16/2024 13:54:19 02/16/20 24 02/16/2024 hemog lobin A1c + avera ge gluco se, QN, blood HGB A1C 9.3 %_A1C 4.3 - 5.6 high Not Available [facility] [address] [place] [address], 09475, 02/16/2024 13:54:19 02/16/20 24 02/16/2024 hemog lobin A1c + avera ge gluco se, QN, blood estimated average glucose 220 mg/dL Not Available [facility] [address] [place] [address], 78969, 02/16/2024 13:54:19 02/16/20 24 02/17/2024 afp (alph [...] t be inter prete d as absol egegik evide nce of the prese nce or absen ce of andressa stewart se. . This test is not inter preta ble in pregn ant femal es. Not Available [facility] [address], [address], 02/17/2024 03:38:48 03/24/20 24 03/24/2024 SURGI DIOGENES [...] tinal metap lasia , consi stent with Hannibal tt's esoph belkis - No dyspl marleni or malig brian ident ified EL ECTRO NICAL LY VERIF IED BY WILLIAM LIM MD 03/28 16:33 CL INICA L HISTO RY Varic eal scree latonya, Hannibal tt GR OSS DESCR IPTIO N The [...] 2023 END OF REPOR T Not Available [facility] [address] [place] [address] [place], [address], 03/28/2024 17:33:59 09/21/19 24 US, abdom en, limit ed No observ ation record ed. [email or web address] Not Available 03/12 09:52:34 02/23/20 24 02/23/2024 US, abdom en, limit ed [facility] [address] [place] [address] Teleph one Name: Tobi Griffin [id number] Exam Date: 2023 Age: 53 Physic donis: [...] 9:22 AM cc: Page PAGE 1 of [facility] 1 SHAYY [facility] [address] [place] [address], 30144, 02/23/2024 12:17:34 Result Notes None recorded. Problems Name Problem SNOMED Code Status Onset Date Resolution Date Notes Provider Name and Address Organization Details Recorded Time Chronic bronchitis 57098671 Active 2023 Mary Beth Phelps [facility] 4 09:18:29 Coronary arterioscler osis 85771871 Active 2023 Mary Beth Phelps [facility] 4 09:19:30 Willis's esophagus 650996458 Active 2023 Lawanda Alvarez [facility] 4 11:33:07 Cirrhosis - non-alcoholi c 035590879 Active 2023 Mary Beth Phelps [facility] 4 15:19:55 Multi vessel coronary artery disease 439739923 Active 2023 Mary Beth Phelps [facility] 4 15:21:01 Congestive heart failure 11174877 Active 2023 Mary Beth Phelps [facility] 4 15:21:13 Chronic obstructive pulmonary disease 09047005 [facility] 15:21:51 Iron deficiency anemia 13035659 Active 2023 [facility] 15:22:13 Severe chronic obstructive pulmonary disease 230093357 Active 2023 [facility] 4 21:26:43 Uncontrolled type 2 diabetes mellitus 138223386 Active 2023 [facility] 21:27:29 Problem Notes None recorded. Procedures Surgical History Date Name Laterality Status Provider Name and Address Organization Details Recorded Time 10/11/19 24 SC Pill Cam completed Yas Bah [facility] 10/11/2023 10:11:33 Removal of gallbladder completed Not Available Health Note 02/09/2024 10:30:46 Imaging Results Imaging Date Name Status LastModified by Organiz ation Details LastModified Time 02/23/2024 US, abdomen, limited completed SHAYY [facility] [address] [place] [address], 06690, 02/23/2024 12:17:34 09/21/2023 US, abdomen, limited completed Information not available 03/29/2024 09:52:34 Procedure Notes [...] Updated DateTime 4 175.26 cm 31.5 kg/m2 53255.1 7 g 70 /min 97 % 97 % 128 mm[Hg] 72 mm[Hg] [facility] 4 11:22:30 Date Recorded Body height Body mass index (BMI) Body weight Heart rate Systolic blood pressure Diastolic blood pressure Provider Name and Address Organization Details Last Updated DateTime 4 175.26 cm 32.2 kg/m2 15245.1 4 g 121 /min 132 mm[Hg] 88 mm[Hg] [facility] 4 09:11:59 Social History Question Answer Notes LastModified by Bitglass ion Details LastModified Time Tobacco Smoking Status [...] available 02/09/2024 When Did You Quit Smoking? [id number] [email or web address] Information not available 02/09/2024 What Was The Date Of Your Most Recent Tobacco Screening? 02/16/2024 [email or web address] Information not available 02/09/2024 What Is Your Relationship Status? [email or web address] Information not available 02/09/2024 Do You Use Any Illicit Or Recreational Drugs? No [email or web address] Information not available 02/09/2024 Sex: Unknown Functional Status Question Answer Note LastModified by Promethean[employer] ion Details LastModified Time What is your [...] virus, quadrivalent, preservative 7 completed Lawanda Henrikson [facility] 09/22/2023 11:22:49 Influenza, recombinant, quadrivalent, PF 0 completed Lawanda Henrikson [facility] 09/22/2023 11:22:49 Influenza, split virus, quadrivalent, PF 9 completed Lawanda Henrikson [facility] 09/22/2023 11:22:49 Past Encounters Encounter ID Performer Location Encounter Start Date Encounter Closed Date Diagnosis/Indication Diagnosis SNOMED-CT Code Diagnosis ICD10 Code Diagnosis Note [id number] Marlen Mora MD [address] [facility] [place] [facility] [address] [phone] 09/22/2023 10:58:11 09/22/2023 13:24:40 Cirrhosis - non-alcoholic 835749378 K74.60 History of nicotine dependence 2598836256 34012428 Z87.891 Severe chr onic obstructive pulmonary disease 724678933 J44.9 Uncontroll ed type 2 diabetes mellitus 462060728 E11.65 [id number] Marlen Mora MD [address] [place] [phone] 10/11/2023 09:12:10 10/11/2023 10:12:25 Iron deficiency anemia 33933691 D50.9 [id number] Marlen Mora MD [address] [facility] [place] [address] [place] [phone] 02/16/2024 09:01:31 02/16/2024 10:18:59 Cirrhosis - non-alcoholic 694150553 K74.60 Chronic bronchitis 79672 004 J42 Coronary arteriosclerosis 22001653 I25.119 Multi vess el coronary artery disease 675856746 I25.10 Finding of tobacco use and exposure 707626117 Z87.891 Health Concerns Section Related Observation LastModified by Organization Detai ls LastModified Time None Recorded Concern Status LastModified by Organization Details LastModified Time None Recorded Advance Directives Directive Y: Payers Encounter Date Sequence Insurance Name Policy Number Policy Means Covered Member ID Means Member ID Guarantor Name 09/22/2023 1 [employer] (MEDICARE REPLACEMENT PPO) [id number] Tobi Garcia Griffin [id number] Tobi Garcia Griffin 10/11/2023 1 [employer] (MEDICARE REPLACEMENT PPO) [id number] Tobi C Griffin [id number] Tobi C Griffin 02/16/2024 1 [employer] (MEDICARE REPLACEMENT PPO) [id number] Tobi Garcia Griffin [id number] Tobi Garcia Griffin Notes Date Note Type [...] colonoscopy at the hospital.dl Marlen Mora MD [facility] [place] [address], [phone], [facility] 09/23/2023 08:45:22 02/16/2024 text/html Tobi is a [...] up cirrhosis Marlen Mora MD [address] [place] [address], [phone], [facility] 02/17/2024 15:59:11
[2024-07-17 08:29] LABS: Basophils Absolute Auto 0.05 K/mm3 (0.00-0.10); Basophils Percent Auto 0.9 % (0.0-1.0); Eosinophils Absolute Auto 0.22 K/mm3 (0.02-0.50); Eosinophils Percent Auto 3.8 % (1.0-6.0); Hematocrit 30.2 % (40.0-54.0); Hemoglobin 8.6 g/dL (14.0-18.0); Immature Granulocyte Absolute 0.03 K/mm3 (0.00-0.00); Immature Granulocyte Percent A 0.5 % (0.0-0.0); Lymphocytes Absolute Auto 1.09 K/mm3 (1.10-4.50); Mean Corpuscular HGB Conc 28.5 g/dL (32-36); Mean Corpuscular Hemoglobin 20.2 pg (27.0-31.0); Mean Corpuscular Volume 70.9 fL (78.0-102.0); Mean Platelet Volume 8.5 fl (8.7-11.0); Monocytes Absolute Auto 0.58 K/mm3 (0.10-0.90); Monocytes Percent Auto 10.1 % (2.0-11.0); Neutrophils Absolute Auto 3.77 K/mm3 (1.70-7.20); Neutrophils Percent Auto 65.7 % (50.0-70.0); Platelet Count Result 371 K/mm3 (150-420); Red Cell Distribution Width 26.5 % (11.6-14.4); White Blood Count 5.7 K/mm3 (4.8-10.8)
--- OUTSIDE RECORDS SUMMARY | 2024-07-17 08:29 | XMS_ITS | Clinical Summary ---
Author Organization [facility] [place] [address] [facility] [address] Address [address] [place] [address] Care Team Providers Care Warehouse Engineer Name Role Phone Randolph Moore MD Primary Care Provider [phone] Chris Akins MD PhD Unavailable [phone] Bandar Harkins MD, Barrett Moser Unavailable [phone] Allergies No known active allergies Medications tiotropium [...] 06/12/2019 Assessment & Plan (06/12/2019 1:10 PM QUALITY ASSURANCE QA LAB ANALYST): Ongoing since 06/05 Daily Labs throughout- Last night = 131 (previously was = 130) Continues on free water fluid restriction. High risk medication use 06/08/2019 Assessment & Plan (06/12/2019 1:00 PM QUALITY ASSURANCE QA LAB ANALYST): Ongoing coumadin with heparin drip for RENE mitral valve & a-fib Goal INR approx. 3 Last night= coumadin 8 mg Ongoing daily INRs, while inpatient Assessment & Plan (06/10/2019 2:09 PM QUALITY ASSURANCE QA LAB ANALYST): Intense insulin regimen in the setting of variable oral intake, MARIA DEL ROSARIO and insulin naivete places patient at increased risk of hypoglycemia/hyperglycemia which may have serious metabolic, CV and neuro consequences. We will continue to intensely monitor blood glucose and titrate insulin as needed to optimize glycemic control to avoid hypoglycemic/hyperglycemic events. Assessment & Plan (06/08/2019 1:08 PM QUALITY ASSURANCE QA LAB ANALYST): Intense insulin regimen in the setting of [...] 06/07/2019 Assessment & Plan (06/12/2019 1:01 PM QUALITY ASSURANCE QA LAB ANALYST): Post-op from [place] [facility] with tricuspid valve repair on 05/31/2019 See Mitral valve replacement problem, above Assessment & Plan (06/07/2019 10:01 AM QUALITY ASSURANCE QA LAB ANALYST): Post-op from [place] [facility] with tricuspid valve repair on 05/31/2019 See Mitral valve replacement problem, above DM (diabetes mellitus), type 2 06/06/2019 Assessment & Plan (06/12/2019 12:56 PM QUALITY ASSURANCE QA LAB ANALYST): Continue SSI, Lantus Endocrine consult with drawing checker & staff development educator following Blood sugars well controlled on current regimen (121-197 over past 24 hrs) A1c 9.6 on admission Will need to check blood sugars at least TID upon discharge Potential discharge on gliptins at discharge. . Assessment & Plan (06/13/2019 5:16 PM QUALITY ASSURANCE QA LAB ANALYST): 49 y.o. male with type 2 diabetes [...] up with PCP, Blue Moore MD in [place], [place]) Instructed Mr. Griffin to bring glucometer to follow up visit for PCP to review glycemia and adjust diabetes regimen as needed; verbalized understanding. Recommendations for diabetes management were discussed with the primary team. For questions regarding this patient today, please call Radha Jade NP at [phone]. If after hours, please contact the Diabetes Fellow at [phone]. Assessment & Plan (06/10/2019 2:09 PM QUALITY ASSURANCE QA LAB ANALYST): Continue SSI, Lantus Endocrine consult with drawing checker & staff development educator Last 24 hrs glucose = 135-191 A1c 9.6 on admission Will need to check blood sugars at least TID upon disharge Acute pain 05/31/2019 Assessment & Plan (06/12/2019 12:58 PM QUALITY ASSURANCE QA LAB ANALYST): PRN tylenol, at present Ongoing stool softeners for anesthesia side effects Increasing activity as tolerated. Assessment & Plan (06/07/2019 10:02 AM QUALITY ASSURANCE QA LAB ANALYST): PRN tylenol, at present Ongoing stool softeners for anesthesia side effects Increasing activity, as tolerated. Assessment & Plan (06/05/2019 10:14 AM QUALITY ASSURANCE QA LAB ANALYST): Denies pain at this time -PRN tylenol -avoiding narcotics with ileus Assessment & Plan (06/04/2019 5:41 PM QUALITY ASSURANCE QA LAB ANALYST): Denies pain at this time -PRN tylenol -avoiding narcotics with constipation Assessment & Plan (06/03/2019 4:10 PM QUALITY ASSURANCE QA LAB ANALYST): Denies pain at this time -PRN tylenol -consider low dose oxy if needed as delirium is improving Assessment & Plan (06/02/2019 1:05 PM QUALITY ASSURANCE QA LAB ANALYST): 2/2 cardiac surgery via median sternotomy. - Limit narcotics with delirium - Scheduled APAP - PRN oxycodone for breakthrough pain Assessment & Plan (06/01/2019 12:44 PM QUALITY ASSURANCE QA LAB ANALYST): 2/2 cardiac surgery via median sternotomy. Currently sedated w/ propofol. - Fentanyl IV PRN prior to extubation - Plan to start scheduled Tylenol and PRN Oxy/Dilaudid once extubated Assessment & Plan (05/31/2019 4:51 PM QUALITY ASSURANCE QA LAB ANALYST): 2/2 cardiac surgery via median sternotomy. Currently sedated w/ - Fentanyl IV PRN prior to extubation - Plan to start scheduled Tylenol and PRN Oxy/Dilaudid once extubated - Ensure pain control is adequate to facilitate participation in care and deep breathing Acute blood loss anemia 05/31/2019 Assessment & Plan (06/12/2019 1:01 PM QUALITY ASSURANCE QA LAB ANALYST): Expected postop due to ABLA Daily CBC, while inpatient Receiving MVI with iron Drifted slightly, from yesterday Assessment & Plan (06/07/2019 10:08 AM QUALITY ASSURANCE QA LAB ANALYST): Expected postop due to ABLA Daily CBC, while inpatient Added MVI with iron Assessment & Plan (06/05/2019 10:18 AM QUALITY ASSURANCE QA LAB ANALYST): Hgb stable at 8.0 (8.1). No active signs of bleeding. Hemodynamically stable off vasopressors and tolerating epi wean - No current indication for transfusion, consider if patient becomes hemodynamically unstable with increased pressor requirements or Hgb < 8 and symptomatic - CBC daily - continue heparin gtt - repeat cbc now and coags Assessment & Plan (06/02/2019 1:07 PM QUALITY ASSURANCE QA LAB ANALYST): Expected following cardiac surgery. Hgb 8.8. Hemodynamically stable off vasopressors. - No current indication for transfusion, consider if patient becomes hemodynamically unstable with increased pressor requirements or Hgb < 8 and symptomatic - CBC daily Assessment & Plan (06/01/2019 12:44 PM QUALITY ASSURANCE QA LAB ANALYST): Expected following cardiac surgery. Hgb stable. Hemodynamically stable off vasopressors. - No current indication for transfusion, consider if patient becomes hemodynamically unstable with increased pressor requirements or Hgb < 8 and symptomatic - CBC daily Assessment & Plan (05/31/2019 8:06 PM QUALITY ASSURANCE QA LAB ANALYST): Baseline hemoglobin 11.1 upon admission. Intra-op course [...] surgery Assessment & Plan (06/12/2019 12:52 PM QUALITY ASSURANCE QA LAB ANALYST): Post-op from [place] [facility] with tricuspid valve repair on 05/31/2019 Continue post op care (telemetry, VS, I &O, medication & weights) Ongoing heparin drip until INR closer to 3 Continue Coumadin, INR 1.6 last night Plan to give Coumadin 8 mg tonight Receiving PT and aggressive pulmonary toilet New onset DM (see diabetes problem) PT/OT Discharge planning Assessment & Plan (06/08/2019 1:09 PM QUALITY ASSURANCE QA LAB ANALYST): Good glycemic control required to promote healing Assessment & Plan (06/10/2019 2:11 PM QUALITY ASSURANCE QA LAB ANALYST): Post-op from [place] [facility] with tricuspid valve repair on 05/31/2019 Continue post op care (telemetry, VS, I &O, medication & weights) Ongoing heparin drip until INR 2.5 Continue Coumadin, INR 1.4 Plan to give Coumadin 5mg tonight Receiving PT and aggressive pulmonary toilet New onset DM (see diabetes problem) PT/OT Discharge planning Assessment & Plan (06/05/2019 10:10 AM QUALITY ASSURANCE QA LAB ANALYST): S/P Mechanical MVR. Post-op care to include: - Continue heparin infusion per nomogram for mechanical valve & fib -no couadin with EPW present - ASA daily - increase statin to 80mg daily - Colace, senna, miralax for bowel regimen, lactulose - PPI daily (home med) - SCD's for DVT ppx - PT/OT eval and treat Assessment & Plan (06/04/2019 5:33 PM QUALITY ASSURANCE QA LAB ANALYST): S/P Mechanical MVR. Post-op care to include: - Continue heparin infusion per nomogram for mechanical valve -no couadin with EPW present - ASA daily - resume statin (shock liver improving) - Colace, senna, miralax for bowel regimen - PPI daily (home med) - SCD's for DVT ppx - PT/OT eval and treat Assessment & Plan (06/03/2019 4:36 PM QUALITY ASSURANCE QA LAB ANALYST): S/P Mechanical MVR. Post-op care to include: - Continue heparin infusion per nomogram for mechanical valve -no couadin with EPW present - ASA daily - resume statin (shock liver improving) - Colace, senna, miralax for bowel regimen - PPI daily (home med) - SCD's for DVT ppx - PT/OT eval and treat Assessment & Plan (06/02/2019 1:08 PM QUALITY ASSURANCE QA LAB ANALYST): S/P Mechanical MVR. Post-op care to include: - Continue heparin infusion per nomogram for mechanical valve - F/U with CTS re timing for starting coumadin - ASA daily - Holding statin with shock liver - Colace, senna, miralax for bowel regimen - PPI daily (home med) - SCD's for DVT ppx - PT/OT eval and treat Assessment & Plan (06/01/2019 12:54 PM QUALITY ASSURANCE QA LAB ANALYST): S/P Mechanical MVR. Post-op care to include: - Start heparin infusion per nomogram for mechanical valve - ASA daily - Holding statin with shock liver - Colace, senna, miralax for bowel regimen - PPI daily (home med) - SCD's for DVT ppx - Periop Vanc and Ancef x 24 hours - PT/OT eval and treat Assessment & Plan (05/31/2019 5:34 PM QUALITY ASSURANCE QA LAB ANALYST): Mitral Valve Stenosis s/p balloon valvuloplasty (Dr. [...] here Assessment & Plan (06/12/2019 1:00 PM QUALITY ASSURANCE QA LAB ANALYST): Current creatinine = 1.22 Admission creatinine = 1.9 Daily BMPs with I &Os while inpatient Ongoing daily weights Almost 4.5 kg below pre-op (admission) weight Changed to daily lasix, 40 mg oral today Assessment & Plan (06/13/2019 5:13 PM QUALITY ASSURANCE QA LAB ANALYST): CrCl: 89.5 ml/min, serum Cr 1.04 stable Chronic kidney disease (CKD) and acute kidney injury (MARIA DEL ROSARIO) are independent risk factors for hypoglycemia, and augments the risk of low blood glucose in patients with diabetes Assessment & Plan (06/10/2019 2:08 PM QUALITY ASSURANCE QA LAB ANALYST): Current creatinine = 1.13 Admission creatinine = 1.9 Daily BMPs with I &Os while inpatient Ongoing daily weights Continue Lasix 40 mg IV BID and spironolactone 12.5mg daily Assessment & Plan (06/05/2019 10:12 AM QUALITY ASSURANCE QA LAB ANALYST): Creat continues to down trending. - lasix 40mg PO BID with 20meq KCl -FBG negative 1L - restart home aldactone and 1/2 dose 12.5mg daily Assessment & Plan (06/04/2019 5:39 PM QUALITY ASSURANCE QA LAB ANALYST): Creat down trending. -d/c sheridan -decrease lasix 40mg PO BID with 20meq KCl -FBG negative 1L Assessment & Plan (06/03/2019 4:32 PM QUALITY ASSURANCE QA LAB ANALYST): Received an additional 80mg lasix overnight to promote diuresis. FB even. -lasix 80mg IV BID with 20meq KCl -FBG even to negative 500 -maintain sheridan to accurately monitor I&O Assessment & Plan (06/02/2019 1:04 PM QUALITY ASSURANCE QA LAB ANALYST): Baseline Creatinine around 0.6. MARIA DEL ROSARIO upon admission likely 2/2 cardiogenic shock. Now down trending post-op. Responding to lasix. - Lasix 60 IV x2 - Metolazone 10 BID - FBG -1 to 2L - Renally dose medications as appropriate - Avoid nephrotoxins Assessment & Plan (06/02/2019 5:36 AM QUALITY ASSURANCE QA LAB ANALYST): Baseline Creatinine around 0.6. MARIA DEL ROSARIO upon admission likely 2/2 cardiogenic shock. Now down trending post-op. Responding to lasix. - diuresis for FBG -1 to 2L - Renally dose medications as appropriate - Avoid nephrotoxins Assessment & Plan (06/01/2019 12:46 PM QUALITY ASSURANCE QA LAB ANALYST): Baseline Creatinine around 0.6. MARIA DEL ROSARIO upon admission likely 2/2 cardiogenic shock. Current Cr 1.99. Good urine output, FB +1.2L over the last 24 hours. - Lasix 40 x1 - FBG -1 to 2L - BMP at 1400 - Renally dose all medications - Avoid nephrotoxins Assessment & Plan (06/01/2019 5:22 AM QUALITY ASSURANCE QA LAB ANALYST): Baseline Creatinine around 0.6. MARIA DEL ROSARIO upon admission likely 2/2 cardiogenic shock. Current Cr 1.96. Will likely improve with time. Good urine output. - Renally dose all medications - avoid nephrotoxins - f/u am bmp Assessment & Plan (05/31/2019 8:09 PM QUALITY ASSURANCE QA LAB ANALYST): Baseline Creatinine around 0.6. Mild MARIA DEL ROSARIO upon admission likely 2/2 cardiogenic shock and diuresis. - Strict I and O - Renally dose all medications - Maintain adequate renal perfusion pressure - f/u BMP in AM Hepatopathy 02/22/2019 Assessment & Plan (05/30/2019 2:40 AM QUALITY ASSURANCE QA LAB ANALYST): -RUQ US 02/2019 showed coarse echotexture of [...] levels Assessment & Plan (02/24/2019 3:24 PM QUALITY ASSURANCE QA LAB ANALYST): -RUQ US to evaluate for cirrhosis showed [...] up. Assessment & Plan (02/23/2019 4:55 PM QUALITY ASSURANCE QA LAB ANALYST): Patient with newly diagnosed liver disease with ascites. Ultrasound with increased echotexture concerning for cirrhosis - unlikely to be congestive hepatopathy given no evidence of poor RV function - consider GI consult given possible need for surgery Assessment & Plan (02/23/2019 1:01 PM QUALITY ASSURANCE QA LAB ANALYST): -RUQ US to evaluate for cirrhosis Assessment & Plan (02/22/2019 9:13 PM QUALITY ASSURANCE QA LAB ANALYST): - Complicated by ascites, elevated LFTs and coagulopathy - S/p outpatient LVP x1 - Chest imaging with ascites, abdominal distention on exam - No concern for acute decompensation liver failure - Outpatient liver follow up A-fib 02/22/2019 Overview (06/03/2019): Afib on home dilt. Assessment & Plan (06/12/2019 1:00 PM QUALITY ASSURANCE QA LAB ANALYST): Chronic afib, rate controlled Ongoing metoprolol & amiodarone Continue coumadin tonight. Heparin drip pending therapeutic INR Assessment & Plan (06/10/2019 2:07 PM QUALITY ASSURANCE QA LAB ANALYST): Chronic afib, rate controlled Has had intermittent pause continue - telemetry review no alarms overnight Ongoing metoprolol & amiodarone continue coumadin tonight. Heparin drip pending therapeutic INR Assessment & Plan (06/05/2019 10:09 AM QUALITY ASSURANCE QA LAB ANALYST): Aflutter rate controlled 70-90 on amiodarone PO [...] removed) Assessment & Plan (06/04/2019 6:54 PM QUALITY ASSURANCE QA LAB ANALYST): Aflutter rate controlled 70-80 on amiodarone PO TID - ensure Mg > 2 and K > 4 - FBG negative 1L - heparin gtt for systemic anticoagulation - if unstable: DCCV -cap wires (no coumadin until EPW removed) Assessment & Plan (06/03/2019 4:21 PM QUALITY ASSURANCE QA LAB ANALYST): Aflutter rate controlled on amio gtt at 0.5mg/min -transition amio to 400 TID PO -ensure Mg > 2 and K > 4 -FBG even to negative 500 with scheduled BID lasix -heparin gtt for systemic anticoagulation -if unstable: DCCV Assessment & Plan (06/02/2019 1:06 PM QUALITY ASSURANCE QA LAB ANALYST): History of afib; on home dilt. Now in a flutter with rate in the 60s. - VVI b/u - Decrease amio infusion to 0.5mg/min - Continue heparin infusion Assessment & Plan (06/02/2019 6:37 AM QUALITY ASSURANCE QA LAB ANALYST): History of afib; on home dilt. Afib with rates to 120's. Treated with amio bolus x 2 followed by gtt. Now rate controlled < 100. - continue amio gtt at 1 mg/min; if HR remains < 100, decrease to 0.5 - Anticoagulation with heparin infusion Assessment & Plan (06/01/2019 12:49 PM QUALITY ASSURANCE QA LAB ANALYST): Intermittent A fib underlying pacer. - Amio bolus x1 now - Amio infusion @ 1mg/min - Anticoagulation with heparin infusion Assessment & Plan (05/31/2019 7:44 AM QUALITY ASSURANCE QA LAB ANALYST): -hx of Afib, on Dilt CD 240mg at home -holding Dilt in the setting of potential CHF exacerbation -will bolus with Amiodarone as patient likely is not tolerating tachycardia i/s/o mitral stenosis, now on amio gtt -ct hep gtt -holding home warfarin Assessment & Plan (02/24/2019 3:25 PM QUALITY ASSURANCE QA LAB ANALYST): -Patient reports history of occasionally irregular heart rhythm but never told he had atrial fibrillation -current rate control increased dose of diltiazem. Will change to long-acting diltiazem 240 mg daily -cont warfarin (goal INR 2.5-3.5 given mechanical mitral valve) Assessment & Plan (02/23/2019 4:59 PM QUALITY ASSURANCE QA LAB ANALYST): Patient with a fib. Per patient on diltiazem at home for irregular heart rate but never been told he has afib. No afib seen in our system previously - will look for LA appendage clot on echo - continue AC and rate control for now Assessment & Plan (02/23/2019 1:00 PM QUALITY ASSURANCE QA LAB ANALYST): -Patient reports history of occasionally irregular heart rhythm but never told he had atrial fibrillation -currently on his home dose of dilt, but intermittent RVR up to 140s -plan to titrate up dilt for improved rate control -cont warfarin (goal INR 2.5-3.5 given mechanical mitral valve) Assessment & Plan (02/22/2019 9:16 PM QUALITY ASSURANCE QA LAB ANALYST): - History of palpitations but now found to be in AF with well controlled rate - Continue home diltiazem for rate control and warfarin for AC - Repeat TTE to assess LV function Syncope 02/22/2019 Assessment & Plan (02/24/2019 3:26 PM QUALITY ASSURANCE QA LAB ANALYST): - In setting of coughing fit followed by feeling of warmth, lightheadedness and no post ictal state - Serum electrolytes wnl, CT PE protocol negative for PE - Findings consistent with vasovagal syncope but could also be related to afib with RVR and valvular issues Assessment & Plan (02/23/2019 5:02 PM QUALITY ASSURANCE QA LAB ANALYST): Likely related to cough, kelly. Given COPD which increases risk of cough syncope. Less likely to be related to arrhythmia, but would recommend continuing telemetry monitoring Assessment & Plan (02/23/2019 12:56 PM QUALITY ASSURANCE QA LAB ANALYST): - In setting of coughing fit followed by feeling of warmth, lightheadedness and no post ictal state - Serum electrolytes wnl, CT PE protocol negative for PE - Findings consistent with vasovagal syncope but could also be related to afib with RVR - Monitor on tele, repeat TTE Assessment & Plan (02/22/2019 9:21 PM QUALITY ASSURANCE QA LAB ANALYST): - In setting of coughing fit followed [...] 02/22/2019 Assessment & Plan (02/22/2019 9:45 PM QUALITY ASSURANCE QA LAB ANALYST): - AST 175. ALT 239, [id number] Tbili 3.3 and Dbili 1.3 - Secondary to BECK - Will continue to monitor Ascites 02/22/2019 Overview (02/22/2019): - Secondary BECK s/p LVP x1 - Chest imaging and physical exam with ascites - No abdominal pain or findings concerning for SBP - Outpatient LVP and hepatology follow up Assessment & Plan (02/24/2019 3:31 PM QUALITY ASSURANCE QA LAB ANALYST): -Patient reports this is new since November of this year -likely both liver and cardiac issues contributing. Assessment & Plan (02/23/2019 12:59 PM QUALITY ASSURANCE QA LAB ANALYST): -Patient reports this is new since November [...] Disease Assessment & Plan (05/30/2019 2:41 AM QUALITY ASSURANCE QA LAB ANALYST): -patient is on albuterol and Spiriva at home -albuterol PRN -pulmonary function tests which showed an FEV1 that was 49% of predicted on 04/18/2019 Assessment & Plan (02/23/2019 1:01 PM QUALITY ASSURANCE QA LAB ANALYST): -cont home inhalers, prn albuterol Assessment & Plan (02/22/2019 9:06 PM QUALITY ASSURANCE QA LAB ANALYST): - No concern for an acute exacerbation - On Breo Ellipta at Home, non formulary - Start Albuterol prn, spiriva and advair Resolved Problems Problem Noted Date Diagnosed Date Resolved Date Leukocytosis 06/08/2019 06/12/2019 Assessment & Plan (06/11/2019 1:22 PM QUALITY ASSURANCE QA LAB ANALYST): Remains afebrile WBC trending down Will continue to monitor Assessment & Plan (06/10/2019 2:10 PM QUALITY ASSURANCE QA LAB ANALYST): WBC 13 from 14.2 from 13.4 No fevers Incisions clean and dry CL out Encouraged to ambulate and perform IS No overt signs of infection UA 06/08 negative CXR 06/08 showed + atelectasis and small right pleural effusion Thrombocytopenia 06/05/2019 06/12/2019 Assessment & Plan (06/11/2019 1:22 PM QUALITY ASSURANCE QA LAB ANALYST): Plt WNL Assessment & Plan (06/10/2019 2:11 PM QUALITY ASSURANCE QA LAB ANALYST): Platelets 89 from 92K - stable Wires out 06/07 Remains on heparin gtt for mechanical valve prophylactis Continue Coumadin Assessment & Plan (06/05/2019 10:19 AM QUALITY ASSURANCE QA LAB ANALYST): PLT down to 66 (90s) this morning, [...] 06/07/2019 Assessment & Plan (06/05/2019 10:17 AM QUALITY ASSURANCE QA LAB ANALYST): Small bowel movement this morning. Abdomen distended, [...] OOB/ambulate Assessment & Plan (06/04/2019 5:51 PM QUALITY ASSURANCE QA LAB ANALYST): No BM X8d. Abdomen distended, taught, BS hypoactive. Denies nausea. KUB: dilated ascending and transverse colon measuring 9.5cm. PO bowel regimen increased yesterday and suppository with minimal response. -suppository BID -cotton seed enema -lactulose Q6hr until stool -OOB/ambulate Assessment & Plan (06/03/2019 4:34 PM QUALITY ASSURANCE QA LAB ANALYST): No BM X7d. Abdomen distended, taught, BS hypoactive. Denies nausea. -increase docusate to 200 BID -increase miralax to BID -add suppository -consider lactulose if no BM by this evening -OOB/ambulate Delirium 06/02/2019 06/07/2019 Assessment & Plan (06/05/2019 10:15 AM QUALITY ASSURANCE QA LAB ANALYST): Resolved. CAM negative. Received seroquel 25mg at bedtime last night. - discontinue seroquel -OOB to chair -ambulate -lights off 21:00-06:00 - prn ramelteon at bedtime for sleep Assessment & Plan (06/04/2019 5:45 PM QUALITY ASSURANCE QA LAB ANALYST): CAM negative this AM. Slept with seroquel last night continue seroquel -OOB to chair -ambulate -lights off 21:00-06:00 Assessment & Plan (06/03/2019 4:24 PM QUALITY ASSURANCE QA LAB ANALYST): CAM negative this AM. Did not sleep at all last night -25mg seroquel QHS to promote sleep -OOB to chair -ambulate -lights off 21:00-06:00 Assessment & Plan (06/02/2019 1:02 PM QUALITY ASSURANCE QA LAB ANALYST): CAM positive after extubation last night. Sedated with precedex infusion overnight for sleep. This AM, more alert and appropriate. - DC precedex - Frequent reorientation - Lights on during the day - Encourage mobility- OOBTC - Sleep hygiene Assessment & Plan (06/02/2019 5:52 AM QUALITY ASSURANCE QA LAB ANALYST): CAM positive after extubation. Unable to sleep tonight and very restless. -start low dose precedex -maintain mittens in place -delirium precautions: lights on during day, off at night, OOBTC during day, encourage family interaction during day -if does not improve will need SBFT placement Hyperglycemia 06/01/2019 06/06/2019 Assessment & Plan (06/05/2019 10:14 AM QUALITY ASSURANCE QA LAB ANALYST): Well controlled on current NPH/SSI regimen. BGL ranging between 70-150 in the past 24 hours. HgA1C 9.6 on admission with no home antihyperglycemics. - carb controlled diet - NPH BID (09: 00 /17:00) for basal + HDSSI Assessment & Plan (06/04/2019 5:44 PM QUALITY ASSURANCE QA LAB ANALYST): HgA1C 9.6 on admission with no home antihyperglycemics. Transitioned from insulin gtt to HDSSI yesterday and remains hyperglycemic. Contributing factors: epi gtt. Decreased appetite 2/2 constipation - carb controlled diet -add NPH BID (09: 00 /17:00) for basal + HDSSI Assessment & Plan (06/03/2019 4:26 PM QUALITY ASSURANCE QA LAB ANALYST): HgA1C 9.6 on admission with no home antihyperglycemics. Currently on insulin gtt -ADAT to carb controlled diet -transition insulin gtt to HDSSI Assessment & Plan (06/02/2019 1:07 PM QUALITY ASSURANCE QA LAB ANALYST): History of DM-II but no home meds. Likely related to stress response. Remains on insulin infusion. - Continue insulin gtt per icu protocol - ADAT Assessment & Plan (06/02/2019 5:34 AM QUALITY ASSURANCE QA LAB ANALYST): History of DM-II but no home meds. Likely related to stress response. Remains on insulin infusion - Continue insulin gtt per icu protocol Assessment & Plan (06/01/2019 12:49 PM QUALITY ASSURANCE QA LAB ANALYST): History of DM-II but no home meds. Likely related to stress response. Remains on insulin infusion - Continue insulin gtt per icu protocol Assessment & Plan (06/01/2019 5:31 AM QUALITY ASSURANCE QA LAB ANALYST): History of DM-II but no home meds. Arrived on insulin gtt 6 units/hr. Likely related to stress response. -continue insulin gtt per icu protocol Shock liver 06/01/2019 06/07/2019 Assessment & Plan (06/04/2019 5:26 PM QUALITY ASSURANCE QA LAB ANALYST): Continues to improve to near normal. Statin resumed yesterday - CMP/coags daily with AM labs for 1 more days Assessment & Plan (06/03/2019 10:34 AM QUALITY ASSURANCE QA LAB ANALYST): Improving. -resume home statin today - CMP/coags daily with AM labs for 2 more days Assessment & Plan (06/02/2019 1:07 PM QUALITY ASSURANCE QA LAB ANALYST): Improving. 2/2 severe RV dysfunction pre-op. Both T bili and AST/ALT down trending. - CMP/coags daily with AM labs - Avoid hepatotoxic agents Assessment & Plan (06/02/2019 5:34 AM QUALITY ASSURANCE QA LAB ANALYST): 2/2 severe RV dysfunction pre-op. Both T bili and AST/ALT down trending. Will likely continue to improve with time - CMP/coags daily with AM labs - Avoid hepatotoxic agents Assessment & Plan (06/01/2019 12:50 PM QUALITY ASSURANCE QA LAB ANALYST): 2/2 severe RV dysfunction pre-op. T bili rising, AST/ALT down trending. INR 1.8 without anticoagulation. - CMP/coags daily with AM labs - Avoid hepatotoxic agents Acute respiratory insufficiency 05/31/2019 06/07/2019 Assessment & Plan (06/06/2019 11:56 AM QUALITY ASSURANCE QA LAB ANALYST): Diuresis as tolerated, aggressive pulmonary toilet Assessment & Plan (06/05/2019 10:13 AM QUALITY ASSURANCE QA LAB ANALYST): COPD. Currently on NC for SpO2 > 92% suspect ileus and abdominal distention decreasing diaphragmatic movement -ellipta (home med equivalent) -wean SpO2 for SpO2 > 92% -OOB to chair/ambulate -FBG negative 1L with BID scheduled diuresis Assessment & Plan (06/04/2019 5:40 PM QUALITY ASSURANCE QA LAB ANALYST): COPD. Currently on NC for SpO2 > 92% -ellipta (home med equivalent) -wean SpO2 for SpO2 > 92% -OOB to chair/ambulate -FBG negative 1L with BID scheduled diuresis Assessment & Plan (06/03/2019 4:23 PM QUALITY ASSURANCE QA LAB ANALYST): COPD. CXR essentially clear. Currently on NC for SpO2 > 92% -ellipta (home med equivalent) -wean SpO2 for SpO2 > 92% -OOB to chair/ambulate -FBG even to negative 500 with BID scheduled diuresis Assessment & Plan (06/02/2019 1:06 PM QUALITY ASSURANCE QA LAB ANALYST): Extubated to NC last night. Remains on 4L NC this AM. - Pulmonary hygiene with IS, acapella, and C&DB - PT/OOBTC/AMB - Wean supplemental O2 for SpO2 > 92% - FBG -1 to 2L with lasix and metolazone Assessment & Plan (06/01/2019 12:45 PM QUALITY ASSURANCE QA LAB ANALYST): Post procedural short-term ventilator support with anticipated extubation. Currently sedated w/propofol on full mechanical ventilation. Velitri weaned off overnight. - Transition from propofol to precedex - PSV trial with goal extubation Assessment & Plan (06/01/2019 5:27 AM QUALITY ASSURANCE QA LAB ANALYST): Post procedural short-term ventilator support with anticipated [...] 7.44/42/128. Assessment & Plan (05/31/2019 5:37 PM QUALITY ASSURANCE QA LAB ANALYST): Post procedural short-term ventilator support with anticipated [...] dysfunction. Assessment & Plan (06/05/2019 10:11 AM QUALITY ASSURANCE QA LAB ANALYST): Improving. FB negative -800mL with lasix yesterday. [...] outlined Assessment & Plan (06/04/2019 5:37 PM QUALITY ASSURANCE QA LAB ANALYST): Improving. FB negative 1800 with 80 lasix BID. Rate controlled aflutter 70s -keep milrinone 0.1mcg/kg/min -increase epi wean by 0.01mcg/kg/min Q6hr for SBP > 100 -change lasix to 40mg PO BID with K supplementation -treat Aflutter as outlined Assessment & Plan (06/03/2019 4:14 PM QUALITY ASSURANCE QA LAB ANALYST): No epi wean overnight 2/2 ScVO2 < 60. FB even with additional diuresis. Rate controlled aflutter 70s -keep milrinone 0.1mcg/kg/min -epi wean by 0.01mcg/kg/min Q8hr for ScVO2> 60 -lasix 80mg BID with 20meq KCl -treat Aflutter as outlined Assessment & Plan (06/02/2019 1:05 PM QUALITY ASSURANCE QA LAB ANALYST): Cardiogenic shock 2/2 severe MR and severe [...] 2L Assessment & Plan (06/02/2019 5:46 AM QUALITY ASSURANCE QA LAB ANALYST): Cardiogenic shock 2/2 severe MR and severe [...] now. Assessment & Plan (06/01/2019 12:48 PM QUALITY ASSURANCE QA LAB ANALYST): Cardiogenic shock 2/2 severe MR and severe [...] lasix Assessment & Plan (06/01/2019 5:45 AM QUALITY ASSURANCE QA LAB ANALYST): Cardiogenic shock 2/2 Severe MR and severe [...] veletri. Assessment & Plan (05/31/2019 5:43 PM QUALITY ASSURANCE QA LAB ANALYST): Cardiogenic shock 2/2 Severe MR and severe [...] 06/07/2019 Assessment & Plan (02/24/2019 3:21 PM QUALITY ASSURANCE QA LAB ANALYST): -s/p mechanical MVR in 2006 -echo yesterday [...] cardiology Assessment & Plan (02/24/2019 3:08 PM QUALITY ASSURANCE QA LAB ANALYST): Patient with mitral valve stenosis s/p surgical [...] - Please obtain images from echo at [facility] in December - if clotted can consider [...] understanding Assessment & Plan (02/23/2019 12:57 PM QUALITY ASSURANCE QA LAB ANALYST): -s/p mechanical MVR in 2006 -echo today shows elevated valve gradient although patient was in afib with tachycardia so unclear how accurate this is -will discuss with cardiology Assessment & Plan (02/22/2019 9:14 PM QUALITY ASSURANCE QA LAB ANALYST): - S/p bioprosthetic mitral valve replacement - Repeat TTE given elevated proBNP Encounters Date Type Department Care Team Description 07/05/2024 1:50 PM CDT - 07/05/2024 11:59 PM CDT Hospital Encounter [facility] [address] [place] [address] Discharge Disposition: Discharge to home or self care from Last 3 Months Immunizations Immunization Administration Dates Next Due Influenza, Trivalent, Preser vative Free, Intramuscular 12/29/2010,01/14/2009,01/31/2008 Surgical History Surgery Date Site/Laterality Comments MITRAL VALVE REPLACEMENT TOE SURGERY CHOLECYSTECTOMY VASECTOMY Medical History Medical History Date Comments Hx Other Medical Open heart surg flip 2006; Comments: MARISABEL 05/27/2015 - Hx Other Medical Avulsion fx. ri ght medial malleolus/possible later; Comments: MRAISABEL 06/25/2015 - Diabetes mellitus (HCC) Hypertension Hyperlipidemia [...] on file Legal Sex Male 5:34 AM QUALITY ASSURANCE QA LAB ANALYST Gender Identity Not on file Sexual Orientation Not on file Obstetrics History Last Filed Vital Signs Vital Sign Reading Time Taken Comments Blood Pressure 141/76 08/15/2019 10:48 AM CDT Pulse 69 08/15/2019 10:48 AM CDT Temperature 37 C (98.6 F) 08/15/2019 10:48 AM CDT Respiratory Rate 18 06/13/2019 8:34 AM QUALITY ASSURANCE QA LAB ANALYST Oxygen Saturation 98% 08/15/2019 10:48 AM CDT Inhaled Oxygen Concentration - - Weight 90.7 kg (200 lb) 08/15/2019 10:48 AM CDT Height 180.3 cm (5' 11 ) 08/15/2019 10:48 AM CDT Body Mass Index 27.89 08/15/2019 10:48 AM CDT Plan of Treatment Not on file Medical Devices Implanted Type Area Pharmacy Retail Support Specialist Device Identifier Shelf Expiration Date Model / Serial / Lot [employer] [id number] [facility] Physio 28mm Tricuspid Ring Annuloplasty Heart - [id number] - [id number] Implanted:Qty: 1 on 05/31/2019 by Barrett Portillo Jr., MD at [facility] Other - see comments N/A: Heart [employer] [id number] 12/29/2020 [id number] / [id number] / Description:Tricuspid Annulo plasty Ring On-X [facility] Onxmc-25-33 25-33mm 17.4mm Mechanical Conform-X Sewing Ring Means Valve - [id number] - [id number] Implanted:Qty: 1 on 05/31/2019 by Barrett Portillo Jr., MD at [facility] Prosthetic Valve N/A: Heart On-X Intrnl [id number] 04/27/2025 [facility]25 -33 / [id number] / Procedures Procedure Name Priority Date/Time Associated Diagnosis Comments IGM Routine 07/05/2024 10:32 AM CDT from Last 3 Months Results * IgM (07/05/2024 10:32 AM CDT) Immunoglobulin M 96 40 - 230 mg/dL Blood 07/05/2024 10:3 2 AM CDT 07/05/2024 3:41 PM CDT us Notinfile Unknown LAB BLOOD ORDERABLES Final Res ult [facility] [address] Department [place] [address] from Last 3 Months Insurance AETNA MEDICARE [facility] MEDICARE [facility] Address: [address] [address] [place] [address] [facility] AETNA [facility] [employer]TRA Advance Directives For more information, please contact: [phone] Documents on File Type Date Recorded Patient Locator Specialist Expl anation ADVANCE DIRECTIVE 05/30/2019 10:13 AM [facility] * Full Code (Latest Code Status on [...] 8:30 PM 02/24/2019 9:46 PM Care Teams Warehouse Engineer Relationship Specialty Start Date End Date Randolph Moore MD [place] [address] PCP - General 06/24/15 [place] [address] Referring Physician Cardiology 03/16/19 Barrett Portillo [place] [address] Surgeon Cardiothoracic Surgery 06/13/19
--- OUTSIDE RECORDS SUMMARY | 2024-07-17 08:29 | XMS_ITS | Encounter Summary ---
Author Organization [facility] Address [address] [place] [address] Care Team Providers Care Chairman Name Role Phone Randolph Moore MD Primary Care Provider [phone] Roberta Nicole MD Unavailable Encounter Details Date Type Department Care Team (Late st Contact Info) Description 09/17/2018 Abstract [place] [address] , Generic Conversion, Social History Tobacco Use Types Packs/Day Years Used Date Smoking Tobacco: Never Assessed Sex and Gender Information Value Date Recorded Sex Assigned at Male 05/27/2019 3:12 PM SET BUILDER Legal Sex Male 5:49 PM SET BUILDER Gender Identity Male 05/27/2019 3:12 PM SET BUILDER Sexual Orientation Straight 05/27/2019 3: 12 PM SET BUILDER documented as of this encounter Plan of Treatment Upcoming Encounters Date Type Department Care Team (Late st Contact Info) Description 09/01/2024 12:[address] [facility] [place] [address] Roberta Nicole MD [address] [place] [address] 09/22/2024 11:00 AM CDT Office Visit [facility] [place] [phone] Roberta Nicole MD [address] [place] [address] 03/26/2025 1:[address] [place] [address] Roberta Nicole MD [address] [place], [place] [phone] 04/02/2025 9:00 AM SET BUILDER Office Visit [facility] [address] [place] [phone] Roberta Nicole MD [address] [place], [place] [phone] documented as of this encounter Visit Diagnoses Not on filedocumented in this encounter Care Teams Chairman Relationship Specialty Start Date End Date Randolph Moore MD [address] [place] [phone] PCP - General FAMILY PRACTICE 11/07/18 Roberta Nicole MD [address] [place] [address] Consulting Physician CARDIOVASCULAR DISEASE 07/15/23 documented as of this encounter
--- OUTSIDE RECORDS SUMMARY | 2024-07-17 08:29 | XMS_ITS | Clinical Summary ---
Author Organization [facility] Address [address] [place] [address] Care Team Providers Care Chief Substation Operator Name Role Phone Randolph Moore MD Primary Care Provider [phone] Roberta Nicole MD Unavailable Allergies No known [...] mg total) by mouth daily. Active Umeclidinium [place] (INCRUSE ELLIPTA) 62.5 MCG/ACT AEROSOL POWDER, BREATH [...] with ac vitaliy on chronic heart failure ([facility]) 05/27/2019 Encounters Date Type Department Care Team Description 07/03/2024 1:56 PM CDT - 07/03/2024 11:59 PM CDT Hospital Encounter [facility] [address] [place] [address] Maria Antonia Goldsmith PA Discharge Disposition: Home or Self Care (Routine Discharge) 07/03/2024 1:55 PM CDT Hospital Encounter [facility] [address] [place] [address] Maria Antonia Goldsmith PA Discharge Disposition: Home or Self Care (Routine Discharge) 07/03/[address] [place] [place] [place] [address] Maria Antonia Goldsmith PA 07/03/2024 Travel from Last 3 Months Immunizations Name [...] e alcohol) 8 years since last drank [facility] Utilities Answer Date Recorded In the past 12 months has th e electric, gas, oil, or water company threatened [...] Sex Assigned at Male 05/27/2019 3:12 PM SECURITY CONSULTANT Legal Sex Male 5:49 PM SECURITY CONSULTANT Gender Identity Male 05/27/2019 3:12 PM SECURITY CONSULTANT Sexual Orientation Straight 05/27/2019 3: 12 PM SECURITY CONSULTANT Last Filed Vital Signs Vital Sign Reading Time Taken Comments Blood Pressure 141/69 04/17/2024 10:25 AM SECURITY CONSULTANT Pulse 81 04/17/2024 10:25 AM SECURITY CONSULTANT Temperature 36.4 C (97.6 F) 04/17/2024 10:25 AM SECURITY CONSULTANT Respiratory Rate 18 04/17/2024 10:25 AM SECURITY CONSULTANT Oxygen Saturation 99% 04/17/2024 10:25 AM SECURITY CONSULTANT Inhaled Oxygen Concentration - - Weight 98.1 kg (216 lb 3.2 oz) 04/17/2024 10:25 AM SECURITY CONSULTANT Height 177.8 cm (5' 10 ) 04/03/2024 8:03 AM SECURITY CONSULTANT Body Mass Index 31.02 04/03/2024 8:03 AM SECURITY CONSULTANT Plan of Treatment Upcoming Encounters Date Type Department Care Team (Late st Contact Info) Description 09/01/2024 12:[address] [facility] [place] [address] [place] [address] Roberta Nicole MD [address] [place] [address] 09/22/2024 11:00 AM CDT Office Visit [facility] [address] Roberta Nicole MD [address] [place] [address] 03/26/2025 1:30 PM SECURITY CONSULTANT [facility]ointment [facility] [place] [place] [address] Roberta Nicole MD [address] [place] [address] 04/02/2025 9:00 AM SECURITY CONSULTANT Office Visit [facility] [place] [address] Roberta Nicole MD [address] [place] [address] Health Maintenance Due Date Last Done Comments Kidney Health Evaluation 1968 Annual Physical 1971 Pneumococcal Vaccine: Pediatrics (0 to 5 Years) and At-Risk Patients (6 to 64 Years) (1 of 2 - PCV) 1974 Diabetes: Retinopathy Eye Exam 1986 Hepatitis C 1986 DTaP, Tdap and Td Vaccines ( 1 - Tdap) 1987 Hepatitis B Vaccines (1 of 3 - 19+ 3-dose series) 1987 Zoster Vaccines (1 of 2) 2018 Hemoglobin A1C 10/15/2023 07/16/2023, 06/25/2023, 05/31/2019 COVID-19 Vaccine (1 - 2023-2 5 season) 2023 Lipid Panel 08/22/2024 08/23/2023 Colorectal Cancer Screening FIT/FOBT (1 Year) 08/24/2024 08/25/2023 Meningococcal B Vaccine Aged Out No l onger eligible based on patient's age to complete this topic Meningococcal Vaccine Aged Out No katie yumiko eligible based on patient's age to complete this topic RSV Immunizations Under 20 Months Aged Out No longer eligible b ased on patient's age to complete this topic [...] change. No acute disease. Ordered By: MARIA NATONIA GOLDSMITH Interpreted By: Gaurav Hong MD, 07/03/2024 2:25 PM Narrative 07/03/2024 2:30 PM CDT [address] [place] [address] Examination: Two-view chest Exam time: 1357 hours. Clinical history: Cough. Dyspnea. Comparison: 08/25/2023, 07/16/2023 ([facility]). Technique: PA and lateral views Findings: The cardiomediastinal silhouette is stable. The heart remains within normal limits for size. Pulmonary vascularity is within normal limits. Changes from median sternotomy, mitral valve replacement and tricuspid annuloplasty again evident. The lungs and pleural spaces appear free of any active process. The bony thorax is stable. Procedure Note Gaurav Hong MD - 07/03/[address] [place] [address] Examination: Two-view chest Exam time: 1357 hours. Clinical history: Cough. Dyspnea. Comparison: 08/25/2023, 07/16/2023 ([facility]). Technique: PA and lateral views [...] - 12.5 SEC 07/03/2024 2:20 PM CDT [facility] INR 4.1(H) 0.8 - 1.0 07/03/2024 2:20 PM CDT [facility] 07/03/2024 2:08 PM CDT [facility] Final Resu lt [facility] [place] [address], * (ABNORMAL) BASIC METABOLIC PANEL (07/03/2024 2:08 PM CDT) SODIUM S/P/B 137 136 - 145 MMOL/L 07/03/2024 2:22 PM CDT [facility] POTASSIUM S/P/B 4.2 3.5 - 5.1 MMOL/L 07/03/2024 2:22 PM CDT [facility] CHLORIDE S/P/B 102 98 - 107 MMOL/L 07/03/2024 2:22 PM [facility] CO2 26.3 21.0 - 32.0 MMOL/L 07/03/2024 2:22 PM [facility] GLUCOSE 153(H) 70 - 99 MG/DL 07/03/2024 2:22 PM [facility] Comment: FASTING GLUCOSE 100 TO 125 MG/DL IS CONSISTENT WITH IMPAIRED FASTING GLUCOSE. FASTING GLUCOSE >125 MG/DL IS CONSISTENT WITH DIABETES. RANDOM GLUCOSE >200 MG/DL WITH HYPERGLYCEMIC SYMPTOMS IS CONSISTENT WITH DIABETES. PER ADA GUIDELINES BUN 33(H) 6 - 24 MG/DL 07/03/2024 2:22 PM [facility] CREATININE S/P/B 1.15 0.70 - 1.30 MG/DL 07/03/2024 2:22 PM [facility] CALCIUM S/P/B 8.2(L) 8.4 - 10.5 MG/DL 07/03/2024 2:22 PM [facility] ANION GAP 8.7 5.0 - 15.0 MMOL/L 07/03/2024 2:22 PM [facility] OSMOLALITY (CALC) 294 MOSM/KG 025 2:22 PM [facility] Comment:REFERENCE RANGE NOT ESTABLISHED GFR ESTIMATE 75(L) >89 ML/MIN/1. 73 M2 07/03/2024 2:22 PM [facility] GFR NOTES GFR REFERENCE S: 07/03/2024 2:22 PM [facility] Comment: THE ESTIMATED GFR IS [...] Maria Antonia [facility] Final Resu lt [facility] [address] [place] [address], * (ABNORMAL) CBC W/DIFF AUTOMATED (07/03/2024 2:08 PM CDT) WBC 6.37 4.00 - 10.80 x10'3/uL 07/03/2024 2:18 PM CDT [facility] RBC 4.08(L) 4.50 - 6.10 x10'6/uL 07/03/2024 2:18 PM CDT [facility] HGB 8.1(L) 13.0 - 18.0 G/DL 07/03/2024 2:18 PM CDT [facility] HCT 27.4(L) 37.0 - 52.0 % 07/03/2024 2:18 PM CDT [facility] MCV 67.2(L) 78.0 - 100.0 FL 07/03/2024 2:18 PM CDT [facility] MCH 19.9(L) 27.0 - 31.0 PG 07/03/2024 2:18 PM CDT [facility] MCHC 29.6(L) 33.0 - 36.0 G/DL 07/03/2024 2:18 PM CDT [facility] RDW 24.4(H) 11.5 - 14.5 % 07/03/2024 2:18 PM CDT [facility] PLT 250 150 - 350 x10'3/uL 07/03/2024 2:18 PM CDT [facility] MPV 8.9 7.4 - 10.4 FL 07/03/2024 2:18 PM CDT [facility] CBC COMMENT NORMAL REFERENCE RANGE NOT ESTABLISHED FOR THE PROPORTIONAL LEUKOCYTE DIFFERENTIAL. 07/03/2024 2:18 PM CDT [facility] NEUTROPHILS % 70.2 % 07/03/2024 2:18 PM CDT [facility] LYMPHOCYTES % 18.1 % 07/03/2024 2:18 PM CDT [facility] MONOCYTES % 8.6 % 07/03/2024 2:18 PM CDT [facility] EOSINOPHILS % 2.5 % 07/03/2024 2:18 PM CDT [facility] BASOPHILS % 0.3 % 07/03/2024 2:18 PM CDT [facility] IMMATURE GRANS % 0.3 % 07/04/19 2:18 PM CDT [facility] NRBC % 0.3 % 07/03/2024 2:18 PM CDT [facility] ABS. NEUTROPHILS 4.47 1.60 - 8.30 x10'3/uL 07/03/2024 2:18 PM CDT [facility] ABS. LYMPHOCYTES 1.15 0.80 - 4.70 x10'3/uL 07/03/2024 2:18 PM CDT [facility] ABS. MONOCYTES 0.55 0.00 - 1.50 x10'3/uL 07/03/2024 2:18 PM CDT [facility] ABS. EOSINOPHILS 0.16 0.00 - 0.40 x10'3/uL 07/03/2024 2:18 PM CDT [facility] ABS. BASOPHILS 0.02 0.00 - 0.20 x10'3/uL 07/03/2024 2:18 PM CDT [facility] ABS. IMMATURE GRANULOCYTES 0.02 0.00 - 0.03 x10'3/uL 07/03/2024 2:18 PM CDT [facility] ABS. NUCLEATED RBC'S 0.02(H) 0.00 - 0.01 x10'3/uL 07/03/2024 2:18 PM CDT [facility] 07/03/2024 2:08 PM CDT Maria Antonia [facility] Final Resu lt [facility] [address] [place] [address], * OCCULT BLOOD, FECES (08/25/2023 3:00 PM CDT) OCCULT BLOOD FECAL NEGATIVE NEGATIVE 08/25/2023 3:21 PM CDT [facility] STOOL SPECIMEN / Unknown 08/25/2023 3:00 PM CDT Cynthia Gusman MD BODY FLUIDS AND STOOLS ORDER LIANG Final Result Performing Organization Address City/[facility]/ZIP Co de Phone Number [facility] [address] [place] [phone], * (ABNORMAL) LIPID PANEL (08/23/2023 10:10 AM CDT) Pathologist [facility] CHOLESTEROL 76 MG/DL 08/24/2023 12:09 PM CDT [facility] Comment:DESIRABLE: <200 TRIGLYCERIDES 106 MG/DL 08/24/2023 12:09 PM CDT [facility] Comment:<150 NORMAL HDL 23(L) >39 MG/DL 08/24/2023 12:09 PM CDT [facility] LDL-C 32 MG/DL 08/24/2023 12:09 PM CDT [facility] Comment:<100 OPTIMAL VLDL CALCULATION 21 MG/DL 08/24/19 12:09 PM CDT [facility] Comment:REFERENCE RANGE NOT ESTABLISHED CHOL/HDL RATIO 3.3 08/24/2023 12:09 PM CDT [facility] Comment:REFERENCE RANGE NOT ESTABLISHED LDL/HDL 1.4 08/24/2023 12:09 PM CDT [facility] Comment:REFERENCE RANGE NOT ESTABLISHED NON HDL CHOLESTEROL 53 MG/DL 08/24/2023 12:09 PM CDT [facility] Comment:REFERENCE RANGE NOT ESTABLISHED 08/23/2023 10:1 0 AM CDT José Antonio Hermosillo MD LABORATORY Final Result Performing Organization Address [facility] Co de Phone Number [facility] [address] [place] [address], [place] [phone] * (ABNORMAL) HEMOGLOBIN, GLYCOSYLATED (07/16/2023 10:07 PM CDT) HGB A1C 7.9(H) <5.7 % 07/17/2023 7:07 AM CDT [facility] ESTIMATED AVG GLUCOSE 180(H) 74 - 114 MG/DL 07/17/2023 7:07 AM CDT [facility] 07/16/2023 10:0 7 PM CDT Mauro Allen MD LABORATORY Final Result Performing Organization Address [facility] de Phone Number [facility] [address] [place] [address], [place] [phone] from Last 3 Months or Most Recently Relevant to Health Maintenance Insurance AETNA AETNA Advance Directives Documents on File Type Date Recorded Patient Accounts Receivable Specialist Expl anation Advance Directives and Living Will 06/02/2019 10:47 AM 05/29/19 POA FOR HEAL TH CARE * Full Code (Latest Code Status on File) Date Activated Date Inactivated Comments 07/17/2023 2:43 AM 07/18/2023 3:52 PM * Full Code Date Activated Date Inactivated Comments 05/27/2019 3:51 PM 05/30/2019 2:22 AM Care Teams Chief Substation Operator Relationship Specialty Start Date End Date Randolph Moore MD [address] [facility] [place] [id number] PCP - General FAMILY PRACTICE 11/07/18 Roberta Nicole MD [address] [place] [address] Consulting Physician CARDIOVASCULAR DISEASE 07/15/23
--- OUTSIDE RECORDS SUMMARY | 2024-07-17 08:29 | XMS_ITS | Encounter Summary ---
Author Organization [facility] [place] Address [address] [place] [address] Care Team Providers Care Manager Human Capital Name Role Phone Unavailable Primary Care Provider Unavailabl e Encounter Details Date Type Department Care Team (Latest Contact Info) Description 07/14/2024 Results Follow-Up [facility] [address] [phone] Estela Salazar PA-C [address] [address] TRANSGLUTAMINASE AB IGG/IGA, F-ACTIN IGG, MITOCHONDRIAL ANTIBODY, Additional followed-up results: 2 Social History Tobacco Use Types Packs/Day Years Used Date Smoking Tobacco: Former Cigarettes 1 976 - 2005 Passive Smoke Exposure: Past Smokeless Tobacco: Former Chew Alcohol Use Standard Drinks/Week Comments Not Currently 0 (1 standard drink = 0.6 oz pur e alcohol) Feeling Safe Answer Date Recorded Are you in a relationship wi th someone who hurts you emotionally and/or physically? No 07/05/2024 Food Insecurity Answer Date Recorded Social/Environmental Concerns No concerns Transportation Needs Answer Date Record ed Social/Environmental Concerns No concerns Housing Stability Answer Date Recorded Social/Environmental Concerns No concerns Utility Needs Answer Date Recorded Social/Environmental Concerns No concerns Sex and Gender Information Value Date Recorded Sex Assigned at Not on file Legal Sex Male 4:40 PM CDT Gender Identity Not on file Sexual Orientation Not on file documented as of this encounter Plan of Treatment Not on file documented as of this encounter Visit Diagnoses Not on filedocumented in this encounter
--- OUTSIDE RECORDS SUMMARY | 2024-07-17 08:29 | XMS_ITS | Referral Summary ---
Author Organization [facility] [place] [address] [facility] [address] Address [address] [place] [address] Care Team Providers Care Skin Tanner Name Role Phone Randolph Moore MD Primary Care Provider [phone] Chris Akins MD PhD Unavailable [phone] Bandar Harkins MD, Barrett Moser Unavailable [phone] Encounters Date Type Department Care Team Description 07/05/2024 1:50 PM CDT - 07/05/2024 11:59 PM CDT Hospital Encounter [facility] [id number] [place] [address] Discharge Disposition: Discharge to home or self care from Last 3 Months Allergies No known active allergies Medications tiotropium [...] under the skin nightly 5 pen 06/13/19 20 Active pen needle, diabetic (Pen Needle) 32 gauge x /32 needle Use as directed once a day. 100 each 06/13/19 20 Active dextrose (dextrose) 1 gram tablet,chewable Take 1 tablet by mouth every 6 (six) hours as needed (glucose < 70) 30 tablet 06/13/19 20 Active Active Problems Problem Noted Date Diagnosed Date Hyponatremia 06/12/2019 Assessment & Plan (06/12/2019 1:10 PM OVERNIGHT CASHIER): Ongoing since 06/05 Daily Labs throughout- Last night = 131 (previously was = 130) Continues on free water fluid restriction. High risk medication use 06/08/2019 Assessment & Plan (06/12/2019 1:00 PM OVERNIGHT CASHIER): Ongoing coumadin with heparin drip for RENE mitral valve & a-fib Goal INR approx. 3 Last night= coumadin 8 mg Ongoing daily INRs, while inpatient Assessment & Plan (06/10/2019 2:09 PM OVERNIGHT CASHIER): Intense insulin regimen in the setting of variable oral intake, MARIA DEL ROSARIO and insulin naivete places patient at increased risk of hypoglycemia/hyperglycemia which may have serious metabolic, CV and neuro consequences. We will continue to intensely monitor blood glucose and titrate insulin as needed to optimize glycemic control to avoid hypoglycemic/hyperglycemic events. Assessment & Plan (06/08/2019 1:08 PM OVERNIGHT CASHIER): Intense insulin regimen in the setting of [...] 06/07/2019 Assessment & Plan (06/12/2019 1:01 PM OVERNIGHT CASHIER): Post-op from [place] [facility] with tricuspid valve repair on 05/31/2019 See Mitral valve replacement problem, above Assessment & Plan (06/07/2019 10:01 AM OVERNIGHT CASHIER): Post-op from [place] [facility] with tricuspid valve repair on 05/31/2019 See Mitral valve replacement problem, above DM (diabetes mellitus), type 2 06/06/2019 Assessment & Plan (06/12/2019 12:56 PM OVERNIGHT CASHIER): Continue SSI, Lantus Endocrine consult with devops & telehealth nurse educator following Blood sugars well controlled on current regimen (121-197 over past 24 hrs) A1c 9.6 on admission Will need to check blood sugars at least TID upon discharge Potential discharge on gliptins at discharge. . Assessment & Plan (06/13/2019 5:16 PM OVERNIGHT CASHIER): 49 y.o. male with type 2 diabetes [...] up with PCP, Blue Moore MD in [place], [place]) Instructed Mr. Griffin to bring glucometer to follow up visit for PCP to review glycemia and adjust diabetes regimen as needed; verbalized understanding. Recommendations for diabetes management were discussed with the primary team. For questions regarding this patient today, please call Radha Jade NP at [phone]. If after hours, please contact the Diabetes Fellow at [phone]. Assessment & Plan (06/10/2019 2:09 PM OVERNIGHT CASHIER): Continue SSI, Lantus Endocrine consult with devops & telehealth nurse educator Last 24 hrs glucose = 135-191 A1c 9.6 on admission Will need to check blood sugars at least TID upon disharge Acute pain 05/31/2019 Assessment & Plan (06/12/2019 12:58 PM OVERNIGHT CASHIER): PRN tylenol, at present Ongoing stool softeners for anesthesia side effects Increasing activity as tolerated. Assessment & Plan (06/07/2019 10:02 AM OVERNIGHT CASHIER): PRN tylenol, at present Ongoing stool softeners for anesthesia side effects Increasing activity, as tolerated. Assessment & Plan (06/05/2019 10:14 AM OVERNIGHT CASHIER): Denies pain at this time -PRN tylenol -avoiding narcotics with ileus Assessment & Plan (06/04/2019 5:41 PM OVERNIGHT CASHIER): Denies pain at this time -PRN tylenol -avoiding narcotics with constipation Assessment & Plan (06/03/2019 4:10 PM OVERNIGHT CASHIER): Denies pain at this time -PRN tylenol -consider low dose oxy if needed as delirium is improving Assessment & Plan (06/02/2019 1:05 PM OVERNIGHT CASHIER): 2/2 cardiac surgery via median sternotomy. - Limit narcotics with delirium - Scheduled APAP - PRN oxycodone for breakthrough pain Assessment & Plan (06/01/2019 12:44 PM OVERNIGHT CASHIER): 2/2 cardiac surgery via median sternotomy. Currently sedated w/ propofol. - Fentanyl IV PRN prior to extubation - Plan to start scheduled Tylenol and PRN Oxy/Dilaudid once extubated Assessment & Plan (05/31/2019 4:51 PM OVERNIGHT CASHIER): 2/2 cardiac surgery via median sternotomy. Currently sedated w/ - Fentanyl IV PRN prior to extubation - Plan to start scheduled Tylenol and PRN Oxy/Dilaudid once extubated - Ensure pain control is adequate to facilitate participation in care and deep breathing Acute blood loss anemia 05/31/2019 Assessment & Plan (06/12/2019 1:01 PM OVERNIGHT CASHIER): Expected postop due to ABLA Daily CBC, while inpatient Receiving MVI with iron Drifted slightly, from yesterday Assessment & Plan (06/07/2019 10:08 AM OVERNIGHT CASHIER): Expected postop due to ABLA Daily CBC, while inpatient Added MVI with iron Assessment & Plan (06/05/2019 10:18 AM OVERNIGHT CASHIER): Hgb stable at 8.0 (8.1). No active signs of bleeding. Hemodynamically stable off vasopressors and tolerating epi wean - No current indication for transfusion, consider if patient becomes hemodynamically unstable with increased pressor requirements or Hgb < 8 and symptomatic - CBC daily - continue heparin gtt - repeat cbc now and coags Assessment & Plan (06/02/2019 1:07 PM OVERNIGHT CASHIER): Expected following cardiac surgery. Hgb 8.8. Hemodynamically stable off vasopressors. - No current indication for transfusion, consider if patient becomes hemodynamically unstable with increased pressor requirements or Hgb < 8 and symptomatic - CBC daily Assessment & Plan (06/01/2019 12:44 PM OVERNIGHT CASHIER): Expected following cardiac surgery. Hgb stable. Hemodynamically stable off vasopressors. - No current indication for transfusion, consider if patient becomes hemodynamically unstable with increased pressor requirements or Hgb < 8 and symptomatic - CBC daily Assessment & Plan (05/31/2019 8:06 PM OVERNIGHT CASHIER): Baseline hemoglobin 11.1 upon admission. Intra-op course [...] surgery Assessment & Plan (06/12/2019 12:52 PM OVERNIGHT CASHIER): Post-op from [place] with tricuspid valve repair on 05/31/2019 Continue post op care (telemetry, VS, I &O, medication & weights) Ongoing heparin drip until INR closer to 3 Continue Coumadin, INR 1.6 last night Plan to give Coumadin 8 mg tonight Receiving PT and aggressive pulmonary toilet New onset DM (see diabetes problem) PT/OT Discharge planning Assessment & Plan (06/08/2019 1:09 PM OVERNIGHT CASHIER): Good glycemic control required to promote healing Assessment & Plan (06/10/2019 2:11 PM OVERNIGHT CASHIER): Post-op from [place] [facility] with tricuspid valve repair on 05/31/2019 Continue post op care (telemetry, VS, I &O, medication & weights) Ongoing heparin drip until INR 2.5 Continue Coumadin, INR 1.4 Plan to give Coumadin 5mg tonight Receiving PT and aggressive pulmonary toilet New onset DM (see diabetes problem) PT/OT Discharge planning Assessment & Plan (06/05/2019 10:10 AM OVERNIGHT CASHIER): S/P [facility]. Post-op care to include: - Continue heparin infusion per nomogram for mechanical valve & fib -no couadin with EPW present - ASA daily - increase statin to 80mg daily - Colace, senna, miralax for bowel regimen, lactulose - PPI daily (home med) - SCD's for DVT ppx - PT/OT eval and treat Assessment & Plan (06/04/2019 5:33 PM OVERNIGHT CASHIER): S/P Mechanical MVR. Post-op care to include: - Continue heparin infusion per nomogram for mechanical valve -no couadin with EPW present - ASA daily - resume statin (shock liver improving) - Colace, senna, miralax for bowel regimen - PPI daily (home med) - SCD's for DVT ppx - PT/OT eval and treat Assessment & Plan (06/03/2019 4:36 PM OVERNIGHT CASHIER): S/P Mechanical MVR. Post-op care to include: - Continue heparin infusion per nomogram for mechanical valve -no couadin with EPW present - ASA daily - resume statin (shock liver improving) - Colace, senna, miralax for bowel regimen - PPI daily (home med) - SCD's for DVT ppx - PT/OT eval and treat Assessment & Plan (06/02/2019 1:08 PM OVERNIGHT CASHIER): S/P [facility]. Post-op care to include: - Continue heparin infusion per nomogram for mechanical valve - F/U with CTS re timing for starting coumadin - ASA daily - Holding statin with shock liver - Colace, senna, miralax for bowel regimen - PPI daily (home med) - SCD's for DVT ppx - PT/OT eval and treat Assessment & Plan (06/01/2019 12:54 PM OVERNIGHT CASHIER): S/P Mechanical [facility]. Post-op care to include: - Start heparin infusion per nomogram for mechanical valve - ASA daily - Holding statin with shock liver - Colace, senna, miralax for bowel regimen - PPI daily (home med) - SCD's for DVT ppx - Periop Vanc and Ancef x 24 hours - PT/OT eval and treat Assessment & Plan (05/31/2019 5:34 PM OVERNIGHT CASHIER): Mitral Valve Stenosis s/p balloon valvuloplasty (Dr. [...] here Assessment & Plan (06/12/2019 1:00 PM OVERNIGHT CASHIER): Current creatinine = 1.22 Admission creatinine = 1.9 Daily BMPs with I &Os while inpatient Ongoing daily weights Almost 4.5 kg below pre-op (admission) weight Changed to daily lasix, 40 mg oral today Assessment & Plan (06/13/2019 5:13 PM OVERNIGHT CASHIER): CrCl: 89.5 ml/min, serum Cr 1.04 stable Chronic kidney disease (CKD) and acute kidney injury (MARIA DEL ROSARIO) are independent risk factors for hypoglycemia, and augments the risk of low blood glucose in patients with diabetes Assessment & Plan (06/10/2019 2:08 PM OVERNIGHT CASHIER): Current creatinine = 1.13 Admission creatinine = 1.9 Daily BMPs with I &Os while inpatient Ongoing daily weights Continue Lasix 40 mg IV BID and spironolactone 12.5mg daily Assessment & Plan (06/05/2019 10:12 AM OVERNIGHT CASHIER): Creat continues to down trending. - lasix 40mg PO BID with 20meq KCl -FBG negative 1L - restart home aldactone and 1/2 dose 12.5mg daily Assessment & Plan (06/04/2019 5:39 PM OVERNIGHT CASHIER): Creat down trending. -d/c sheridan -decrease lasix 40mg PO BID with 20meq KCl -FBG negative 1L Assessment & Plan (06/03/2019 4:32 PM OVERNIGHT CASHIER): Received an additional 80mg lasix overnight to promote diuresis. FB even. -lasix 80mg IV BID with 20meq KCl -FBG even to negative 500 -maintain sheridan to accurately monitor I&O Assessment & Plan (06/02/2019 1:04 PM OVERNIGHT CASHIER): Baseline Creatinine around 0.6. MARIA DEL ROSARIO upon admission likely 2/2 cardiogenic shock. Now down trending post-op. Responding to lasix. - Lasix 60 IV x2 - Metolazone 10 BID - FBG -1 to 2L - Renally dose medications as appropriate - Avoid nephrotoxins Assessment & Plan (06/02/2019 5:36 AM OVERNIGHT CASHIER): Baseline Creatinine around 0.6. MARIA DEL ROSARIO upon admission likely 2/2 cardiogenic shock. Now down trending post-op. Responding to lasix. - diuresis for FBG -1 to 2L - Renally dose medications as appropriate - Avoid nephrotoxins Assessment & Plan (06/01/2019 12:46 PM OVERNIGHT CASHIER): Baseline Creatinine around 0.6. MARIA DEL ROSARIO upon admission likely 2/2 cardiogenic shock. Current Cr 1.99. Good urine output, FB +1.2L over the last 24 hours. - Lasix 40 x1 - FBG -1 to 2L - BMP at 1400 - Renally dose all medications - Avoid nephrotoxins Assessment & Plan (06/01/2019 5:22 AM OVERNIGHT CASHIER): Baseline Creatinine around 0.6. MARIA DEL ROSARIO upon admission likely 2/2 cardiogenic shock. Current Cr 1.96. Will likely improve with time. Good urine output. - Renally dose all medications - avoid nephrotoxins - f/u am bmp Assessment & Plan (05/31/2019 8:09 PM OVERNIGHT CASHIER): Baseline Creatinine around 0.6. Mild MARIA DEL ROSARIO upon admission likely 2/2 cardiogenic shock and diuresis. - Strict I and O - Renally dose all medications - Maintain adequate renal perfusion pressure - f/u BMP in AM Hepatopathy 02/22/2019 Assessment & Plan (05/30/2019 2:40 AM OVERNIGHT CASHIER): -RUQ US 02/2019 showed coarse echotexture of [...] levels Assessment & Plan (02/24/2019 3:24 PM OVERNIGHT CASHIER): -RUQ US to evaluate for cirrhosis showed [...] up. Assessment & Plan (02/23/2019 4:55 PM OVERNIGHT CASHIER): Patient with newly diagnosed liver disease with ascites. Ultrasound with increased echotexture concerning for cirrhosis - unlikely to be congestive hepatopathy given no evidence of poor RV function - consider GI consult given possible need for surgery Assessment & Plan (02/23/2019 1:01 PM OVERNIGHT CASHIER): -RUQ US to evaluate for cirrhosis Assessment & Plan (02/22/2019 9:13 PM OVERNIGHT CASHIER): - Complicated by ascites, elevated LFTs and coagulopathy - S/p outpatient LVP x1 - Chest imaging with ascites, abdominal distention on exam - No concern for acute decompensation liver failure - Outpatient liver follow up A-fib 02/22/2019 Overview (06/03/2019): Afib on home dilt. Assessment & Plan (06/12/2019 1:00 PM OVERNIGHT CASHIER): Chronic afib, rate controlled Ongoing metoprolol & amiodarone Continue coumadin tonight. Heparin drip pending therapeutic INR Assessment & Plan (06/10/2019 2:07 PM OVERNIGHT CASHIER): Chronic afib, rate controlled Has had intermittent pause continue - telemetry review no alarms overnight Ongoing metoprolol & amiodarone continue coumadin tonight. Heparin drip pending therapeutic INR Assessment & Plan (06/05/2019 10:09 AM OVERNIGHT CASHIER): Aflutter rate controlled 70-90 on amiodarone PO [...] removed) Assessment & Plan (06/04/2019 6:54 PM OVERNIGHT CASHIER): Aflutter rate controlled 70-80 on amiodarone PO TID - ensure Mg > 2 and K > 4 - FBG negative 1L - heparin gtt for systemic anticoagulation - if unstable: DCCV -cap wires (no coumadin until EPW removed) Assessment & Plan (06/03/2019 4:21 PM OVERNIGHT CASHIER): Aflutter rate controlled on amio gtt at 0.5mg/min -transition amio to 400 TID PO -ensure Mg > 2 and K > 4 -FBG even to negative 500 with scheduled BID lasix -heparin gtt for systemic anticoagulation -if unstable: DCCV Assessment & Plan (06/02/2019 1:06 PM OVERNIGHT CASHIER): History of afib; on home dilt. Now in a flutter with rate in the 60s. - VVI b/u - Decrease amio infusion to 0.5mg/min - Continue heparin infusion Assessment & Plan (06/02/2019 6:37 AM OVERNIGHT CASHIER): History of afib; on home dilt. Afib with rates to 120's. Treated with amio bolus x 2 followed by gtt. Now rate controlled < 100. - continue amio gtt at 1 mg/min; if HR remains < 100, decrease to 0.5 - Anticoagulation with heparin infusion Assessment & Plan (06/01/2019 12:49 PM OVERNIGHT CASHIER): Intermittent A fib underlying pacer. - Amio bolus x1 now - Amio infusion @ 1mg/min - Anticoagulation with heparin infusion Assessment & Plan (05/31/2019 7:44 AM OVERNIGHT CASHIER): -hx of Afib, on Dilt CD 240mg at home -holding Dilt in the setting of potential CHF exacerbation -will bolus with Amiodarone as patient likely is not tolerating tachycardia i/s/o mitral stenosis, now on amio gtt -ct hep gtt -holding home warfarin Assessment & Plan (02/24/2019 3:25 PM OVERNIGHT CASHIER): -Patient reports history of occasionally irregular heart rhythm but never told he had atrial fibrillation -current rate control increased dose of diltiazem. Will change to long-acting diltiazem 240 mg daily -cont warfarin (goal INR 2.5-3.5 given mechanical mitral valve) Assessment & Plan (02/23/2019 4:59 PM OVERNIGHT CASHIER): Patient with a fib. Per patient on diltiazem at home for irregular heart rate but never been told he has afib. No afib seen in our system previously - will look for LA appendage clot on echo - continue AC and rate control for now Assessment & Plan (02/23/2019 1:00 PM OVERNIGHT CASHIER): -Patient reports history of occasionally irregular heart rhythm but never told he had atrial fibrillation -currently on his home dose of dilt, but intermittent RVR up to 140s -plan to titrate up dilt for improved rate control -cont warfarin (goal INR 2.5-3.5 given mechanical mitral valve) Assessment & Plan (02/22/2019 9:16 PM OVERNIGHT CASHIER): - History of palpitations but now found to be in AF with well controlled rate - Continue home diltiazem for rate control and warfarin for AC - Repeat TTE to assess LV function Syncope 02/22/2019 Assessment & Plan (02/24/2019 3:26 PM OVERNIGHT CASHIER): - In setting of coughing fit followed by feeling of warmth, lightheadedness and no post ictal state - Serum electrolytes wnl, CT PE protocol negative for PE - Findings consistent with vasovagal syncope but could also be related to afib with RVR and valvular issues Assessment & Plan (02/23/2019 5:02 PM OVERNIGHT CASHIER): Likely related to cough, kelly. Given COPD which increases risk of cough syncope. Less likely to be related to arrhythmia, but would recommend continuing telemetry monitoring Assessment & Plan (02/23/2019 12:56 PM OVERNIGHT CASHIER): - In setting of coughing fit followed by feeling of warmth, lightheadedness and no post ictal state - Serum electrolytes wnl, CT PE protocol negative for PE - Findings consistent with vasovagal syncope but could also be related to afib with RVR - Monitor on tele, repeat TTE Assessment & Plan (02/22/2019 9:21 PM OVERNIGHT CASHIER): - In setting of coughing fit followed [...] 02/22/2019 Assessment & Plan (02/22/2019 9:45 PM OVERNIGHT CASHIER): - AST 175. ALT 239, [id number] Tbili 3.3 and Dbili 1.3 - Secondary to BECK - Will continue to monitor Ascites 02/22/2019 Overview (02/22/2019): - Secondary BECK s/p LVP x1 - Chest imaging and physical exam with ascites - No abdominal pain or findings concerning for SBP - Outpatient LVP and hepatology follow up Assessment & Plan (02/24/2019 3:31 PM OVERNIGHT CASHIER): -Patient reports this is new since November of this year -likely both liver and cardiac issues contributing. Assessment & Plan (02/23/2019 12:59 PM OVERNIGHT CASHIER): -Patient reports this is new since November [...] Disease Assessment & Plan (05/30/2019 2:41 AM OVERNIGHT CASHIER): -patient is on albuterol and Spiriva at home -albuterol PRN -pulmonary function tests which showed an FEV1 that was 49% of predicted on 04/18/2019 Assessment & Plan (02/23/2019 1:01 PM OVERNIGHT CASHIER): -cont home inhalers, prn albuterol Assessment & Plan (02/22/2019 9:06 PM OVERNIGHT CASHIER): - No concern for an acute exacerbation - On Breo Ellipta at Home, non formulary - Start Albuterol prn, spiriva and advair Resolved Problems Problem Noted Date Diagnosed Date Resolved Date Leukocytosis 06/08/2019 06/12/2019 Assessment & Plan (06/11/2019 1:22 PM OVERNIGHT CASHIER): Remains afebrile WBC trending down Will continue to monitor Assessment & Plan (06/10/2019 2:10 PM OVERNIGHT CASHIER): WBC 13 from 14.2 from 13.4 No fevers Incisions clean and dry CL out Encouraged to ambulate and perform IS No overt signs of infection UA 06/08 negative CXR 06/08 showed + atelectasis and small right pleural effusion Thrombocytopenia 06/05/2019 06/12/2019 Assessment & Plan (06/11/2019 1:22 PM OVERNIGHT CASHIER): Plt WNL Assessment & Plan (06/10/2019 2:11 PM OVERNIGHT CASHIER): Platelets 89 from 92K - stable Wires out 06/07 Remains on heparin gtt for mechanical valve prophylactis Continue Coumadin Assessment & Plan (06/05/2019 10:19 AM OVERNIGHT CASHIER): PLT down to 66 (90s) this morning, [...] 06/07/2019 Assessment & Plan (06/05/2019 10:17 AM OVERNIGHT CASHIER): Small bowel movement this morning. Abdomen distended, [...] OOB/ambulate Assessment & Plan (06/04/2019 5:51 PM OVERNIGHT CASHIER): No BM X8d. Abdomen distended, taught, BS hypoactive. Denies nausea. KUB: dilated ascending and transverse colon measuring 9.5cm. PO bowel regimen increased yesterday and suppository with minimal response. -suppository BID -cotton seed enema -lactulose Q6hr until stool -OOB/ambulate Assessment & Plan (06/03/2019 4:34 PM OVERNIGHT CASHIER): No BM X7d. Abdomen distended, taught, BS hypoactive. Denies nausea. -increase docusate to 200 BID -increase miralax to BID -add suppository -consider lactulose if no BM by this evening -OOB/ambulate Delirium 06/02/2019 06/07/2019 Assessment & Plan (06/05/2019 10:15 AM OVERNIGHT CASHIER): Resolved. CAM negative. Received seroquel 25mg at bedtime last night. - discontinue seroquel -OOB to chair -ambulate -lights off 21:00-06:00 - prn ramelteon at bedtime for sleep Assessment & Plan (06/04/2019 5:45 PM OVERNIGHT CASHIER): CAM negative this AM. Slept with seroquel last night continue seroquel -OOB to chair -ambulate -lights off 21:00-06:00 Assessment & Plan (06/03/2019 4:24 PM OVERNIGHT CASHIER): CAM negative this AM. Did not sleep at all last night -25mg seroquel QHS to promote sleep -OOB to chair -ambulate -lights off 21:00-06:00 Assessment & Plan (06/02/2019 1:02 PM OVERNIGHT CASHIER): CAM positive after extubation last night. Sedated with precedex infusion overnight for sleep. This AM, more alert and appropriate. - DC precedex - Frequent reorientation - Lights on during the day - Encourage mobility- OOBTC - Sleep hygiene Assessment & Plan (06/02/2019 5:52 AM OVERNIGHT CASHIER): CAM positive after extubation. Unable to sleep tonight and very restless. -start low dose precedex -maintain mittens in place -delirium precautions: lights on during day, off at night, OOBTC during day, encourage family interaction during day -if does not improve will need SBFT placement Hyperglycemia 06/01/2019 06/06/2019 Assessment & Plan (06/05/2019 10:14 AM OVERNIGHT CASHIER): Well controlled on current NPH/SSI regimen. BGL ranging between 70-150 in the past 24 hours. HgA1C 9.6 on admission with no home antihyperglycemics. - carb controlled diet - NPH BID (09: 00 /17:00) for basal + HDSSI Assessment & Plan (06/04/2019 5:44 PM OVERNIGHT CASHIER): HgA1C 9.6 on admission with no home antihyperglycemics. Transitioned from insulin gtt to HDSSI yesterday and remains hyperglycemic. Contributing factors: epi gtt. Decreased appetite 2/2 constipation - carb controlled diet -add NPH BID (09: /:00) for basal + HDSSI Assessment & Plan (06/03/2019 4:26 PM OVERNIGHT CASHIER): HgA1C 9.6 on admission with no home antihyperglycemics. Currently on insulin gtt -ADAT to carb controlled diet -transition insulin gtt to HDSSI Assessment & Plan (06/02/2019 1:07 PM OVERNIGHT CASHIER): History of DM-II but no home meds. Likely related to stress response. Remains on insulin infusion. - Continue insulin gtt per icu protocol - ADAT Assessment & Plan (06/02/2019 5:34 AM OVERNIGHT CASHIER): History of DM-II but no home meds. Likely related to stress response. Remains on insulin infusion - Continue insulin gtt per icu protocol Assessment & Plan (06/01/2019 12:49 PM OVERNIGHT CASHIER): History of DM-II but no home meds. Likely related to stress response. Remains on insulin infusion - Continue insulin gtt per icu protocol Assessment & Plan (06/01/2019 5:31 AM OVERNIGHT CASHIER): History of DM-II but no home meds. Arrived on insulin gtt 6 units/hr. Likely related to stress response. -continue insulin gtt per icu protocol Shock liver 06/01/2019 06/07/2019 Assessment & Plan (06/04/2019 5:26 PM OVERNIGHT CASHIER): Continues to improve to near normal. Statin resumed yesterday - CMP/coags daily with AM labs for 1 more days Assessment & Plan (06/03/2019 10:34 AM OVERNIGHT CASHIER): Improving. -resume home statin today - CMP/coags daily with AM labs for 2 more days Assessment & Plan (06/02/2019 1:07 PM OVERNIGHT CASHIER): Improving. 2/2 severe RV dysfunction pre-op. Both T bili and AST/ALT down trending. - CMP/coags daily with AM labs - Avoid hepatotoxic agents Assessment & Plan (06/02/2019 5:34 AM OVERNIGHT CASHIER): 2/2 severe RV dysfunction pre-op. Both T bili and AST/ALT down trending. Will likely continue to improve with time - CMP/coags daily with AM labs - Avoid hepatotoxic agents Assessment & Plan (06/01/2019 12:50 PM OVERNIGHT CASHIER): 2/2 severe RV dysfunction pre-op. T bili rising, AST/ALT down trending. INR 1.8 without anticoagulation. - CMP/coags daily with AM labs - Avoid hepatotoxic agents Acute respiratory insufficiency 05/31/2019 06/07/2019 Assessment & Plan (06/06/2019 11:56 AM OVERNIGHT CASHIER): Diuresis as tolerated, aggressive pulmonary toilet Assessment & Plan (06/05/2019 10:13 AM OVERNIGHT CASHIER): COPD. Currently on NC for SpO2 > 92% suspect ileus and abdominal distention decreasing diaphragmatic movement -ellipta (home med equivalent) -wean SpO2 for SpO2 > 92% -OOB to chair/ambulate -FBG negative 1L with BID scheduled diuresis Assessment & Plan (06/04/2019 5:40 PM OVERNIGHT CASHIER): COPD. Currently on NC for SpO2 > 92% -ellipta (home med equivalent) -wean SpO2 for SpO2 > 92% -OOB to chair/ambulate -FBG negative 1L with BID scheduled diuresis Assessment & Plan (06/03/2019 4:23 PM OVERNIGHT CASHIER): COPD. CXR essentially clear. Currently on NC for SpO2 > 92% -ellipta (home med equivalent) -wean SpO2 for SpO2 > 92% -OOB to chair/ambulate -FBG even to negative 500 with BID scheduled diuresis Assessment & Plan (06/02/2019 1:06 PM OVERNIGHT CASHIER): Extubated to NC last night. Remains on 4L NC this AM. - Pulmonary hygiene with IS, acapella, and C&DB - PT/OOBTC/AMB - Wean supplemental O2 for SpO2 > 92% - FBG -1 to 2L with lasix and metolazone Assessment & Plan (06/01/2019 12:45 PM OVERNIGHT CASHIER): Post procedural short-term ventilator support with anticipated extubation. Currently sedated w/propofol on full mechanical ventilation. Velitri weaned off overnight. - Transition from propofol to precedex - PSV trial with goal extubation Assessment & Plan (06/01/2019 5:27 AM OVERNIGHT CASHIER): Post procedural short-term ventilator support with anticipated [...] 7.44/42/128. Assessment & Plan (05/31/2019 5:37 PM OVERNIGHT CASHIER): Post procedural short-term ventilator support with anticipated [...] dysfunction. Assessment & Plan (06/05/2019 10:11 AM OVERNIGHT CASHIER): Improving. FB negative -800mL with lasix yesterday. [...] outlined Assessment & Plan (06/04/2019 5:37 PM OVERNIGHT CASHIER): Improving. FB negative 1800 with 80 lasix BID. Rate controlled aflutter 70s -keep milrinone 0.1mcg/kg/min -increase epi wean by 0.01mcg/kg/min Q6hr for SBP > 100 -change lasix to 40mg PO BID with K supplementation -treat Aflutter as outlined Assessment & Plan (06/03/2019 4:14 PM OVERNIGHT CASHIER): No epi wean overnight 2/2 ScVO2 < 60. FB even with additional diuresis. Rate controlled aflutter 70s -keep milrinone 0.1mcg/kg/min -epi wean by 0.01mcg/kg/min Q8hr for ScVO2> 60 -lasix 80mg BID with 20meq KCl -treat Aflutter as outlined Assessment & Plan (06/02/2019 1:05 PM OVERNIGHT CASHIER): Cardiogenic shock 2/2 severe MR and severe [...] 2L Assessment & Plan (06/02/2019 5:46 AM OVERNIGHT CASHIER): Cardiogenic shock 2/2 severe MR and severe [...] now. Assessment & Plan (06/01/2019 12:48 PM OVERNIGHT CASHIER): Cardiogenic shock 2/2 severe MR and severe [...] lasix Assessment & Plan (06/01/2019 5:45 AM OVERNIGHT CASHIER): Cardiogenic shock 2/2 Severe MR and severe [...] veletri. Assessment & Plan (05/31/2019 5:43 PM OVERNIGHT CASHIER): Cardiogenic shock 2/2 Severe MR and severe [...] 06/07/2019 Assessment & Plan (02/24/2019 3:21 PM OVERNIGHT CASHIER): -s/p mechanical MVR in 2006 -echo yesterday [...] cardiology Assessment & Plan (02/24/2019 3:08 PM OVERNIGHT CASHIER): Patient with mitral valve stenosis s/p surgical [...] - Please obtain images from echo at [facility] in December - if clotted can consider [...] understanding Assessment & Plan (02/23/2019 12:57 PM OVERNIGHT CASHIER): -s/p mechanical MVR in 2006 -echo today shows elevated valve gradient although patient was in afib with tachycardia so unclear how accurate this is -will discuss with cardiology Assessment & Plan (02/22/2019 9:14 PM OVERNIGHT CASHIER): - S/p bioprosthetic mitral valve replacement - [...] on file Legal Sex Male 5:34 AM OVERNIGHT CASHIER Gender Identity Not on file Sexual Orientation Not on file Last Filed Vital Signs Vital Sign Reading Time Taken Comments Blood Pressure 141/76 08/15/2019 10:48 AM CDT Pulse 69 08/15/2019 10:48 AM CDT Temperature 37 C (98.6 F) 08/15/2019 10:48 AM CDT Respiratory Rate 18 06/13/2019 8:34 AM OVERNIGHT CASHIER Oxygen Saturation 98% 08/15/2019 10:48 AM CDT Inhaled Oxygen Concentration - - Weight 90.7 kg (200 lb) 08/15/2019 10:48 AM CDT Height 180.3 cm (5' 11 ) 08/15/2019 10:48 AM CDT Body Mass Index 27.89 08/15/2019 10:48 AM CDT Plan of Treatment Not on file Medical Devices Implanted 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 Other - see comments N/A: Heart [employer] [id number] 12/29/2020 [id number] / [id number] / Description:Tricuspid Annulo plasty Ring On-X [facility]-25-33 25-33mm 17.4mm Mechanical Conform-X Sewing Ring Means Valve - [id number] - [id number] Implanted:Qty: 1 on 05/31/2019 by Barrett Portillo Jr., MD at [facility] Prosthetic Valve N/A: Heart On-X Intrnl [id number] 04/27/2025 [facility]25 -33 / [id number] / Procedures Procedure Name Priority Date/Time Associated Diagnosis Comments IGM Routine 07/05/2024 10:32 AM CDT from Last 3 Months Results * IgM (07/05/2024 10:32 AM CDT) Immunoglobulin M 96 40 - 230 mg/dL Blood 07/05/2024 10:3 2 AM CDT 07/05/2024 3:41 PM CDT us Notinfile Unknown LAB BLOOD ORDERABLES Final Res ult [facility] [address] Department of [employer] [place], [place] [phone] from Last 3 Months Insurance AETNA MEDICARE AETNA [facility] ADVANTRA CIGNA MEDICARE [facility] Advance Directives For more information, please contact: [phone] Documents on File Type Date Recorded 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
--- OUTSIDE RECORDS SUMMARY | 2024-07-17 08:29 | XMS_ITS | Encounter Summary ---
Author Organization [facility] Address [address] [place] [address] Care Team Providers Care Grief Counselor Name Role Phone Randolph Moore MD Primary Care Provider [phone] Roberta Nicole MD Unavailable Encounter Details Date Type Department Care Team (Late st Contact Info) Description 08/24/2023 Prep for Procedure [place] Machines Technician Pre/Post [address] [place] [address] José Antonio Hermosillo MD [address] [place] [id number] Social History Tobacco Use Types Packs/Day Years Used Date Smoking Tobacco: Former Cigarettes Q uit: 05/22/2006 Smokeless Tobacco: Never Alcohol Use Standard Drinks/Week Comments Not Currently 0 (1 standard drink = 0.6 oz pur e alcohol) 8 years since last drank [facility] [employer] Answer Date Recorded In the past 12 months has [facility] [employer], gas, oil, or water [employer] threatened to shut off services in your [...] Sex Assigned at Male 05/27/2019 3:12 PM 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 Legal Sex Male 5:49 PM 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 Gender Identity Male 05/27/2019 3:12 PM 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 Sexual Orientation Straight 05/27/2019 3: 12 PM 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 documented as of this encounter Functional Status [...] Info) Description 09/01/2024 12:30 PM CDT Appointment [facility] [place] [address] Roberta Nicole MD [address] [place] [phone] 09/22/2024 11:00 AM CDT Office Visit [facility] [place] [address] Roberta Nicole MD [address] [place] [phone] 03/26/2025 1:30 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 [place] [place] [address] Roberta Nicole MD [address] [place] [phone] 04/02/2025 9:00 AM 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 Office Visit [facility] [place] [address] Roberta Nicole MD [address] [place] [phone] documented as of this encounter Visit Diagnoses Not on filedocumented in this encounter Care Teams Grief Counselor Relationship Specialty Start Date End Date Randolph Moore MD [address] [place] [phone] PCP - General FAMILY PRACTICE 11/07/18 Roberta Nicole MD [address] [place] [address] Consulting Physician CARDIOVASCULAR DISEASE 07/15/23 documented as of this encounter
--- OUTSIDE RECORDS SUMMARY | 2024-07-17 08:29 | XMS_ITS | Encounter Summary ---
Author Organization [facility] Address [address] [place] [address] Care Team Providers Care Business Resiliency Manager Name Role Phone Randolph Moore MD Primary Care Provider [phone] Roberta Nicole MD Unavailable Encounter Details Date Type Department Care Team (Late st Contact Info) Description 08/17/2023 Hospital Orders Only [place] Specialist Pre/Post [address] [place] [address] Roberta Nicole MD [address] [place] [address] Social History Tobacco Use Types Packs/Day Years Used Date Smoking Tobacco: Former Cigarettes Q uit: 05/22/2006 Smokeless Tobacco: Never Alcohol Use Standard Drinks/Week Comments Not Currently 0 (1 standard drink = 0.6 oz pur e alcohol) 8 years since last drank [facility] Utilities Answer Date Recorded In the past 12 months has [facility] [employer], gas, oil, or water [employer] threatened to shut off services in your [...] Sex Assigned at Male 05/27/2019 3:12 PM PIANO MAKER Legal Sex Male 5:49 PM PIANO MAKER Gender Identity Male 05/27/2019 3:12 PM PIANO MAKER Sexual Orientation Straight 05/27/2019 3: 12 PM PIANO MAKER documented as of this encounter Functional Status [...] Info) Description 09/01/2024 12:30 PM CDT Appointment [facility] [place] [address] Roberta Nicole MD [address] [place] [phone] 09/22/2024 11:00 AM CDT Office Visit [place] [facility] [place] [address] Roberta Nicole MD [address] [place] [address] 03/26/2025 1:30 PM PIANO MAKER Appointment [facility] [address] Roberta Nicole MD [address] [place] [phone] 04/02/2025 9:00 AM PIANO MAKER Office Visit [facility] [place] [address] Roberta Nicole MD [address] [place] [address] documented as of this encounter Visit Diagnoses Not on filedocumented in this encounter Care Teams Business Resiliency Manager Relationship Specialty Start Date End Date Randolph Moore MD [address] [place] [phone] PCP - General FAMILY PRACTICE 11/07/18 Roberta Nicole MD [address] [place] [address] Consulting Physician CARDIOVASCULAR DISEASE 07/15/23 documented as of this encounter
--- OUTSIDE RECORDS SUMMARY | 2024-07-17 08:29 | XMS_ITS | Clinical Summary ---
Author Organization [facility] Address [address] [place] [address] Phone Care Team Providers Care Reimbursement Representative Name Role Phone Unavailable Primary Care Provider Unavailabl e Allergies No known active allergies Medications atorvastatin (LIPITOR) 80 mg tablet Take 80 mg by mouth daily. Active ferrous sulfate 325 mg (65 mg iron) tablet Take 325 mg by mouth daily. Active furosemide (LASIX) 40 mg tablet Take 40 mg by mouth daily. Active metoprolol succinate (TOPROL XL) 25 mg Extended Release 24 hour tablet Take 25 mg by mouth daily. Active omeprazole (PriLOSEC) 40 mg Capsule, Delayed Release(E.C.) Take 40 mg by mouth daily. Active potassium CHLORIDE (K-DUR,KLOR-CON M20) 20 mEq Extended Release tablet Take 20 mEq by mouth daily. Active spironolactone (ALDACTONE) 25 mg tablet Take 12.5 mg by mouth daily. Active warfarin (COUMADIN) 5 mg tablet Take 5 mg by mouth daily. Takes 6.5 mg daily Active umeclidinium (Incruse Ellipta) 62.5 mcg/actuation Disk with Device Take 1 Puff by inhalation daily. Active albuterol (PROVENTIL,SHARON KALEB) 2.5 mg/0.5 mL Solution for Nebulization Take 2.5 mg by inhalation every 6 hours as needed for Shortness of Breath or Wheezing. Active enoxaparin (LOVENOX) 100 mg/mL injection Inject 100 mg by subcutaneous injection every 12 hours. As needed when INR below 2.5 Active Active Problems Problem Noted Date Diagnosed Date BMI 30.0-30.9,adult 07/05/2024 Melena 07/05/2024 Cirrhosis of liver without ascites 07/05/2024 Anticoagulant long-term use 07/05/2024 H/O mitral valve replacement with mechanical sotero ve 07/05/2024 Acute blood loss anemia 07/05/2024 BECK (nonalcoholic steatohepatitis) 07/04/2024 High risk medication use 06/08/2019 H/O tricuspid valve repair 06/07/2019 DM (diabetes mellitus), type 2 06/06/2019 S/P MVR (mitral valve replacement) 05/30/2019 Overview (07/04/2024): - OSH TTE 05/28/19 shows RA moderately enlarged, mechanical prosthetic valve w/ abnormal function, severe prosthetic mitral valve stenosis with mean gradient 21 at HR 104, moderate tricuspid regurg, RV systolic pressure 70mmHg - bedside DESI here with severe MS, dehiscence of MV with large encasing thrombus, mod to severe TR - Plan for MV replacement 05/[address] surgery Ascites 02/22/2019 Overview (07/04/2024): - Secondary BECK s/p LVP x1 - Chest imaging and physical exam with ascites - No abdominal pain or findings concerning for SBP - Outpatient LVP and hepatology follow up Hepatopathy 02/22/2019 COPD (chronic obstructive pulmonary disease) Overview (07/04/2024): Description: Chronic Obstructive Pulmonary Disease Iron deficiency anemia, unspecified GERD (gastroesophageal reflux disease) HLD (hyperlipidemia) Essential hypertension Atrial fibrillation Resolved Problems Problem Noted Date Diagnosed Date Resolved Date Hyponatremia 06/12/2019 07/04/2024 Acute pain 05/31/2019 07/04/2024 Acute blood loss anemia 05/31/2019 03/08/2024 MARIA DEL ROSARIO (acute kidney injury) 05/30/2019 Overview (07/04/2024): -b/l Cr 0.6 -on PO lasix 40mg at home -admission at OSH Cr 1.0 -> 2.0-->1.6 on arrival here Syncope 02/22/2019 07/04/2024 Transaminitis 02/22/2019 07/04/2024 Ankle pain 05/24/2015 07/04/2024 Overview (07/04/2024): Ankle pain Palpitations 08/25/2010 07/04/2024 Overview (07/04/2024): Description: Palpitations Current smoker 07/17/2010 07/04/2024 Encounters Date Type Department Care Team Description 5 Results Follow-Up [facility] [address] [facility] [address] [place] [address] Estela Salazar PA-C TRANSGLUTAMINASE AB IGG/IGA, F-ACTIN IGG, MITOCHONDRIAL ANTIBODY, Additional followed-up results: 2 5 External Device Data STL ABSTRACTION Provider, Abstract 5 External Device Data STL ABSTRACTION Provider, Abstract 5 External Device Data STL ABSTRACTION Provider, Abstract 5 8:00 AM CDT - 5 8:40 AM CDT Surgery [facility] [address] [place] [address] Sreekanth Alegria MD COLONOSCOPY 5 7:40 AM CDT Anesthesia Event [facility] [address] [place] [address] Lane Fairchild MD 5 11:12 AM CDT Anesthesia Event [facility] [address] [place] [address] [address] Fairchild MD 5 10:30 AM CDT - 5 11:10 AM CDT Surgery [facility] [address] [place] [address] Sreekanth Alegria MD ESOPHAGOGASTRODUODENOSCOPY 5 7:26 PM CDT - 5 3:15 PM CDT Hospital Encounter [facility] Card[facility] Progressive [facility] Unit [address] [place] [address] Germain Che MD Nguyen, Steven, MD Baig, Kamran A, MD Iron deficiency anemia, unspecified Discharge Disposition: Home or Self Care Travel from Last 3 Months Family History Medical History Relation Name Comments Stroke Father Relation Name Status Comments Father Mother Social History Tobacco Use Types Packs/Day Years Used Date Smoking Tobacco: Former Cigarettes 1 2005 Passive Smoke Exposure: Past Smokeless Tobacco: [...] Sign Reading Time Taken Comments Blood Pressure 110/53 07/06/2024 8:43 AM CDT Pulse 67 07/06/2024 8:43 AM CDT Temperature 36.2 C (97.1 F) 07/06/2024 8:18 AM CDT Respiratory Rate 16 07/06/2024 8:43 AM CDT Oxygen Saturation 97% 07/06/2024 8:43 AM CDT Inhaled Oxygen Concentration - - Weight 92.9 kg (204 lb 14.4 oz) 07/05/2024 5:38 AM CDT Height 177.8 cm (5' 10 ) 07/04/2024 8:22 PM CDT Body Mass Index 29.4 07/04/2024 8:22 PM CDT Plan of Treatment Health Maintenance Due Date Last Done Comments DIABETES ANNUAL FOOT EXAM 1986 DIABETES ANNUAL RETINAL EXAM 1986 DIABETES MICROALBUMIN ANNUAL SCREEN 1986 LDL CHOLESTEROL ANNUAL 1986 DTAP/TDAP/TD VACCINES (1 - Tdap) 1987 HEPATITIS B VACCINES (1 of 3 - 19+ 3-dose series) 1987 FIT-DNA Q 3 years 2013 FIT/FOBT Q 1 year 2013 Flex Sig/CT Colonography Q 5 years 2013 ZOSTER VACCINE (1 of 2) 2018 INFLUENZA VACCINE (#1) 2023 0, 12/26/2018, 01/26/2017, Additional history exists [place]) Preventative Visit/Annual Wellness Visit 04/12/2024 DIABETES HBA1C Q 6 MONTHS 08/15/2024 02/16/2024 COLORECTAL SCREENING 07/06/2034 07/06/2024, 07/07/19 Colorectal Cancer Screening 07/06/2034 Procedures Procedure Name Priority Date/Time Associated Diagnosis Comments TELEMETRY REPORT 07/07/2024 4:15 PM CDT COLONOSCOPY REPORT 07/06/2024 8:44 AM CDT COLONOSCOPY 07/06/2024 8:00 AM CDT Anemia due to blood loss, acute DIFFERENTIAL, MANUAL Routine 07/06/2024 2:09 AM CDT BASIC METABOLIC PANEL Routine 07/06/2024 2:09 AM CDT CBC WITH DIFFERENTIAL Routine 07/06/2024 2:09 AM CDT PROTIME-INR Routine 07/06/2024 2:09 AM CDT UPPER ENDOSCOPY REPORT 11:43 AM CDT DIFFERENTIAL, MANUAL Stat 07/05/2024 10:32 AM CDT ALPHA 1 ANTITRYPSIN PHENOTYPE Routine 10:32 AM CDT LINDA SCREEN W/REFLEX Routine 07/05/2024 10:32 AM CDT MITOCHONDRIAL ANTIBODY Routine 10:32 AM CDT IMMUNOGLOBULINS IGG IGA IGM Routine 06/11 10:32 AM CDT F-ACTIN IGG Routine 07/05/2024 10:32 AM CDT TRANSGLUTAMINASE AB IGG/IGA Routine 06/11 10:32 AM CDT CERULOPLASMIN Routine 07/05/2024 10:32 AM CDT ALPHA FETOPROTEIN TUMOR MARKER Routine 0 07/05/2024 10:32 AM CDT ACUTE HEPATITIS PANEL Routine 07/05/2024 10:32 AM CDT CBC WITH DIFFERENTIAL Stat 07/05/2024 10:32 AM CDT ESOPHAGOGASTRODUODENOSCOPY 07/05 10:30 AM CDT TRANSFUSE PACKED RED BLOOD CELLS Routine 07/05/2024 2:57 AM CDT PREPARE RED BLOOD CELLS Routine 07/06/19 2:06 AM CDT PREPARE RED BLOOD CELLS Routine 07/06/19 2:06 AM CDT RETICULOCYTES Routine 07/05/2024 1:17 AM CDT FERRITIN Routine 07/05/2024 1:17 AM CDT BASIC METABOLIC PANEL Routine 07/05/2024 1:17 AM CDT HEMOGLOBIN AND HEMATOCRIT Routine 2024 1:17 AM CDT XR CHEST PA OR AP 1 VW Routine 10:37 PM CDT VERIFICATION BLOOD GROUP Stat 025 9:50 PM CDT Encounter for blood typing HEMOGLOBIN AND HEMATOCRIT Routine 2024 9:50 PM CDT PREPARE RED BLOOD CELLS Routine 07/05/19 8:36 PM CDT INFLUENZA A/B, RSV AND COVID -19 PCR PANEL Routine 07/04/2024 8:24 PM CDT INFLUENZA A/B, RSV AND COVID -19 PCR PANEL Routine 07/04/2024 8:24 PM CDT BLOOD BANK AB IDENT Routine 07/04/2024 8:02 PM CDT ANTIBODY IDENTIFICATION ELUATE Routine 0 07/04/2024 8:02 PM CDT DIRECT SARAH C3 Routine 07/04/2024 8:02 PM CDT DIRECT SARAH IGG Routine 07/04/2024 8:02 PM CDT DIRECT ANTIGLOBULIN TEST Routine 025 8:02 PM CDT TYPE AND SCREEN Routine 07/04/2024 8:02 PM CDT VITAMIN B12 AND FOLATE Routine 8:02 PM CDT IRON, TIBC, AND PERCENT SATURATION Routine 07/04/2024 8:02 PM CDT PTT Routine 07/04/2024 8:02 PM CDT PROTIME-INR Routine 07/04/2024 8:02 PM CDT COMPREHENSIVE METABOLIC PANEL Routine 8:02 PM CDT CBC WITHOUT DIFFERENTIAL Routine 025 8:02 PM CDT from Last 3 Months Results * TELEMETRY REPORT (07/07/2024 4:15 PM CDT) us Provider Scanning ECG ORDERABLES Final Result * COLONOSCOPY REPORT (07/06/2024 8:44 AM CDT) Narrative Procedure Note Sreekanth Alegria MD - 07/06/2024 8:44 AM CDT [facility] Patient Name: Tobi Griffin Procedure Date: 07/06/2024 Date of : 1970 Attending MD: Sreekanth Alegria , , Procedure: Colonoscopy Indications: Iron deficiency anemia secondary to chronic blood loss Providers: Sreekanth Alegria Referring MD: Medicines: See the Anesthesia note for documentation of the administered medications Complications: No immediate complications. Procedure: Informed consent was obtained for the procedure, including moderate sedation after risks were discussed. Based on the pre-procedure assessment, including review of the patient's medical history, medications, allergies, and review of systems, the patient was deemed to be an appropriate candidate for sedation. A timeout was performed. Continuous ECG monitoring, pulse oximetry, blood pressure monitoring, and direct observation were performed. The Colonoscope was introduced through the anus and advanced to the terminal ileum, with identification of the appendiceal orifice and IC valve. The colonoscopy was performed without difficulty. The quality of the bowel preparation was fair. Estimated Blood Loss: Estimated blood loss: none. Findings: Non-bleeding internal hemorrhoids were found during endoscopy. The hemorrhoids were large. A few diverticula were found in the sigmoid colon. The exam was otherwise normal throughout the examined colon. The terminal ileum appeared normal. Impression: - Preparation of the colon was fair. - Non-bleeding internal hemorrhoids. - Diverticulosis in the sigmoid colon. - The examined portion of the ileum was normal. - No specimens collected. Recommendation: No additional inpatient GI investigation. OK to resume warfarin if needed. Sreekanth Alegria, 07/06/2024 8:44:00 AM Number of Addenda: [address]; [place] [address] us Sreekanth Alegria MD GI PROCEDURE ORDERABLES Final Re sult * MANUAL DIFFERENTIAL (07/06/2024 2:09 AM CDT) Only the most recent of2 resultswithin the time period is included. PLATELET EST. Consistent w Count 07/06/2024 3:44 AM CDT [facility] ANISOCYTOSIS 2+ /hpf 07/06/2024 3:44 AM CDT [facility] POIKILOCYTES 2+ /hpf 07/06/2024 3:44 AM CDT [facility] MICROCYTES 1+ /hpf 07/06/2024 3:44 AM CDT [facility] POLYCHROMASIA 1+ /hpf 07/06/2024 3:44 AM CDT [facility] HYPOCHROMIA 1+ /hpf 07/06/2024 3:44 AM CDT [facility] OVALOCYTES 1+ /hpf 07/06/2024 3:44 AM CDT [facility] SCHISTOCYTES 1+ /hpf 07/06/2024 3:44 AM CDT [facility] ACANTHOCYTES 1+ /hpf 07/06/2024 3:44 AM CDT [facility] Blood Venipuncture / Unknown 07/06/2024 2:09 AM CDT 07/06/2024 3:03 AM CDT us Mendoza Chun MD HEMATOLOGY ORDERABLES COM Final Result [facility] SERVICES - [facility]# [id number] [address] [facility] [place] [address] * (ABNORMAL) CBC WITH DIFFERENTIAL (07/06/2024 2:09 AM CDT) Only the most recent of2 resultswithin the time period is included. WBC 8.0 4.0 - 9.8 K/uL 07/06/2024 3:22 AM CDT [facility] [facility] [employer] RBC 3.54(L) 4.50 - 5.40 M/uL 07/06/2024 3:22 AM CDT [facility] HEMOGLOBIN 7.6(L) 13.6 - 16.5 g/dL 07/06/2024 3:22 AM CDT [facility] HEMATOCRIT 24.9(L) 40.0 - 48.0 % 07/06/2024 3:22 AM CDT [facility] [facility] MCV 70.3(L) 82.0 - 99.0 fL 07/06/2024 3:22 AM CDT [facility] MCH 21.5(L) 27.2 - 32.6 pg 07/06/2024 3:22 AM CDT [facility] MCHC 30.5(L) 31.5 - 35.5 g/dL 07/06/2024 3:22 AM CDT [facility] RDW 25.0(H) 11.5 - 14.5 % 07/06/2024 3:22 AM CDT [facility] RDW-STDEV 61.5(H) 37.1 - 48.7 fL 07/06/2024 3:22 AM CDT [facility] PLATELETS 220 140 - 350 K/uL 07/06/2024 3:22 AM CDT [facility] [facility] MPV 9.4 9.3 - 12.4 fL 07/06/2024 3:22 AM CDT [facility] NEUTROPHILS 73 % 07/06/2024 3:22 AM CDT [facility] LYMPHOCYTES 17 % 07/06/2024 3:22 AM CDT [facility] MONOCYTES 8 % 07/06/2024 3:22 AM CDT [facility] EOSINOPHILS 3 % 07/06/2024 3:22 AM CDT [facility] BASOPHILS 0 % 07/06/2024 3:22 AM CDT [facility] IMMATURE GRANULOCYTES 1 % 07/06/2024 3:22 AM CDT [facility] Comment:IG (Immature Granulo cyte) count includes Metamyelocytes, Myelocytes, and Promyelocytes NEUTROPHIL ABSOLUTE 5.79 1.90 - 7.00 K/uL 07/06/2024 3:22 AM CDT [facility] LYMPHOCYTE ABSOLUTE 1.32 0.70 - 4.50 K/uL 07/06/2024 3:22 AM CDT [facility] [facility] MONOCYTE ABSOLUTE 0.60 0.10 - 1.30 K/uL 07/06/2024 3:22 AM CDT [facility] EOSINOPHIL ABSOLUTE 0.20 0.00 - 0.70 K/uL 07/06/2024 3:22 AM CDT [facility] - . [facility] BASOPHILS ABSOLUTE 0.02 0.00 - 0.20 K/uL 07/06/2024 3:22 AM CDT [facility]. [facility] IMMATURE GRANULOCYTES ABSOLUTE 0.05(H) 0.00 - 0.03 K/uL 07/06/2024 3:22 AM CDT [facility] Blood Venipuncture / Unknown 07/06/2024 2:09 AM CDT 07/06/2024 3:03 AM CDT us Mendoza Chun MD HEMATOLOGY ORDERABLES Final Res ult [facility]# [id number] [address] [facility] [place] [address] * (ABNORMAL) PROTIME-INR (07/06/2024 2:09 AM CDT) Only the most recent of2 resultswithin the time period is included. PROTIME 16.5(H) 12.7 - 15.1 Seconds 07/06/2024 3:20 AM T [facility] INR 1.3(H) 0.9 - 1.1 07/06/2024 3:20 AM CDT [facility] Blood Venipuncture / Unknown 07/06/2024 2:09 AM CDT 07/06/2024 3:03 AM CDT Narrative [facility] - 07/06/2024 3:20 AM CDT INR Therapeutic Range: Adult: 2.0 - 3.0 for pulmonary embolism or prophylaxis against venous thrombosis or systemic embolization. 2.0 - 3.0 for patients with tissue heart valves. 2.5 - 3.5 for patients with mechanical heart valves or post [place]. Pediatric (12 years and under): 1.5 - 3.0 Although the target range in children is not well established, INR values of 1.5 - 3.0 are recommended for most patients. Higher values have been used in children with prosthetic cardiac valves and hereditary clotting disorders. (<3 days) therapeutic ranges have not been established. us Mendoza Chun MD HEMATOLOGY ORDERABLES Final Res ult [facility] SERVICES [facility]# [id number] [address] [facility] [place] [address] * (ABNORMAL) BASIC METABOLIC PANEL (07/06/2024 2:09 AM CDT) Only the most recent of2 resultswithin the time period is included. SODIUM 134(L) 136 - 145 mmol/L 07/06/2024 3:53 AM [facility] SERVICES - [facility] POTASSIUM 3.4(L) 3.5 - 5.0 mmol/L 07/06/2024 3:53 AM [facility] - [facility] CHLORIDE 98 98 - 107 mmol/L 07/06/2024 3:53 AM [facility] - . [facility] CO2 23 22 - 29 mmol/L 07/06/2024 3:53 AM [facility] - [facility] CALCIUM 8.2(L) 8.6 - 10.2 mg/dL 07/06/2024 3:53 AM [facility] BUN 16 6 - 20 mg/dL 07/06/2024 3:53 AM [facility] CREATININE 1.04 0.67 - 1.17 mg/dL 07/06/2024 3:53 AM [facility]ORY [facility] - . [facility] GLUCOSE 109(H) 74 - 99 mg/dL 07/06/2024 3:53 AM [facility]. [facility] GFR >60 >=60 mL/min/1.7 3 sq meter 07/06/2024 3:53 AM [facility] SERVICES - [facility] Comment:eGFR calculated with 2020 CKD-EPI equation. Vegetarian diet, extremely high or low muscle mass, and may affect results. Cystatin C with Glomerular Filtration Rate is a suitable alternative for these patients. ANION GAP 13 8 - 16 mmol/L 07/06/2024 3:53 AM CDT [facility] Blood Venipuncture / Unknown 07/06/2024 2:09 AM CDT 07/06/2024 3:03 AM CDT us Mendoza Chun MD CHEMISTRY ORDERABLES Final Resu lt [facility] CLIA# [id number] [address] [place] [address] * UPPER ENDOSCOPY REPORT (07/05/2024 11:43 AM CDT) Narrative Procedure Note Sreekanth Alegria MD - 07/05/2024 11:43 AM CDT [facility] Patient Name: Tobi Griffin Procedure Date: 07/05/2024 Date of : 1970 Attending MD: Sreekanth Alegria , , Procedure: Upper GI endoscopy Indications: Acute post hemorrhagic anemia, Melena Providers: Sreekanth Alegria Referring MD: Medicines: See the Anesthesia note for documentation of the administered medications Complications: No immediate complications. Procedure: Informed consent was obtained for the procedure, including moderate sedation after risks were discussed. Based on the pre-procedure assessment, including review of the patient's medical history, medications, allergies, and review of systems, the patient was deemed to be an appropriate candidate for sedation. A timeout was performed. Continuous ECG monitoring, pulse oximetry, blood pressure monitoring, and direct observation were performed. The Endoscope was introduced through the mouth, and advanced to the second part of duodenum. The upper GI endoscopy was accomplished without difficulty. The patient tolerated the procedure well. Findings: The examined esophagus was normal. There is no endoscopic evidence of esophagitis or varices in the lower third of the esophagus. The entire examined stomach was normal. The examined duodenum was normal. Impression: - Normal esophagus. - Normal stomach. - Normal examined duodenum. - No specimens collected. Recommendation: Recommend colonoscopy as inpatient, will discuss with him Sreekanth Alegria, 07/05/2024 11:43:05 AM Number of Addenda: [address]; [place] [address] Sreekanth Alegria MD GI PROCEDURE ORDERABLES Final Re sult * F-ACTIN IGG (07/05/2024 10:32 AM CDT) SMOOTH MUSCLE AB (ACTIN) IGG <20 <20 U 07/14/2024 5:28 AM CDT [facility] Comment: Reference Range: <20 U: Negative >or=20 U: Positive Antibodies recognizing actin are the main component of smooth muscle antibodies associated with auto- immune liver disease. Actin antibodies are found in approximately 75% of patients with autoimmune hepatitis (AIH) type 1, approximately 65% of patients with autoimmune cholangitis, approximately 30% of patients with primary biliary cirrhosis and approximately 2% of healthy controls. High values are closely correlated with AIH type 1. Blood Venipuncture / Unknown 07/05/2024 10:32 AM CDT 07/05/2024 10:42 AM CDT Narrative [facility] - 07/14/2024 5:28 AM CDT Performing Organization Information: Site ID: [id number] Name: [facility] Address: [address] [place] [address] [place], [place] Director: Alpesh Dalton M.D.,PhD Performing Organization Information: Site ID: [id number] Name: [facility] Address: [address] [place] [address] [place], [place] Director: Alpesh Dalton M.D.,PhD Estela Salazar PA-C CHEMISTRY ORDERABLES E dited Result - Final [facility] [phone] * ACUTE HEPATITIS PANEL (07/05/2024 10:32 AM CDT) Pathologist [facility] HEPATITIS B SURFACE AG NON-REACT ROSEANN Non-react roseann 07/05/2024 11:33 AM CDT [facility] Comment:A non-reactive test result does not exclude the possibility of exposure to or infection with hepatitis B. HEPATITIS B CORE IGM NON-REACT ROSEANN Non-react roseann 07/05/2024 11:33 AM CDT [facility] Comment:IgM antibodies to HB c were not detected; does not exclude the possibility of exposure to HBV. HEPATITIS A IGM Non-react roseann Non-react roseann 07/05/2024 11:33 AM CDT [facility] Comment:A negative test resu lt does not exclude the possibility of exposure to Hepatitis A virus. HEPATITIS C AB NON-REACT ROSEANN Non-react roseann 07/05/2024 11:33 AM CDT [facility] Comment:Antibodies to HCV we re not detected, does not exclude the possibility of exposure to HCV. Blood Venipuncture / Unknown 07/05/2024 10:32 AM CDT 07/05/2024 10:42 AM CDT Estela Salazar PA-C CHEMISTRY ORDERABLES F inal Result [facility]# [id number] [address] [facility] [place] [address] * MITOCHONDRIAL ANTIBODY (07/05/2024 10:32 AM CDT) MITOCHONDRIAL AB <20.0 U 07/11/19 9:43 PM CDT [facility] Comment: Reference Range: NEGATIVE: < OR = 20.0 EQUIVOCAL: 20.1-24.9 POSITIVE: > OR = 25.0 Blood Venipuncture / Unknown 07/05/2024 10:32 AM CDT 07/05/2024 10:42 AM CDT Narrative [facility] - 07/10/2024 9:43 PM CDT Performing Organization Information: Site ID: [id number] Name: [facility], Address: [address] [place] [address] Director: Rosi Perez MD,PhD,KENNEY Estela Salazar PA-C CHEMISTRY ORDERABLES F inal Result Performing Organization Address [facility]/ZIP Co de Phone Number [facility] [phone] * TRANSGLUTAMINASE AB IGG/IGA (07/05/2024 10:32 AM CDT) TRANSGLUTAMINASE IGG AB <1.0 U/mL 07/10/2024 9:43 PM CDT [facility] Comment: Value Interpretation ----- <15.0 Antibody not detected > or = 15.0 Antibody detected TRANSGLUTAMINASE IGA AB <1.0 U/mL 07/10/2024 9:43 PM CDT [facility] Comment: Value Interpretation ----- <15.0 Antibody not detected > or = 15.0 Antibody detected Blood Venipuncture / Unknown 07/05/2024 10:32 AM CDT 07/05/2024 10:42 AM CDT Narrative [facility] - 07/10/2024 9:43 PM CDT Performing Organization Information: Site ID: Name: [facility] Address: [address] [place] [id number] Director: Hakeem Anderson Performing Organization Information: Site ID: Name: [facility] Address: [address] [place] [id number] Director: Hakeem Anderson Estela Salazar PA-C CHEMISTRY ORDERABLES E dited Result - Final Performing Organization Address [facility]/ZIP Co de Phone Number [facility] [phone] * (ABNORMAL) CERULOPLASMIN (07/05/2024 10:32 AM CDT) CERULOPLASMIN 37.0(H) 15.0 - 30.0 mg/dL 07/05/2024 11:14 AM CDT [facility] LABORATORY [facility] Blood Venipuncture / Unknown 07/05/2024 10:32 AM CDT 07/05/2024 10:42 AM CDT Estela Salazar PA-C CHEMISTRY ORDERABLES F inal Result [facility] LABORATORY SERVICES [facility] CLIA# [id number] [address] [place] [address] * ALPHA 1 ANTITRYPSIN PHENOTYPE (07/05/2024 10:32 AM CDT) ALPHA 1 ANTITRYPSIN 168 83 - 199 mg/dL 07/14/2024 5:28 AM CDT [facility] ALPHA 1 ANTITRYPSIN PHENOTYPE SEE NOTE 07/14/2024 5:28 AM CDT [facility] Comment: THIS PATIENT'S XSEOY-4-MUNNFHFNMKQ PHENOTYPE IS PI*MS. 90% of normal individuals have the MM phenotype, with normal quantitative AAT levels. Many phenotypic patterns have been described, including deficiency states with F, S, Z, or other alleles. As a general estimation, compared to M allele of 100% of normal R-6-Uhfujvskjbk protein, the S allele produces approximately 60% and the Z allele 20%. For example, an MS phenotype would have about 80% of normal H-2-Hlrznlqckow protein level, a 50% contribution from the M allele and 30% from the S allele. A ZZ phenotype would have about 20% of normal levels, a 10% contribution from each Z gene. The F allele has normal M-3-Qqkwxxvfynl levels, but the kinetics of elastase inhibition is not as efficient as an M allele product; F alleles should be considered functionally mildly deficient. Other variants are identifiable by phenotypic analysis. These include CM, DP, EM, GM, IS, LM, M1M2, M3M3, MP, MT, XX, MY, and M1N. I, P, T and null alleles are considered deleterious. C, D, E, G, L, M1, M2, M3, X and Y alleles are generally considered normal variants. The MZ-Schmitt phenotype is a normal variant; care should be taken to avoid confusion with the deficient MZ phenotype. Blood Venipuncture / Unknown 07/05/2024 10:32 AM CDT 07/05/2024 10:42 AM CDT Narrative [facility] - 07/14/2024 5:28 AM CDT Performing Organization Information: Site ID: EZ Name: [facility], Address: [address] [place] [phone] Director: Rosi Perez MD,PhD,KENNEY Performing Organization Information: Site ID: EZ Name: [facility], Address: [address] [place] [phone] Director: Rosi Perez MD,PhD,KENNEY Estela Salazar PA-C CHEMISTRY ORDERABLES F inal Result [facility] [phone] * ALPHA FETOPROTEIN TUMOR MARKER (07/05/2024 10:32 AM CDT) [facility] ALPHA FETOPROTEIN TUMOR MARKER 2.2 See interpretative comment ng/mL 07/05/2024 1:09 PM CDT [facility] Comment: Reference Value: <= 8.3 ng/mL. Reference values are for non- subjects only. Range is not applicable for newborns. Because the concentration of AFP in any given specimen can vary due to difference in assay methods and reagent specificity, values from different assay methods cannot be used interchangeably. AFP levels, regardless of value, should not be interpreted as absolute evidence of the presence or absence of disease. AFP is not intended for use as a cancer screening test. Performed on [employer]. Blood Venipuncture / Unknown 07/05/2024 10:32 AM CDT 07/05/2024 10:42 AM CDT Estela Sandovalroxanna HALLC CHEMISTRY ORDERABLES F inal Result [facility] CLIA# [id number] [address] [place] [address] * IMMUNOGLOBULINS IGG IGA IGM (07/05/2024 10:32 AM CDT) IGG 780 700 - 1,600 mg/dL 07/05/2024 4:49 PM CDT [facility] LABORATORY [facility] IGA 146 70 - 400 mg/dL 07/05/2024 4:49 PM CDT [facility] LABOR[facility]ORY [facility] IGM 96 40 - 230 mg/dL 07/05/2024 4:49 PM CDT [facility] LABORATORY SERVICES [facility] Comment:Performed by [facility]: [address] [place] [address]. Blood Venipuncture / Unknown 07/05/2024 10:32 AM CDT 07/05/2024 10:42 AM CDT Estela Sandovalroxanna HALLC CHEMISTRY ORDERABLES F inal Result Performing Organization Address City/[facility]/ZIP Co de Phone Number [id number] [address] [place] [address] * LINDA SCREEN W/REFLEX (07/05/2024 10:32 AM CDT) LINDA SCREEN NEGATIVE NEGATIVE 07/14/2024 5:28 AM CDT [facility] Comment: LINDA IFA is a first line screen for detecting the presence of up to approximately 150 autoantibodies in various autoimmune diseases. A negative LINDA IFA result suggests an LINDA-associated autoimmune disease is not present at this time, but is not definitive. If there is high clinical suspicion for Sjogren's syndrome, testing for anti-SS-A/Ro antibody should be considered. Anti-Tesha-1 antibody should be considered for clinically suspected inflammatory myopathies. AC-0: Negative International Consensus on LINDA Patterns (https://doi.org/10.1515/pxan-5914-3923) For additional information, please refer to http://education.[employer]/faq/HMR388 (This link is being provided for informational/ educational purposes only.) Blood Venipuncture / Unknown 07/05/2024 10:32 AM CDT 07/05/2024 10:42 AM CDT Narrative [facility] - 07/14/2024 5:28 AM CDT Performing Organization Information: Site ID: GENNY [facility] Address: [address] [place] [phone] Director: Dejan Vargas MD Performing Organization Information: Site ID: GENNY Name: [facility] Address: [address] [place] [phone] Director: Dejan Vargas MD Estela Salazar PA-C CHEMISTRY ORDERABLES E dited Result - Final [facility] [phone] * TRANSFUSE RED BLOOD CELLS (07/05/2024 6:22 AM CDT) us Jennifer Jade NP BLOOD TRANSFUSION ORDERABLES F inal Result * PREPARE RED BLOOD CELLS (07/05/2024 2:06 AM CDT) Only the most recent of3 resultswithin the time period is included. [facility] COMPONENT TYPE [id number] [facility] COMPONENT IDENTIFICATION [id number] [facility] O [facility] RH POS [facility] CROSSMATCH Compatible [facility] COMPONENT STATUS Returned [facility] COMPONENT EXPIRATION DATE/TIME [id number] [facility] COMPONENT CODING SYSTEM 5100 [facility] VOLUME, BLOOD PRODUCT 350 [facility] 07/05/2024 2:06 AM CDT Jennifer Jade NP LAB TRANSFUSION ORDERABLES Saw karina Result - Final [facility] SoFi [facility] CLIA# [id number] [address] [place] [address] * (ABNORMAL) HEMOGLOBIN AND HEMATOCRIT (07/05/2024 1:17 AM CDT) Only the most recent of2 resultswithin the time period is included. HEMOGLOBIN 6.9(LL) 13.6 - 16.5 g/dL 07/05/2024 2:12 AM CDT [facility] LABORATORY [facility] Comment:Verified by repeat a nalysis. HEMATOCRIT 22.8(L) 40.0 - 48.0 % 07/05/2024 2:12 AM CDT [facility] Blood Venipuncture / Unknown 07/05/2024 1:17 AM CDT 07/05/2024 1:32 AM CDT Jennifer Jade NP HEMATOLOGY ORDERABLES Final Re sult [facility] CLIA# [id number] [address] [place] [address] * (ABNORMAL) RETICULOCYTES (07/05/2024 1:17 AM CDT) RETICULOCYTES 2.3 0.7 - 2.9 % 07/05/2024 6:26 AM CDT [facility] IMMATURE RETIC FRACTION 33.3(H) 3.0 - 18.0 % 07/05/2024 6:26 AM CDT [facility] RETICULOCYTE, ABSOLUTE 0.0800 10e6/uL 07/05/2024 6:26 AM CDT [facility] Blood Venipuncture / Unknown 07/05/2024 1:17 AM CDT 07/05/2024 1:32 AM CDT Matt Rothman MD HEMATOLOGY ORDERABLES Final Res ult [facility] CLIA# [id number] [address] [place] [address] * FERRITIN (07/05/2024 1:17 AM CDT) FERRITIN 33.7 30.0 - 400.0 ng/mL 07/05/2024 3:07 AM CDT [facility] Blood Venipuncture / Unknown 07/05/2024 1:17 AM CDT 07/05/2024 1:32 AM CDT Matt Rothman MD CHEMISTRY ORDERABLES Final Resu lt Performing Organization Address City/[facility]/ZIP Co de Phone Number [facility] So[facility] CLIA# [id number] [address] [place] [address] * XR CHEST PA OR AP 1 VW (07/04/2024 10:37 PM CDT) Anatomical Region Laterality Modality Chest Computed Radiogr aphy 07/04/2024 10:3 7 PM CDT Impressions 07/04/2024 11:07 PM CDT IMPRESSION: Mild pulmonary venous congestion. Mild basilar atelectasis. DICTATION LOCATION: Location 1 - [facility] Narrative 07/04/2024 11:07 PM CDT CHEST, SINGLE VIEW DATE: 07/04/2024 10:37 PM HISTORY: Shortness of Breath SOB. Encounter for blood typing COMPARISON: 07/04/2024 FINDINGS: AP portable upright view of the chest demonstrates evidence of previous median sternotomy and prosthetic cardiac valves. The heart is at the upper limits of normal in size. Mild pulmonary venous congestion is noted. Mild basilar atelectasis is seen. The extreme costophrenic angles are excluded from the image. No pneumothorax is evident. INCIDENTAL FINDINGS: None. Procedure Note Karine Freed MD - 07/04/2024 CHEST, SINGLE VIEW DATE: 07/04/2024 10:37 PM HISTORY: Shortness of Breath SOB. Encounter for blood typing COMPARISON: 07/04/2024 FINDINGS: AP portable upright view of the chest demonstrates evidence of previous median sternotomy and prosthetic cardiac valves. The heart is at the upper limits of normal in size. Mild pulmonary venous congestion is noted. Mild basilar atelectasis is seen. The extreme costophrenic angles are excluded from the image. No pneumothorax is evident. INCIDENTAL FINDINGS: None. IMPRESSION: Mild pulmonary venous congestion. Mild basilar atelectasis. DICTATION LOCATION: Location 1 - [facility] Jennifer Jade NP DIAGNOSTIC IMAGING ORDERABLES Final Result * VERIFICATION BLOOD GROUP (07/04/2024 9:50 PM CDT) Pathologist [facility] ABO GROUP O 07/04/2024 11:29 PM CDT [facility] LABORATORY SERVICES -- [facility] RH (D) TYPE Positive 07/04/2024 11:29 PM CDT [facility] LABORATORY SERVICES -- [facility] Blood Venipuncture / Unknown 07/04/2024 9:50 PM CDT 07/04/2024 10:15 PM CDT Sabrina Armijo MD BLOOD BANK ORDERABLES Final Result [facility] LABORATORY SERVICES -- [facility]# [id number] [address] [place] [address] [place] [address] * INFLUENZA A/B, RSV AND COVID-19 PCR PANEL (07/04/2024 8:24 PM CDT) Pathologist [facility] COVID-19 PCR NOT DETECTED Not Detected 07/05/19 9:34 PM CDT [facility] LABORATORY SERVICES - . [facility] Influenza A by PCR NOT DETECTED Not Detected 07/04/2024 9:34 PM CDT [facility] LABORATORY SERVICES - . [facility] Influenza B by PCR NOT DETECTED Not Detected 07/04/2024 9:34 PM CDT [facility] RSV by PCR NOT DETECTED Not Detected 07/04/2024 9:34 PM CDT [facility] Upper Respiratory ENTIRE NASOPHARYNX / Unknown Collection / Unknown 07/04/2024 8:24 PM CDT 07/04/2024 8:32 PM CDT Narrative [facility] - 07/04/2024 9:34 PM CDT This test has been authorized by the FDA under an Emergency Use Authorization for use by authorized laboratories. This test has been validated in accordance with the FDA's guidance regarding Coronavirus Disease-2019 testing. Optimum specimen types and timing for peak viral levels during infection have not been determined. A negative RT-PCR result does not rule out infection with the 2019-Novel Coronavirus. Jennifer Jade NP MICROBIOLOGY - GENERAL ORDERAB LES Final Result Performing Organization Address [facility] Services Number [facility] [id number] [address] [place] [address] * VITAMIN B12 AND FOLATE (07/04/2024 8:02 PM CDT) VITAMIN B12 433 232 - 1,245 pg/mL 07/04/2024 9:19 PM CDT [facility] Comment:It has been reported that between 5 to 10% of patients with values between 200 and 400 pg/mL may experience neuropsychiatric and hematologic abnormalities due to occult B12 deficiency. Less than 1% of patients with values above 400 pg/mL will have symptoms. FOLATE, SERUM 10.8 >4.5 ng/mL 07/04/2024 9:19 PM CDT [facility] Blood Venipuncture / Unknown 07/04/2024 8:02 PM CDT 07/04/2024 8:30 PM CDT Jennifer Jade NP CHEMISTRY ORDERABLES Final Res ult Performing Organization Address [facility] Co de Phone Number [facility] CLIA# [id number] [address] [place] [address] * (ABNORMAL) IRON, TIBC, AND PERCENT SATURATION (07/04/2024 8:02 PM CDT) Pathologist [facility] IRON 25(L) 59 - 158 ug/dL 07/04/2024 9:05 PM CDT [facility] LABORATORY [facility] TIBC 411 250 - 450 ug/dL 07/04/2024 9:05 PM CDT [facility] LABORATORY [facility] IRON % SATURATION 6(L) 20 - 50 % 07/04/2024 9:05 PM CDT [facility] LABORATORY [facility] TRANSFERRIN 324 200 - 360 mg/dL 07/04/2024 9:05 PM CDT [facility] LABORATORY [facility] Blood Venipuncture / Unknown 07/04/2024 8:02 PM CDT 07/04/2024 8:30 PM CDT Jennifer Jade NP CHEMISTRY ORDERABLES Final Res ult [facility] CLIA# [id number] [address] [place] [address] * ANTIBODY IDENTIFICATION ELUATE (07/04/2024 8:02 PM CDT) [facility] ANTIBODY ID - ELUATE Panagglutinin AB 07/05/2024 2:08 AM CDT [facility] LABORATORY [facility] Blood Venipuncture / Unknown 07/04/2024 8:02 PM CDT 07/04/2024 8:30 PM CDT Jennifer Jade OBSTETRICS NURSE PRACTITIONER BLOOD BANK ORDERABLES Final Re sult [facility] CLIA# [id number] [address] [place] [address] * BLOOD BANK AB IDENT (07/04/2024 8:02 PM CDT) [facility] ANTIBODY #1 Anti-E 07/05/2024 2:08 AM CDT [facility] ANTIBODY #2 Unspecified Antibody 07/05/2024 2:08 AM CDT [facility] Blood Venipuncture / Unknown 07/04/2024 8:02 PM CDT 07/04/2024 8:30 PM CDT Jennifer Jade OBSTETRICS NURSE PRACTITIONER BLOOD BANK ORDERABLES Final Re sult [facility] -- [facility] CLIA# [id number] [address] [place] [address] * DIRECT ANTIGLOBULIN C3 (07/04/2024 8:02 PM CDT) DIRECT ANTIGLOBULIN C3 Negative 07/04/2024 11:45 PM CDT [facility] LABORATORY SERVICES -- .[facility] Blood Venipuncture / Unknown 07/04/2024 8:02 PM CDT 07/04/2024 8:30 PM CDT Jennifer Jade OBSTETRICS NURSE PRACTITIONER BLOOD BANK ORDERABLES Final Re sult Performing Organization Address [facility]/ZIP Co de Phone Number [facility] SoFi SERVICES -- [facility] CLIA# [id number] [address] [place] [address] * DIRECT ANTIGLOBULIN IGG (07/04/2024 8:02 PM CDT) DIRECT ANTIGLOBULIN IGG Positive 07/04/2024 11:35 PM CDT [facility]ATORY SERVICES -- [facility] Blood Venipuncture / Unknown 07/04/2024 8:02 PM CDT 07/04/2024 8:30 PM CDT us Jennifer Jade OBSTETRICS NURSE PRACTITIONER BLOOD BANK ORDERABLES Final Re sult [facility] LABORATORY SERVICES -- [facility] CLIA# [id number] [address] [place] [address] * (ABNORMAL) PTT (07/04/2024 8:02 PM CDT) [facility] PTT 58.7(H) 24.4 - 36.4 seconds 07/04/2024 8:56 PM CDT [facility] LABORATORY [facility] Comment: PTT Therapeutic Range: Heparin Level PTT (seconds) <0.10 units/mL <55.8 0.10 - 0.30 units/mL 55.8 - 74.3 0.30 - 0.70 units/mL* 74.3 - 111.2* 0.70 - 1.00 units/mL 111.2 - 138.9 *corresponds to therapeutic range for unfractionated heparin Blood Venipuncture / Unknown 07/04/2024 8:02 PM CDT 07/04/2024 8:30 PM CDT Jennifer Jade OBSTETRICS NURSE PRACTITIONER HEMATOLOGY ORDERABLES Final Re sult [facility] So[facility] CLIA# [id number] [address] [place] [address] * (ABNORMAL) CBC WITHOUT DIFFERENTIAL (07/04/2024 8:02 PM CDT) [facility] WBC 7.2 4.0 - 9.8 K/uL 07/04/2024 8:48 PM CDT [facility] LABORATORY [facility] RBC 3.56(L) 4.50 - 5.40 M/uL 07/04/2024 8:48 PM CDT [facility] LABORATORY [facility] HEMOGLOBIN 7.1(L) 13.6 - 16.5 g/dL 07/04/2024 8:48 PM CDT [facility] LABORATORY [facility] HEMATOCRIT 24.0(L) 40.0 - 48.0 % 07/04/2024 8:48 PM CDT [facility] LABORATORY [facility] MCV 67.4(L) 82.0 - 99.0 fL 07/04/2024 8:48 PM CDT [facility] LABORATORY SERVICES [facility] MCH 19.9(L) 27.2 - 32.6 pg 07/04/2024 8:48 PM CDT [facility] LABORATORY SERVICES [facility] MCHC 29.6(L) 31.5 - 35.5 g/dL 07/04/2024 8:48 PM CDT [facility] LABORATORY [facility] PLATELETS 233 140 - 350 K/uL 07/04/2024 8:48 PM CDT [facility] LABORATORY [facility] MPV 07/04/2024 8:48 PM CDT [facility] LABORATORY SERVICES [facility] Comment:Parameter not availa ble RDW 24.9(H) 11.5 - 14.5 % 07/04/2024 8:48 PM CDT [facility] LABORATORY [facility] RDW-STDEV 58.4(H) 37.1 - 48.7 fL 07/04/2024 8:48 PM CDT [facility] LABORATORY SERVICES - [facility] Blood Venipuncture / Unknown 07/04/2024 8:02 PM CDT 07/04/2024 8:30 PM CDT Jennifer Jade NP HEMATOLOGY ORDERABLES Final Re sult [facility]# [id number] [address] [facility] [address] * TYPE AND SCREEN (07/04/2024 8:02 PM CDT) ABO GROUP O 07/04/2024 9:47 PM CDT [facility] LABORATORY SERVICES -- [facility] RH (D) TYPE Positive 07/04/2024 9:47 PM CDT [facility] LABORATORY SERVICES -- [facility] ANTIBODY SCREEN Positive 07/04/2024 9:47 PM CDT [facility] LABORATORY SERVICES -- [facility] Blood Venipuncture / Unknown 07/04/2024 8:02 PM CDT 07/04/2024 8:30 PM CDT Jennifer Jade OBSTETRICS NURSE PRACTITIONER BLOOD BANK ORDERABLES Edited R esult - Final [facility] LABORATORY SERVICES -- [facility] CLIA# [id number] [address] [place] [address] * DIRECT ANTIGLOBULIN TEST W/REFLEX (07/04/2024 8:02 PM CDT) DIRECT ANTIGLOBULIN POLY Positive 07/04/2024 11:34 PM CDT [facility] LABORATORY SERVICES -- [facility] Blood Venipuncture / Unknown 07/04/2024 8:02 PM CDT 07/04/2024 8:30 PM CDT Jennifer Jade OBSTETRICS NURSE PRACTITIONER BLOOD BANK ORDERABLES Final Re sult Performing Organization Address [facility]/ZIP Co de Phone Number [facility] LABORATORY SERVICES -- [facility] CLIA# [id number] [address] [place] [address] * (ABNORMAL) COMPREHENSIVE METABOLIC PANEL (07/04/2024 8:02 PM CDT) Pathologist [facility] SODIUM 131(L) 136 - 145 mmol/L 07/04/2024 9:05 PM T [facility] LABORATORY SERVICES - [facility] POTASSIUM 4.3 3.5 - 5.0 mmol/L 07/04/2024 9:05 PM T [facility] LABORATORY SERVICES - [facility] CHLORIDE 100 98 - 107 mmol/L 07/04/2024 9:05 PM T [facility] - [facility] [place] CO2 19(L) 22 - 29 mmol/L 07/04/2024 9:05 PM T [facility] - . [facility] CALCIUM 8.8 8.6 - 10.2 mg/dL 07/04/2024 9:05 PM T [facility] LABORATORY SERVICES - [place] BUN 21(H) 6 - 20 mg/dL 07/04/2024 9:05 PM T [facility] LABORATORY SERVICES - . [facility] CREATININE 1.01 0.67 - 1.17 mg/dL 07/04/2024 9:05 PM T [facility] LABORATORY SERVICES - [place] GLUCOSE 117(H) 74 - 99 mg/dL 07/04/2024 9:05 PM [facility] TOTAL PROTEIN 6.7 6.7 - 8.6 g/dL 07/04/2024 9:05 PM [facility] ALBUMIN 4.0 3.5 - 5.2 g/dL 07/04/2024 9:05 PM [facility] BILIRUBIN TOTAL 0.5 0.3 - 1.2 mg/dL 07/04/2024 9:05 PM [facility] ALKALINE PHOSPHATASE 114 40 - 129 U/L 07/04/2024 9:05 PM [facility] AST 19 <41 U/L 07/04/2024 9:05 PM [facility] ALT 11 <42 U/L 07/04/2024 9:05 PM [facility] GFR >60 >=60 mL/min/1.7 3 sq meter 07/04/2024 9:05 PM [facility] Comment:eGFR calculated with 2020 CKD-EPI equation. Vegetarian diet, extremely high or low muscle mass, and may affect results. Cystatin C with Glomerular Filtration Rate is a suitable alternative for these patients. ANION GAP 12 8 - 16 mmol/L 07/04/2024 9:05 PM [facility] Blood Venipuncture / Unknown 07/04/2024 8:02 PM CDT 07/04/2024 8:30 PM CDT Narrative [facility] - 07/04/2024 9:05 PM [facility] Samples containing indocyanine green cause interferences on Total and/or Direct Bilirubin and must not be measured. us Jennifer Jade NP CHEMISTRY ORDERABLES Final Res ult [facility]# [id number] [address] [place] [address] from Last 3 Months Insurance [employer] PPO MCR Advance Directives For more information, please contact: [phone] * NO CPR (In Event of Cardiopulmonary Arrest) (Latest Code Status on File) Date Activated Date Inactivated Comments 07/04/2024 8:34 PM 07/06/2024 5:20 PM Question Answer Comments Mechanical Ventilation (for respiratory distress) - Invasive (i.e. intubation): No Mechanical Ventilation (for respiratory distress) - Non-Invasive (i.e. BiPAP, CPAP): Yes
--- OUTSIDE RECORDS SUMMARY | 2024-07-17 08:29 | XMS_ITS | Encounter Summary ---
Author Organization [facility] Address [address] [place] [address] Care Team Providers Care Saddle Maker Name Role Phone Randolph Moore MD Primary Care Provider [phone] Roberta Nicole MD Unavailable Encounter Details Date Type Department Care Team (Late st Contact Info) Description 07/19/2023 Hospital Follow-up Call [facility] [address] [place] [address] Dee Dee Shelton RN Social History Tobacco Use Types Packs/Day Years Used Date Smoking Tobacco: Former Cigarettes Q uit: 05/22/2006 Smokeless Tobacco: Never Alcohol Use Standard Drinks/Week Comments Not Currently 0 (1 standard drink = 0.6 oz pur e alcohol) 8 years since last drank [facility] [employer] Answer Date Recorded In the past 12 months has e electric, gas, oil, or water Milo threatened to shut off services in your [...] Sex Assigned at Male 05/27/2019 3:12 PM CORPORATE TAX MANAGER Legal Sex Male 5:49 PM CORPORATE TAX MANAGER Gender Identity Male 05/27/2019 3:12 PM CORPORATE TAX MANAGER Sexual Orientation Straight 05/27/2019 3: 12 PM CORPORATE TAX MANAGER documented as of this encounter Functional Status [...] PM CDT [facility]oint[address] [facility] [place] [address] Roberta Nicole MD [address] [place] [id number] 09/22/2024 11:00 AM CDT Office Visit [facility] [place] [phone] Roberta Nicole MD [address] [place] [id number] 03/26/2025 1:30 PM CORPORATE TAX MANAGER [facility]ointment [facility] [place] [place] [address] Roberta Nicole MD [address] [place] [phone] 04/02/2025 9:00 AM CORPORATE TAX MANAGER Office Visit [facility] [place] [phone] Roberta Nicole MD [address] [place] [id number] documented as of this encounter Visit Diagnoses Not on filedocumented in this encounter Care Teams Saddle Maker Relationship Specialty Start Date End Date Randolph Moore MD [address] [facility] [place] [id number] PCP - General FAMILY PRACTICE 11/07/18 Roberta Nicole MD [address] [place] [address] Consulting Physician CARDIOVASCULAR DISEASE 07/15/23 documented as of this encounter
[2024-07-17 08:42] LABS: INR 2.2
[2024-07-17 09:08] LABS: Red Blood Count 4.26 M/mm3 (4.70-6.10)
[2024-07-17 09:22] LABS: Ferritin 20 ng/mL (26-388); Iron 16 ug/dL (65-175); Percent Iron Saturation 4 % (12-57)
== END 2024-07-17 08:14 | disposition home or self-care (01) ==
LOC: CHSLAB 08:18
PROVIDERS: PCP Family Medicine
DX: D64.9 Anemia, unspecified (principal); E61.1 Iron deficiency; Z79.01 Long term (current) use of anticoagulants
CPT/HCPCS: 36415; 82728; 83540; 83550; 85025; 85610

== ENCOUNTER 2024-09-05 08:43 | Outpatient (RCR) | payer MEDICARE, SELFPAY ==
[2024-06-21 09:26] LABS: INR 3.5
[2024-07-04 09:21] LABS: INR 2.9; Prothrombin Time 28.7 Seconds (9.50-12.1)
[2024-07-10 09:29] LABS: INR 1.5; Prothrombin Time 15.5 Seconds (9.50-12.1)
[2024-07-24 10:13] LABS: INR 2.9; Prothrombin Time 29.2 Seconds (9.50-12.1)
[2024-08-08 10:09] LABS: INR 3.1; Prothrombin Time 30.8 Seconds (9.50-12.1)
[2024-09-05 09:06] LABS: INR 3.2
== END 2024-09-19 23:59 | disposition home or self-care (01) ==
LOC: CHSLAB 08:43
PROVIDERS: PCP Family Medicine; Visit Provider Family Medicine
DX: Z51.81 Encounter for therapeutic drug level monitoring (principal); Z79.01 Long term (current) use of anticoagulants
CPT/HCPCS: 36415; 85610

== ENCOUNTER 2024-12-05 | Emergency (ER) | payer MEDICARE, SELFPAY ==
[2024-12-05] VITALS (17 sets, daily range): BP systolic 105–139; BP diastolic 63–88; PULSE 56–64; RESP 16–18; TEMP 35.9–36; O2SAT 92–98
--- NOTE | ~2024-12-05 | CT_ITS ---
EXAMINATION: CT abdomen pelvis w con DATE: 12/05/2024 01:46 INDICATION: Right lower quadrant pain for 3 weeks TECHNIQUE: Computed tomography (CT) of the abdomen and pelvis was performed with 100 cc Omnipaque 350 intravenous contrast. The dose-length product was 913.02 mGy-cm. Automated exposure control and iterative reconstruction technique were employed. COMPARISON: CT dated 12/25/2018. FINDINGS: Lung bases unremarkable. There is a hypovascular lesion measuring up to 3.1 cm and the left hepatic lobe. No significant pleural or pericardial effusion. Irregular liver surface, suspicious for cirrhosis. Mild splenomegaly. There is a questionable pancreatic tail mass. Normal appendix. There is cortical scarring of the kidneys. There are air-fluid levels throughout the small bowel and colon. Normal appendix. Mild atherosclerosis of the aorta without aneurysm. IMPRESSION: 1. Questionable pancreatic tail mass. Recommend correlation with MRI abdomen without and with contrast. Hypovascular lesion left hepatic lobe, suspicious for metastatic disease. This would also be better evaluated with MRI. 2: Probable cirrhosis of the liver with mild splenomegaly. 3: Air-fluid levels throughout the colon, nonspecific. Consider ileus. Dr. Michael Mora discussed with Dr. Julia MD at 12/05/2024 8:09 CDT. Reviewed, dictated and finalized at location O. IMPRESSION: 1. Questionable pancreatic tail mass. Recommend correlation with MRI abdomen wi thout and with contrast. Hypovascular lesion left hepatic lobe, suspicious for metastatic disease. This would also be better evaluated with MRI. 2: Probable cirrhosis of the liver with mild splenomegaly. 3: Air-fluid levels throughout the colon, nonspecific. Consider ileus. Dr. Michael Mora discussed with Dr. Julia MD at 12/05/2024 8:09 CDT.
[2024-12-05] MEDS: MORPHINE SULFATE (*CRX) 4 MG/ML INJ IV PUSH (00:51)
[2024-12-05] MEDS: ONDANSETRON INJ 4 MG/2 ML VIAL IV PUSH (00:51)
[2024-12-05 01:22] LABS: Hematocrit 46.9 % (40.0-54.0); Hemoglobin 15.6 g/dL (14.0-18.0); Immature Granulocyte Percent A 0.7 % (0.0-0.0); Immature Platelet Fraction Pct 3.0 % (1.0-7.0); Lymphocytes Absolute Auto 1.77 K/mm3 (1.10-4.50); Mean Corpuscular HGB Conc 33.3 g/dL (32-36); Mean Corpuscular Hemoglobin 26.4 pg (27.0-31.0); Mean Corpuscular Volume 79.4 fL (78.0-102.0); Nucleated Red Blood Cells Absolute Auto 0.00 K/mm3 (0.00-0.00); Nucleated Red Blood Cells Perc 0.0 % (0-0.0); Platelet Count Result 229 K/mm3 (150-420); Red Blood Count 5.91 M/mm3 (4.70-6.10); White Blood Count 7.5 K/mm3 (4.8-10.8)
[2024-12-05 01:31] LABS: Alanine Aminotransferase 22 U/L (6-50); Albumin Level 4.9 g/dL (3.5-5.1); Alkaline Phosphatase 142 U/L (38-126); Anion Gap 11 mmol/L (4-12); Aspartate Amino Transferase 23 U/L (17-59); Bilirubin,Total 0.9 mg/dL (0.2-1.3); Blood Urea Nitrogen 14 mg/dL (9-20); Calcium 9.7 mg/dL (8.4-10.2); Carbon Dioxide 28 mmol/L (22-30); Chloride 99 mmol/L (98-107); Estimated CRCL calculation 91 ml/min; Estimated Glomerular Filt Rate > 60; Glucose 280 mg/dL (65-110); Osmolality Calculated 296 mOsm/kg (285-295); Potassium 4.2 mmol/L (3.4-5.0); Sodium 138 mmol/L (137-145); Total Protein 7.5 g/dL (6.3-8.2)
[2024-12-05 01:34] LABS: INR 1.5; Prothrombin Time 15.8 Seconds (9.50-12.1)
--- NOTE | 2024-12-05 01:35 | PC.NURSE ---
pt to CT scan via wheelchair per graduate recruiter.
--- NOTE | 2024-12-05 01:49 | PC.NURSE ---
pt returned from imaging and update provided. pt given another warm blanket and VSS. call light within reach. RN monitoring.
--- NOTE | 2024-12-05 02:12 | PC.NURSE ---
pt resting on stretcher in ED 2, RN monitoring. call light within reach.
--- NOTE | 2024-12-05 03:24 | ED.ABDPAIN ---
HPI - Abdominal Pain General Chief Complaint: Abdominal Pain Stated Complaint: abd pain Time Seen by Provider: 12/05/24 00:31 Source: patient Mode of arrival: ambulatory Limitations: no limitations History of Present Illness HPI narrative: 34-year-old with a history of hypertension hyperlipidemia presents to the ER with a complaint right lower abdominal pain which has been ongoing for past few weeks. He denies any trauma however patient states that tonight the pain was quite intense. No history of nausea or vomiting. and denies urinary symptoms. MD elicited complaint: abdominal pain Pertinent past history: none Onset (ago): week(s) (3) Pain Consistency: intermittent Location: RLQ Severity: moderate Quality: aching Radiation: none Migration to: no migration Exacerbating factors: nothing Relieving factors: nothing Associated symptoms: denies other symptoms Related Data Home Medications ?Medication ?Instructions ?Recorded ?Confirmed ?Last Taken ?Type atorvastatin 80 mg tablet 80 mg PO DAILY 08/27/23 08/27/23 Unknown History ferrous sulfate 325 mg (65 mg 1 mg PO DAILY 08/27/23 08/27/23 Unknown History iron) tablet furosemide 40 mg tablet 40 mg PO DAILY 08/27/23 08/27/23 Unknown History metoprolol succinate 25 mg 25 mg PO DAILY 08/27/23 08/27/23 Unknown History tablet,extended release 24 hr omeprazole 40 mg capsule,delayed 40 mg PO DAILY 08/27/23 08/27/23 Unknown History release potassium chloride 20 mEq 20 meq PO DAILY 08/27/23 08/27/23 Unknown History tablet,extended release(part/cryst) (Klor-Con M) spironolactone 25 mg tablet 12.5 mg PO DAILY 08/27/23 08/27/23 Unknown History warfarin 5 mg tablet 5 mg PO DAILY 08/27/23 08/27/23 Unknown History Allergies Allergy/AdvReac Type Severity Reaction Status Date / Time No Known Allergies Allergy Verified 12/05/24 00:17 Review of Systems Review of Systems: All systems reviewed & are unremarkable except as noted in HPI and below Constitutional: Constitutional: Reports no additional constitutional complaints Eyes: Eyes: Reports no additional eye complaints Cardiovascular: Cardiovascular: Reports no additional cardiovascular complaints Respiratory: Respiratory: Reports no additional respiratory complaints Gastrointestinal: Gastrointestinal: Reports as per HPI Musculoskeletal: Musculoskeletal: Reports no additional musculoskeletal complaints Integumentary/Breasts: Skin/Breast: Reports system reviewed and no additional complaints, except as docu Neurologic: Reports system reviewed and no additional complaints, except as documented Psychiatric: Psychiatric: Reports no additional psychiatric complaints Endocrine: Endocrine: Reports no additional endocrine complaints PMFSH Past Medical History Medical History Atrial fibrillation Coronary artery disease Surgical History Surgical History Hx of CABG Family History Family History Mother Family history of liver disease Father Family history of Alzheimer's disease Other Diabetes mellitus Social History Social History Social History: ex-smoker Smoking status: Never smoker Alcohol intake: never Exam Narrative: GENERAL: Well-appearing, well-nourished, and in no acute distress. HEAD: Normocephalic, atraumatic. EYES: PERRLA and EOMI. ENT: Nares clear, no rhinorrhea or epistaxis. Mucous membranes moist. NECK: Supple. CHEST: Clear to auscultation. No respiratory distress. HEART: Regular rate and rhythm. No murmur heard. Normal peripheral pulses. ABDOMEN: Soft, mild tenderness in the RLQ nondistended, normal active bowel sounds. EXTREMITIES: Normal range of motion. No edema. SKIN: Warm, dry, no rash. NEURO: No focal deficits. Alert and oriented x3. PSYCH: Normal mood and affect. Course Course Emergency Course: Moved patient was complaining of right lower quadrant pain I would fluids, IV morphine and Zofran was given for pain controlled lab work was obtained showed elevated glucose of 280, patient states that he is not diabetic did see his primary this morning. Was not quite sure why they had any recent blood work. Advised him to follow with his primary doctor for evaluation. He was told that he has fatty liver but small cirrhosis recommended him to follow up with GI or primary for further management. Vital Signs Vital signs: Vital Signs Temperature 36.0 C L 12/05/24 00:08 Pulse Rate 58 L 12/05/24 00:08 Respiratory Rate 18 12/05/24 00:08 Blood Pressure 139/88 12/05/24 00:08 Pulse Oximetry 98 12/05/24 00:08 Oxygen Delivery Room Air 12/05/24 00:08 Temperature 35.9 C L 12/05/24 01:48 Pulse Rate 58 L 12/05/24 03:01 Respiratory Rate 16 12/05/24 03:01 Blood Pressure 118/73 12/05/24 03:01 Pulse Oximetry 96 12/05/24 03:01 Oxygen Delivery Room Air 12/05/24 03:01 MDM - Abdominal Pain MDM Narrative Medical decision making narrative: 54-year-old with a history of hypertension, hyperlipidemia here with complaints of right lower abdominal pain which is on and off for past 3 weeks. Tender on examination. Will do a CT of the abdomen and pelvis along with lab work control his pain with IV morphine. Differential Diagnosis Differential diagnosis: Likely abdominal pain, acute appendicitis, calculus of kidney, constipation, diverticulitis and small bowel obstruction Medical Records Attestation: I reviewed the patient's medical records. Lab Data Attestation: I reviewed the patient's lab results. 12/05/24 00:47 12/05/24 00:47 Labs: Lab Results 12/05/24 12/05/24 Range/Units 00:47 03:29 WBC 7.5 (4.8-10.8) K/mm3 RBC 5.91 (4.70-6.10) M/mm3 Hgb 15.6 (14.0-18.0) g/dL Hct 46.9 (40.0-54.0) % MCV 79.4 (78.0-102.0) fL MCH 26.4 L (27.0-31.0) pg MCHC 33.3 (32-36) g/dL RDW 23.8 H (11.6-14.4) % Plt Count 229 (150-420) K/mm3 MPV 9.4 (8.7-11.0) fl Immature Gran % (Auto) 0.7 H (0.0-0.0) % Neut % (Auto) 66.2 (50.0-70.0) % Lymph % (Auto) 23.6 (18.0-42.0) % [place] % (Auto) 7.2 (2.0-11.0) % Eos % (Auto) 1.9 (1.0-6.0) % Baso % (Auto) 0.4 (0.0-1.0) % Lymph # (Auto) 1.77 (1.10-4.50) K/mm3 [place] # (Auto) 0.54 (0.10-0.90) K/mm3 Eos # (Auto) 0.14 (0.02-0.50) K/mm3 Baso # (Auto) 0.03 (0.00-0.10) K/mm3 Abs Immat Gran (auto) 0.05 H (0.00-0.00) K/mm3 Absolute Neuts (auto) 4.97 (1.70-7.20) K/mm3 Absolute Nucleated RBC 0.00 (0.00-0.00) K/mm3 Nucleated RBC % 0.0 (0-0.0) % % Immature Plt Fraction 3.0 (1.0-7.0) % PT 15.8 H (9.50-12.1) Seconds INR 1.5 Sodium 138 (137-145) mmol/L Potassium 4.2 (3.4-5.0) mmol/L Chloride 99 (98-107) mmol/L Carbon Dioxide 28 (22-30) mmol/L Anion Gap 11 (4-12) mmol/L BUN 14 D (9-20) mg/dL Creatinine 0.82 (0.7-1.3) mg/dL Estim Creat Clear Calc 91 ml/min Estimated GFR > 60 (59 - ) Glucose 280 H (65-110) mg/dL Calculated Osmolality 296 H (285-295) mOsm/kg Lactic Acid 1.2 (0.4-2.0) mmol/L Calcium 9.7 (8.4-10.2) mg/dL Total Bilirubin 0.9 (0.2-1.3) mg/dL AST 23 (17-59) U/L ALT 22 (6-50) U/L Alkaline Phosphatase 142 H (38-126) U/L Total Protein 7.5 (6.3-8.2) g/dL Albumin 4.9 (3.5-5.1) g/dL Urine Color Light yellow (Yellow) Urine Appearance Clear (Clear) Urine pH 5.5 (5.0-8.0) Ur Specific [place] 1.010 (1.010-1.020) Urine Protein Trace H (Negative) Urine Glucose (UA) 3+ H (Negative) Urine Ketones Negative (Negative) Ur Blood (Man) Trace-intact H (Negative) Urine Nitrate Negative (Negative) Urine Bilirubin Negative (Negative) Urine Urobilinogen 0.2 (0.2-1.0) mg/dL Leukocyte Esterase Rfl Negative (Negative) JESSICA/UL Urine RBC 0-2 (0-2) /hpf Urine WBC 0-3 (0-3) /hpf Ur Squamous Epith Cells None seen (Few) /hpf Urine Bacteria None seen (None) /hpf Imaging Data Radiologist's impression: CT abdomen and pelvis with contrast Impression contour of the liver is concerning for cirrhosis. The spleen is enlarged in the portal vein is dilated measuring 1.8 cm from. This raises the concern of portal hypertension. There is subtle suspected 1.9 cm lesion of the hepatic segment 4A seen in axial series 61. Recommended further evaluation with hepatic MRI on a nonemergent basis. His cortical scarring of the inferior poles of both kidneys right greater than left. No significant hydronephrosis. The remaining solid organs are within normal limit. No bowel obstruction. Diverticulosis. Normal appendix. No fracture Discharge Plan Discharge Clinical Impression: Abdominal pain, right lower quadrant Patient Disposition: Home Condition: Stable Instructions: Abdominal Pain (ED) Additional Instructions: Continue home medications, follow with your doctor Patient Language: Frisian Prescriptions: New dicyclomine 20 mg tablet 20 mg PO TID Qty: 30 0RF No Action furosemide 40 mg tablet 40 mg PO DAILY atorvastatin 80 mg tablet 80 mg PO DAILY omeprazole 40 mg capsule,delayed release(DR/EC) 40 mg PO DAILY spironolactone 25 mg tablet 12.5 mg PO DAILY potassium chloride [Klor-Con M20] 20 mEq tablet,ER particles/crystals 20 meq PO DAILY ferrous sulfate 325 mg (65 mg iron) tablet 1 mg PO DAILY warfarin 5 mg tablet 5 mg PO DAILY metoprolol succinate 25 mg tablet extended release 24 hr 25 mg PO DAILY calcitriol 0.25 mcg capsule 0.25 mcg PO 3XW Qty: 3 0RF Rx Instructions: administer after dialysis on dialysis days Follow-up/Referrals: Randolph Moore M.D. [Primary Care Provider, [facility]] Time of Disposition: 03:46
--- NOTE | 2024-12-05 03:31 | PC.NURSE ---
urine sent to lab. pt update provided by ERP Dr. Pablo, including results of labs and imaging and plan of care.
[2024-12-05 03:33] LABS: Add Urine Microscopic? YES; Appearance Urine Clear (Clear); Glucose Urine UA 3+ (Negative); Leukocyte Esterase Ur Negative LEU/UL (Negative); Nitrate Urine Negative (Negative); Specific Grav Ur 1.010 (1.010-1.020)
== END 2024-12-05 04:00 | disposition home or self-care (01) ==
LOC: CHSED 03:50
PROVIDERS: Emergency Provider Family Medicine; PCP Family Medicine
DX: R10.31 Right lower quadrant pain (principal); I10 Essential (primary) hypertension; E78.5 Hyperlipidemia, unspecified; I25.10 Atherosclerotic heart disease of native coronary artery without angina pectoris; I48.91 Unspecified atrial fibrillation
CPT/HCPCS: 36415; 74177; 80053; 81001; 83605; 85025; 85055; 85610; 96374; 96375; 99284; J2270; J2405; Q9967

== ENCOUNTER 2024-12-14 08:03 | Outpatient (RCR) | payer MEDICARE, SELFPAY ==
[2024-10-03 13:33] LABS: INR 3.2; Prothrombin Time 31.3 Seconds (9.50-12.1)
[2024-12-14 08:42] LABS: INR 2.9; Prothrombin Time 28.6 Seconds (9.50-12.1)
== END 2025-01-01 23:59 | disposition home or self-care (01) ==
LOC: CHSLAB 08:03
PROVIDERS: PCP Family Medicine; Visit Provider Family Medicine
DX: Z51.81 Encounter for therapeutic drug level monitoring (principal); Z79.01 Long term (current) use of anticoagulants
CPT/HCPCS: 36415; 85610